=== PATIENT | female | born 1955 | race Caucasian/White ===

== ENCOUNTER 2016-11-16 23:46 | Emergency (ER) | payer MEDICARE, OTHER ==
[2016-11-16] MEDS ORDERED: ONDANSETRON 4 MG/2 ML VIAL IVP STA (23:59)
[2016-11-16] MEDS ORDERED: KETOROLAC 30 MG/ML 1 ML VIAL IVP STA (23:59)
[2016-11-17] MEDS ORDERED: ALBUTEROL NEBULIZED 7.5 MG, IPRATROPIUM NEBULIZED 0.5 MG, SODIUM CHLORIDE 0.9% NEBULIZ ... INHALATION ONE ×3
[2016-11-17] MEDS ORDERED: methylPREDNISolone SOD SUCCI 125 MG/2 ML VIAL IV STA (00:01)
[2016-11-17] MEDS ORDERED: SODIUM CHLORIDE 0.9% 500 ML IV STA (00:01)
[2016-11-17 00:07] VITALS: RESP 20
--- NOTE | 2016-11-17 00:07 | ED ---
SOB HPI - General Stated Complaint: SOB Time Seen by Provider: 11/16/16 23:50 Source: RN notes reviewed - History of Present Illness Initial Comments: 61-year-old female presents emergency department with a chief complaint of cough. Patient states she's had cough and shortness of breath past few days. Patient states that she has felt wheezy. Patient denies any productive to cough. Patient states that the history of bronchitis and pneumonia. Patient states she feels like she has that. Patient states she just feels very weak and rundown. Patient states that she has noticed hot and cold flashes with this as well. Patient states that she was concerned due to her continued symptoms that she thought that she should be evaluated. Patient denies any recent fever, chills, chest pain, back pain, abdominal pain, nausea vomiting, numbness or tingling, dysuria or hematuria, constipation or diarrhea, headaches or visual changes, or any other current symptoms. - Related Data Home Medications Medication Instructions Recorded Confirmed HYDROcodone/APAP 10-325MG [[place] 1 each PO Q4HR PRN 05/20/14 02/03/16 10-325] Lisinopril [Zestril] 5 mg PO DAILY 05/20/14 02/03/16 Omeprazole [PriLOSEC] 20 mg PO AC-BID 05/20/14 02/03/16 Simvastatin [Zocor] 20 mg PO HS 05/20/14 02/03/16 diphenhydrAMINE [Benadryl] 50 mg PO HS PRN 05/20/14 02/03/16 Previous Rx's Medication Instructions Recorded Amoxicillin 500 mg PO Q8H #30 capsule 02/03/16 Albuterol Inhaler [Ventolin Hfa 1 - 2 puff INHALATION Q4-6H PRN #1 11/17/16 Inhaler] inhaler Albuterol Nebulized [Ventolin 2.5 mg INHALATION Q4H #20 nebu 11/17/16 Nebulized] Amoxicillin/Potassium Clav 1 tab PO Q12HR #20 tab 11/17/16 [Augmentin 875-125 Tablet] Azithromycin [Zithromax] 250 mg PO DIRECTED #6 tab 11/17/16 Allergies Allergy/AdvReac Type Severity Reaction Status Date / Time cephalexin monohydrate Allergy Anaphylaxis Verified 02/03/16 11:17 [From Keflex] Cephalosporins Allergy Unknown Verified 02/03/16 11:17 ciprofloxacin HCl Allergy Unknown Verified 02/03/16 11:17 [From Cipro] clindamycin HCl Allergy Unknown Verified 02/03/16 11:17 [From Cleocin] erythromycin base Allergy Unknown Verified 02/03/16 11:17 levofloxacin [From Levaquin] Allergy Unknown Verified 02/03/16 11:17 sulfamethoxazole Allergy Unknown Verified 02/03/16 11:17 [From Bactrim] trimethoprim [From Bactrim] Allergy Unknown Verified 02/03/16 11:17 Review of Systems ROS Statement: Those systems with pertinent positive or pertinent negative responses have been documented in the HPI. ROS Other: All systems not noted in ROS Statement are negative. Past Medical History Past Medical History: Hyperlipidemia, Hypertension Additional Past Medical History / Comment(s): FX BACK 3 YEARS AGO. FX NECK WHEN SHE WAS 14 DIVING INTO A POOL. CERVICAL CA. Mitral valve prolapse, Crohn's History of Any Multi-Drug Resistant Organisms: None Reported Past Surgical History: Hysterectomy, Orthopedic Surgery Additional Past Surgical History / Comment(s): LEFT SHOULDER ARTHROSCOPY - 2009 ; LEFT ANKLE ARTHROSCOPY - 2001; BILATERAL KNEE ARTHROSCOPY - 2000, heart catheterization, sinus surgery, tonsillectomy, colonoscopy Past Anesthesia/Blood Transfusion Reactions: No Reported Reaction Past Psychological History: No Psychological Hx Reported Smoking Status: Former smoker Past Alcohol Use History: None Reported Past Drug Use History: None Reported General Exam - General Exam Comments Initial Comments: General: The patient is awake and alert, in no distress, and does not appear acutely ill. Eye: Pupils are equal, round and reactive to light, extra-ocular movements are intact; there is normal conjunctiva bilaterally. No signs of icterus. Ears, nose, mouth and throat: There are moist mucous membranes. Neck: The neck is supple, there is no tenderness. Cardiovascular: There is a regular rate and rhythm. No murmur, rub or gallop is appreciated. Respiratory: Lungs are clear to auscultation, respirations are non-labored, breath sounds are equal but diminished. Diffuse inspiratory and expiratory wheezes noted, no, stridor, rales, or rhonchi. Gastrointestinal: Soft, non-distended, non-tender abdomen without masses or organomegaly noted. There is no rebound or guarding present. No CVA tenderness. Bowel sounds are unremarkable. Back: There is no tenderness to palpation in the midline. There is no obvious deformity. No rashes noted. Musculoskeletal: Normal ROM, no tenderness, There is no pedal edema. There is no calf tenderness or swelling. Sensation intact. Pulses equal bilaterally 2+. Neurological: CN II-XII intact, There are no obvious motor or sensory deficits. Coordination appears grossly intact. Speech is normal. Skin: Skin is warm and dry and no rashes or lesions are noted. Psychiatric: Cooperative, appropriate mood & affect, normal judgment. Course Vital Signs 11/17/16 11/17/16 11/17/16 00:04 00:39 00:54 Temperature 97.5 F L Pulse Rate 78 69 72 Respiratory 20 Rate Blood Pressure 158/84 O2 Sat by Pulse 96 Oximetry 11/17/16 11/17/16 01:27 01:36 Temperature Pulse Rate 86 104 H Respiratory Rate Blood Pressure O2 Sat by Pulse Oximetry - Reevaluation(s) Reevaluation #1: 11/17/16 01:48 Patient was reassessed after the breathing treatment. Patient's wheezing has resolved she states to get up and walk to the bathroom. Patient states she is feeling much better. Medical Decision Making - Medical Decision Making 61-year-old female presents emergency department chief complaint of shortness of breath. At this time the patient does appear to cerebri bronchitis along with possible asthma exacerbation. She is on steroids already we will add antibiotics we will add a nebulizer breathing treatment as well as an inhaler to the patient's regimen. We discussed return parameters and follow-up. We did discuss other etiologies are discussed all the patient's questions. She states she understood she is in good plan. She'll be discharged home. - Lab Data Result diagrams: 11/16/16 23:48 11/16/16 23:48 Lab Results 11/16/16 11/16/16 11/16/16 Range/Units 23:48 23:48 23:48 WBC 5.9 (3.8-10.6) k/uL RBC 4.20 (3.80-5.40) m/uL Hgb 13.5 (11.4-16.0) gm/dL Hct 40.1 (34.0-46.0) % MCV 95.5 (80.0-100.0) fL MCH 32.0 (25.0-35.0) pg MCHC 33.5 (31.0-37.0) g/dL RDW 12.7 (11.5-15.5) % Plt Count 170 (150-450) k/uL Neutrophils % 70 % Lymphocytes % 15 % Monocytes % 6 % Eosinophils % 4 % Basophils % 1 % Neutrophils # 4.1 (1.3-7.7) k/uL Lymphocytes # 0.9 L (1.0-4.8) k/uL Monocytes # 0.3 (0-1.0) k/uL Eosinophils # 0.2 (0-0.7) k/uL Basophils # 0.1 (0-0.2) k/uL PT (9.0-12.0) sec INR (<1.1) APTT (22.0-30.0) sec Sodium 137 (137-145) mmol/L Potassium 5.1 (3.5-5.1) mmol/L Chloride 102 (98-107) mmol/L Carbon Dioxide 25 (22-30) mmol/L Anion Gap 10 mmol/L BUN 21 H (7-17) mg/dL Creatinine 0.72 (0.52-1.04) mg/dL Est GFR (MDRD) Af Amer >60 (>60 ml/min/1.73 sqM) Est GFR (MDRD) Non-Af >60 (>60 ml/min/1.73 sqM) Glucose 114 H (74-99) mg/dL Calcium 8.9 (8.4-10.2) mg/dL Magnesium 1.7 (1.6-2.3) mg/dL Total Bilirubin 0.6 (0.2-1.3) mg/dL AST 33 (14-36) U/L ALT 39 (9-52) U/L Alkaline Phosphatase 52 (38-126) U/L Total Creatine Kinase 78 (30-135) U/L CK-MB (CK-2) 1.3 (0.0-2.4) ng/mL CK-MB (CK-2) Rel Index 1.7 Troponin I <0.012 (0.000-0.034) ng/mL Total Protein 6.8 (6.3-8.2) g/dL Albumin 3.9 (3.5-5.0) g/dL Amylase 55 (30-110) U/L Lipase 102 (23-300) U/L Influenza Type A RNA (Not Detectd) Influenza Type B (PCR) (Not Detectd) 11/16/16 11/17/16 Range/Units 23:48 00:25 WBC (3.8-10.6) k/uL RBC (3.80-5.40) m/uL Hgb (11.4-16.0) gm/dL Hct (34.0-46.0) % MCV (80.0-100.0) fL MCH (25.0-35.0) pg MCHC (31.0-37.0) g/dL RDW (11.5-15.5) % Plt Count (150-450) k/uL Neutrophils % % Lymphocytes % % Monocytes % % Eosinophils % % Basophils % % Neutrophils # (1.3-7.7) k/uL Lymphocytes # (1.0-4.8) k/uL Monocytes # (0-1.0) k/uL Eosinophils # (0-0.7) k/uL Basophils # (0-0.2) k/uL PT 10.6 (9.0-12.0) sec INR 1.0 (<1.1) APTT 22.7 (22.0-30.0) sec Sodium (137-145) mmol/L Potassium (3.5-5.1) mmol/L Chloride (98-107) mmol/L Carbon Dioxide (22-30) mmol/L Anion Gap mmol/L BUN (7-17) mg/dL Creatinine (0.52-1.04) mg/dL Est GFR (MDRD) Af Amer (>60 ml/min/1.73 sqM) Est GFR (MDRD) Non-Af (>60 ml/min/1.73 sqM) Glucose (74-99) mg/dL Calcium (8.4-10.2) mg/dL Magnesium (1.6-2.3) mg/dL Total Bilirubin (0.2-1.3) mg/dL AST (14-36) U/L ALT (9-52) U/L Alkaline Phosphatase (38-126) U/L Total Creatine Kinase (30-135) U/L CK-MB (CK-2) (0.0-2.4) ng/mL CK-MB (CK-2) Rel Index Troponin I (0.000-0.034) ng/mL Total Protein (6.3-8.2) g/dL Albumin (3.5-5.0) g/dL Amylase (30-110) U/L Lipase (23-300) U/L Influenza Type A RNA Not Detected (Not Detectd) Influenza Type B (PCR) Not Detected (Not Detectd) 11/17/16 01:49 normal sinus rhythm 70 bpm, normal axis, no atopy, no S-T depressions or elevations, - Radiology Data Radiology results: report reviewed, image reviewed Disposition Clinical Impression: Acute bronchitis, Asthma exacerbation Disposition: HOME SELF-CARE Condition: Stable Instructions: Asthma (ED) Additional Instructions: Please use medication as discussed. Please follow up with family doctor if symptoms have not improved over the next two days. Please return to the emergency room if your symptoms increase or worsen or for any other concerns. Prescriptions: Albuterol Inhaler [Ventolin Hfa Inhaler] 1 - 2 puff INHALATION Q4-6H PRN #1 inhaler PRN Reason: Cough Albuterol Nebulized [Ventolin Nebulized] 2.5 mg INHALATION Q4H #20 nebu Amoxicillin/Potassium Clav [Augmentin 875-125 Tablet] 1 tab PO Q12HR #20 tab Azithromycin [Zithromax] 250 mg PO DIRECTED #6 tab Referrals: Ingris Crenshaw MD [Primary Care Provider] - 1-2 days Time of Disposition: 01:49
[2016-11-17 00:18] LABS: Basophils # (A) 0.1 k/uL (0-0.2); Basophils % (A) 1 %; CH 31.8; CHCM 33.5; Eosinophils # (A) 0.2 k/uL (0-0.7); Eosinophils % (A) 4 %; HCT 40.1 % (34.0-46.0); HDW 2.35; HGB 13.5 gm/dL (11.4-16.0); Luc # (Auto) 0.21; Luc % (Auto) 4; Lymphocytes # (A) 0.9 k/uL (1.0-4.8); Lymphocytes % (A) 15 %; MCHC 33.5 g/dL (31.0-37.0); MCV 95.5 fL (80.0-100.0); Monocytes # (A) 0.3 k/uL (0-1.0); Monocytes % (A) 6 %; Neutrophils # (A) 4.1 k/uL (1.3-7.7); Neutrophils % (A) 70 %; RDW 12.7 % (11.5-15.5); WBC 5.9 k/uL (3.8-10.6); WBC (Perox) 5.95
[2016-11-17 00:29] LABS: ALT 39 U/L (9-52); AST 33 U/L (14-36); Alkaline Phosphatase 52 U/L (38-126); Amylase 55 U/L (30-110); Anion Gap 10 mmol/L; Blood Urea Nitrogen 21 mg/dL (7-17); Calcium 8.9 mg/dL (8.4-10.2); Carbon Dioxide 25 mmol/L (22-30); Chloride 102 mmol/L (98-107); Glucose 114 mg/dL (74-99); Magnesium 1.7 mg/dL (1.6-2.3); Non-African American GFR(MDRD) >60 (>60 ml/min/1.73 sqM); Potassium 5.1 mmol/L (3.5-5.1); Sodium 137 mmol/L (137-145); Total Bilirubin 0.6 mg/dL (0.2-1.3); Total Protein 6.8 g/dL (6.3-8.2)
[2016-11-17 00:48] LABS: Creatine Kinase 78 U/L (30-135)
--- NOTE | 2016-11-17 00:52 | XR ---
EXAM: XR Chest, 2 Views. CLINICAL HISTORY: Reason: Chest Pain TECHNIQUE: Frontal and lateral views of the chest. COMPARISON: Thoracic spine radiographs 05/25/2016 FINDINGS: Lungs: Lungs are clear of acute pulmonary infiltrates or consolidations. Pleural space: No evidence of pleural disease or effusion. No pneumothorax. Heart: Heart size and mediastinal structures are within normal limits. Focal opacity in the right cardiophrenic angle remains unchanged since 05/25/2016 and may represent prominent cardiophrenic fat pad or possible pericardial cyst. Mediastinum: Unremarkable. Vasculature: Peripheral calcified ovoid density projects to the left upper quadrant, unchanged and may represent calcified splenic cyst or possible splenic artery aneurysm. IMPRESSION: No evidence of acute cardiopulmonary disease. Stable right cardiophrenic opacity as discussed in body of report. Left upper quadrant Calcified lesion as described in body of report.
[2016-11-17 01:02] LABS: Creatine Kinase MB 1.3 ng/mL (0.0-2.4); Troponin I <0.012 ng/mL (0.000-0.034)
[2016-11-17 01:38] LABS: Partial Thromboplastin Time 22.7 sec (22.0-30.0); Prothrombin Time 10.6 sec (9.0-12.0)
[2016-11-17] MEDS ORDERED: KETOROLAC 30 MG/ML 1 ML VIAL IVP STA (01:53)
[2016-11-17] MEDS ORDERED: AMOXIC-POT CLAV 875MG STARTER 2 EACH TABLET PO STA (02:33)
[2016-11-17 02:50] VITALS: BP 108/65; PULSE 112; TEMP 98.1
== END 2016-11-17 02:50 | disposition home or self-care (01) ==
LOC: EC 23:46
DX: J45.901 Unspecified asthma with (acute) exacerbation (principal); J20.9 Acute bronchitis, unspecified; E78.5 Hyperlipidemia, unspecified; I10 Essential (primary) hypertension; Z79.899 Other long term (current) drug therapy; Z88.1 Allergy status to other antibiotic agents; Z88.2 Allergy status to sulfonamides; Z87.891 Personal history of nicotine dependence
CPT/HCPCS: 36415; 94644; 93005; 80053; 82150; 82550; 82553; 83690; 83735; 84484; 85025; 85610; 85730; 87502; 71020; 99285; 96374; 96375 ×2; 96376; J2930; J2405; J1885

== ENCOUNTER 2017-11-09 08:06 | Emergency (ER) | payer MEDICARE, OTHER ==
[2017-11-09] MEDS ORDERED: SODIUM CHLORIDE 0.9% 500 ML IV STA (08:28)
--- NOTE | 2017-11-09 08:30 | ED ---
General Adult HPI - General Chief complaint: Recheck/Abnormal Lab/Rx Stated complaint: High blood pressure Time Seen by Provider: 11/09/17 08:15 Source: patient, RN notes reviewed Mode of arrival: ambulatory Limitations: no limitations - History of Present Illness Initial comments: Patient 62-year-old female who presents emergency room today with a chief complaint of elevated blood pressure. She states she was at her ENERGY ATTORNEY's office yesterday had her blood pressure checked there and was elevated. She states she was called later and told her blood pressure was up and follow-up the family doctor. She states she did see her family physician yesterday who advised her to increase her lisinopril 5 mg to 10 mg by mouth she states she took a dose yesterday at 4 PM and another dose at 4 AM this morning. Patient states that she checked her blood pressures morning was still elevated. She states she is concerned. She denies any other complaints or symptoms. Patient denies any recent fever, chills, shortness of breath, chest pain, back pain, abdominal pain, nausea or vomiting, headaches or visual changes, or any other complaints. - Related Data Home Medications Medication Instructions Recorded Confirmed HYDROcodone/APAP 10-325MG [[place] 1 tab PO QID PRN 05/20/14 11/09/17 10-325] Lisinopril [Zestril] 5 mg PO DAILY@0100 05/20/14 11/09/17 Omeprazole [PriLOSEC] 20 mg PO AC-BID 05/20/14 11/09/17 Simvastatin [Zocor] 20 mg PO HS 05/20/14 11/09/17 diphenhydrAMINE [Benadryl] 50 mg PO HS PRN 05/20/14 11/09/17 Estradiol Cream [Estrace Cream 1 applic VAGINAL MOTH 11/09/17 11/09/17 0.01%] Lisinopril [Zestril] 5 mg PO ONCE@1600 11/09/17 11/09/17 Allergies Allergy/AdvReac Type Severity Reaction Status Date / Time cephalexin monohydrate Allergy Anaphylaxis Verified 11/09/17 08:35 [From Keflex] Cephalosporins Allergy Unknown Verified 11/09/17 08:35 ciprofloxacin HCl Allergy Unknown Verified 11/09/17 08:35 [From Cipro] clindamycin HCl Allergy Unknown Verified 11/09/17 08:35 [From Cleocin] erythromycin base Allergy Unknown Verified 11/09/17 08:35 levofloxacin [From Levaquin] Allergy Unknown Verified 11/09/17 08:35 sulfamethoxazole Allergy Unknown Verified 11/09/17 08:35 [From Bactrim] trimethoprim [From Bactrim] Allergy Unknown Verified 11/09/17 08:35 Review of Systems ROS Statement: Those systems with pertinent positive or pertinent negative responses have been documented in the HPI. ROS Other: All systems not noted in ROS Statement are negative. Past Medical History Past Medical History: Hyperlipidemia, Hypertension Additional Past Medical History / Comment(s): FX BACK 3 YEARS AGO. FX NECK WHEN SHE WAS 14 DIVING INTO A POOL. CERVICAL CA. Mitral valve prolapse, Crohn's History of Any Multi-Drug Resistant Organisms: None Reported Past Surgical History: Hysterectomy, Orthopedic Surgery Additional Past Surgical History / Comment(s): LEFT SHOULDER ARTHROSCOPY - 2009 ; LEFT ANKLE ARTHROSCOPY - 2001; BILATERAL KNEE ARTHROSCOPY - 2000, heart catheterization, sinus surgery, tonsillectomy, colonoscopy Past Anesthesia/Blood Transfusion Reactions: No Reported Reaction Past Psychological History: No Psychological Hx Reported Smoking Status: Former smoker Past Alcohol Use History: None Reported Past Drug Use History: None Reported General Exam - General Exam Comments Initial Comments: General: The patient is awake and alert, very anxious. Eye: Pupils are equal, round and reactive to light, extra-ocular movements are intact. No nystagmus. There is normal conjunctiva bilaterally. No signs of icterus. Ears, nose, mouth and throat: There are moist mucous membranes and no oral lesions. Neck: The neck is supple, there is no tenderness or JVD. Cardiovascular: There is a regular rate and rhythm. No murmur, rub or gallop is appreciated. Respiratory: Lungs are clear to auscultation, respirations are non-labored, breath sounds are equal. No wheezes, stridor, rales, or rhonchi. Musculoskeletal: Normal ROM, no tenderness. Strength 5/5. Sensation intact. Pulses equal bilaterally 2+. Neurological: A&O x 3. CN II-XII intact, There are no obvious motor or sensory deficits. Coordination appears grossly intact. Speech is normal. Skin: Skin is warm and dry and no rashes or lesions are noted. Psychiatric: Cooperative, appropriate mood & affect, normal judgment. Limitations: no limitations Course Vital Signs 11/09/17 11/09/17 11/09/17 08:08 09:04 09:45 Temperature 98.1 F Pulse Rate 93 83 83 Respiratory 20 20 18 Rate Blood Pressure 166/102 140/92 147/87 O2 Sat by Pulse 98 94 L 95 Oximetry Medical Decision Making - Medical Decision Making Patient reexamined distention no signs of distress. Patient's blood pressure has improved here in the emergency room. Her last dose of lisinopril was at 4 AM. Discussed with the patient may be just starting to work at this time. Patient's blood work is unremarkable. Patient feeling better here in the emergency room she's been a symptom affect but does admit to some anxiety. Patient will be discharged home advised to continue checking blood pressure and use medication as directed from the family doctor. - Lab Data Result diagrams: 11/09/17 09:03 11/09/17 09:03 Lab Results 11/09/17 11/09/17 Range/Units 09:03 09:03 WBC 6.6 (3.8-10.6) k/uL RBC 4.61 (3.80-5.40) m/uL Hgb 14.5 (11.4-16.0) gm/dL Hct 42.4 (34.0-46.0) % MCV 91.9 (80.0-100.0) fL MCH 31.4 (25.0-35.0) pg MCHC 34.2 (31.0-37.0) g/dL RDW 13.0 (11.5-15.5) % Plt Count 269 (150-450) k/uL Neutrophils % 59 % Lymphocytes % 31 % Monocytes % 5 % Eosinophils % 3 % Basophils % 1 % Neutrophils # 3.9 (1.3-7.7) k/uL Lymphocytes # 2.0 (1.0-4.8) k/uL Monocytes # 0.3 (0-1.0) k/uL Eosinophils # 0.2 (0-0.7) k/uL Basophils # 0.1 (0-0.2) k/uL Sodium 141 (137-145) mmol/L Potassium 4.7 (3.5-5.1) mmol/L Chloride 104 (98-107) mmol/L Carbon Dioxide 26 (22-30) mmol/L Anion Gap 11 mmol/L BUN 17 (7-17) mg/dL Creatinine 0.81 (0.52-1.04) mg/dL Est GFR (CKD-EPI)AfAm >90 (>60 ml/min/1.73 sqM) Est GFR (CKD-EPI)NonAf 78 (>60 ml/min/1.73 sqM) Glucose 103 H (74-99) mg/dL Calcium 9.7 (8.4-10.2) mg/dL Total Bilirubin 0.6 (0.2-1.3) mg/dL AST 29 (14-36) U/L ALT 34 (9-52) U/L Alkaline Phosphatase 68 (38-126) U/L Total Protein 7.2 (6.3-8.2) g/dL Albumin 4.5 (3.5-5.0) g/dL Disposition Clinical Impression: Elevated blood pressure reading Disposition: HOME SELF-CARE Condition: Good Instructions: Hypertension (ED) Additional Instructions: Please use medication as discussed. Please follow-up with family doctor in the next 2 days of symptoms have not improved. Please return to emergency room if the symptoms increase or worsen or for any other concerns. Referrals: Ingris Crenshaw MD [Primary Care Provider] - 1-2 days Time of Disposition: 10:32
--- NOTE | 2017-11-09 09:10 | XR ---
EXAMINATION TYPE: XR chest 2V DATE OF EXAM: 11/09/2017 COMPARISON: 11/17/2016 TECHNIQUE: PA and lateral views submitted. HISTORY: Hypertension FINDINGS: The lungs are clear and there is no pneumothorax, pleural effusion, or focal pneumonia. Right cardi ophrenic angle density stable may represent pericardial cyst or pericardial fat pad. Unchanged from . Calcification left upper quadrant could represent a calcified splenic cysts or splenic artery aneurys m and stable. Atherosclerotic change aorta and degenerative change of the spine. Chronic appearing we dge deformities in the lower thoracic spine. IMPRESSION: 1. No acute process. 2. Right cardiophrenic angle density appears to represent a prominent pericardial fat pad or possibly a hernia with partial visualization on the previous CT scan of 05/20/2014 confirming that these 2 pos sibilities are likely the etiology. Compressive atelectasis is also likely chronic.
[2017-11-09 09:19] LABS: Basophils # (A) 0.1 k/uL (0-0.2); Basophils % (A) 1 %; Eosinophils # (A) 0.2 k/uL (0-0.7); Eosinophils % (A) 3 %; HCT 42.4 % (34.0-46.0); HGB 14.5 gm/dL (11.4-16.0); Lymphocytes % (A) 31 %; MCH 31.4 pg (25.0-35.0); MCHC 34.2 g/dL (31.0-37.0); MCV 91.9 fL (80.0-100.0); Monocytes # (A) 0.3 k/uL (0-1.0); Monocytes % (A) 5 %; Neutrophils # (A) 3.9 k/uL (1.3-7.7); Neutrophils % (A) 59 %; Platelet Count 269 k/uL (150-450); RBC 4.61 m/uL (3.80-5.40); WBC 6.6 k/uL (3.8-10.6)
[2017-11-09 09:26] LABS: ALT 34 U/L (9-52); AST 29 U/L (14-36); Albumin 4.5 g/dL (3.5-5.0); Alkaline Phosphatase 68 U/L (38-126); Anion Gap 11 mmol/L; Blood Urea Nitrogen 17 mg/dL (7-17); Calcium 9.7 mg/dL (8.4-10.2); Carbon Dioxide 26 mmol/L (22-30); Chloride 104 mmol/L (98-107); Glucose 103 mg/dL (74-99); Potassium 4.7 mmol/L (3.5-5.1); Sodium 141 mmol/L (137-145); Total Bilirubin 0.6 mg/dL (0.2-1.3); Total Protein 7.2 g/dL (6.3-8.2)
[2017-11-09 09:47] VITALS: RESP 18
[2017-11-09 10:52] VITALS: BP 135/88; PULSE 81; TEMP 97.9
== END 2017-11-09 10:52 | disposition home or self-care (01) ==
LOC: EC 08:06
DX: I10 Essential (primary) hypertension (principal); E78.5 Hyperlipidemia, unspecified; Z87.891 Personal history of nicotine dependence; Z79.899 Other long term (current) drug therapy; Z88.1 Allergy status to other antibiotic agents; Z85.41 Personal history of malignant neoplasm of cervix uteri; Z90.710 Acquired absence of both cervix and uterus; Z95.9 Presence of cardiac and vascular implant and graft, unspecified
CPT/HCPCS: 36415; 71046; 80053; 85025; 96360; 99283

== ENCOUNTER 2017-11-09 20:23 | Observation (INO) | payer MEDICARE, OTHER ==
[2017-11-09 21:25] LABS: Basophils % (A) 1 %; Eosinophils # (A) 0.2 k/uL (0-0.7); Eosinophils % (A) 3 %; HCT 41.1 % (34.0-46.0); HGB 13.8 gm/dL (11.4-16.0); Lymphocytes # (A) 2.5 k/uL (1.0-4.8); Lymphocytes % (A) 35 %; MCH 31.2 pg (25.0-35.0); MCHC 33.6 g/dL (31.0-37.0); MCV 92.7 fL (80.0-100.0); Mean Platelet Volume 7.2; Monocytes # (A) 0.4 k/uL (0-1.0); Monocytes % (A) 6 %; Neutrophils # (A) 3.8 k/uL (1.3-7.7); Neutrophils % (A) 54 %; Platelet Count 267 k/uL (150-450); RBC 4.44 m/uL (3.80-5.40); RDW 12.9 % (11.5-15.5)
[2017-11-09 21:36] LABS: Albumin 4.3 g/dL (3.5-5.0); Calcium 9.8 mg/dL (8.4-10.2); Magnesium 1.8 mg/dL (1.6-2.3); Total Bilirubin 0.4 mg/dL (0.2-1.3); Total Protein 6.9 g/dL (6.3-8.2)
[2017-11-09 21:38] LABS: D-Dimer 0.38 mg/L FEU (<0.60); Partial Thromboplastin Time 22.3 sec (22.0-30.0); Prothrombin Time 9.7 sec (9.0-12.0)
[2017-11-09 21:39] LABS: Creatine Kinase 106 U/L (30-135)
[2017-11-09 21:52] LABS: Creatine Kinase MB 1.4 ng/mL (0.0-2.4); Troponin I <0.012 ng/mL (0.000-0.034)
[2017-11-09] MEDS ORDERED: LABETALOL 5 MG/ML VIAL MDV IVP STA (23:16)
[2017-11-09] MEDS ORDERED: NITROGLYCERIN SL TABS 0.4 MG TAB SUBLINGUAL PRN (23:21)
--- NOTE | 2017-11-09 23:21 | ED ---
Chest Pain HPI - General Chief Complaint: Chest Pain Stated Complaint: High BP-revisit Time Seen by Provider: 11/09/17 22:06 Source: patient Mode of arrival: ambulatory Limitations: no limitations - History of Present Illness Initial Comments: This 62-year-old white female presents with a complaint of high blood pressure. Her blood pressure has been up to the 170 systolic today. This is been making her very nervous. She was seen in the ER earlier today. She is also seen by her flat ironer and her primary care physician. Her lisinopril was increased to twice a day. She states that she later developed some left-sided chest pressure. This is nonradiating. She denies any shortness of breath. She seems somewhat fixated on her blood pressure. She denies any known previous coronary artery disease. She states that she has had a heart catheterization in the past. She is unsure when. This did not show any abnormalities. She has a history of remote stress test as well. She denies any other complaints or modifying factors. Pain or swelling or history DVT or PE. - Related Data Home Medications Medication Instructions Recorded Confirmed HYDROcodone/APAP 10-325MG [[place] 1 tab PO QID PRN 05/20/14 11/09/17 10-325] Lisinopril [Zestril] 5 mg PO DAILY@0100 05/20/14 11/09/17 Omeprazole [PriLOSEC] 20 mg PO AC-BID 05/20/14 11/09/17 Simvastatin [Zocor] 20 mg PO HS 05/20/14 11/09/17 diphenhydrAMINE [Benadryl] 25 mg PO HS PRN 05/20/14 11/09/17 Estradiol Cream [Estrace Cream 1 applic VAGINAL MOTH 11/09/17 11/09/17 0.01%] Lisinopril [Zestril] 5 mg PO ONCE@1600 11/09/17 11/09/17 Allergies Allergy/AdvReac Type Severity Reaction Status Date / Time cephalexin monohydrate Allergy Anaphylaxis Verified 11/09/17 21:31 [From Keflex] Cephalosporins Allergy Unknown Verified 11/09/17 21:31 ciprofloxacin HCl Allergy Unknown Verified 11/09/17 21:31 [From Cipro] clindamycin HCl Allergy Unknown Verified 11/09/17 21:31 [From Cleocin] erythromycin base Allergy Unknown Verified 11/09/17 21:31 levofloxacin [From Levaquin] Allergy Unknown Verified 11/09/17 21:31 sulfamethoxazole Allergy Unknown Verified 11/09/17 21:31 [From Bactrim] trimethoprim [From Bactrim] Allergy Unknown Verified 11/09/17 21:31 Review of Systems ROS Statement: Those systems with pertinent positive or pertinent negative responses have been documented in the HPI. ROS Other: All systems not noted in ROS Statement are negative. Past Medical History Past Medical History: Hyperlipidemia, Hypertension Additional Past Medical History / Comment(s): FX BACK 3 YEARS AGO. FX NECK WHEN SHE WAS 14 DIVING INTO A POOL. CERVICAL CA. Mitral valve prolapse, Crohn's History of Any Multi-Drug Resistant Organisms: None Reported Past Surgical History: Hysterectomy, Orthopedic Surgery Additional Past Surgical History / Comment(s): LEFT SHOULDER ARTHROSCOPY - 2009 ; LEFT ANKLE ARTHROSCOPY - 2001; BILATERAL KNEE ARTHROSCOPY - 2000, heart catheterization, sinus surgery, tonsillectomy, colonoscopy Past Anesthesia/Blood Transfusion Reactions: No Reported Reaction Past Psychological History: Anxiety Smoking Status: Former smoker Past Alcohol Use History: None Reported Past Drug Use History: None Reported General Exam - General Exam Comments Initial Comments: GENERAL: The patient is well nourished and well hydrated. VITAL SIGNS: Heart rate, blood pressure, respiratory rate reviewed as recorded in nurse's notes. EYES: Pupils are round and reactive. Extraocular movements are intact. No conjunctival / lid redness or swelling. ENT: No external evidence of injury, swelling, or ecchymosis. Airway is patent. Throat is clear. NECK: Nontender. No swelling or evidence of injury. No subcutaneous emphysema. Trachea is midline. No thyroid mass. HEART: Regular rate and rhythm. Good peripheral pulses. LUNGS/CHEST: Breath sounds clear and equal bilaterally. No rales, rhonchi, or wheezes. No ecchymosis, subcutaneous emphysema, or tenderness. ABDOMEN: Abdomen soft without tenderness. No palpable masses or organomegaly. No peritoneal signs. No abdominal wall swelling or ecchymosis. EXTREMITIES: No extremity tenderness. Normal muscle tone and function. No thoracolumbar tenderness. NEUROLOGIC: Sensation is grossly intact. Cranial nerve exam reveals face is symmetrical, tongue is midline, speech is clear. SKIN: No abrasions or ecchymosis is noted. No induration or masses noted. PSYCHIATRIC: Alert and oriented. Appears anxious at times. Limitations: no limitations Course Vital Signs 11/09/17 11/09/17 11/09/17 20:46 21:59 22:36 Temperature 98.5 F Pulse Rate 91 79 78 Respiratory 18 18 18 Rate Blood Pressure 164/97 159/98 141/89 O2 Sat by Pulse 98 95 96 Oximetry Chest Pain MDM - [facility] The patient was seen and examined. All diagnostics were reviewed. She is placed on a solvent mixer and no ectopy is identified. The EKG shows a normal sinus rhythm at a rate of 74. There is some T-wave inversions in V1 through V3. No other acute abnormalities are noted. The FL intervals 144, QRS duration is 94, and the QTC intervals 466. The chest x-ray was reviewed from earlier today and this does not show any acute processes. The cardiac profile labs are essentially unremarkable. She does receive some labetalol for her hypertension. It is felt as though she would require admission for further workup of the chest pain and the possibility of acute coronary syndrome. She is agreeable. Case is discussed with Dr. Crenshaw and he is agreeable to admission as well. Disposition Clinical Impression: Chest pain, Unstable angina pectoris, Hypertension, Anxiety Disposition: ADMITTED IP TO THIS HOSP Condition: Fair Referrals: Ingris Crenshaw MD [Primary Care Provider] - 1-2 days Time of Disposition: 23:21 Decision Date: 11/09/17 Decision Time: 23:21
[2017-11-09] MEDS ORDERED: LABETALOL 5 MG/ML VIAL MDV IVP PRN (23:25)
[2017-11-09] MEDS ORDERED: LISINOPRIL 5 MG TAB PO SCH (23:30)
[2017-11-09] MEDS ORDERED: cloNIDine HCL 0.1 MG TAB PO PRN (23:46)
[2017-11-10] MEDS ORDERED: LISINOPRIL 5 MG TAB PO SCH (01:00)
[2017-11-10] MEDS: NITROGLYCERIN OINT 1 INCH/GM PACKET TOPICAL SCH ×4 (01:17→18:24)
[2017-11-10] MEDS: diphenhydrAMINE 25 MG CAP PO PRN (01:27)
[2017-11-10 01:40] VITALS: BMI 34.9
[2017-11-10 04:38] LABS: Cholesterol 150 mg/dL (<200); HDL Cholesterol 67 mg/dL (40-60); LDL Cholesterol,Calculated 73 mg/dL (0-99); Triglycerides 51 mg/dL (<150)
[2017-11-10 04:57] LABS: Creatine Kinase 88 U/L (30-135)
[2017-11-10 05:11] LABS: Creatine Kinase MB 1.1 ng/mL (0.0-2.4); Troponin I <0.012 ng/mL (0.000-0.034)
[2017-11-10 10:15] LABS: Creatine Kinase 85 U/L (30-135)
[2017-11-10 10:27] LABS: Troponin I <0.012 ng/mL (0.000-0.034)
[2017-11-10] MEDS ORDERED: LISINOPRIL 10 MG TAB PO SCH (10:45)
--- NOTE | 2017-11-10 10:45 | P.HPIM ---
History of Present Illness H&P Date: 11/10/17 Chief Complaint: Chest pain and elevated blood pressure Jeannine Sevilla is a 62-year-old female well known to my practice who presented to [facility] emergency room due to elevated blood pressure, she had a blood pressure of 170/100 she started having chest heaviness she was evaluated in emergency room and admitted to observation for further evaluation and treatment. Patient was maintained on lisinopril 5 mg once daily, her dose was increased recently to 5 mg twice daily, however she continued to have elevated blood pressure readings. Past Medical History Past Medical History: Hyperlipidemia, Hypertension Additional Past Medical History / Comment(s): FX BACK 3 YEARS AGO. FX NECK WHEN SHE WAS 14 DIVING INTO A POOL. CERVICAL CA. Mitral valve prolapse, Crohn's History of Any Multi-Drug Resistant Organisms: None Reported Past Surgical History: Hysterectomy, Orthopedic Surgery Additional Past Surgical History / Comment(s): LEFT SHOULDER ARTHROSCOPY - 2009 ; LEFT ANKLE ARTHROSCOPY - 2001; BILATERAL KNEE ARTHROSCOPY - 2000, heart catheterization, sinus surgery, tonsillectomy, colonoscopy Past Anesthesia/Blood Transfusion Reactions: No Reported Reaction Past Psychological History: Anxiety Smoking Status: Former smoker Past Alcohol Use History: None Reported Past Drug Use History: None Reported Medications and Allergies Home Medications Medication Instructions Recorded Confirmed Type HYDROcodone/APAP 10-325MG [[place] 1 tab PO QID PRN 05/20/14 11/09/17 History 10-325] Lisinopril [Zestril] 5 mg PO DAILY@0100 05/20/14 11/09/17 History Omeprazole [PriLOSEC] 20 mg PO AC-BID 05/20/14 11/09/17 History Simvastatin [Zocor] 20 mg PO HS 05/20/14 11/09/17 History diphenhydrAMINE [Benadryl] 25 mg PO HS PRN 05/20/14 11/09/17 History Estradiol Cream [Estrace Cream 1 applic VAGINAL MOTH 11/09/17 11/09/17 History 0.01%] Lisinopril [Zestril] 5 mg PO ONCE@1600 11/09/17 11/09/17 History Allergies Allergy/AdvReac Type Severity Reaction Status Date / Time cephalexin monohydrate Allergy Anaphylaxis Verified 11/09/17 21:31 [From Keflex] Cephalosporins Allergy Unknown Verified 11/09/17 21:31 ciprofloxacin HCl Allergy Unknown Verified 11/09/17 21:31 [From Cipro] clindamycin HCl Allergy Unknown Verified 11/09/17 21:31 [From Cleocin] erythromycin base Allergy Unknown Verified 11/09/17 21:31 levofloxacin [From Levaquin] Allergy Unknown Verified 11/09/17 21:31 sulfamethoxazole Allergy Unknown Verified 11/09/17 21:31 [From Bactrim] trimethoprim [From Bactrim] Allergy Unknown Verified 11/09/17 21:31 Physical Exam Vitals: Vital Signs Temp Pulse Pulse Resp BP BP BP 11/10/17 08:00 98.3 F 82 18 131/72 11/10/17 07:12 15 11/10/17 04:46 97.9 F 73 15 118/79 11/10/17 00:23 98.0 F 76 16 144/91 11/09/17 23:42 73 18 137/84 11/09/17 22:36 78 18 141/89 11/09/17 21:59 79 18 159/98 11/09/17 20:46 98.5 F 91 18 164/97 Pulse Ox 11/10/17 08:00 95 11/10/17 07:12 11/10/17 04:46 97 11/10/17 00:23 96 11/09/17 23:42 96 11/09/17 22:36 96 11/09/17 21:59 95 11/09/17 20:46 98 Intake and Output 11/09/17 11/10/17 11/10/17 22:59 06:59 14:59 Other: Voiding Method Toilet Weight 95.254 kg 95.254 kg In general patient is alert and oriented 3 in no apparent distress HEENT head normocephalic and atraumatic Neck is supple no JVD no goiter no lymphadenopathy Chest exam reveals a few scattered crackles no wheezing Cardiac exam reveals regular heart sounds no gallops no murmurs Abdomen is soft nontender no organomegaly with normal bowel sounds Extremity exam reveals no edema no cyanosis or clubbing Results CBC & Chem 7: 11/09/17 21:08 11/09/17 21:08 Labs: Abnormal Lab Results - Last 24 Hours (Table) 11/09/17 11/10/17 Range/Units 21:08 03:24 BUN 19 H (7-17) mg/dL Glucose 105 H (74-99) mg/dL HDL Cholesterol 67 H (40-60) mg/dL Thrombosis Risk Factor Assmnt - Choose All That Apply Each Factor Represents 1 point: Age 41-60 years Thrombosis Risk Factor Assessment Total Risk Factor Score: 1 Thrombosis Risk Factor Assessment Level: Low Risk Assessment and Plan Plan: #1 hypertensive urgency #2 episode of chest pain #3 underlying history of hypertension #4 underlying history of mitral valve prolapse #5 underlying history of chronic neck pain At this time patient is admitted to 24-hour observation Will increase lisinopril to 10 mg in a.m. Will add atenolol 25 mg in p.m. Will follow closely cardiology consultation was requested serial EKGs and cardiac enzymes were ordered due to chest pain
--- NOTE | 2017-11-10 10:49 | P.CRDCN ---
History of Present Illness Consult date: 11/10/17 History of present illness: This is a 62-year-old female with history of hypertension and hypercholesterolemia and also seemed to be some element of anxiety, who came to the emergency room because of labile hypertension. Apparently recently she was seen by our instructor psychiatric aide for routine checkup. During that visit patient blood pressure was found to be high. She was advised to seek primary care physician. Primary care physician increase the dose of lisinopril to 5 mg. However her blood pressure was not well-controlled. Yesterday patient came to the emergency room because of concern for blood pressure. She had some vague mild chest pain also. She thought it may be related to gas. She had a stress test and echocardiogram in the past which apparently were within normal limits. Since admission here. Her dose of lisinopril was increased to 10. Her blood pressure seemed to be well controlled today. She doesn't want any testing done for chest pain. If blood pressures are stable, She will be discharged home in 24 hours. Follow-up with Dr Carolina as an outpatient. Past Medical History Past Medical History: Hyperlipidemia, Hypertension Additional Past Medical History / Comment(s): FX BACK 3 YEARS AGO. FX NECK WHEN SHE WAS 14 DIVING INTO A POOL. CERVICAL CA. Mitral valve prolapse, Crohn's History of Any Multi-Drug Resistant Organisms: None Reported Past Surgical History: Hysterectomy, Orthopedic Surgery Additional Past Surgical History / Comment(s): LEFT SHOULDER ARTHROSCOPY - 2009 ; LEFT ANKLE ARTHROSCOPY - 2001; BILATERAL KNEE ARTHROSCOPY - 2000, heart catheterization, sinus surgery, tonsillectomy, colonoscopy Past Anesthesia/Blood Transfusion Reactions: No Reported Reaction Past Psychological History: Anxiety Smoking Status: Former smoker Past Alcohol Use History: None Reported Past Drug Use History: None Reported Medications and Allergies Home Medications Medication Instructions Recorded Confirmed Type HYDROcodone/APAP 10-325MG [[place] 1 tab PO QID PRN 05/20/14 11/09/17 History 10-325] Lisinopril [Zestril] 5 mg PO DAILY@0100 05/20/14 11/09/17 History Omeprazole [PriLOSEC] 20 mg PO AC-BID 05/20/14 11/09/17 History Simvastatin [Zocor] 20 mg PO HS 05/20/14 11/09/17 History diphenhydrAMINE [Benadryl] 25 mg PO HS PRN 05/20/14 11/09/17 History Estradiol Cream [Estrace Cream 1 applic VAGINAL MOTH 11/09/17 11/09/17 History 0.01%] Lisinopril [Zestril] 5 mg PO ONCE@1600 11/09/17 11/09/17 History Allergies Allergy/AdvReac Type Severity Reaction Status Date / Time cephalexin monohydrate Allergy Anaphylaxis Verified 11/09/17 21:31 [From Keflex] Cephalosporins Allergy Unknown Verified 11/09/17 21:31 ciprofloxacin HCl Allergy Unknown Verified 11/09/17 21:31 [From Cipro] clindamycin HCl Allergy Unknown Verified 11/09/17 21:31 [From Cleocin] erythromycin base Allergy Unknown Verified 11/09/17 21:31 levofloxacin [From Levaquin] Allergy Unknown Verified 11/09/17 21:31 sulfamethoxazole Allergy Unknown Verified 11/09/17 21:31 [From Bactrim] trimethoprim [From Bactrim] Allergy Unknown Verified 11/09/17 21:31 Physical Exam Vitals: Vital Signs Temp Pulse Pulse Resp BP BP BP 11/10/17 08:00 98.3 F 82 18 131/72 11/10/17 07:12 15 11/10/17 04:46 97.9 F 73 15 118/79 11/10/17 00:23 98.0 F 76 16 144/91 11/09/17 23:42 73 18 137/84 11/09/17 22:36 78 18 141/89 11/09/17 21:59 79 18 159/98 11/09/17 20:46 98.5 F 91 18 164/97 Pulse Ox 11/10/17 08:00 95 11/10/17 07:12 11/10/17 04:46 97 11/10/17 00:23 96 11/09/17 23:42 96 11/09/17 22:36 96 11/09/17 21:59 95 11/09/17 20:46 98 Intake and Output 11/09/17 11/10/17 11/10/17 22:59 06:59 14:59 Other: Voiding Method Toilet Weight 95.254 kg 95.254 kg GENERAL EXAM: Patient is alert and oriented and doesn't appear to be in any acute distress HEENT: Normocephalic. Normal reaction of pupils, equal size, normal range of extraocular motion. No erythema or exudates in the throat. NECK: No masses, no nuchal rigidity. CHEST: No chest wall deformity. LUNGS: Equal air entry with no crackles or wheeze. HEART: S1 and S2 normal with no audible mumurs or gallops. Regular rhythm, femorals equal on both sides.. ABDOMEN: No hepatosplenomegaly, normal bowel sounds, no guarding or rigidity. SKIN: No rashes CENTRAL NERVOUS SYSTEM: No focal deficits. EXTREMITIES: No cyanosis, clubbing or edema. Results 11/09/17 21:08 11/09/17 21:08 Cardiac Enzymes 11/09/17 11/09/17 11/10/17 Range/Units 21:08 21:08 03:24 AST 26 (14-36) U/L CK-MB (CK-2) 1.4 1.1 (0.0-2.4) ng/mL Troponin I <0.012 <0.012 (0.000-0.034) ng/mL 11/10/17 Range/Units 09:16 AST (14-36) U/L CK-MB (CK-2) 1.0 (0.0-2.4) ng/mL Troponin I <0.012 (0.000-0.034) ng/mL Coagulation 11/09/17 Range/Units 21:08 PT 9.7 (9.0-12.0) sec APTT 22.3 (22.0-30.0) sec Lipids 11/10/17 Range/Units 03:24 Triglycerides 51 (<150) mg/dL Cholesterol 150 (<200) mg/dL HDL Cholesterol 67 H (40-60) mg/dL CBC 11/09/17 Range/Units 21:08 WBC 7.0 (3.8-10.6) k/uL RBC 4.44 (3.80-5.40) m/uL Hgb 13.8 (11.4-16.0) gm/dL Hct 41.1 (34.0-46.0) % Plt Count 267 (150-450) k/uL Comprehensive Metabolic Panel 11/09/17 Range/Units 21:08 Sodium 140 (137-145) mmol/L Potassium 4.0 (3.5-5.1) mmol/L Chloride 103 (98-107) mmol/L Carbon Dioxide 28 (22-30) mmol/L BUN 19 H (7-17) mg/dL Creatinine 0.86 (0.52-1.04) mg/dL Glucose 105 H (74-99) mg/dL Calcium 9.8 (8.4-10.2) mg/dL AST 26 (14-36) U/L ALT 35 (9-52) U/L Alkaline Phosphatase 65 (38-126) U/L Total Protein 6.9 (6.3-8.2) g/dL Albumin 4.3 (3.5-5.0) g/dL Current Medications Generic Name Dose Route Start Last Admin Trade Name Freq PRN Reason Stop Dose Admin Hydrocodone Bitart/Acetaminophen 1 each 11/09/17 23:24 [place] 10 PO QID PRN Pain Aspirin 325 mg 11/10/17 09:00 Aspirin PO DAILY [facility] Atorvastatin Calcium 10 mg 11/10/17 21:00 Lipitor PO HS [facility] Clonidine 0.1 mg 11/09/17 23:46 Catapres PO Q12H PRN SBP>170 or DBP >100 Diphenhydramine HCl 25 mg 11/09/17 23:24 11/10/17 01:27 Benadryl PO 25 mg HS PRN Administration Allergy Symptoms Enoxaparin Sodium 40 mg 11/10/17 09:00 Lovenox SQ DAILY [facility] Estradiol 1 applic 11/11/17 21:00 Estrace Cream VAGINAL MoTh@2100 [facility] Lisinopril 10 mg 11/10/17 10:45 Zestril PO DAILY [facility] Nitroglycerin 1 inch 11/10/17 00:00 11/10/17 07:00 Nitro-Bid Oint TOPICAL Not Given Q6HR [facility] Nitroglycerin 0.4 mg 11/09/17 23:21 Nitrostat SUBLINGUAL Q5M PRN Chest Pain Pantoprazole Sodium 40 mg 11/10/17 07:30 Protonix PO AC-BID [facility] Intake and Output 11/09/17 11/10/17 11/10/17 22:59 06:59 14:59 Other: Voiding Method Toilet Weight 95.254 kg 95.254 kg 11/09/17 21:08 11/09/17 21:08 EKG Interpretations (text) Sinus rhythm Assessment and Plan Assessment: Patient is a basically admitted with the labile hypertension. Patient had a vague chest pains which appear to be typical. EKGs and cardiac enzymes are negative. If blood pressure remains stable, patient could be discharged home on current dose of lisinopril. Follow-up with Dr. Carolina as an outpatient.
[2017-11-10] MEDS: ASPIRIN 325 MG TAB PO SCH (11:35)
[2017-11-10] MEDS: ENOXAPARIN 40 MG/0.4 ML SYRINGE SQ SCH (11:35)
[2017-11-10] MEDS: PANTOPRAZOLE 40 MG TABLET PO SCH ×2 (11:35→18:24)
[2017-11-10] MEDS: HYDROcodone/APAP 10-325MG 1 EACH TAB PO PRN ×2 (11:53→18:27)
[2017-11-10] MEDS ORDERED: LISINOPRIL-HCTZ 10-12.5 MG 1 EACH TAB PO SCH (13:30)
--- NOTE | 2017-11-10 16:47 | ECHOF ---
Referral Reason:cp MEASUREMENTS -------- HEIGHT: 165.1 cm WEIGHT: 95.3 kg BP: 118/79 RVIDd: 2.9 cm (< 3.3) IVSd: 1.2 cm (0.6 - 1.1) LVIDd: 4.2 cm (3.9 - 5.3) LVPWd: 1.2 cm (0.6 - 1.1) IVSs: 1.4 cm LVIDs: 3.5 cm LVPWs: 1.3 cm LA Diam: 3.3 cm (2.7 - 3.8) LAESV Index (A-L): 22.95 ml/m Ao Diam: 3.0 cm (2.0 - 3.7) LA Diam: 4.0 cm (2.7 - 3.8) MV EXCURSION: 12.777 mm (> 18.000) MV EF SLOPE: 43 mm/s (70 - 150) EPSS: 0.5 cm MV E [place]: 0.51 m/s MV DecT: 263 ms MV A [place]: 0.62 m/s MV E/A Ratio: 0.82 FINDINGS -------- Sinus rhythm. This was a techncally difficult study with suboptimal views, , Lumason utilized for enhancement of im ages. The left ventricular size is normal. There is mild concentric left ventricular hypertrophy. Overa ll left ventricular systolic function is normal with, an EF between 55 - 60 %. The right ventricle is normal in size. Normal LA size by volume 22+/-6 ml/m2. The right atrial size is normal. 5.0mg OF Lumason UTLIZED: 2 OR MORE WALL SEGMENTS NOT VISUALIZED. There is mild aortic valve sclerosis. There is no evidence of aortic regurgitation. Mild mitral annular calcification present. Mild mitral regurgitation is present. Mild tricuspid regurgitation present. There is no evidence of pulmonary hypertension. The right v entricular systolic pressure, as measured by Doppler, is {RVSP}. There is no pulmonic regurgitation present. The aortic root size is normal. There is no pericardial effusion. CONCLUSIONS -------- 1. This was a techncally difficult study with suboptimal views, , Lumason utilized for enhancement of images. 2. The left ventricular size is normal. 3. There is mild concentric left ventricular hypertrophy. 4. Overall left ventricular systolic function is normal with, an EF between 55 - 60 %. 5. Normal LA size by volume 22+/-6 ml/m2. 6. 5.0mg OF Lumason UTLIZED: 2 OR MORE WALL SEGMENTS NOT VISUALIZED. 7. There is mild aortic valve sclerosis. 8. Mild mitral annular calcification present. 9. Mild mitral regurgitation is present. 10. Mild tricuspid regurgitation present. 11. There is no evidence of pulmonary hypertension. 12. The right ventricular systolic pressure, as measured by Doppler, is {RVSP}. 13. There is no pulmonic regurgitation present. 14. The aortic root size is normal. 15. There is no pericardial effusion. MENTAL TELEPATHIST: Chloe Steve RDCS
[2017-11-10] MEDS ORDERED: ATENOLOL 25 MG TAB PO SCH (19:00)
[2017-11-10] MEDS ORDERED: ATORVASTATIN 10 MG TAB PO SCH (21:00)
[2017-11-11] MEDS ORDERED: LISINOPRIL-HCTZ 10-12.5 MG 1 EACH TAB PO STA (01:11)
[2017-11-11] MEDS: HYDROcodone/APAP 10-325MG 1 EACH TAB PO PRN ×3 (01:13→13:25)
[2017-11-11] MEDS: diphenhydrAMINE 25 MG CAP PO PRN (01:36)
[2017-11-11] MEDS: NITROGLYCERIN OINT 1 INCH/GM PACKET TOPICAL SCH ×3 (02:49→13:41)
[2017-11-11 09:06] VITALS: RESP 16
[2017-11-11] MEDS: ENOXAPARIN 40 MG/0.4 ML SYRINGE SQ SCH (10:08)
[2017-11-11] MEDS: ASPIRIN 325 MG TAB PO SCH (10:08)
[2017-11-11] MEDS: PANTOPRAZOLE 40 MG TABLET PO SCH (10:08)
[2017-11-11 12:03] VITALS: BP 106/79; PULSE 81; TEMP 98.7
--- NOTE | 2017-11-11 14:09 | P.DS ---
Providers Date of admission: 11/09/17 23:21 Expected date of discharge: 11/11/17 Attending physician: Ingris rCenshaw Consults: 11/09/17 23:21 Consult Physician Urgent Consulting Provider: Samia Cooper Consult Reason/Comments: cp, htn Do you want consulting provider notified?: Yes Primary care physician: Ingris Crenshaw [facility] Course: Discharge diagnosis #1 hypertensive urgency: Seen by cardiology. They added Zestoretic. Patient's blood pressures have shown improvement. #2 episode of chest pain: VT ruled out. Troponins were negative 3 sets. No acute changes on EKG. Cardiology cleared her for discharge #3 underlying history of hypertension #4 underlying history of mitral valve prolapse #5 underlying history of chronic neck pain Hospital course Jeannine Sevilla is a 62-year-old female well known to my practice who presented to [facility] emergency room due to elevated blood pressure, she had a blood pressure of 170/100 she started having chest heaviness she was evaluated in emergency room and admitted to observation for further evaluation and treatment. Patient was maintained on lisinopril 5 mg once daily, her dose was increased recently to 5 mg twice daily, however she continued to have elevated blood pressure readings. Patient's blood pressures improved with the addition of the Zestoretic. She has been seen evaluated by cardiology. They have cleared her for discharge. Patient is on Estrace at home a side effect of that medication is high blood pressure. Discussed with her on holding that medication until she is seen in the office to address of this medication can be restarted. Patient is medical stable for discharge and his been cleared by cardiology. Please refer to chart for any further details I performed an examination of the patient and discussed their management with the physician Launch Steward. I have reviewed the Physician Launch Steward's notes and agree with the documented findings and plan of care Patient Condition at Discharge: Stable Plan - Discharge Summary New Discharge Prescriptions: New Lisinopril-Hctz 10-12.5 mg [Zestoretic 10-12.5] 1 each PO DAILY #30 tab Continue diphenhydrAMINE [Benadryl] 25 mg PO HS PRN PRN Reason: Allergy Symptoms Simvastatin [Zocor] 20 mg PO HS Omeprazole [PriLOSEC] 20 mg PO AC-BID HYDROcodone/APAP 10-325MG [[place] 10-325] 1 tab PO QID PRN PRN Reason: Pain Estradiol Cream [Estrace Cream 0.01%] 1 applic VAGINAL MOTH #0 Discontinued Lisinopril [Zestril] 5 mg PO DAILY@0100 Lisinopril [Zestril] 5 mg PO ONCE@1600 Discharge Medication List HYDROcodone/APAP 10-325MG [[place] 10-325] 1 tab PO QID PRN 05/20/14 [History] Omeprazole [PriLOSEC] 20 mg PO AC-BID 05/20/14 [History] Simvastatin [Zocor] 20 mg PO HS 05/20/14 [History] diphenhydrAMINE [Benadryl] 25 mg PO HS PRN 05/20/14 [History] Estradiol Cream [Estrace Cream 0.01%] 1 applic VAGINAL MOTH #0 11/11/17 [Rx] Lisinopril-Hctz 10-12.5 mg [Zestoretic 10-12.5] 1 each PO DAILY #30 tab [Rx] Follow up Appointment(s)/Referral(s): Cristian Carolina MD [STAFF PHYSICIAN] - 3 Weeks Ingris Crenshaw MD [Primary Care Provider] - 1 Week Activity/Diet/Wound Care/Special Instructions: Diet: cardiac Activity: as tolerated Discharge Disposition: HOME SELF-CARE
[2017-11-11] MEDS ORDERED: ESTRADIOL 0.1 MG/GM VAGINAL CREAM 42.5 GM TUBE VAGINAL SCH (21:00)
[2017-11-12] MEDS ORDERED: LISINOPRIL-HCTZ 10-12.5 MG 1 EACH TAB PO SCH (01:00)
== END 2017-11-11 15:00 | disposition home or self-care (01) ==
LOC: EC 20:23 → 3OBS 23:21
PROVIDERS: ADMIT Internal Medicine; ATTEND Internal Medicine
DX: I16.0 Hypertensive urgency (principal); R07.89 Other chest pain; I10 Essential (primary) hypertension; E78.5 Hyperlipidemia, unspecified; I34.1 Nonrheumatic mitral (valve) prolapse; F41.9 Anxiety disorder, unspecified; K50.90 Crohn's disease, unspecified, without complications; M54.2 Cervicalgia; G89.29 Other chronic pain; Z79.899 Other long term (current) drug therapy; Z88.1 Allergy status to other antibiotic agents; Z88.2 Allergy status to sulfonamides; Z85.41 Personal history of malignant neoplasm of cervix uteri; Z87.891 Personal history of nicotine dependence; Z87.81 Personal history of (healed) traumatic fracture; E78.00 Pure hypercholesterolemia, unspecified
CPT/HCPCS: 99285 ×2; 96372; 36415; 93005; 85379; 83880; 80061; 80053; 82150; 82550 ×2; 82553 ×2; 83690; 83735; 84484 ×2; 85025; 85610; 85730; G0378 ×3; C8929; J1650; Q9950; 93306

== ENCOUNTER 2017-11-21 14:41 | Emergency (ER) | payer MEDICARE, OTHER ==
[2017-11-21] MEDS ORDERED: SODIUM CHLORIDE 0.9% 1,000 ML IV STA (15:36)
--- NOTE | 2017-11-21 16:02 | XR ---
EXAMINATION TYPE: XR chest 2V DATE OF EXAM: 11/21/2017 COMPARISON: 11/09/2017 HISTORY: Chest pain and difficulty breathing TECHNIQUE: Frontal and lateral views of the chest are obtained. FINDINGS: Chronic right cardiophrenic angle opacity is unchanged from the prior and again could repre sent prominent epicardial fat pad or diaphragmatic hernia. Calcified splenic lesion likely represents a calcified splenic cyst and is unchanged from the prior. There is no focal air space opacity, pleu ral effusion, or pneumothorax seen. The cardiac silhouette size is enlarged. The osseous structure s are intact. Chronic compression deformity of the lower thoracic spine, diffuse osseous demineraliza tion and mild multilevel degenerative changes of thoracic spine are also unchanged in the prior. IMPRESSION: Redemonstration of multiple chronic findings with no acute cardiac pulmonary process.
[2017-11-21 16:03] LABS: Basophils # (A) 0.1 k/uL (0-0.2); Basophils % (A) 1 %; Eosinophils # (A) 0.2 k/uL (0-0.7); Eosinophils % (A) 2 %; HCT 44.5 % (34.0-46.0); HGB 14.7 gm/dL (11.4-16.0); Lymphocytes # (A) 3.3 k/uL (1.0-4.8); Lymphocytes % (A) 36 %; MCH 30.3 pg (25.0-35.0); MCV 91.7 fL (80.0-100.0); Mean Platelet Volume 7.7; Monocytes # (A) 0.6 k/uL (0-1.0); Monocytes % (A) 6 %; Neutrophils # (A) 4.9 k/uL (1.3-7.7); Neutrophils % (A) 53 %; Platelet Count 320 k/uL (150-450); RBC 4.85 m/uL (3.80-5.40); RDW 12.8 % (11.5-15.5); WBC 9.2 k/uL (3.8-10.6)
[2017-11-21 16:09] LABS: D-Dimer 0.43 mg/L FEU (<0.60)
[2017-11-21 16:13] LABS: Prothrombin Time 9.8 sec (9.0-12.0)
[2017-11-21 16:16] LABS: Albumin 4.7 g/dL (3.5-5.0); Calcium 10.2 mg/dL (8.4-10.2); Creatine Kinase 94 U/L (30-135); Potassium 4.6 mmol/L (3.5-5.1); Total Bilirubin 0.4 mg/dL (0.2-1.3); Total Protein 7.5 g/dL (6.3-8.2)
[2017-11-21 16:28] LABS: Creatine Kinase MB 1.2 ng/mL (0.0-2.4); Troponin I <0.012 ng/mL (0.000-0.034)
[2017-11-21 16:57] VITALS: BP 137/79; PULSE 88; RESP 18; TEMP 98.7
[2017-11-21] MEDS ORDERED: AZITHROMYCIN 500 MG TAB PO STA (17:03)
--- NOTE | 2017-11-21 17:12 | ED ---
General Adult HPI - General Chief complaint: Shortness of Breath Stated complaint: RASHANU Time Seen by Provider: 11/21/17 15:25 Source: patient, RN notes reviewed Mode of arrival: ambulatory Limitations: no limitations - History of Present Illness Initial comments: Patient 62-year-old female who presents emergency room today with a chief complaint of cough congestion. She does admit that she was seen here in the emergency room because she had an elevated blood pressure was admitted seen by cardiology discharged home. She states she began having cough congestion and a heaviness across her chest. She states she was given albuterol when she was discharged and has been doing breathing treatments at home which she states does not seem to be helping much. Patient denies any sputum production. She does admit that she believes it may be a bronchitis type infection as she has had sore throat with some hoarseness. Patient denies any other complaints or symptoms at this time. Patient denies any recent fever, chills, chest pain, back pain, abdominal pain, nausea or vomiting, numbness or tingling, dysuria or hematuria, constipation or diarrhea, headaches or visual changes, or any other complaints. - Related Data Home Medications Medication Instructions Recorded Confirmed HYDROcodone/APAP 10-325MG [[place] 1 tab PO QID PRN 05/20/14 11/21/17 10-325] Omeprazole [PriLOSEC] 20 mg PO AC-BID 05/20/14 11/21/17 Simvastatin [Zocor] 20 mg PO HS 05/20/14 11/21/17 diphenhydrAMINE [Benadryl] 25 mg PO HS PRN 05/20/14 11/21/17 Lisinopril-Hctz 10-12.5 mg 1 tab PO DAILY 11/21/17 11/21/17 [Zestoretic 10-12.5] Previous Rx's Medication Instructions Recorded Estradiol Cream [Estrace Cream 1 applic VAGINAL MOTH #0 11/11/17 0.01%] Azithromycin [Zithromax] 250 mg PO DAILY 4 Days tab 11/21/17 methylPREDNISolone Dose Pack 4 mg PO DIRECTED #21 package 11/21/17 [Medrol Dose Pack] Allergies Allergy/AdvReac Type Severity Reaction Status Date / Time cephalexin monohydrate Allergy Anaphylaxis Verified 11/21/17 16:12 [From Keflex] Cephalosporins Allergy Unknown Verified 11/21/17 16:12 ciprofloxacin HCl Allergy Unknown Verified 11/21/17 16:12 [From Cipro] clindamycin HCl Allergy Unknown Verified 11/21/17 16:12 [From Cleocin] erythromycin base Allergy Unknown Verified 11/21/17 16:12 levofloxacin [From Levaquin] Allergy Unknown Verified 11/21/17 16:12 sulfamethoxazole Allergy Unknown Verified 11/21/17 16:12 [From Bactrim] trimethoprim [From Bactrim] Allergy Unknown Verified 11/21/17 16:12 Review of Systems ROS Statement: Those systems with pertinent positive or pertinent negative responses have been documented in the HPI. ROS Other: All systems not noted in ROS Statement are negative. Past Medical History Past Medical History: Hyperlipidemia, Hypertension Additional Past Medical History / Comment(s): FX BACK 3 YEARS AGO. FX NECK WHEN SHE WAS 14 DIVING INTO A POOL. CERVICAL CA. Mitral valve prolapse, Crohn's History of Any Multi-Drug Resistant Organisms: None Reported Past Surgical History: Heart Catheterization With Stent, Hysterectomy, Orthopedic Surgery Additional Past Surgical History / Comment(s): LEFT SHOULDER ARTHROSCOPY - 2009 ; LEFT ANKLE ARTHROSCOPY - 2001; BILATERAL KNEE ARTHROSCOPY - 2000, heart catheterization, sinus surgery, tonsillectomy, colonoscopy Past Anesthesia/Blood Transfusion Reactions: No Reported Reaction Past Psychological History: No Psychological Hx Reported, Anxiety Smoking Status: Former smoker Past Alcohol Use History: None Reported Past Drug Use History: None Reported General Exam - General Exam Comments Initial Comments: General: The patient is awake and alert, in no distress, and does not appear acutely ill. Eye: Pupils are equal, round and reactive to light, extra-ocular movements are intact. No nystagmus. There is normal conjunctiva bilaterally. No signs of icterus. Ears, nose, mouth and throat: There are moist mucous membranes and no oral lesions. Neck: The neck is supple, there is no tenderness or JVD. Cardiovascular: There is a regular rate and rhythm. No murmur, rub or gallop is appreciated. Respiratory: Lungs are clear to auscultation, respirations are non-labored, breath sounds are equal. No wheezes, stridor, rales, or rhonchi. Musculoskeletal: Normal ROM, no tenderness. Strength 5/5. Sensation intact. Pulses equal bilaterally 2+. Neurological: A&O x 3. CN II-XII intact, There are no obvious motor or sensory deficits. Coordination appears grossly intact. Speech is normal. Skin: Skin is warm and dry and no rashes or lesions are noted. Psychiatric: Cooperative, appropriate mood & affect, normal judgment. Limitations: no limitations Course Vital Signs 11/21/17 11/21/17 11/21/17 14:51 15:48 15:49 Temperature 98.3 F Pulse Rate 123 H 112 H 98 Respiratory 20 20 20 Rate Blood Pressure 120/85 136/84 119/76 O2 Sat by Pulse 97 96 96 Oximetry 11/21/17 16:55 Temperature 98.7 F Pulse Rate 88 Respiratory 18 Rate Blood Pressure 137/79 O2 Sat by Pulse 96 Oximetry Medical Decision Making - Medical Decision Making Case discussed with attending physician Dr. Wallace. Patient reexamined at this time shows no signs of distress. She does admit to cough congestion. Patient denies any sputum production. She does admit to a hoarse voice. Patient's chest x-ray showing no acute changes. Shows findings are discussed with the patient in the past. Patient did have or worsen admission seen by cardiology and discharged. Patient admits to cough congestion started after her visit here in the hospital. Patient refusing steroids at this time. She states she will take a prescription to go home but does not want to take them she is worried it'll cause an increase in her blood pressure. Patient states she does not want stay in the hospital. She'll be discharged placed on azithromycin which she states she has had in the past and can take. She states her pharmacy is closed currently. She'll be given first dose here in emergency room discharged home as prescription. She is advised follow-up with cardiology, family physician, and also given information for pulmonology to follow-up with. Patient advised return here to the emergency room symptoms increase or worsen or for new concerns. - Lab Data Result diagrams: 11/21/17 15:45 11/21/17 15:45 Lab Results 11/21/17 11/21/17 11/21/17 Range/Units 15:45 15:45 15:45 WBC 9.2 (3.8-10.6) k/uL RBC 4.85 (3.80-5.40) m/uL Hgb 14.7 (11.4-16.0) gm/dL Hct 44.5 (34.0-46.0) % MCV 91.7 (80.0-100.0) fL MCH 30.3 (25.0-35.0) pg MCHC 33.0 (31.0-37.0) g/dL RDW 12.8 (11.5-15.5) % Plt Count 320 (150-450) k/uL Neutrophils % 53 % Lymphocytes % 36 % Monocytes % 6 % Eosinophils % 2 % Basophils % 1 % Neutrophils # 4.9 (1.3-7.7) k/uL Lymphocytes # 3.3 (1.0-4.8) k/uL Monocytes # 0.6 (0-1.0) k/uL Eosinophils # 0.2 (0-0.7) k/uL Basophils # 0.1 (0-0.2) k/uL PT (9.0-12.0) sec INR (<1.2) APTT (22.0-30.0) sec D-Dimer (<0.60) mg/L FEU Sodium 136 L (137-145) mmol/L Potassium 4.6 (3.5-5.1) mmol/L Chloride 99 (98-107) mmol/L Carbon Dioxide 23 (22-30) mmol/L Anion Gap 14 mmol/L BUN 27 H (7-17) mg/dL Creatinine 1.05 H (0.52-1.04) mg/dL Est GFR (CKD-EPI)AfAm 65 (>60 ml/min/1.73 sqM) Est GFR (CKD-EPI)NonAf 57 (>60 ml/min/1.73 sqM) Glucose 119 H (74-99) mg/dL Calcium 10.2 (8.4-10.2) mg/dL Total Bilirubin 0.4 (0.2-1.3) mg/dL AST 26 (14-36) U/L ALT 26 (9-52) U/L Alkaline Phosphatase 73 (38-126) U/L Total Creatine Kinase 94 (30-135) U/L CK-MB (CK-2) 1.2 (0.0-2.4) ng/mL CK-MB (CK-2) Rel Index 1.3 Troponin I <0.012 (0.000-0.034) ng/mL NT-Pro-B Natriuret Pep pg/mL Total Protein 7.5 (6.3-8.2) g/dL Albumin 4.7 (3.5-5.0) g/dL 11/21/17 11/21/17 Range/Units 15:45 15:45 WBC (3.8-10.6) k/uL RBC (3.80-5.40) m/uL Hgb (11.4-16.0) gm/dL Hct (34.0-46.0) % MCV (80.0-100.0) fL MCH (25.0-35.0) pg MCHC (31.0-37.0) g/dL RDW (11.5-15.5) % Plt Count (150-450) k/uL Neutrophils % % Lymphocytes % % Monocytes % % Eosinophils % % Basophils % % Neutrophils # (1.3-7.7) k/uL Lymphocytes # (1.0-4.8) k/uL Monocytes # (0-1.0) k/uL Eosinophils # (0-0.7) k/uL Basophils # (0-0.2) k/uL PT 9.8 (9.0-12.0) sec INR 1.0 (<1.2) APTT 22.0 (22.0-30.0) sec D-Dimer 0.43 (<0.60) mg/L FEU Sodium (137-145) mmol/L Potassium (3.5-5.1) mmol/L Chloride (98-107) mmol/L Carbon Dioxide (22-30) mmol/L Anion Gap mmol/L BUN (7-17) mg/dL Creatinine (0.52-1.04) mg/dL Est GFR (CKD-EPI)AfAm (>60 ml/min/1.73 sqM) Est GFR (CKD-EPI)NonAf (>60 ml/min/1.73 sqM) Glucose (74-99) mg/dL Calcium (8.4-10.2) mg/dL Total Bilirubin (0.2-1.3) mg/dL AST (14-36) U/L ALT (9-52) U/L Alkaline Phosphatase (38-126) U/L Total Creatine Kinase (30-135) U/L CK-MB (CK-2) (0.0-2.4) ng/mL CK-MB (CK-2) Rel Index Troponin I (0.000-0.034) ng/mL NT-Pro-B Natriuret Pep 22 pg/mL Total Protein (6.3-8.2) g/dL Albumin (3.5-5.0) g/dL Disposition Clinical Impression: Acute bronchitis Disposition: HOME SELF-CARE Condition: Good Instructions: Acute Bronchitis (ED) Additional Instructions: Please follow-up with the family physician, risk tech, reed fixer as discussed. Please use medication as prescribed and return to emergency room for any other concerns. Prescriptions: Azithromycin [Zithromax] 250 mg PO DAILY 4 Days tab methylPREDNISolone Dose Pack [Medrol Dose Pack] 4 mg PO DIRECTED #21 package Referrals: Ingris Crenshaw MD [Primary Care Provider] - 1-2 days Emerald Meng MD [STAFF PHYSICIAN] - 1-2 days Time of Disposition: 17:07
== END 2017-11-21 17:18 | disposition home or self-care (01) ==
LOC: EC 14:41
DX: J20.9 Acute bronchitis, unspecified (principal); E78.5 Hyperlipidemia, unspecified; I10 Essential (primary) hypertension; Z85.41 Personal history of malignant neoplasm of cervix uteri; Z87.891 Personal history of nicotine dependence; Z79.899 Other long term (current) drug therapy; Z88.1 Allergy status to other antibiotic agents; Z88.2 Allergy status to sulfonamides
CPT/HCPCS: 36415; 71046; 80053; 82550; 82553; 83880; 84484; 85025; 85379; 85610; 85730; 93005; 96360; 99285

== ENCOUNTER 2019-03-31 04:51 | Emergency (ER) | payer MEDICARE, OTHER ==
--- NOTE | 2019-03-31 05:47 | XR ---
EXAM: XR Right Foot Complete, 3 or More Views CLINICAL HISTORY: left heel pain TECHNIQUE: Frontal, lateral and oblique views of the right foot. COMPARISON: No relevant prior studies available. FINDINGS: Bones/joints: No acute fracture or dislocation. No lytic or blastic abnormalities. No significant arthritic changes. Incidental calcaneal spur. Soft tissues: Unremarkable. No radiopaque foreign body. IMPRESSION: No acute fracture or dislocation. Incidental calcaneal spur.
--- NOTE | 2019-03-31 06:16 | ED ---
General Adult HPI - General Source: patient Mode of arrival: ambulatory <Aliza Soto - Last Filed: 03/31/19 06:53> <Homero Archibald - Last Filed: 03/31/19 08:24> - General Chief complaint: Extremity Injury, Lower Stated complaint: R Leg Pain Time Seen by Provider: 03/31/19 05:08 - History of Present Illness Initial comments: Shadia is a 64-year-old female who presents to the emergency department today for evaluation of right-sided aching and discomfort. Patient reports she's had some aching in her riight calf for 2-3 days she's noticed some swelling of her foot. Patient reports she woke this morning with throbbing pain in her foot, pain with ambulation and decided to come to the ER to be evaluated for any possible blood clots. Patient has no history of blood clots. She does have a history of chronic pain. No history of injury to the foot no history of plantar fasciitis no history of gout. She has never been seen by podiatry or orthopedic surgery. (Aliza Soto) - Related Data Home Medications Medication Instructions Recorded Confirmed HYDROcodone/APAP 10-325MG [[place] 1 tab PO QID PRN 05/20/14 11/21/17 10-325] Omeprazole [PriLOSEC] 20 mg PO AC-BID 05/20/14 11/21/17 Simvastatin [Zocor] 20 mg PO HS 05/20/14 11/21/17 diphenhydrAMINE [Benadryl] 25 mg PO HS PRN 05/20/14 11/21/17 Lisinopril-Hctz 10-12.5 mg 1 tab PO DAILY 11/21/17 11/21/17 [Zestoretic 10-12.5] Previous Rx's Medication Instructions Recorded Estradiol Cream [Estrace Cream 1 applic VAGINAL MOTH #0 11/11/17 0.01%] Azithromycin [Zithromax] 250 mg PO DAILY 4 Days tab 11/21/17 methylPREDNISolone Dose Pack 4 mg PO DIRECTED #21 package 11/21/17 [Medrol Dose Pack] Allergies Allergy/AdvReac Type Severity Reaction Status Date / Time cephalexin monohydrate Allergy Anaphylaxis Verified 11/21/17 16:12 [From Keflex] Cephalosporins Allergy Unknown Verified 11/21/17 16:12 ciprofloxacin HCl Allergy Unknown Verified 11/21/17 16:12 [From Cipro] clindamycin HCl Allergy Unknown Verified 11/21/17 16:12 [From Cleocin] erythromycin base Allergy Unknown Verified 11/21/17 16:12 levofloxacin [From Levaquin] Allergy Unknown Verified 11/21/17 16:12 sulfamethoxazole Allergy Unknown Verified 11/21/17 16:12 [From Bactrim] trimethoprim [From Bactrim] Allergy Unknown Verified 11/21/17 16:12 Review of Systems ROS Other: All systems not noted in ROS Statement are negative. <Aliza Soto - Last Filed: 03/31/19 06:53> ROS Other: All systems not noted in ROS Statement are negative. <Homero Archibald - Last Filed: 03/31/19 08:24> ROS Statement: Those systems with pertinent positive or pertinent negative responses have been documented in the HPI. Past Medical History Past Medical History: Hyperlipidemia, Hypertension Additional Past Medical History / Comment(s): FX BACK 3 YEARS AGO. FX NECK WHEN SHE WAS 14 DIVING INTO A POOL. CERVICAL CA. Mitral valve prolapse, Crohn's History of Any Multi-Drug Resistant Organisms: None Reported Past Surgical History: Heart Catheterization With Stent, Hysterectomy, Orthopedic Surgery Additional Past Surgical History / Comment(s): LEFT SHOULDER ARTHROSCOPY - 2009; LEFT ANKLE ARTHROSCOPY - 2001; BILATERAL KNEE ARTHROSCOPY - 2000, heart catheterization, sinus surgery, tonsillectomy, colonoscopy Past Anesthesia/Blood Transfusion Reactions: No Reported Reaction Past Psychological History: No Psychological Hx Reported, Anxiety Smoking Status: Former smoker Past Alcohol Use History: None Reported Past Drug Use History: None Reported <Aliza Soto P - Last Filed: 03/31/19 06:53> General Exam <Aliza Soto - Last Filed: 03/31/19 06:53> - General Exam Comments Initial Comments: Physical Exam GENERAL: Patient is well-developed and well-nourished. Patient is nontoxic and well-hydrated and is in no distress. HENT: Normocephalic, Atraumatic. EYES: PERRL, EOMI PULMONARY: Unlabored respirations. CARDIOVASCULAR: There is a regular rate and rhythm without any murmurs gallops or rubs. Warm and well perfused extremities Strong DP and PT pulses present bilaterally ABDOMEN: Nondistended SKIN: Skin is clear with no lesions or rashes and otherwise unremarkable. : Deferred NEUROLOGIC: Patient is alert and oriented x3. Moving all extremities spontaneously MUSCULOSKELETAL: Normal extremities with adequate strength and full range of motion. No lower extremity swelling or edema. No calf tenderness. PSYCHIATRIC: Normal psychiatric evaluation (Aliza Soto) Course Vital Signs 03/31/19 03/31/19 04:58 06:26 Temperature 98.0 F 97 F L Pulse Rate 95 80 Respiratory 16 18 Rate Blood Pressure 146/98 138/96 O2 Sat by Pulse 98 98 Oximetry Medical Decision Making <Aliza Soto - Last Filed: 03/31/19 06:53> <Homero Archibald - Last Filed: 03/31/19 08:24> - Medical Decision Making The patient was seen and evaluated, history is obtained from the patient Patient with cramping in her right calf for 2-3 days edema of her right ankle and foot I do suspect the patient could have plantar fasciitis causing some with the pain that she was. Seen acutely today however cannot rule out DVT based on the history and ultrasound will be obtained Care will be signed out to Dr. Archibald at shift change (Aliza Soto) Ultrasound showed no DVT. X-ray showed no acute abnormality. Patient's described the symptoms of heel pain especially with walking or bending of the foot. Patient sounds like she is plantar fasciitis. (Homero Archibald) Disposition Is patient prescribed a controlled substance at d/c from ED?: No <Aliza Soto - Last Filed: 03/31/19 06:53> Is patient prescribed a controlled substance at d/c from ED?: No Time of Disposition: 08:24 <Homero Archibald - Last Filed: 03/31/19 08:24> Clinical Impression: Foot pain, Plantar fasciitis of right foot Disposition: HOME SELF-CARE Condition: Stable Instructions (If sedation given, give patient instructions): Plantar Fasciitis (ED) Referrals: Ingris Crenshaw MD [Primary Care Provider] - 1-2 days Hossein Cardenas DPM [STAFF PHYSICIAN] - 1-2 days Bruce Joshi DPM [STAFF PHYSICIAN] - 1-2 days Diana Ge DPM [STAFF PHYSICIAN] - 1-2 days Óscar Mathews DPM [STAFF PHYSICIAN] - 1-2 days Chun Do DPM [STAFF PHYSICIAN] - 1-2 days
[2019-03-31 06:27] VITALS: RESP 18; TEMP 97
--- NOTE | 2019-03-31 07:31 | US ---
EXAMINATION TYPE: US venous doppler duplex LE RT DATE OF EXAM: 03/31/2019 7:18 AM COMPARISON: NONE CLINICAL HISTORY: Pain, edema . Right heel pain. No hx of blood clots. No swelling or redness. SIDE PERFORMED: Right TECHNIQUE: The lower extremity deep venous system is examined utilizing real time linear array sonog alexandrea with graded compression, doppler sonography and color-flow sonography. VESSELS IMAGED: External Iliac Vein (EIV) Common Femoral Vein Deep Femoral Vein Greater Saphenous Vein * Femoral Vein Popliteal Vein Small Saphenous Vein * Proximal Calf Veins (* superficial vessels) Grayscale, color doppler, spectral doppler imaging performed of the deep veins of the right lower ext remity. There is normal flow, compressibility, vascular waveforms. Right Leg: Negative for DVT IMPRESSION: No sonographic evidence of deep venous thrombosis within the right lower extremity
[2019-03-31 08:31] VITALS: BP 136/79; PULSE 74
== END 2019-03-31 08:29 | disposition home or self-care (01) ==
LOC: EC 04:51
DX: M72.2 Plantar fascial fibromatosis (principal); M79.89 Other specified soft tissue disorders; E78.5 Hyperlipidemia, unspecified; I10 Essential (primary) hypertension; Z85.41 Personal history of malignant neoplasm of cervix uteri; Z87.891 Personal history of nicotine dependence; Z79.899 Other long term (current) drug therapy; Z88.1 Allergy status to other antibiotic agents; Z88.2 Allergy status to sulfonamides; Z95.5 Presence of coronary angioplasty implant and graft
CPT/HCPCS: 99284

== ENCOUNTER 2019-06-11 06:54 | Emergency (ER) | payer MEDICARE, OTHER ==
[2019-06-11 07:09] VITALS: BP 130/100; PULSE 89; RESP 18; TEMP 98.1
[2019-06-11] MEDS ORDERED: diphenhydrAMINE 50 MG/ML 1 ML VIAL IM STA (07:26)
--- NOTE | 2019-06-11 07:31 | ED ---
General Adult HPI - General Chief complaint: Allergic Reaction Stated complaint: Medication Reaction Time Seen by Provider: 06/11/19 07:00 Source: patient, RN notes reviewed Mode of arrival: ambulatory Limitations: no limitations - History of Present Illness Initial comments: This is a 64-year-old female who presents emergency Department complaining of both of her cheeks being read after she has taken some eyedrops for her up and coming cataract surgery. Patient states it happened when chest and then she took him again last night and she had again red cheeks tonight. Patient states the cheeks of burning. Patient states the right cheek was worse chest they but today the left cheek is worse. Patient denies any difficulty breathing or difficulty swallowing. Patient denies any rashes anywhere else. Patient has ofloxacin is one of the eyedrops and she is ALLERGIC to Levaquin. Patient denies any other symptoms at this time. Patient denies any fever chills. Patient denies any visual disturbance. Patient denies any chest pain or abdominal pain. - Related Data Home Medications Medication Instructions Recorded Confirmed HYDROcodone/APAP 10-325MG [[place] 1 tab PO QID PRN 05/20/14 11/21/17 10-325] Omeprazole [PriLOSEC] 20 mg PO AC-BID 05/20/14 11/21/17 Simvastatin [Zocor] 20 mg PO HS 05/20/14 11/21/17 diphenhydrAMINE [Benadryl] 25 mg PO HS PRN 05/20/14 11/21/17 Lisinopril-Hctz 10-12.5 mg 1 tab PO DAILY 11/21/17 11/21/17 [Zestoretic 10-12.5] Previous Rx's Medication Instructions Recorded Estradiol Cream [Estrace Cream 1 applic VAGINAL MOTH #0 11/11/17 0.01%] Azithromycin [Zithromax] 250 mg PO DAILY 4 Days tab 11/21/17 methylPREDNISolone Dose Pack 4 mg PO DIRECTED #21 package 11/21/17 [Medrol Dose Pack] methylPREDNISolone Dose Pack 4 mg PO DIRECTED #21 package 06/11/19 [Medrol Dose Pack] Allergies Allergy/AdvReac Type Severity Reaction Status Date / Time bacitracin Allergy Unknown Verified 06/11/19 07:11 bupivacaine Allergy Unknown Verified 06/11/19 07:11 cephalexin monohydrate Allergy Anaphylaxis Verified 11/21/17 16:12 [From Keflex] Cephalosporins Allergy Unknown Verified 11/21/17 16:12 ciprofloxacin HCl Allergy Unknown Verified 11/21/17 16:12 [From Cipro] clindamycin HCl Allergy Unknown Verified 11/21/17 16:12 [From Cleocin] dexamethasone Allergy Unknown Verified 06/11/19 07:11 erythromycin base Allergy Unknown Verified 11/21/17 16:12 levofloxacin [From Levaquin] Allergy Unknown Verified 11/21/17 16:12 sulfamethoxazole Allergy Unknown Verified 11/21/17 16:12 [From Bactrim] trimethoprim [From Bactrim] Allergy Unknown Verified 11/21/17 16:12 Review of Systems ROS Statement: Those systems with pertinent positive or pertinent negative responses have been documented in the HPI. ROS Other: All systems not noted in ROS Statement are negative. Past Medical History Past Medical History: Hyperlipidemia, Hypertension Additional Past Medical History / Comment(s): FX BACK 3 YEARS AGO. FX NECK WHEN SHE WAS 14 DIVING INTO A POOL. CERVICAL CA. Mitral valve prolapse, Crohn's History of Any Multi-Drug Resistant Organisms: None Reported Past Surgical History: Heart Catheterization With Stent, Hysterectomy, Orthopedic Surgery Additional Past Surgical History / Comment(s): LEFT SHOULDER ARTHROSCOPY - 2009; LEFT ANKLE ARTHROSCOPY - 2001; BILATERAL KNEE ARTHROSCOPY - 2000, heart catheterization, sinus surgery, tonsillectomy, colonoscopy Past Anesthesia/Blood Transfusion Reactions: No Reported Reaction Past Psychological History: No Psychological Hx Reported, Anxiety Smoking Status: Former smoker Past Alcohol Use History: None Reported Past Drug Use History: None Reported General Exam - General Exam Comments Initial Comments: GENERAL: Patient is well-developed and well-nourished. Patient is nontoxic and well- hydrated and is in mild distress. ENT: Neck is soft and supple. No significant lymphadenopathy is noted. Neck has full range of motion without eliciting any pain. EYES: The sclera were anicteric and conjunctiva were pink and moist. Extraocular movements were intact and pupils were equal round and reactive to light. Eyelids were unremarkable. PULMONARY: Unlabored respirations. Good breath sounds bilaterally. No audible rales rhonchi or wheezing was noted. CARDIOVASCULAR: There is a regular rate and rhythm without any murmurs gallops or rubs. SKIN: Both cheeks are very erythematous left being greater than right. NEUROLOGIC: Patient is alert and oriented x3. Cranial nerves II through XII are grossly intact. Motor and sensory are also intact. Normal speech, volume and content. Symmetrical smile. MUSCULOSKELETAL: Normal extremities with adequate strength and full range of motion. PSYCHIATRIC: Normal psychiatric evaluation. Limitations: no limitations Course Vital Signs 06/11/19 07:05 Temperature 98.1 F Pulse Rate 89 Respiratory 18 Rate Blood Pressure 130/100 O2 Sat by Pulse 96 Oximetry Medical Decision Making - Medical Decision Making Patient stated she could take a Medrol Dosepak. I will be prescribing 1 for her at home. Patient took Benadryl 50 mg in the emergency department Disposition Clinical Impression: Allergic reaction to drug Disposition: HOME SELF-CARE Instructions (If sedation given, give patient instructions): Allergies (ED) Additional Instructions: Patient should stop the eyedrops at this point. Patient should take the Medrol Dosepak as prescribed. Prescriptions: methylPREDNISolone Dose Pack [Medrol Dose Pack] 4 mg PO DIRECTED #21 package Is patient prescribed a controlled substance at d/c from ED?: No Referrals: Ingris Crenshaw MD [Primary Care Provider] - 1-2 days Time of Disposition: 07:31
== END 2019-06-11 07:55 | disposition home or self-care (01) ==
LOC: EC 06:54
DX: L53.9 Erythematous condition, unspecified (principal); T49.5X5A Adverse effect of ophthalmological drugs and preparations, initial encounter; E78.5 Hyperlipidemia, unspecified; I10 Essential (primary) hypertension; Z87.891 Personal history of nicotine dependence; Z88.1 Allergy status to other antibiotic agents; Z88.2 Allergy status to sulfonamides; Z88.4 Allergy status to anesthetic agent; Z88.8 Allergy status to other drugs, medicaments and biological substances; Z79.899 Other long term (current) drug therapy; Z85.41 Personal history of malignant neoplasm of cervix uteri; Z90.710 Acquired absence of both cervix and uterus
CPT/HCPCS: 99282; 96372; J1200

== ENCOUNTER 2019-07-22 13:33 | Inpatient (IN) | payer MEDICARE, OTHER ==
[2019-07-22] MEDS ORDERED: IPRATROPIUM-ALBUTEROL 3 ML NEB INHALATION STA ×2 (13:57→15:13)
--- NOTE | 2019-07-22 14:03 | ED ---
URI HPI - General Chief Complaint: Upper Respiratory Infection Stated Complaint: RASHAUN Time Seen by Provider: 07/22/19 13:49 Source: patient, RN notes reviewed Mode of arrival: ambulatory Limitations: no limitations - History of Present Illness Initial Comments: This a 64-year-old female with a history of asthma who is a former smoker now 7- 8 years past smoking cessation past week or so she's had upper respiratory type symptoms shortness of breath exertional dyspnea cough with greenish phlegm. She is on amoxicillin currently and will be taken her last dose tomorrow but states she's not getting any relief. She denies any overt chest pain no other m odifying factors at this time. She has ever prior history of pneumonia. MD Complaint: cough, nasal congestion, other - Related Data Home Medications Medication Instructions Recorded Confirmed HYDROcodone/APAP 10-325MG [[place] 1 tab PO QID PRN 05/20/14 11/21/17 10-325] Omeprazole [PriLOSEC] 20 mg PO AC-BID 05/20/14 11/21/17 Simvastatin [Zocor] 20 mg PO HS 05/20/14 11/21/17 diphenhydrAMINE [Benadryl] 25 mg PO HS PRN 05/20/14 11/21/17 Lisinopril-Hctz 10-12.5 mg 1 tab PO DAILY 11/21/17 11/21/17 [Zestoretic 10-12.5] Previous Rx's Medication Instructions Recorded Estradiol Cream [Estrace Cream 1 applic VAGINAL MOTH #0 11/11/17 0.01%] Azithromycin [Zithromax] 250 mg PO DAILY 4 Days tab 11/21/17 methylPREDNISolone Dose Pack 4 mg PO DIRECTED #21 package 11/21/17 [Medrol Dose Pack] methylPREDNISolone Dose Pack 4 mg PO DIRECTED #21 package 06/11/19 [Medrol Dose Pack] Allergies Allergy/AdvReac Type Severity Reaction Status Date / Time bacitracin Allergy Unknown Verified 07/22/19 13:41 bupivacaine Allergy Unknown Verified 07/22/19 13:41 cephalexin monohydrate Allergy Anaphylaxis Verified 07/22/19 13:41 [From Keflex] Cephalosporins Allergy Unknown Verified 07/22/19 13:41 ciprofloxacin HCl Allergy Unknown Verified 07/22/19 13:41 [From Cipro] clindamycin HCl Allergy Unknown Verified 07/22/19 13:41 [From Cleocin] dexamethasone Allergy Unknown Verified 07/22/19 13:41 erythromycin base Allergy Unknown Verified 07/22/19 13:41 levofloxacin [From Levaquin] Allergy Unknown Verified 07/22/19 13:41 sulfamethoxazole Allergy Unknown Verified 07/22/19 13:41 [From Bactrim] trimethoprim [From Bactrim] Allergy Unknown Verified 07/22/19 13:41 Review of Systems ROS Statement: Those systems with pertinent positive or pertinent negative responses have been documented in the HPI. ROS Other: All systems not noted in ROS Statement are negative. Past Medical History Past Medical History: Hyperlipidemia, Hypertension Additional Past Medical History / Comment(s): FX BACK 3 YEARS AGO. FX NECK WHEN SHE WAS 14 DIVING INTO A POOL. CERVICAL CA. Mitral valve prolapse, Crohn's History of Any Multi-Drug Resistant Organisms: None Reported Past Surgical History: Heart Catheterization With Stent, Hysterectomy, Orthopedic Surgery Additional Past Surgical History / Comment(s): LEFT SHOULDER ARTHROSCOPY - 2009; LEFT ANKLE ARTHROSCOPY - 2001; BILATERAL KNEE ARTHROSCOPY - 2000, heart catheterization, sinus surgery, tonsillectomy, colonoscopy Past Anesthesia/Blood Transfusion Reactions: No Reported Reaction Past Psychological History: No Psychological Hx Reported, Anxiety Smoking Status: Former smoker Past Alcohol Use History: None Reported Past Drug Use History: None Reported General Exam - General Exam Comments Initial Comments: Is a well-developed well-nourished awake alert oriented 3 female Limitations: no limitations General appearance: alert, anxious Head exam: Present: atraumatic, normocephalic, normal inspection Eye exam: Present: normal appearance, PERRL, EOMI. Absent: scleral icterus, conjunctival injection, periorbital swelling ENT exam: Present: normal exam, mucous membranes moist Neck exam: Present: normal inspection. Absent: tenderness, meningismus, lymphadenopathy Respiratory exam: Present: wheezes (Him expiratory wheezes scattered.), decreased breath sounds. Absent: respiratory distress, rales, rhonchi, stridor Cardiovascular Exam: Present: normal rhythm, tachycardia, normal heart sounds. Absent: systolic murmur, diastolic murmur, rubs, gallop, clicks GI/Abdominal exam: Present: soft, normal bowel sounds. Absent: distended, tenderness, guarding, rebound, rigid Extremities exam: Present: normal inspection, full ROM, normal capillary refill. Absent: tenderness, pedal edema, joint swelling, calf tenderness Back exam: Present: normal inspection Neurological exam: Present: alert, oriented X3, CN II-XII intact Psychiatric exam: Present: normal affect, normal mood Skin exam: Present: warm, dry, intact, normal color. Absent: rash Course Vital Signs 07/22/19 07/22/19 07/22/19 13:38 14:13 14:20 Temperature 99.1 F Pulse Rate 110 H 98 98 Respiratory 20 Rate Blood Pressure 130/82 O2 Sat by Pulse 95 Oximetry - Reevaluation(s) Reevaluation #1: 07/22/19 14:28 Patient states she had minimal relief after the initial nebulizer treatment. Medical Decision Making - Medical Decision Making I did reevaluate patient several occasions she is getting minimal relief from her treatment thus far. I did discuss case Dr. Crenshaw patient will be admitted with consultation by Dr. eLw. - Lab Data Result diagrams: 07/22/19 13:50 07/22/19 13:50 Lab Results 07/22/19 07/22/19 07/22/19 Range/Units 13:50 13:50 13:50 WBC 14.0 H (3.8-10.6) k/uL RBC 4.58 (3.80-5.40) m/uL Hgb 14.1 (11.4-16.0) gm/dL Hct 43.7 (34.0-46.0) % MCV 95.5 (80.0-100.0) fL MCH 30.8 (25.0-35.0) pg MCHC 32.3 (31.0-37.0) g/dL RDW 12.4 (11.5-15.5) % Plt Count 335 (150-450) k/uL Neutrophils % 82 % Lymphocytes % 12 % Monocytes % 3 % Eosinophils % 2 % Basophils % 1 % Neutrophils # 11.4 H (1.3-7.7) k/uL Lymphocytes # 1.7 (1.0-4.8) k/uL Monocytes # 0.4 (0-1.0) k/uL Eosinophils # 0.2 (0-0.7) k/uL Basophils # 0.1 (0-0.2) k/uL PT 9.7 (9.0-12.0) sec INR 0.9 (<1.2) APTT 24.2 (22.0-30.0) sec D-Dimer 0.52 (<0.60) mg/L FEU Sodium 139 (137-145) mmol/L Potassium 4.2 (3.5-5.1) mmol/L Chloride 100 (98-107) mmol/L Carbon Dioxide 28 (22-30) mmol/L Anion Gap 11 mmol/L BUN 14 (7-17) mg/dL Creatinine 0.81 (0.52-1.04) mg/dL Est GFR (CKD-EPI)AfAm 89 (>60 ml/min/1.73 sqM) Est GFR (CKD-EPI)NonAf 77 (>60 ml/min/1.73 sqM) Glucose 129 H (74-99) mg/dL Calcium 9.9 (8.4-10.2) mg/dL Magnesium 1.8 (1.6-2.3) mg/dL Total Bilirubin 0.5 (0.2-1.3) mg/dL AST 24 (14-36) U/L ALT 20 (9-52) U/L Alkaline Phosphatase 84 (38-126) U/L Creatine Kinase 85 (30-135) U/L Troponin I (0.000-0.034) ng/mL NT-Pro-B Natriuret Pep pg/mL Total Protein 7.8 (6.3-8.2) g/dL Albumin 4.7 (3.5-5.0) g/dL 07/22/19 07/22/19 Range/Units 13:50 13:50 WBC (3.8-10.6) k/uL RBC (3.80-5.40) m/uL Hgb (11.4-16.0) gm/dL Hct (34.0-46.0) % MCV (80.0-100.0) fL MCH (25.0-35.0) pg MCHC (31.0-37.0) g/dL RDW (11.5-15.5) % Plt Count (150-450) k/uL Neutrophils % % Lymphocytes % % Monocytes % % Eosinophils % % Basophils % % Neutrophils # (1.3-7.7) k/uL Lymphocytes # (1.0-4.8) k/uL Monocytes # (0-1.0) k/uL Eosinophils # (0-0.7) k/uL Basophils # (0-0.2) k/uL PT (9.0-12.0) sec INR (<1.2) APTT (22.0-30.0) sec D-Dimer (<0.60) mg/L FEU Sodium (137-145) mmol/L Potassium (3.5-5.1) mmol/L Chloride (98-107) mmol/L Carbon Dioxide (22-30) mmol/L Anion Gap mmol/L BUN (7-17) mg/dL Creatinine (0.52-1.04) mg/dL Est GFR (CKD-EPI)AfAm (>60 ml/min/1.73 sqM) Est GFR (CKD-EPI)NonAf (>60 ml/min/1.73 sqM) Glucose (74-99) mg/dL Calcium (8.4-10.2) mg/dL Magnesium (1.6-2.3) mg/dL Total Bilirubin (0.2-1.3) mg/dL AST (14-36) U/L ALT (9-52) U/L Alkaline Phosphatase (38-126) U/L Creatine Kinase (30-135) U/L Troponin I <0.012 (0.000-0.034) ng/mL NT-Pro-B Natriuret Pep 86 pg/mL Total Protein (6.3-8.2) g/dL Albumin (3.5-5.0) g/dL - EKG Data -: EKG Interpreted by Me EKG shows normal: sinus rhythm EKG Comments: Sinus rhythm of 99. Interval 140 QRS duration 98 QT since QTC 360/462 low- voltage QRS and complete right bundle-branch block nonspecific anterior lateral figure aeration - Radiology Data Radiology results: report reviewed (I did review the imaging and report no evidence of pneumonia at this time. There is a calcified left upper quadrant abdominal finding likely secondary to a splenic cyst.), image reviewed Disposition Clinical Impression: Asthmatic bronchitis, Bronchospasm, acute, Febrile illness, acute, Failure of outpatient treatment Disposition: ADMITTED IP TO THIS [facility] Condition: Fair Referrals: Ingris Crenshaw MD [Primary Care Provider] - 1-2 days
[2019-07-22 14:15] LABS: Basophils # (A) 0.1 k/uL (0-0.2); Basophils % (A) 1 %; Eosinophils # (A) 0.2 k/uL (0-0.7); Eosinophils % (A) 2 %; HCT 43.7 % (34.0-46.0); HGB 14.1 gm/dL (11.4-16.0); Lymphocytes # (A) 1.7 k/uL (1.0-4.8); Lymphocytes % (A) 12 %; MCH 30.8 pg (25.0-35.0); MCHC 32.3 g/dL (31.0-37.0); MCV 95.5 fL (80.0-100.0); Mean Platelet Volume 6.5; Monocytes # (A) 0.4 k/uL (0-1.0); Monocytes % (A) 3 %; Neutrophils # (A) 11.4 k/uL (1.3-7.7); Neutrophils % (A) 82 %; Platelet Count 335 k/uL (150-450); RBC 4.58 m/uL (3.80-5.40); RDW 12.4 % (11.5-15.5)
[2019-07-22 14:25] LABS: Albumin 4.7 g/dL (3.5-5.0); Calcium 9.9 mg/dL (8.4-10.2); Magnesium 1.8 mg/dL (1.6-2.3); Potassium 4.2 mmol/L (3.5-5.1); Total Bilirubin 0.5 mg/dL (0.2-1.3); Total Protein 7.8 g/dL (6.3-8.2)
[2019-07-22 14:31] LABS: D-Dimer 0.52 mg/L FEU (<0.60); INR 0.9 (<1.2); Partial Thromboplastin Time 24.2 sec (22.0-30.0); Prothrombin Time 9.7 sec (9.0-12.0)
--- NOTE | 2019-07-22 14:52 | XR ---
EXAMINATION TYPE: XR chest 2V DATE OF EXAM: 07/22/2019 COMPARISON: 11/19/2017 HISTORY: Difficulty breathing TECHNIQUE: Frontal and lateral views of the chest are obtained. FINDINGS: There is increased density at the right cardiac border apparently due to a large pericardia l fat pad not changed compared to 12/09/2012. There is no heart failure. There is calcified ring calcif ication in the left upper quadrant that could be calcified splenic cyst. There is no heart failure. T here are no hilar masses. Heart size is normal. There is no pleural effusion. IMPRESSION: No active cardiopulmonary disease. Heart and lungs unchanged compared to 11/21/2017.
[2019-07-22] MEDS ORDERED: methylPREDNISolone SOD SUCCI 125 MG/2 ML VIAL IV STA (15:18)
[2019-07-22] MEDS ORDERED: KETOROLAC 30 MG/ML 1 ML VIAL IVP STA (15:29)
[2019-07-22] MEDS: SODIUM CHLORIDE 0.9% 1,000 ML IV SCH ×2 (15:34→15:37)
[2019-07-22] MEDS: IPRATROPIUM-ALBUTEROL 3 ML NEB INHALATION SCH ×2 (16:38→19:23)
[2019-07-22] MEDS: PANTOPRAZOLE 40 MG TABLET PO SCH (17:11)
[2019-07-22] MEDS: HYDROcodone/APAP 10-325MG 1 EACH TAB PO PRN (17:11)
[2019-07-22] MEDS: methylPREDNISolone SOD SUCCI 125 MG/2 ML VIAL IV SCH (17:11)
[2019-07-22] MEDS: HYDROmorphone 0.5 MG/0.5 ML SYRINGE IVP PRN ×2 (17:50→21:04)
[2019-07-22] MEDS: AMOXIC-POT CLAV 875-125MG 1 EACH TAB PO SCH (21:00)
[2019-07-22] MEDS: ATORVASTATIN 10 MG TAB PO SCH (21:02)
[2019-07-23] MEDS: methylPREDNISolone SOD SUCCI 125 MG/2 ML VIAL IV SCH ×5 (00:12→23:36)
[2019-07-23] MEDS: IPRATROPIUM-ALBUTEROL 3 ML NEB INHALATION SCH ×7 (00:41→23:21)
[2019-07-23] MEDS: HYDROmorphone 0.5 MG/0.5 ML SYRINGE IVP PRN ×5 (03:25→21:40)
[2019-07-23] MEDS: HYDROcodone/APAP 10-325MG 1 EACH TAB PO PRN ×4 (05:57→23:34)
[2019-07-23] MEDS: PANTOPRAZOLE 40 MG TABLET PO SCH (08:34)
[2019-07-23] MEDS: AMOXIC-POT CLAV 875-125MG 1 EACH TAB PO SCH ×2 (08:34→21:36)
[2019-07-23] MEDS ORDERED: LISINOPRIL-HCTZ 10-12.5 MG 1 EACH TAB PO SCH ×2 (09:00→21:00)
[2019-07-23] MEDS ORDERED: guaiFENesin-Coden 100-10MG/5ML 10 ML CUP PO PRN (11:37)
--- NOTE | 2019-07-23 11:47 | P.HPIM ---
History of Present Illness H&P Date: 07/23/19 Jeannine Sevilla, is a 64 year old female, who presented to [facility] emergency room with a chief complaint of cough and shortness of breath, patient symptoms started about 1 week ago she was given a course of amoxicillin as outpatient however her symptoms continued to worsen and she decided to come to emergency room. She has known history of asthma. Patient was evaluated by Dr. Wallace in the emergency room white blood count was elevated at 14,000 temperature was elevated at 99.2, heart rate at 110 chest x-ray did not reveal any evidence of acute infiltrate, she was started on IV steroids and inhaled bronchodilators and was admitted to medical floor. Pulmonary consultation was requested. Past Medical History Past Medical History: Hyperlipidemia, Hypertension Additional Past Medical History / Comment(s): FX BACK 3 YEARS AGO. FX NECK WHEN SHE WAS 14 DIVING INTO A POOL. CERVICAL CA. Mitral valve prolapse, Crohn's Disease, Bilateral cataract History of Any Multi-Drug Resistant Organisms: None Reported Past Surgical History: Heart Catheterization With Stent, Hysterectomy, Orthopedic Surgery, Tonsillectomy Additional Past Surgical History / Comment(s): LEFT SHOULDER ARTHROSCOPY - 2009; LEFT ANKLE ARTHROSCOPY - 2001; BILATERAL KNEE ARTHROSCOPY - 2000, heart catheterization, sinus surgery, colonoscopy Past Anesthesia/Blood Transfusion Reactions: No Reported Reaction Date of Last Stent Placement:: UNKNOWN Past Psychological History: No Psychological Hx Reported Smoking Status: Former smoker Past Alcohol Use History: None Reported Past Drug Use History: None Reported Medications and Allergies Home Medications Medication Instructions Recorded Confirmed Type HYDROcodone/APAP 10-325MG [[place] 1 tab PO QID@06,12,18,00 05/20/14 07/22/19 History 10-325] Omeprazole [PriLOSEC] 20 mg PO BID@1200,0000 05/20/14 07/22/19 History Simvastatin [Zocor] 20 mg PO HS@0000 05/20/14 07/22/19 History diphenhydrAMINE [Benadryl] 50 mg PO HS@0000 05/20/14 07/22/19 History Lisinopril-Hctz 10-12.5 mg 0.5 tab PO HS@0000 11/21/17 07/22/19 History [Zestoretic 10-12.5] Allergies Allergy/AdvReac Type Severity Reaction Status Date / Time 0.225 % sodium chloride Allergy Unknown Verified 07/22/19 16:04 [From [place]] bacitracin Allergy Unknown Verified 07/22/19 16:04 bupivacaine Allergy Unknown Verified 07/22/19 16:04 cephalexin monohydrate Allergy Anaphylaxis Verified 07/22/19 16:04 [From Keflex] Cephalosporins Allergy Unknown Verified 07/22/19 16:04 ciprofloxacin HCl Allergy Unknown Verified 07/22/19 16:04 [From Cipro] clindamycin HCl Allergy Unknown Verified 07/22/19 16:04 [From Cleocin] dexamethasone Allergy Unknown Verified 07/22/19 16:04 doxycycline Allergy Unknown Verified 07/22/19 16:04 erythromycin base Allergy Unknown Verified 07/22/19 16:04 levofloxacin [From Levaquin] Allergy Unknown Verified 07/22/19 16:04 nitrofurantoin Allergy Unknown Verified 07/22/19 16:04 [From Macrobid] sulfamethoxazole Allergy Unknown Verified 07/22/19 16:04 [From Bactrim] tobramycin [From [place]] Allergy Unknown Verified 07/22/19 16:04 trimethoprim [From Bactrim] Allergy Unknown Verified 07/22/19 16:04 Physical Exam Vitals: Vital Signs Temp Pulse Pulse Pulse Resp BP BP 07/23/19 11:07 92 07/23/19 10:52 92 07/23/19 06:33 96 07/23/19 06:25 92 07/23/19 05:07 98 F 92 20 118/74 07/22/19 21:00 98.6 F 98 20 112/74 07/22/19 19:34 96 07/22/19 19:23 90 07/22/19 16:20 99.7 F H 113 H 20 07/22/19 15:58 99.2 F 99 18 125/94 07/22/19 15:36 108 H 07/22/19 15:30 105 H 18 121/90 07/22/19 15:28 106 H 07/22/19 15:00 110 H 18 118/84 07/22/19 14:30 111 H 16 122/89 07/22/19 14:20 98 07/22/19 14:13 98 07/22/19 13:38 99.1 F 110 H 20 130/82 BP Pulse Ox 07/23/19 11:07 07/23/19 10:52 07/23/19 06:33 07/23/19 06:25 07/23/19 05:07 92 L 07/22/19 21:00 90 L 07/22/19 19:34 07/22/19 19:23 93 L 07/22/19 16:20 132/86 94 L 07/22/19 15:58 9 L 07/22/19 15:36 07/22/19 15:30 97 07/22/19 15:28 07/22/19 15:00 93 L 07/22/19 14:30 97 07/22/19 14:20 07/22/19 14:13 07/22/19 13:38 95 Intake and Output 07/22/19 07/23/19 07/23/19 22:59 06:59 14:59 Intake Total 300 200 Balance 300 200 Intake: Oral 300 200 Other: # Voids 2 2 # Bowel Movements 0 In general patient is alert and oriented 3 in no apparent distress HEENT head normocephalic and atraumatic Neck is supple no JVD no goiter no lymphadenopathy Chest exam reveals scattered crackles and wheezing Cardiac exam reveals regular heart sounds S1 and S2 no gallops no murmurs Abdomen is soft nontender no organomegaly with normal bowel sounds Extremity exam reveals no edema no cyanosis or clubbing Neurological examination reveals no gross focal deficit Results CBC & Chem 7: 07/22/19 13:50 07/22/19 13:50 Labs: Abnormal Lab Results - Last 24 Hours (Table) 07/22/19 07/22/19 Range/Units 13:50 13:50 WBC 14.0 H (3.8-10.6) k/uL Neutrophils # 11.4 H (1.3-7.7) k/uL Glucose 129 H (74-99) mg/dL Thrombosis Risk Factor Assmnt - Choose All That Apply Each Factor Represents 1 point: Obesity (BMI >25), Serious lung disease incl. pneumonia (< 1month) Each Risk Factor Represents 2 Points: Age 61-74 years Thrombosis Risk Factor Assessment Total Risk Factor Score: 4 Thrombosis Risk Factor Assessment Level: Moderate Risk Assessment and Plan Plan: #1 upper respiratory infection #2 acute asthma exacerbation #3 underlying history of hypertension #4 underlying history of chronic back neck pain with previous history of spinal surgery maintained on chronic narcotics for pain management #5 underlying history of gastroesophageal reflux disease. #6 underlying history of hyperlipidemia maintained on simvastatin At this time patient was seen and examined Pulmonary consultation requested Continue with IV steroids and inhaled bronchodilators and oral antibiotics Home medications reviewed and reordered. Will follow closely
--- NOTE | 2019-07-23 12:00 | P.CNPUL ---
History of Present Illness Consult date: 07/23/19 Requesting physician: Ingris Crenshaw Reason for consult: COPD Chief complaint: cough and shortness of breath. History of present illness: this is a 64-year-old female, remote smoking history, patient was [id number] smoker, however she quit 10 years ago. History of asthmatic bronchitis, patient came in with 1 week history of cough wheezing shortness of breath and feeling worn out. Almost finished a course of ampicillin given to her by her primary care physician, but she was not making much improvement. Hence the patient presented to the ER, she was noted to have fever with a temp of 99.2,relatively normal chest x-ray except for increased density at the right cardiac border felt to be most likely a pericardial fat and was present in 2012. No clear-cut evidence of pneumonia. Patient was admitted and this consult was initiated. Patient described her cough as productive with black and sometimes dark green phlegm. Patient was complaining of intermittent wheezing, and was not improving by using her albuterol via updraft machine. Unfortunately the patient has multiple ALLERGIES, and she is almost ALLERGIC to every antibiotic known to man. She has been on ampicillin but today I suggested that we continue Augmentin. Patient cannot tolerate high dose steroids, and her ALLERGY list is quite significant. Review of Systems Constitutional: vague aches and pains, low-grade fever on admission. No weight loss. Eyes: denies any blurred vision, no diplopia. Ears, nose, mouth and throat: denies headache, sore throat, nasal congestion. Cardiovascular: Denies chest pain, denies syncope. Respiratory: mostly cough wheezing shortness of breath. Gastrointestinal: denies nausea vomiting abdominal pain melena or hematemesis. Musculoskeletal, denies any deformities or any limitation of range of motion. Integumentary: denies any rashes or pruritus. Neurological: Denies numbness, Denies weakness Psychiatric: denies any symptoms of active depression or anxiety. Endocrine: denies any heat or cold intolerance. Past Medical History Past Medical History: Hyperlipidemia, Hypertension Additional Past Medical History / Comment(s): FX BACK 3 YEARS AGO. FX NECK WHEN SHE WAS 14 DIVING INTO A POOL. CERVICAL CA. Mitral valve prolapse, Crohn's Disease, Bilateral cataract History of Any Multi-Drug Resistant Organisms: None Reported Past Surgical History: Heart Catheterization With Stent, Hysterectomy, Orthopedic Surgery, Tonsillectomy Additional Past Surgical History / Comment(s): LEFT SHOULDER ARTHROSCOPY - 2009; LEFT ANKLE ARTHROSCOPY - 2001; BILATERAL KNEE ARTHROSCOPY - 2000, heart catheterization, sinus surgery, colonoscopy Past Anesthesia/Blood Transfusion Reactions: No Reported Reaction Date of Last Stent Placement:: UNKNOWN Past Psychological History: No Psychological Hx Reported Smoking Status: Former smoker Past Alcohol Use History: None Reported Past Drug Use History: None Reported Medications and Allergies Home Medications Medication Instructions Recorded Confirmed Type HYDROcodone/APAP 10-325MG [[place] 1 tab PO QID@06,12,18,00 05/20/14 07/22/19 History 10-325] Omeprazole [PriLOSEC] 20 mg PO BID@1200,0000 05/20/14 07/22/19 History Simvastatin [Zocor] 20 mg PO HS@0000 05/20/14 07/22/19 History diphenhydrAMINE [Benadryl] 50 mg PO HS@0000 05/20/14 07/22/19 History Lisinopril-Hctz 10-12.5 mg 0.5 tab PO HS@0000 11/21/17 07/22/19 History [Zestoretic 10-12.5] Allergies Allergy/AdvReac Type Severity Reaction Status Date / Time 0.225 % sodium chloride Allergy Unknown Verified 07/22/19 16:04 [From [place]] bacitracin Allergy Unknown Verified 07/22/19 16:04 bupivacaine Allergy Unknown Verified 07/22/19 16:04 cephalexin monohydrate Allergy Anaphylaxis Verified 07/22/19 16:04 [From Keflex] Cephalosporins Allergy Unknown Verified 07/22/19 16:04 ciprofloxacin HCl Allergy Unknown Verified 07/22/19 16:04 [From Cipro] clindamycin HCl Allergy Unknown Verified 07/22/19 16:04 [From Cleocin] dexamethasone Allergy Unknown Verified 07/22/19 16:04 doxycycline Allergy Unknown Verified 07/22/19 16:04 erythromycin base Allergy Unknown Verified 07/22/19 16:04 levofloxacin [From Levaquin] Allergy Unknown Verified 07/22/19 16:04 nitrofurantoin Allergy Unknown Verified 07/22/19 16:04 [From Macrobid] sulfamethoxazole Allergy Unknown Verified 07/22/19 16:04 [From Bactrim] tobramycin [From [place]] Allergy Unknown Verified 07/22/19 16:04 trimethoprim [From Bactrim] Allergy Unknown Verified 07/22/19 16:04 Physical Exam Vitals: Vital Signs Temp Pulse Pulse Pulse Resp BP BP 07/23/19 11:07 92 07/23/19 10:52 92 07/23/19 06:33 96 07/23/19 06:25 92 07/23/19 05:07 98 F 92 20 118/74 07/22/19 21:00 98.6 F 98 20 112/74 07/22/19 19:34 96 07/22/19 19:23 90 07/22/19 16:20 99.7 F H 113 H 20 07/22/19 15:58 99.2 F 99 18 125/94 07/22/19 15:36 108 H 07/22/19 15:30 105 H 18 121/90 07/22/19 15:28 106 H 07/22/19 15:00 110 H 18 118/84 07/22/19 14:30 111 H 16 122/89 07/22/19 14:20 98 07/22/19 14:13 98 07/22/19 13:38 99.1 F 110 H 20 130/82 BP Pulse Ox 07/23/19 11:07 07/23/19 10:52 07/23/19 06:33 07/23/19 06:25 07/23/19 05:07 92 L 07/22/19 21:00 90 L 07/22/19 19:34 07/22/19 19:23 93 L 07/22/19 16:20 132/86 94 L 07/22/19 15:58 9 L 07/22/19 15:36 07/22/19 15:30 97 07/22/19 15:28 07/22/19 15:00 93 L 07/22/19 14:30 97 07/22/19 14:20 07/22/19 14:13 07/22/19 13:38 95 Intake and Output 07/22/19 07/23/19 07/23/19 22:59 06:59 14:59 Intake Total 300 200 Balance 300 200 Intake: Oral 300 200 Other: # Voids 2 2 # Bowel Movements 0 Physical Exam: Revealed a 64-year-old female in no distress. Head: Atraumatic normocephalic. HEENT:[Neck is supple.] [No neck masses.] [No thyromegaly.] [No JVD.]PERRLA, EOMI, no icterus. Chest: [symmetrical chest expansion, diffuse crackles and rhonchi and wheezes bilaterally more so on forced expiratory maneuver. No chest wall tenderness.] Cardiac Exam: [Normal S1 and S2, no S3 gallop, no murmur.] Abdomen: [obese,Soft, nontender, no megaly, no rebound, no guarding, normal bowel sounds.] Extremities: [No clubbing, no edema, no cyanosis.]good pulses bilaterally. Neurological Exam: alert and oriented 3.[No focal neurologic deficit.] psychiatric: Normal mood affect and normal mental status examination. Skin: No rashes. Lymphatics: No lymphadenopathy. Musculoskeletal: No limitation in range of motion, and no deformities. Results - Laboratory Findings CBC and BMP: 07/22/19 13:50 07/22/19 13:50 PT/INR, D-dimer PT 9.7 sec (9.0-12.0) 07/22/19 13:50 INR 0.9 (<1.2) 07/22/19 13:50 D-Dimer 0.52 mg/L FEU (<0.60) 07/22/19 13:50 Abnormal lab findings: Abnormal Labs 07/22/19 07/22/19 13:50 13:50 WBC 14.0 H Neutrophils # 11.4 H Glucose 129 H - Diagnostic Findings Chest x-ray: image reviewed (as noted in HPI.) Assessment and Plan Assessment: impression: 1acute exacerbation of chronic obstructive pulmonary disease, mostly in the form of asthmatic bronchitis. Patient had a [id number] smoking history, no history of asthma as a child. 2 acute purulent tracheobronchitis, no clear-cut evidence of pneumonia. 3 history of chronic neck pain and chronic pain syndrome. Maintained on narcotics. 4 benign essential hypertension 5 history of GERD, presently under control and on treatment. 6 history of dyslipidemia. Recommendation: continue Augmentin. Continue Solu-Medrol. Continue updrafts. Continue Symbicort. Continue Protonix. Resume home meds. Expect the patient to improve over the next 2-3 days. And she should have follow-up on outpatient basis should have at least a PFT on outpatient basis to determine the severity of her COPD. We'll continue to follow. Time with Patient: Greater than 30
[2019-07-23] MEDS: SODIUM CHLORIDE 0.9% 1,000 ML IV SCH (16:55)
[2019-07-23] MEDS: SYMBICORT 160-4.5 MCG INHALER INHALATION SCH ×2 (19:04→19:13)
[2019-07-23] MEDS: MONTELUKAST 10 MG TAB PO SCH ×2 (21:36→21:48)
[2019-07-23] MEDS: ATORVASTATIN 10 MG TAB PO SCH (21:36)
[2019-07-23] MEDS: LISINOPRIL-HCTZ 10-12.5 MG 1 EACH TAB PO SCH (23:33)
[2019-07-24] MEDS: IPRATROPIUM-ALBUTEROL 3 ML NEB INHALATION SCH ×6 (03:17→23:12)
[2019-07-24] MEDS: HYDROmorphone 0.5 MG/0.5 ML SYRINGE IVP PRN ×4 (03:17→19:38)
[2019-07-24] MEDS: HYDROcodone/APAP 10-325MG 1 EACH TAB PO PRN ×3 (05:58→17:45)
[2019-07-24] MEDS: methylPREDNISolone SOD SUCCI 125 MG/2 ML VIAL IV SCH ×3 (06:04→17:33)
[2019-07-24] MEDS: LISINOPRIL-HCTZ 10-12.5 MG 1 EACH TAB PO SCH (06:53)
[2019-07-24] MEDS: SYMBICORT 160-4.5 MCG INHALER INHALATION SCH ×2 (07:36→07:40)
[2019-07-24] MEDS: AMOXIC-POT CLAV 875-125MG 1 EACH TAB PO SCH ×2 (07:49→20:55)
[2019-07-24] MEDS: PANTOPRAZOLE 40 MG TABLET PO SCH (07:49)
[2019-07-24 10:33] LABS: Albumin 4.1 g/dL (3.5-5.0); Calcium 9.6 mg/dL (8.4-10.2); Potassium 4.1 mmol/L (3.5-5.1); Total Bilirubin 0.2 mg/dL (0.2-1.3); Total Protein 6.8 g/dL (6.3-8.2)
[2019-07-24 10:43] LABS: Basophils % (A) 0 %; Eosinophils % (A) 0 %; HCT 36.9 % (34.0-46.0); HGB 12.4 gm/dL (11.4-16.0); Lymphocytes # (A) 0.8 k/uL (1.0-4.8); Lymphocytes % (A) 4 %; MCH 31.8 pg (25.0-35.0); MCHC 33.5 g/dL (31.0-37.0); MCV 94.9 fL (80.0-100.0); Mean Platelet Volume 6.1; Monocytes # (A) 0.4 k/uL (0-1.0); Monocytes % (A) 2 %; Neutrophils # (A) 17.2 k/uL (1.3-7.7); Neutrophils % (A) 93 %; Platelet Count 306 k/uL (150-450); RBC 3.89 m/uL (3.80-5.40); RDW 12.9 % (11.5-15.5); WBC 18.5 k/uL (3.8-10.6)
--- NOTE | 2019-07-24 11:09 | P.PN ---
Subjective Progress Note Date: 07/24/19 Jeannine Sevilla, is a 64 year old female, who presented to [facility] emergency room with a chief complaint of cough and shortness of breath, patient symptoms started about 1 week ago she was given a course of amoxicillin as outpatient however her symptoms continued to worsen and she decided to come to emergency room. She has known history of asthma. Patient was evaluated by Dr. Wallace in the emergency room white blood count was elevated at 14,000 temperature was elevated at 99.2, heart rate at 110 chest x-ray did not reveal any evidence of acute infiltrate, she was started on IV steroids and inhaled bronchodilators and was admitted to medical floor. Pulmonary consultation was requested. On 07/24/2019 patient is alert and oriented 3. Patient remains on Augmentin and Solu-Medrol per pulmonary services. Patient reports slight improvement. Patient denies chest pain. Patient denies nausea vomiting or diarrhea. Patient denies any urinary burning or frequency. Objective - Vital Signs Vital signs: Vital Signs Temp 97.5 F L 07/24/19 07:16 Pulse 96 07/24/19 07:44 Resp 16 07/24/19 07:16 BP 128/76 07/24/19 07:16 Pulse Ox 93 L 07/24/19 07:16 Intake & Output 07/23/19 07/24/19 07/24/19 18:59 06:59 18:59 Intake Total 540 Balance 540 Intake: Oral 540 Other: # Voids 3 1 # Bowel Movements 0 - Exam In general patient is alert and oriented 3 in no apparent distress HEENT head normocephalic and atraumatic Neck is supple no JVD no goiter no lymphadenopathy Chest exam reveals scattered crackles and wheezing Cardiac exam reveals regular heart sounds S1 and S2 no gallops no murmurs Abdomen is soft nontender no organomegaly with normal bowel sounds Extremity exam reveals no edema no cyanosis or clubbing Neurological examination reveals no gross focal deficit - Labs CBC & Chem 7: 07/24/19 10:05 07/24/19 10:05 Labs: Abnormal Lab Results - Last 24 Hours (Table) 07/24/19 07/24/19 Range/Units 10:05 10:05 WBC 18.5 H (3.8-10.6) k/uL Neutrophils # 17.2 H (1.3-7.7) k/uL Lymphocytes # 0.8 L (1.0-4.8) k/uL BUN 30 H (7-17) mg/dL Glucose 150 H (74-99) mg/dL Microbiology - Last 24 Hours (Table) 07/22/19 13:50 Blood Culture - Preliminary Blood No Growth after 24 hours Assessment and Plan Assessment: #1 upper respiratory infection. Patient maintained on Augmentin. Blood Culture ordered #2 acute asthma exacerbation. Patient maintained on updrafts and Solu-Medrol. Pulmonary following #3 underlying history of hypertension #4 underlying history of chronic back neck pain with previous history of spinal surgery maintained on chronic narcotics for pain management #5 underlying history of gastroesophageal reflux disease. #6 underlying history of hyperlipidemia maintained on simvastatin DVT prophylaxis heparin. GI prophylaxis Pepcid I performed an examination of the patient and discussed their management with the Nurse Practitioner. I have reviewed the Nurse Practitioner's notes and agree with the documented findings and plan of care
--- NOTE | 2019-07-24 11:18 | P.PN ---
Subjective Progress Note Date: 07/24/19 Principal diagnosis: Cough and shortness of breath this is a 64-year-old female, remote smoking history, patient was [id number] smoker, however she quit 10 years ago. History of asthmatic bronchitis, patient came in with 1 week history of cough wheezing shortness of breath and feeling worn out. Almost finished a course of ampicillin given to her by her primary care physician, but she was not making much improvement. Hence the patient presented to the ER, she was noted to have fever with a temp of 99.2,relatively normal chest x-ray except for increased density at the right cardiac border felt to be most likely a pericardial fat and was present in 2012. No clear-cut evidence of pneumonia. Patient was admitted and this consult was initiated. Patient described her cough as productive with black and sometimes dark green phlegm. Patient was complaining of intermittent wheezing, and was not improving by using her albuterol via updraft machine. Unfortunately the patient has multiple ALLERGIES, and she is almost ALLERGIC to every antibiotic known to man. She has been on ampicillin but today I suggested that we continue Augmentin. Patient cannot tolerate high dose steroids, and her ALLERGY list is quite significant. On 07/24/2019 patient seen in follow-up on the medical surgical floor, she still bronchospastic and congested and coughing, not quite back to baseline, she remains on high-dose IV steroids, Augmentin, Symbicort and Singulair, chest x- ray did not show acute process, influenza screen was negative, room air pulse ox was 93%, she is afebrile. Today's labs have been reviewed. Objective - Vital Signs Vital signs: Vital Signs Temp 97.5 F L 07/24/19 07:16 Pulse 96 07/24/19 07:44 Resp 16 07/24/19 07:16 BP 128/76 07/24/19 07:16 Pulse Ox 93 L 07/24/19 07:16 Intake & Output 07/23/19 07/24/19 07/24/19 18:59 06:59 18:59 Intake Total 540 Balance 540 Intake: Oral 540 Other: # Voids 3 1 # Bowel Movements 0 - Exam GENERAL EXAM: Alert, pleasant, 64-year-old white female on room air, with a pulse ox of 93%, comfortable in no apparent distress. HEAD: Normocephalic/atraumatic. EYES: Normal reaction of pupils, equal size. Conjunctiva pink, sclera white. NOSE: Clear with pink turbinates. THROAT: No erythema or exudates. NECK: No masses, no JVD, no thyroid enlargement, no adenopathy. CHEST: No chest wall deformity. Symmetrical expansion. LUNGS: Equal air entry with diffuse rhonchi, wheezes CVS: Regular rate and rhythm, normal S1 and S2, no gallops, no murmurs, no rubs ABDOMEN: Soft, nontender. No hepatosplenomegaly, normal bowel sounds, no guarding or rigidity. EXTREMITIES: No clubbing, no edema, no cyanosis, 2+ pulses and upper and lower extremities. MUSCULOSKELETAL: Muscle strength and tone normal. SPINE: No scoliosis or deformity SKIN: No rashes CENTRAL NERVOUS SYSTEM: Alert and oriented -3. No focal deficits, tone is normal in all 4 extremities. PSYCHIATRIC: Alert and oriented -3. Appropriate affect. Intact judgment and insight. - Labs CBC & Chem 7: 07/24/19 10:05 07/24/19 10:05 Labs: Abnormal Lab Results - Last 24 Hours (Table) 07/24/19 07/24/19 Range/Units 10:05 10:05 WBC 18.5 H (3.8-10.6) k/uL Neutrophils # 17.2 H (1.3-7.7) k/uL Lymphocytes # 0.8 L (1.0-4.8) k/uL BUN 30 H (7-17) mg/dL Glucose 150 H (74-99) mg/dL Microbiology - Last 24 Hours (Table) 07/22/19 13:50 Blood Culture - Preliminary Blood No Growth after 24 hours Assessment and Plan Plan: Assessment: 1acute exacerbation of chronic obstructive pulmonary disease, mostly in the form of asthmatic bronchitis. Patient had a [id number] smoking history, no history of asthma as a child. 2 acute purulent tracheobronchitis, no clear-cut evidence of pneumonia. 3 history of chronic neck pain and chronic pain syndrome. Maintained on narcotics. 4 benign essential hypertension 5 history of GERD, presently under control and on treatment. 6 history of dyslipidemia. 7 mild intermittent bronchial asthma Plan: Continue current medical treatment, continue antibiotics, IV steroids, nebulized bronchodilators, we will switch Symbicort to Pulmicort and Perforomist, still dyspneic, congested bronchospastic, not quite back to baseline, will continue current treatment, I performed a history & physical examination of the patient and discussed their management with my nurse practitioner, Gabrielle Schroeder. I reviewed the nurse practitioner's note and agree with the documented findings and plan of care. Lung sounds are positive for diffuse wheezes and rhonchi throughout the lung joseph. The findings and the impression was discussed with the patient. I attest to the documentation by the nurse practitioner. Time with Patient: Less than 30
[2019-07-24] MEDS: INSULIN ASPART (NovoLOG) 100 UNIT/ML VIAL SQ SCH ×3 (12:25→21:02)
[2019-07-24 12:32] LABS: Glucose,Whole Blood 144 mg/dL (75-99)
[2019-07-24] MEDS: SODIUM CHLORIDE 0.9% 1,000 ML IV SCH (14:57)
[2019-07-24 16:39] LABS: Glucose,Whole Blood 147 mg/dL (75-99)
[2019-07-24] MEDS: FORMOTEROL FUMARATE 20 MCG/2 ML NEBU INHALATION SCH (19:00)
[2019-07-24] MEDS ORDERED: BUDESONIDE 0.5 MG/2 ML NEBU INHALATION SCH (20:00)
[2019-07-24 20:44] LABS: Glucose,Whole Blood 166 mg/dL (75-99)
[2019-07-24] MEDS: HEPARIN SODIUM,PORCINE 5,000 UNIT/ML 1 ML VIAL SQ SCH (20:55)
[2019-07-24] MEDS: MONTELUKAST 10 MG TAB PO SCH ×2 (20:55→21:05)
[2019-07-24] MEDS: ATORVASTATIN 10 MG TAB PO SCH (20:55)
[2019-07-24] MEDS ORDERED: LISINOPRIL-HCTZ 10-12.5 MG 1 EACH TAB PO SCH (21:11)
[2019-07-25] MEDS: methylPREDNISolone SOD SUCCI 125 MG/2 ML VIAL IV SCH ×4 (00:08→17:21)
[2019-07-25] MEDS: HYDROcodone/APAP 10-325MG 1 EACH TAB PO PRN ×4 (00:09→18:01)
[2019-07-25] MEDS: HYDROmorphone 0.5 MG/0.5 ML SYRINGE IVP PRN ×4 (02:16→20:04)
[2019-07-25] MEDS: IPRATROPIUM-ALBUTEROL 3 ML NEB INHALATION SCH ×6 (04:06→23:40)
[2019-07-25 07:10] LABS: Glucose,Whole Blood 129 mg/dL (75-99)
[2019-07-25] MEDS: PANTOPRAZOLE 40 MG TABLET PO SCH (07:13)
[2019-07-25] MEDS: AMOXIC-POT CLAV 875-125MG 1 EACH TAB PO SCH ×2 (07:13→21:22)
[2019-07-25] MEDS: INSULIN ASPART (NovoLOG) 100 UNIT/ML VIAL SQ SCH ×4 (07:13→21:49)
[2019-07-25] MEDS: HEPARIN SODIUM,PORCINE 5,000 UNIT/ML 1 ML VIAL SQ SCH ×2 (07:14→21:49)
[2019-07-25] MEDS: FAMOTIDINE 20 MG TAB PO SCH (07:14)
[2019-07-25] MEDS: FORMOTEROL FUMARATE 20 MCG/2 ML NEBU INHALATION SCH ×2 (07:25→19:48)
[2019-07-25] MEDS: BUDESONIDE 1 MG/2 ML NEBU INHALATION SCH ×2 (07:32→19:35)
[2019-07-25 09:10] LABS: Albumin 3.8 g/dL (3.5-5.0); Calcium 9.3 mg/dL (8.4-10.2); Potassium 4.2 mmol/L (3.5-5.1); Total Bilirubin 0.4 mg/dL (0.2-1.3); Total Protein 6.6 g/dL (6.3-8.2)
[2019-07-25 09:16] LABS: Basophils # (A) 0.1 k/uL (0-0.2); Basophils % (A) 0 %; Eosinophils % (A) 0 %; HCT 37.3 % (34.0-46.0); HGB 12.2 gm/dL (11.4-16.0); Lymphocytes % (A) 7 %; MCH 31.4 pg (25.0-35.0); MCHC 32.6 g/dL (31.0-37.0); MCV 96.1 fL (80.0-100.0); Mean Platelet Volume 6.7; Monocytes # (A) 0.3 k/uL (0-1.0); Monocytes % (A) 2 %; Neutrophils # (A) 12.7 k/uL (1.3-7.7); Neutrophils % (A) 89 %; Platelet Count 294 k/uL (150-450); RBC 3.88 m/uL (3.80-5.40); RDW 12.9 % (11.5-15.5); WBC 14.3 k/uL (3.8-10.6)
--- NOTE | 2019-07-25 09:46 | P.PN ---
Subjective Progress Note Date: 07/25/19 Jeannine Sevilla, is a 64 year old female, who presented to [facility] emergency room with a chief complaint of cough and shortness of breath, patient symptoms started about 1 week ago she was given a course of amoxicillin as outpatient however her symptoms continued to worsen and she decided to come to emergency room. She has known history of asthma. Patient was evaluated by Dr. Wallace in the emergency room white blood count was elevated at 14,000 temperature was elevated at 99.2, heart rate at 110 chest x-ray did not reveal any evidence of acute infiltrate, she was started on IV steroids and inhaled bronchodilators and was admitted to medical floor. Pulmonary consultation was requested. On 07/24/2019 patient is alert and oriented 3. Patient remains on Augmentin and Solu-Medrol per pulmonary services. Patient reports slight improvement. Patient denies chest pain. Patient denies nausea vomiting or diarrhea. Patient denies any urinary burning or frequency. On 07/25/2019 patient's alert and oriented 3. Patient reports some improvement with shortness of breath. Patient is having increased cough with sputum production but does feel better. Patient remains on IV steroids and Augmentin. Patient denies chest pain or shortness of breath. Patient denies any nausea v omiting or diarrhea. Patient denies any urinary burning or frequency Objective - Vital Signs Vital signs: Vital Signs Temp 96.9 F L 07/25/19 05:00 Pulse 76 07/25/19 07:45 Resp 18 07/25/19 05:00 BP 132/81 07/25/19 05:00 Pulse Ox 92 L 07/25/19 05:00 Intake & Output 07/24/19 07/25/19 07/25/19 18:59 06:59 18:59 Intake Total 1020 950 Balance 1020 950 Intake: Oral 1020 950 Other: # Voids 1 2 - Exam In general patient is alert and oriented 3 in no apparent distress HEENT head normocephalic and atraumatic Neck is supple no JVD no goiter no lymphadenopathy Chest exam reveals scattered crackles and wheezing Cardiac exam reveals regular heart sounds S1 and S2 no gallops no murmurs Abdomen is soft nontender no organomegaly with normal bowel sounds Extremity exam reveals no edema no cyanosis or clubbing Neurological examination reveals no gross focal deficit - Labs CBC & Chem 7: 07/25/19 08:09 07/25/19 08:09 Labs: Abnormal Lab Results - Last 24 Hours (Table) 07/24/19 07/24/19 07/24/19 Range/Units 10:05 10:05 12:19 WBC 18.5 H (3.8-10.6) k/uL Neutrophils # 17.2 H (1.3-7.7) k/uL Lymphocytes # 0.8 L (1.0-4.8) k/uL BUN 30 H (7-17) mg/dL Glucose 150 H (74-99) mg/dL POC Glucose (mg/dL) 144 H (75-99) mg/dL 07/24/19 07/24/19 07/25/19 Range/Units 16:36 20:35 07:05 WBC (3.8-10.6) k/uL Neutrophils # (1.3-7.7) k/uL Lymphocytes # (1.0-4.8) k/uL BUN (7-17) mg/dL Glucose (74-99) mg/dL POC Glucose (mg/dL) 147 H 166 H 129 H (75-99) mg/dL 07/25/19 07/25/19 Range/Units 08:09 08:09 WBC 14.3 H (3.8-10.6) k/uL Neutrophils # 12.7 H (1.3-7.7) k/uL Lymphocytes # (1.0-4.8) k/uL BUN 36 H (7-17) mg/dL Glucose 144 H (74-99) mg/dL POC Glucose (mg/dL) (75-99) mg/dL Microbiology - Last 24 Hours (Table) 07/22/19 13:50 Blood Culture - Preliminary Blood No Growth after 48 hours Assessment and Plan Assessment: #1 upper respiratory infection with acute purulent tracheobronchitis. Patient maintained on Augmentin. Blood Culture ordered. Sputum culture ordered #2 acute asthma exacerbation. Patient maintained on updrafts and Solu-Medrol. Pulmonary following #3 underlying history of hypertension #4 underlying history of chronic back neck pain with previous history of spinal surgery maintained on chronic narcotics for pain management #5 underlying history of gastroesophageal reflux disease. #6 underlying history of hyperlipidemia maintained on simvastatin DVT prophylaxis heparin. GI prophylaxis Pepcid I performed an examination of the patient and discussed their management with the Nurse Practitioner. I have reviewed the Nurse Practitioner's notes and agree with the documented findings and plan of care
--- NOTE | 2019-07-25 11:57 | P.PN ---
Subjective Progress Note Date: 07/25/19 Principal diagnosis: Acute exacerbation of chronic obstructive pulmonary disease/asthmatic bronchitis This is a 64-year-old female, remote smoking history, patient was [id number] smoker, however she quit 10 years ago. History of asthmatic bronchitis, patient came in with 1 week history of cough wheezing shortness of breath and feeling worn out. Almost finished a course of ampicillin given to her by her primary care physician, but she was not making much improvement. Hence the patient presented to the ER, she was noted to have fever with a temp of 99.2,relatively normal chest x-ray except for increased density at the right cardiac border felt to be most likely a pericardial fat and was present in 2012. No clear-cut evidence of pneumonia. Patient was admitted and this consult was initiated. Patient described her cough as productive with black and sometimes dark green phlegm. Patient was complaining of intermittent wheezing, and was not improving by using her albuterol via updraft machine. Unfortunately the patient has multiple ALLERGIES, and she is almost ALLERGIC to every antibiotic known to man. She has been on ampicillin but today I suggested that we continue Augmentin. Patient cannot tolerate high dose steroids, and her ALLERGY list is quite sig nificant. On 07/24/2019 patient seen in follow-up on the medical surgical floor, she still bronchospastic and congested and coughing, not quite back to baseline, she remains on high-dose IV steroids, Augmentin, Symbicort and Singulair, chest x- ray did not show acute process, influenza screen was negative, room air pulse ox was 93%, she is afebrile. Today's labs have been reviewed. The patient is seen today 07/25/2019 in follow-upon the regular medical floor. She is currently resting in bed. Awake and alert in no acute distress. Breathing a bit easier today as compared to yesterday. Not quite back to her baseline. She is maintaining O2 saturation in the 90s on room air. She is afebrile. White count 14.3. Hemoglobin 12.2. Creatinine 0.88. She is continued on DuoNeb inhalations, Pulmicort and Perforomist inhalations, IV Solu-Medrol. Antibiotics in the form of Augmentin. Objective - Vital Signs Vital signs: Vital Signs Temp 96.9 F L 07/25/19 05:00 Pulse 80 07/25/19 11:23 Resp 18 07/25/19 05:00 BP 132/81 07/25/19 05:00 Pulse Ox 92 L 07/25/19 05:00 Intake & Output 07/24/19 07/25/19 07/25/19 18:59 06:59 18:59 Intake Total 1020 950 Balance 1020 950 Intake: Oral 1020 950 Other: # Voids 1 2 - Exam GENERAL EXAM: Alert, pleasant, 64-year-old female patient, on room air, comfortable in no apparent distress. HEAD: Normocephalic/atraumatic. EYES: Normal reaction of pupils, equal size. Conjunctiva pink, sclera white. NOSE: Clear with pink turbinates. THROAT: No erythema or exudates. NECK: No masses, no JVD, no thyroid enlargement, no adenopathy. CHEST: No chest wall deformity. Symmetrical expansion. LUNGS: Equal air entry with few scattered rhonchi, end expiratory wheeze CVS: Regular rate and rhythm, normal S1 and S2, no gallops, no murmurs, no rubs ABDOMEN: Soft, nontender. No hepatosplenomegaly, normal bowel sounds, no guarding or rigidity. EXTREMITIES: No clubbing, no edema, no cyanosis, 2+ pulses and upper and lower extremities. MUSCULOSKELETAL: Muscle strength and tone normal. SPINE: No scoliosis or deformity SKIN: No rashes CENTRAL NERVOUS SYSTEM: No focal deficits, tone is normal in all 4 extremities. PSYCHIATRIC: Alert and oriented -3. Appropriate affect. Intact judgment and insight. - Labs CBC & Chem 7: 07/25/19 08:09 07/25/19 08:09 Labs: Abnormal Lab Results - Last 24 Hours (Table) 07/24/19 07/24/19 07/24/19 Range/Units 12:19 16:36 20:35 WBC (3.8-10.6) k/uL Neutrophils # (1.3-7.7) k/uL BUN (7-17) mg/dL Glucose (74-99) mg/dL POC Glucose (mg/dL) 144 H 147 H 166 H (75-99) mg/dL 07/25/19 07/25/19 07/25/19 Range/Units 07:05 08:09 08:09 WBC 14.3 H (3.8-10.6) k/uL Neutrophils # 12.7 H (1.3-7.7) k/uL BUN 36 H (7-17) mg/dL Glucose 144 H (74-99) mg/dL POC Glucose (mg/dL) 129 H (75-99) mg/dL Microbiology - Last 24 Hours (Table) 07/22/19 13:50 Blood Culture - Preliminary Blood No Growth after 48 hours Assessment and Plan Assessment: 1acute exacerbation of chronic obstructive pulmonary disease, mostly in the form of asthmatic bronchitis. Patient had a [id number] smoking history, no history of asthma as a child. 2 acute purulent tracheobronchitis, no clear-cut evidence of pneumonia. 3 history of chronic neck pain and chronic pain syndrome. Maintained on narcotics. 4 benign essential hypertension 5 history of GERD, presently under control and on treatment. 6 history of dyslipidemia. 7 mild intermittent bronchial asthma Plan: The patient was seen and evaluated by Dr. Johnson. She is improved today compared to yesterday. Not quite back to her baseline. We'll continue with the current treatment plan. Increase her activity as tolerated. We'll continue to follow and make further recommendations based on her clinical status. Probable discharge in the a.m. I, the cosigning physician, performed a history & physical examination of the patient. Lungs sounds with bilateral end expiratory wheeze, few scattered rhonchi Maintaining good O2 saturations in the 90s on room air. I discussed the assessment and plan of care with my nurse practitioner, Yesenia Munson. I attest to the above note as dictated by her.
[2019-07-25 12:09] LABS: Glucose,Whole Blood 167 mg/dL (75-99)
[2019-07-25] MEDS: SODIUM CHLORIDE 0.9% 1,000 ML IV SCH (15:46)
[2019-07-25 16:55] LABS: Glucose,Whole Blood 137 mg/dL (75-99)
[2019-07-25 21:08] LABS: Glucose,Whole Blood 176 mg/dL (75-99)
[2019-07-25] MEDS: ATORVASTATIN 10 MG TAB PO SCH (21:22)
[2019-07-25] MEDS: MONTELUKAST 10 MG TAB PO SCH ×2 (21:22→23:10)
[2019-07-26] MEDS: diphenhydrAMINE 25 MG CAP PO PRN (00:03)
[2019-07-26] MEDS: HYDROcodone/APAP 10-325MG 1 EACH TAB PO PRN ×4 (00:03→18:45)
[2019-07-26] MEDS: methylPREDNISolone SOD SUCCI 125 MG/2 ML VIAL IV SCH ×2 (00:04→05:58)
[2019-07-26] MEDS: LISINOPRIL-HCTZ 10-12.5 MG 1 EACH TAB PO SCH ×2 (00:04→07:58)
[2019-07-26] MEDS: HYDROmorphone 0.5 MG/0.5 ML SYRINGE IVP PRN ×4 (03:07→20:01)
[2019-07-26] MEDS: IPRATROPIUM-ALBUTEROL 3 ML NEB INHALATION SCH ×5 (03:28→20:14)
[2019-07-26 06:33] LABS: Basophils # (A) 0.1 k/uL (0-0.2); Basophils % (A) 1 %; Eosinophils % (A) 0 %; HCT 39.7 % (34.0-46.0); HGB 13.1 gm/dL (11.4-16.0); Lymphocytes # (A) 1.3 k/uL (1.0-4.8); Lymphocytes % (A) 8 %; MCH 32.1 pg (25.0-35.0); MCHC 33.1 g/dL (31.0-37.0); MCV 96.9 fL (80.0-100.0); Monocytes # (A) 0.6 k/uL (0-1.0); Monocytes % (A) 4 %; Neutrophils % (A) 86 %; Platelet Count 364 k/uL (150-450); RDW 12.8 % (11.5-15.5); WBC 16.2 k/uL (3.8-10.6)
[2019-07-26 06:46] LABS: Albumin 4.2 g/dL (3.5-5.0); Calcium 9.4 mg/dL (8.4-10.2); Potassium 4.1 mmol/L (3.5-5.1); Total Bilirubin 0.3 mg/dL (0.2-1.3)
[2019-07-26 07:11] LABS: Glucose,Whole Blood 135 mg/dL (75-99)
[2019-07-26] MEDS: FAMOTIDINE 20 MG TAB PO SCH ×2 (08:00→08:07)
[2019-07-26] MEDS: AMOXIC-POT CLAV 875-125MG 1 EACH TAB PO SCH ×2 (08:00→20:08)
[2019-07-26] MEDS: PANTOPRAZOLE 40 MG TABLET PO SCH (08:00)
[2019-07-26] MEDS: HEPARIN SODIUM,PORCINE 5,000 UNIT/ML 1 ML VIAL SQ SCH ×2 (08:00→21:38)
[2019-07-26] MEDS: FORMOTEROL FUMARATE 20 MCG/2 ML NEBU INHALATION SCH ×2 (08:01→20:14)
[2019-07-26] MEDS: BUDESONIDE 1 MG/2 ML NEBU INHALATION SCH ×2 (08:01→20:14)
[2019-07-26] MEDS: INSULIN ASPART (NovoLOG) 100 UNIT/ML VIAL SQ SCH ×4 (08:11→21:38)
[2019-07-26] MEDS: BENZOCAINE/MENTHOL LOZENG 1 EACH LOZENGE MUCOUS MEM PRN (09:23)
--- NOTE | 2019-07-26 09:53 | P.PN ---
Subjective Progress Note Date: 07/26/19 Jeannine Sevilla, is a 64 year old female, who presented to [facility] emergency room with a chief complaint of cough and shortness of breath, patient symptoms started about 1 week ago she was given a course of amoxicillin as outpatient however her symptoms continued to worsen and she decided to come to emergency room. She has known history of asthma. Patient was evaluated by Dr. Wallace in the emergency room white blood count was elevated at 14,000 temperature was elevated at 99.2, heart rate at 110 chest x-ray did not reveal any evidence of acute infiltrate, she was started on IV steroids and inhaled bronchodilators and was admitted to medical floor. Pulmonary consultation was requested. On 07/24/2019 patient is alert and oriented 3. Patient remains on Augmentin and Solu-Medrol per pulmonary services. Patient reports slight improvement. Patient denies chest pain. Patient denies nausea vomiting or diarrhea. Patient denies any urinary burning or frequency. On 07/25/2019 patient's alert and oriented 3. Patient reports some improvement with shortness of breath. Patient is having increased cough with sputum production but does feel better. Patient remains on IV steroids and Augmentin. Patient denies chest pain or shortness of breath. Patient denies any nausea v omiting or diarrhea. Patient denies any urinary burning or frequency On 07/26/2019 patient's alert and oriented 3. Patient is still having some shortness of breath but has improved not return to baseline. Patient remains on Augmentin Solu-Medrol. Patient denies chest pain. Patient denies nausea vomiting or diarrhea. Patient denies any urinary burning or frequency. Objective - Vital Signs Vital signs: Vital Signs Temp 98.1 F 07/26/19 06:22 Pulse 80 07/26/19 08:30 Resp 15 07/26/19 08:00 BP 129/78 07/26/19 06:22 Pulse Ox 94 L 07/26/19 06:22 Intake & Output 07/25/19 07/26/19 07/26/19 18:59 06:59 18:59 Intake Total 540 Balance 540 Intake: Oral 540 Other: Voiding Method Toilet Toilet # Voids 1 1 - Exam In general patient is alert and oriented 3 in no apparent distress HEENT head normocephalic and atraumatic Neck is supple no JVD no goiter no lymphadenopathy Chest exam reveals scattered crackles and wheezing Cardiac exam reveals regular heart sounds S1 and S2 no gallops no murmurs Abdomen is soft nontender no organomegaly with normal bowel sounds Extremity exam reveals no edema no cyanosis or clubbing Neurological examination reveals no gross focal deficit - Labs CBC & Chem 7: 07/26/19 05:58 07/26/19 05:58 Labs: Abnormal Lab Results - Last 24 Hours (Table) 07/25/19 07/25/19 07/25/19 Range/Units 12:06 16:54 21:07 WBC (3.8-10.6) k/uL Neutrophils # (1.3-7.7) k/uL BUN (7-17) mg/dL Glucose (74-99) mg/dL POC Glucose (mg/dL) 167 H 137 H 176 H (75-99) mg/dL 07/26/19 07/26/19 07/26/19 Range/Units 05:58 05:58 07:10 WBC 16.2 H (3.8-10.6) k/uL Neutrophils # 14.0 H (1.3-7.7) k/uL BUN 35 H (7-17) mg/dL Glucose 147 H (74-99) mg/dL POC Glucose (mg/dL) 135 H (75-99) mg/dL Microbiology - Last 24 Hours (Table) 07/22/19 13:50 Blood Culture - Preliminary Blood No Growth after 72 hours Assessment and Plan Assessment: #1 upper respiratory infection with acute purulent tracheobronchitis. Patient maintained on Augmentin. Blood Culture ordered. Sputum culture ordered #2 acute asthma exacerbation. Patient maintained on updrafts and Solu-Medrol. Pulmonary following #3 underlying history of hypertension #4 underlying history of chronic back neck pain with previous history of spinal surgery maintained on chronic narcotics for pain management #5 underlying history of gastroesophageal reflux disease. #6 underlying history of hyperlipidemia maintained on simvastatin DVT prophylaxis heparin. GI prophylaxis Pepcid I performed an examination of the patient and discussed their management with the Nurse Practitioner. I have reviewed the Nurse Practitioner's notes and agree with the documented findings and plan of care
[2019-07-26 11:30] LABS: Glucose,Whole Blood 143 mg/dL (75-99)
--- NOTE | 2019-07-26 11:35 | P.PN ---
Subjective Progress Note Date: 07/26/19 Principal diagnosis: Acute exacerbation of chronic obstructive pulmonary disease/asthmatic bronchitis This is a 64-year-old female, remote smoking history, patient was [id number] smoker, however she quit 10 years ago. History of asthmatic bronchitis, patient came in with 1 week history of cough wheezing shortness of breath and feeling worn out. Almost finished a course of ampicillin given to her by her primary care physician, but she was not making much improvement. Hence the patient presented to the ER, she was noted to have fever with a temp of 99.2,relatively normal chest x-ray except for increased density at the right cardiac border felt to be most likely a pericardial fat and was present in 2012. No clear-cut evidence of pneumonia. Patient was admitted and this consult was initiated. Patient described her cough as productive with black and sometimes dark green phlegm. Patient was complaining of intermittent wheezing, and was not improving by using her albuterol via updraft machine. Unfortunately the patient has multiple ALLERGIES, and she is almost ALLERGIC to every antibiotic known to man. She has been on ampicillin but today I suggested that we continue Augmentin. Patient cannot tolerate high dose steroids, and her ALLERGY list is quite sig nificant. On 07/24/2019 patient seen in follow-up on the medical surgical floor, she still bronchospastic and congested and coughing, not quite back to baseline, she remains on high-dose IV steroids, Augmentin, Symbicort and Singulair, chest x- ray did not show acute process, influenza screen was negative, room air pulse ox was 93%, she is afebrile. Today's labs have been reviewed. The patient is seen today 07/25/2019 in follow-upon the regular medical floor. She is currently resting in bed. Awake and alert in no acute distress. Breathing a bit easier today as compared to yesterday. Not quite back to her baseline. She is maintaining O2 saturation in the 90s on room air. She is afebrile. White count 14.3. Hemoglobin 12.2. Creatinine 0.88. She is continued on DuoNeb inhalations, Pulmicort and Perforomist inhalations, IV Solu-Medrol. Antibiotics in the form of Augmentin. The patient is seen today 07/26/2019 in follow-up on the regular medical floor. She is awake and alert in no acute distress. Breathing a bit easier today compared to yesterday. Still with a dry nonproductive harsh cough. Dyspneic on minimal exertion. White count 16.2. Hemoglobin 13.1. Creatinine 0.89. Objective - Vital Signs Vital signs: Vital Signs Temp 98.1 F 07/26/19 06:22 Pulse 80 07/26/19 08:30 Resp 15 07/26/19 08:00 BP 129/78 07/26/19 06:22 Pulse Ox 94 L 07/26/19 06:22 Intake & Output 07/25/19 07/26/19 07/26/19 18:59 06:59 18:59 Intake Total 540 Balance 540 Intake: Oral 540 Other: Voiding Method Toilet Toilet # Voids 1 1 - Exam GENERAL EXAM: Alert, pleasant, 64-year-old female patient, on room air, comfortable in no apparent distress. HEAD: Normocephalic/atraumatic. EYES: Normal reaction of pupils, equal size. Conjunctiva pink, sclera white. NOSE: Clear with pink turbinates. THROAT: No erythema or exudates. NECK: No masses, no JVD, no thyroid enlargement, no adenopathy. CHEST: No chest wall deformity. Symmetrical expansion. LUNGS: Equal air entry with few scattered rhonchi, end expiratory wheeze CVS: Regular rate and rhythm, normal S1 and S2, no gallops, no murmurs, no rubs ABDOMEN: Soft, nontender. No hepatosplenomegaly, normal bowel sounds, no guarding or rigidity. EXTREMITIES: No clubbing, no edema, no cyanosis, 2+ pulses and upper and lower extremities. MUSCULOSKELETAL: Muscle strength and tone normal. SPINE: No scoliosis or deformity SKIN: No rashes CENTRAL NERVOUS SYSTEM: No focal deficits, tone is normal in all 4 extremities. PSYCHIATRIC: Alert and oriented -3. Appropriate affect. Intact judgment and insight. - Labs CBC & Chem 7: 07/26/19 05:58 07/26/19 05:58 Labs: Abnormal Lab Results - Last 24 Hours (Table) 07/25/19 07/25/19 07/25/19 Range/Units 12:06 16:54 21:07 WBC (3.8-10.6) k/uL Neutrophils # (1.3-7.7) k/uL BUN (7-17) mg/dL Glucose (74-99) mg/dL POC Glucose (mg/dL) 167 H 137 H 176 H (75-99) mg/dL 07/26/19 07/26/19 07/26/19 Range/Units 05:58 05:58 07:10 WBC 16.2 H (3.8-10.6) k/uL Neutrophils # 14.0 H (1.3-7.7) k/uL BUN 35 H (7-17) mg/dL Glucose 147 H (74-99) mg/dL POC Glucose (mg/dL) 135 H (75-99) mg/dL Microbiology - Last 24 Hours (Table) 07/22/19 13:50 Blood Culture - Preliminary Blood No Growth after 72 hours Assessment and Plan Assessment: 1 acute exacerbation of chronic obstructive pulmonary disease, mostly in the form of asthmatic bronchitis. Patient had a [id number] smoking history, no history of asthma as a child. 2 acute purulent tracheobronchitis, no clear-cut evidence of pneumonia. 3 history of chronic neck pain and chronic pain syndrome. Maintained on narcotics. 4 benign essential hypertension 5 history of GERD, presently under control and on treatment. 6 history of dyslipidemia. 7 mild intermittent bronchial asthma Plan: The patient was seen and evaluated by Dr. Johnson. Not quite back to her baseline. Obtain a nasal swab for pertussis. We'll continue with the current treatment plan. Increase her activity as tolerated. We'll continue to follow and make further recommendations based on her clinical status. I, the cosigning physician, performed a history & physical examination of the patient. Lungs sounds with bilateral end expiratory wheeze, few scattered rhonchi Maintaining good O2 saturations in the 90s on room air. I discussed the assessment and plan of care with my nurse practitioner, Yesenia Munson. I attest to the above note as dictated by her.
[2019-07-26] MEDS: SODIUM CHLORIDE 0.9% 1,000 ML IV SCH (16:09)
[2019-07-26 16:59] LABS: Glucose,Whole Blood 120 mg/dL (75-99)
[2019-07-26] MEDS: ATORVASTATIN 10 MG TAB PO SCH (20:01)
[2019-07-26] MEDS: MONTELUKAST 10 MG TAB PO SCH (20:01)
[2019-07-26 20:29] LABS: Glucose,Whole Blood 135 mg/dL (75-99)
[2019-07-27] MEDS: IPRATROPIUM-ALBUTEROL 3 ML NEB INHALATION SCH ×4 (00:12→11:17)
[2019-07-27] MEDS: HYDROcodone/APAP 10-325MG 1 EACH TAB PO PRN (00:23)
[2019-07-27] MEDS: LISINOPRIL-HCTZ 10-12.5 MG 1 EACH TAB PO SCH ×2 (00:23→00:27)
[2019-07-27] MEDS: diphenhydrAMINE 25 MG CAP PO PRN (00:23)
[2019-07-27] MEDS: BENZOCAINE/MENTHOL LOZENG 1 EACH LOZENGE MUCOUS MEM PRN ×3 (00:31→10:13)
[2019-07-27] MEDS: HYDROmorphone 0.5 MG/0.5 ML SYRINGE IVP PRN ×2 (03:29→09:23)
[2019-07-27 07:19] LABS: Glucose,Whole Blood 91 mg/dL (75-99)
[2019-07-27] MEDS: FORMOTEROL FUMARATE 20 MCG/2 ML NEBU INHALATION SCH (07:20)
[2019-07-27] MEDS: BUDESONIDE 1 MG/2 ML NEBU INHALATION SCH (07:20)
[2019-07-27] MEDS: PANTOPRAZOLE 40 MG TABLET PO SCH (07:37)
[2019-07-27] MEDS: INSULIN ASPART (NovoLOG) 100 UNIT/ML VIAL SQ SCH ×2 (07:37→12:19)
[2019-07-27 08:52] LABS: Basophils # (A) 0.2 k/uL (0-0.2); Basophils % (A) 1 %; Eosinophils # (A) 0.1 k/uL (0-0.7); Eosinophils % (A) 1 %; HCT 37.4 % (34.0-46.0); Lymphocytes # (A) 2.1 k/uL (1.0-4.8); Lymphocytes % (A) 19 %; MCHC 32.1 g/dL (31.0-37.0); MCV 96.6 fL (80.0-100.0); Mean Platelet Volume 6.6; Monocytes # (A) 0.6 k/uL (0-1.0); Monocytes % (A) 6 %; Neutrophils # (A) 7.6 k/uL (1.3-7.7); Neutrophils % (A) 71 %; Platelet Count 254 k/uL (150-450); RBC 3.87 m/uL (3.80-5.40); RDW 12.9 % (11.5-15.5); WBC 10.6 k/uL (3.8-10.6)
[2019-07-27] MEDS ORDERED: predniSONE 20 MG TAB PO SCH (09:00)
[2019-07-27 09:06] LABS: Albumin 3.5 g/dL (3.5-5.0); Calcium 8.8 mg/dL (8.4-10.2); Potassium 3.3 mmol/L (3.5-5.1); Total Bilirubin 0.5 mg/dL (0.2-1.3)
[2019-07-27] MEDS: AMOXIC-POT CLAV 875-125MG 1 EACH TAB PO SCH (10:13)
[2019-07-27] MEDS: HEPARIN SODIUM,PORCINE 5,000 UNIT/ML 1 ML VIAL SQ SCH (10:27)
[2019-07-27] MEDS ORDERED: Potassium Replacement Protocol 1 EACH MISC MISCELLANE PRN (11:27)
[2019-07-27] MEDS: POTASSIUM CHLORIDE ER 20 MEQ TAB.ER PO SCH ×2 (11:51→13:11)
[2019-07-27 12:19] LABS: Glucose,Whole Blood 99 mg/dL (75-99)
[2019-07-27 13:15] LABS: Bordedella pertussis Not detected (Not detected); Bordetella holmesII Not detected (Not detected); Bordetella parapertussis Not detected (Not detected)
--- NOTE | 2019-07-27 14:17 | P.DS ---
Providers Date of admission: 07/22/19 15:24 Expected date of discharge: 07/27/19 Attending physician: Ingris Crenshaw Consults: 07/22/19 15:23 Consult Physician Routine Consulting Provider: Antoni Lew Consult Reason/Comments: Asthmatic bronchitis, out patient treatment failure Do you want consulting provider notified?: Yes Primary care physician: Ingris Flower [facility] Course: Discharge diagnosis #1 upper respiratory infection with acute purulent tracheobronchitis. Patient maintained on Augmentin. Blood culture showing no growth. Discussed case with pulmonary service is patient has been cleared for discharge will be discharged on Augmentin, prednisone taper, albuterol nebulizers, and Robitussin. patient to follow-up pulmonary services outpatient #2 acute asthma exacerbation. Patient maintained on updrafts and Solu-Medrol. Pulmonary following #3 underlying history of hypertension #4 underlying history of chronic back neck pain with previous history of spinal surgery maintained on chronic narcotics for pain management #5 underlying history of gastroesophageal reflux disease. #6 underlying history of hyperlipidemia maintained on simvastatin Hospital Course Jeannine Sevilla, is a 64 year old female, who presented to [facility] emergency room with a chief complaint of cough and shortness of breath, patient symptoms started about 1 week ago she was given a course of amoxicillin as outpatient however her symptoms continued to worsen and she decided to come to emergency room. She has known history of asthma. Patient was evaluated by Dr. Wallace in the emergency room white blood count was elevated at 14,000 temperature was elevated at 99.2, heart rate at 110 chest x-ray did not reveal any evidence of acute infiltrate, she was started on IV steroids and inhaled bronchodilators and was admitted to medical floor. Pulmonary consultation was requested. On 07/24/2019 patient is alert and oriented 3. Patient remains on Augmentin and Solu-Medrol per pulmonary services. Patient reports slight improvement. Patient denies chest pain. Patient denies nausea vomiting or diarrhea. Patient denies any urinary burning or frequency. On 07/25/2019 patient's alert and oriented 3. Patient reports some improvement with shortness of breath. Patient is having increased cough with sputum production but does feel better. Patient remains on IV steroids and Augmentin. Patient denies chest pain or shortness of breath. Patient denies any nausea vomiting or diarrhea. Patient denies any urinary burning or frequency On 07/26/2019 patient's alert and oriented 3. Patient is still having some shortness of breath but has improved not return to baseline. Patient remains on Augmentin Solu-Medrol. Patient denies chest pain. Patient denies nausea vomiting or diarrhea. Patient denies any urinary burning or frequency. On 07/27/2019 patient's alert and oriented patient expresses that she is eager to go home. Patient has been cleared by pulmonary services discussed case with pulmonary nurse practitioner. Patient will be DC'd on Augmentin and prednisone and follow up with pulmonary services outpatient. At this time patient denies chest pain. Intermittent shortness of breath that has improved. Patient denies nausea vomiting or diarrhea. Patient denies any urinary burning or frequency. I performed an examination of the patient and discussed their management with the Nurse Practitioner. I have reviewed the Nurse Practitioner's notes and agree with the documented findings and plan of care Patient Condition at Discharge: Stable Plan - Discharge Summary Discharge Rx Participant: Yes New Discharge Prescriptions: New Amoxic-Pot Clav 875-125Mg [Augmentin 875-125] 1 each PO BID 7 Days #14 tab Ipratropium-Albuterol Nebulize [Duoneb 0.5 mg-3 mg/3 ml Soln] 3 ml INHALATION Q4H PRN 30 Days #90 ampul.neb PRN Reason: Wheezing Montelukast [Singulair] 10 mg PO HS 30 Days #30 tab predniSONE 10 mg PO DIRECTED 12 Days #30 tab guaiFENesin-Coden 100-10MG/5ML [Robitussin AC] 5 ml PO Q8HR PRN #150 ml PRN Reason: Cough Continue diphenhydrAMINE [Benadryl] 50 mg PO HS@0000 Simvastatin [Zocor] 20 mg PO HS@0000 Omeprazole [PriLOSEC] 20 mg PO BID@1200,0000 HYDROcodone/APAP 10-325MG [Warren 10-325] 1 tab PO QID@06,12,18,00 Lisinopril-Hctz 10-12.5 mg [Zestoretic 10-12.5] 0.5 tab PO HS@0000 Discharge Medication List HYDROcodone/APAP 10-325MG [Warren 10-325] 1 tab PO QID@06,12,18,00 05/20/14 [History] Omeprazole [PriLOSEC] 20 mg PO BID@1200,0000 05/20/14 [History] Simvastatin [Zocor] 20 mg PO HS@0000 05/20/14 [History] diphenhydrAMINE [Benadryl] 50 mg PO HS@0000 05/20/14 [History] Lisinopril-Hctz 10-12.5 mg [Zestoretic 10-12.5] 0.5 tab PO HS@0000 11/21/17 [History] Amoxic-Pot Clav 875-125Mg [Augmentin 875-125] 1 each PO BID 7 Days #14 tab 07/27/19 [Rx] Ipratropium-Albuterol Nebulize [Duoneb 0.5 mg-3 mg/3 ml Soln] 3 ml INHALATION Q4H PRN 30 Days #90 ampul.neb 07/27/19 [Rx] Montelukast [Singulair] 10 mg PO HS 30 Days #30 tab 07/27/19 [Rx] guaiFENesin-Coden 100-10MG/5ML [Robitussin AC] 5 ml PO Q8HR PRN #150 ml 07/27/19 [Rx] predniSONE 10 mg PO DIRECTED 12 Days #30 tab 07/27/19 [Rx] Follow up Appointment(s)/Referral(s): Nico Johnson DO [Doctor of Osteopathic Medicine] - 1 Week Ingris Crenshaw MD [Primary Care Provider] - 1 Week Patient Instructions/Handouts: COPD (Chronic Obstructive Pulmonary Disease) (DC) Activity/Diet/Wound Care/Special Instructions: Limited activity till follow up. Get plenty of rest. Regular diet.
--- NOTE | 2019-07-27 14:25 | P.PN ---
Subjective Progress Note Date: 07/27/19 Principal diagnosis: Cough and shortness of breath this is a 64-year-old female, remote smoking history, patient was [id number] smoker, however she quit 10 years ago. History of asthmatic bronchitis, patient came in with 1 week history of cough wheezing shortness of breath and feeling worn out. Almost finished a course of ampicillin given to her by her primary care physician, but she was not making much improvement. Hence the patient presented to the ER, she was noted to have fever with a temp of 99.2,relatively normal chest x-ray except for increased density at the right cardiac border felt to be most likely a pericardial fat and was present in 2012. No clear-cut evidence of pneumonia. Patient was admitted and this consult was initiated. Patient described her cough as productive with black and sometimes dark green phlegm. Patient was complaining of intermittent wheezing, and was not improving by using her albuterol via updraft machine. Unfortunately the patient has multiple ALLERGIES, and she is almost ALLERGIC to every antibiotic known to man. She has been on ampicillin but today I suggested that we continue Augmentin. Patient cannot tolerate high dose steroids, and her ALLERGY list is quite significant. On 07/24/2019 patient seen in follow-up on the medical surgical floor, she still bronchospastic and congested and coughing, not quite back to baseline, she remains on high-dose IV steroids, Augmentin, Symbicort and Singulair, chest x- ray did not show acute process, influenza screen was negative, room air pulse ox was 93%, she is afebrile. Today's labs have been reviewed. On 07/27/2019 patient seen in follow-up on medical surgical floor. Improving, still has a congested cough, but overall much less bronchospastic and short of breath, she is on room air with a pulse ox of 93%, afebrile, hemodynamically stable, she has been treated with a combination of antibiotics, breathing treatments, nebulized bronchodilators, she has been tolerating ambulation in the room, she is requesting to go home today, from pulmonary perspective she is stable for discharge home today with follow-up next week with Dr. Johnson Objective - Vital Signs Vital signs: Vital Signs Temp 98.3 F 07/27/19 08:49 Pulse 76 07/27/19 11:30 Resp 16 07/27/19 08:49 BP 133/78 07/27/19 08:49 Pulse Ox 93 L 07/27/19 08:49 Intake & Output 07/26/19 07/27/19 07/27/19 18:59 06:59 18:59 Intake Total 240 Balance 240 Intake: Oral 240 Other: Voiding Method Toilet Toilet Toilet # Voids 4 3 - Exam GENERAL EXAM: Alert, pleasant, 64-year-old white female on room air, with a pulse ox of 93%, comfortable in no apparent distress. HEAD: Normocephalic/atraumatic. EYES: Normal reaction of pupils, equal size. Conjunctiva pink, sclera white. NOSE: Clear with pink turbinates. THROAT: No erythema or exudates. NECK: No masses, no JVD, no thyroid enlargement, no adenopathy. CHEST: No chest wall deformity. Symmetrical expansion. LUNGS: Equal air entry with diffuse rhonchi, wheezes CVS: Regular rate and rhythm, normal S1 and S2, no gallops, no murmurs, no rubs ABDOMEN: Soft, nontender. No hepatosplenomegaly, normal bowel sounds, no guarding or rigidity. EXTREMITIES: No clubbing, no edema, no cyanosis, 2+ pulses and upper and lower extremities. MUSCULOSKELETAL: Muscle strength and tone normal. SPINE: No scoliosis or deformity SKIN: No rashes CENTRAL NERVOUS SYSTEM: Alert and oriented -3. No focal deficits, tone is normal in all 4 extremities. PSYCHIATRIC: Alert and oriented -3. Appropriate affect. Intact judgment and insight. - Labs CBC & Chem 7: 07/27/19 08:08 07/27/19 08:08 Labs: Abnormal Lab Results - Last 24 Hours (Table) 07/26/19 07/26/19 07/27/19 Range/Units 16:42 20:27 08:08 Potassium 3.3 L (3.5-5.1) mmol/L BUN 31 H (7-17) mg/dL Glucose 112 H (74-99) mg/dL POC Glucose (mg/dL) 120 H 135 H (75-99) mg/dL Total Protein 6.0 L (6.3-8.2) g/dL Microbiology - Last 24 Hours (Table) 07/22/19 13:50 Blood Culture - Preliminary Blood No Growth after 96 hours Assessment and Plan Plan: Assessment: 1acute exacerbation of chronic obstructive pulmonary disease, mostly in the form of asthmatic bronchitis. Patient had a [id number] smoking history, no history of asthma as a child. 2 acute purulent tracheobronchitis, no clear-cut evidence of pneumonia. 3 history of chronic neck pain and chronic pain syndrome. Maintained on narcotics. 4 benign essential hypertension 5 history of GERD, presently under control and on treatment. 6 history of dyslipidemia. 7 mild intermittent bronchial asthma Plan: Continue current medical treatment, patient can finish outpatient course of oral antibiotics, prednisone taper, breathing treatments, she is improving, breathing easier, less bronchospastic. She is tolerating ambulation, still has residual cough and congestion, but overall much improved. She is requesting to go home today, and from pulmonary perspective she is cleared to go home, and she was told to stay indoors for next few days,, and have close follow-up Dr. Johnson in the office in one week I performed a history & physical examination of the patient and discussed their management with my nurse practitioner, Gabrielle Schroeder. I reviewed the nurse practitioner's note and agree with the documented findings and plan of care. Lung sounds are positive for diffuse wheezes and rhonchi throughout the lung joseph. The findings and the impression was discussed with the patient. I a ttest to the documentation by the nurse practitioner. Time with Patient: Less than 30
[2019-07-27 14:55] VITALS: BP 155/89; PULSE 89; RESP 20; TEMP 98.2
== END 2019-07-27 15:50 | disposition home or self-care (01) | DRG 202 ==
LOC: EC 13:33 → 4MS4W 15:24
PROVIDERS: ADMIT Internal Medicine; ATTEND Internal Medicine
DX: J45.901 Unspecified asthma with (acute) exacerbation (principal); J44.1 Chronic obstructive pulmonary disease with (acute) exacerbation; K50.90 Crohn's disease, unspecified, without complications; J44.0 Chronic obstructive pulmonary disease with (acute) lower respiratory infection; E78.5 Hyperlipidemia, unspecified; G89.4 Chronic pain syndrome; I10 Essential (primary) hypertension; I34.1 Nonrheumatic mitral (valve) prolapse; Z79.891 Long term (current) use of opiate analgesic; Z85.41 Personal history of malignant neoplasm of cervix uteri; Z87.01 Personal history of pneumonia (recurrent); Z87.891 Personal history of nicotine dependence; Z90.710 Acquired absence of both cervix and uterus; J20.9 Acute bronchitis, unspecified; H26.9 Unspecified cataract
CPT/HCPCS: 36415; 71046; 80053; 82550; 83735; 83880; 84484; 85025; 85379; 85610; 85730; 87040; 87502; 87798; 93005; 94640; 94760; 96374; 96375; 99285

== ENCOUNTER 2020-02-21 07:42 | Emergency (ER) | payer MEDICARE, OTHER ==
[2020-02-21 07:49] VITALS: BP 146/91; PULSE 83; RESP 18; TEMP 98.1
--- NOTE | 2020-02-21 08:08 | ED ---
Fall HPI - General Chief Complaint: Fall Stated Complaint: fall/right side & arm pain Time Seen by Provider: 02/21/20 07:53 Source: patient Mode of arrival: ambulatory - History of Present Illness Initial Comments: This a 65-year-old female presents emergency Department with chief complaint of trip and fall. Patient states she is walking and there was a piece of metal on the ground states that she tripped and fell onto her right shoulder. Patient went to right shoulder pain and mild right chest wall pain. No head injury no loss conscious. Patient is not taking blood thinners. Denies any hip pain. Patient states she has pain with range of motion of her right shoulder. Denies any paresthesias. Patient does not feel short of breath at this time. No abdominal complaints. - Related Data Home Medications Medication Instructions Recorded Confirmed HYDROcodone/APAP 10-325MG [Haiku 1 tab PO QID@06,12,18,00 05/20/14 07/22/19 10-325] Omeprazole [PriLOSEC] 20 mg PO BID@1200,0000 05/20/14 07/22/19 Simvastatin [Zocor] 20 mg PO HS@0000 05/20/14 07/22/19 diphenhydrAMINE [Benadryl] 50 mg PO HS@0000 05/20/14 07/22/19 Lisinopril-Hctz 10-12.5 mg 0.5 tab PO HS@0000 11/21/17 07/22/19 [Zestoretic 10-12.5] Previous Rx's Medication Instructions Recorded Amoxic-Pot Clav 875-125Mg 1 each PO BID 7 Days #14 tab 07/27/19 [Augmentin 875-125] Ipratropium-Albuterol Nebulize 3 ml INHALATION Q4H PRN 30 Days 07/27/19 [Duoneb 0.5 mg-3 mg/3 ml Soln] #90 ampul.neb Montelukast [Singulair] 10 mg PO HS 30 Days #30 tab 07/27/19 guaiFENesin-Coden 100-10MG/5ML 5 ml PO Q8HR PRN #150 ml 07/27/19 [Robitussin AC] predniSONE 10 mg PO DIRECTED 12 Days #30 07/27/19 tab Ibuprofen [Motrin] 600 mg PO Q8HR PRN #20 tab 02/21/20 Allergies Allergy/AdvReac Type Severity Reaction Status Date / Time 0.225 % sodium chloride Allergy Unknown Verified 07/22/19 16:04 [From Emerson] bacitracin Allergy Unknown Verified 07/22/19 16:04 bupivacaine Allergy Unknown Verified 07/22/19 16:04 cephalexin monohydrate Allergy Anaphylaxis Verified 07/22/19 16:04 [From Keflex] Cephalosporins Allergy Unknown Verified 07/22/19 16:04 ciprofloxacin HCl Allergy Unknown Verified 07/22/19 16:04 [From Cipro] clindamycin HCl Allergy Unknown Verified 07/22/19 16:04 [From Cleocin] dexamethasone Allergy Unknown Verified 07/22/19 16:04 doxycycline Allergy Unknown Verified 07/22/19 16:04 erythromycin base Allergy Unknown Verified 07/22/19 16:04 levofloxacin [From Levaquin] Allergy Unknown Verified 07/22/19 16:04 nitrofurantoin Allergy Unknown Verified 07/22/19 16:04 [From Macrobid] sulfamethoxazole Allergy Unknown Verified 07/22/19 16:04 [From Bactrim] tobramycin [From Emerson] Allergy Unknown Verified 07/22/19 16:04 trimethoprim [From Bactrim] Allergy Unknown Verified 07/22/19 16:04 Review of Systems ROS Statement: Those systems with pertinent positive or pertinent negative responses have been documented in the HPI. ROS Other: All systems not noted in ROS Statement are negative. Past Medical History Past Medical History: Hyperlipidemia, Hypertension Additional Past Medical History / Comment(s): FX BACK 3 YEARS AGO. FX NECK WHEN SHE WAS 14 DIVING INTO A POOL. CERVICAL CA. Mitral valve prolapse, Crohn's Disease, Bilateral cataract History of Any Multi-Drug Resistant Organisms: None Reported Past Surgical History: Heart Catheterization With Stent, Hysterectomy, Orthopedic Surgery, Tonsillectomy Additional Past Surgical History / Comment(s): LEFT SHOULDER ARTHROSCOPY - 2009; LEFT ANKLE ARTHROSCOPY - 2001; BILATERAL KNEE ARTHROSCOPY - 2000, heart catheterization, sinus surgery, colonoscopy Past Anesthesia/Blood Transfusion Reactions: No Reported Reaction Date of Last Stent Placement:: UNKNOWN Past Psychological History: No Psychological Hx Reported Smoking Status: Former smoker Past Alcohol Use History: None Reported Past Drug Use History: None Reported General Exam Limitations: no limitations General appearance: alert, in no apparent distress Head exam: Present: atraumatic, normocephalic, normal inspection Eye exam: Present: normal appearance, PERRL, EOMI. Absent: scleral icterus, conjunctival injection, periorbital swelling ENT exam: Present: normal exam, normal oropharynx, mucous membranes moist Neck exam: Present: normal inspection, full ROM. Absent: tenderness, meningismus, lymphadenopathy Respiratory exam: Present: normal lung sounds bilaterally, chest wall tenderness. Absent: respiratory distress, wheezes, rales, rhonchi, stridor Cardiovascular Exam: Present: regular rate, normal rhythm, normal heart sounds. Absent: systolic murmur, diastolic murmur, rubs, gallop, clicks GI/Abdominal exam: Present: soft, normal bowel sounds. Absent: distended, tenderness, guarding, rebound, rigid Extremities exam: Present: other (right shoulder tenderness, decreased range of motion, neurovascular intact.) Back exam: Absent: CVA tenderness (R), CVA tenderness (L) Course Vital Signs 02/21/20 07:45 Temperature 98.1 F Pulse Rate 83 Respiratory 18 Rate Blood Pressure 146/91 O2 Sat by Pulse 98 Oximetry Medical Decision Making - Medical Decision Making X-ray of the shoulder are unremarkable for acute fracture. X-ray of the chest does not reveal any pneumothorax, rib fracture. Patient has a right shoulder contusion. Patient states pain is controlled at this time will be follow-up with orthopedics return for any worsening symptoms. Disposition Clinical Impression: Fall, Contusion of right shoulder Disposition: HOME SELF-CARE Condition: Stable Instructions (If sedation given, give patient instructions): Shoulder Pain (ED) Additional Instructions: Please return to the Emergency Department if symptoms worsen or any other concerns. Prescriptions: Ibuprofen [Motrin] 600 mg PO Q8HR PRN #20 tab PRN Reason: Pain Is patient prescribed a controlled substance at d/c from ED?: No Referrals: Ingris Crenshaw MD [Primary Care Provider] - 1-2 days Vinnie Ram MD [STAFF PHYSICIAN] - 1-2 days Time of Disposition: 08:50
--- NOTE | 2020-02-21 08:33 | XR ---
EXAMINATION TYPE: XR shoulder complete RT DATE OF EXAM: 02/21/2020 CLINICAL HISTORY: Pain after fall injury. TECHNIQUE: Three views of the right shoulder are obtained. COMPARISON: None. FINDINGS: There is no acute fracture/dislocation evident in the right shoulder. Mild narrowing with mild/moderate spurring inferior distal clavicle. Distal acromion morphology unremarkable. Glenohumera l joint maintained. Overlying buttons and clothing material are present. The visualized ribs are inta ct . IMPRESSION: There is no acute fracture or dislocation in the right shoulder.
--- NOTE | 2020-02-21 08:36 | XR ---
EXAMINATION TYPE: XR chest 1V DATE OF EXAM: 02/21/2020 COMPARISON: Chest x-ray July 22, 2019 and older x-rays HISTORY: Chest pain after fall injury. TECHNIQUE: Single frontal view of the chest is obtained. FINDINGS: Stable triangular density right lung base from multiple prior studies favoring prominent pe ricardial fat pad and mild right basilar linear scarring. There is no no suspicious focal air space o pacity, pleural effusion, or pneumothorax seen. The cardiac silhouette size is stable and upper limi ts of normal with slightly ectatic aortic knob. The osseous structures are intact. Persistent 4.1 c m left upper quadrant probable splenic calcification or lesion confirmed CT 2014 favored benign. IMPRESSION: No acute process. No significant change from prior studies.
[2020-02-21] MEDS ORDERED: HYDROcodone/APAP 5-325MG 1 EACH TAB PO STA (08:37)
[2020-02-21] MEDS ORDERED: ACET/COD 300 MG/30 MG STARTER PACK 6 TAB BTL PO STA (08:51)
== END 2020-02-21 09:05 | disposition home or self-care (01) ==
LOC: EC 07:42
DX: S40.011A Contusion of right shoulder, initial encounter (principal); R07.89 Other chest pain; E78.5 Hyperlipidemia, unspecified; I10 Essential (primary) hypertension; Z79.899 Other long term (current) drug therapy; Z88.1 Allergy status to other antibiotic agents; Z88.2 Allergy status to sulfonamides; Z88.8 Allergy status to other drugs, medicaments and biological substances; Z87.891 Personal history of nicotine dependence; Z95.5 Presence of coronary angioplasty implant and graft; Z85.41 Personal history of malignant neoplasm of cervix uteri; W01.0XXA Fall on same level from slipping, tripping and stumbling without subsequent striking against object, initial encounter; Y93.01 Activity, walking, marching and hiking
CPT/HCPCS: 71045; 99283

== ENCOUNTER → 2020-09-10 | Outpatient (CLI) | payer MEDICARE, OTHER ==
--- NOTE | 2020-09-10 09:10 | CT ---
EXAMINATION TYPE: CT cervical spine wo con DATE OF EXAM: 09/10/2020 COMPARISON: 05/20/2014 HISTORY: 65-year-old female M54.2, cervicalgia TECHNIQUE: Contiguous axial scanning of the cervical spine without IV contrast. Coronal and sagittal reconstructions performed. CT DLP: 496.5 mGycm Automated exposure control for dose reduction was used. FINDINGS: No craniocervical junction abnormality, predental space widening, or prevertebral soft tissue swellin g. Reversal of the normal cervical lordosis. There appears to be a chronic inferior endplate deformity of C5. Grade 1 anterolisthesis above at C4- C5 and grade 1 retrolisthesis below at C5-C6. There is similar mild to moderate focal spinal canal stenosis at C5 there is with AP canal dimension of approximately 8 mm. No acute fracture of the cervical spine. Moderate disc/endplate degenerative change particularly at C5-C6. Multilevel facet and uncovertebral joint arthropathy, greater towards the right side. At C5-C6, changes result in mild bilateral neuroforaminal stenoses. No significant neuroforaminal mahsa nosis seen at the levels. Tisl-yr-drysodhd centrilobular emphysema in the visualized upper lungs. IMPRESSION: 1. MODERATE DEGENERATIVE DISC DISEASE REDEMONSTRATED AT C5-C6. CHRONIC INFERIOR ENDPLATE DEFORMITY OF C5, SIMILAR COMPARED TO 2013. MULTILEVEL FACET AND UNCOVERTEBRAL JOINT ARTHROPATHY ESPECIALLY ON THE RIGHT. 2. SIMILAR GRADE 1 ANTEROLISTHESIS C4-C5 AND GRADE 1 RETROLISTHESIS C5-C6 ALONG WITH A MILD TO MODERA TE SPINAL CANAL STENOSIS AT C5-C6. 3. MILD BILATERAL NEUROFORAMINAL STENOSIS AT C5-C6. 4. COPD WITH MILD TO MODERATE EMPHYSEMA.
== END | disposition home or self-care (01) ==
LOC: RADCTMAIN 08:20
PROVIDERS: ATTEND Orthopaedic Surgery
DX: M48.02 Spinal stenosis, cervical region (principal); M43.12 Spondylolisthesis, cervical region; M50.322 Other cervical disc degeneration at C5-C6 level; M47.812 Spondylosis without myelopathy or radiculopathy, cervical region; M43.8X2 Other specified deforming dorsopathies, cervical region; Z88.2 Allergy status to sulfonamides; Z88.1 Allergy status to other antibiotic agents
CPT/HCPCS: 72125

== ENCOUNTER 2021-03-17 07:36 | Emergency (ER) | payer MEDICARE, OTHER ==
[2021-03-17 07:40] VITALS: RESP 18; TEMP 98.4
[2021-03-17] MEDS ORDERED: ASPIRIN 81 MG PO STA (08:01)
--- NOTE | 2021-03-17 08:10 | ED ---
General Adult HPI - General Chief complaint: Chest Pain Stated complaint: Chest Pain Time Seen by Provider: 03/17/21 07:44 Source: patient Mode of arrival: wheelchair Limitations: no limitations - History of Present Illness Initial comments: 66-year-old female with a past medical history of hyperlipidemia, hypertension, chronic neck and back pain presents to the emergency room for a chief complaint of chest pain. Patient states she has sharp left-sided chest pain. Patient noticed this early yesterday morning. Patient denies any associated shortness of breath, nausea, diaphoresis. Does admit it radiates to her left shoulder and arm. Patient states the pain worsens with when she presses on the area. Patient also states it hurts when she takes a deep breath. Patient does admit to a remote history of a 20 year smoking history. Currently a nonsmoker.Patient has no other complaints at this time including shortness of breath, abdominal pain, nausea or vomiting, headache, or visual changes. - Related Data Home Medications Medication Instructions Recorded Confirmed HYDROcodone/APAP 10-325MG [[place] 1 tab PO QID@06,12,18,00 05/20/14 03/17/21 10-325] Omeprazole [PriLOSEC] 20 mg PO BID 05/20/14 03/17/21 Simvastatin [Zocor] 20 mg PO HS 05/20/14 03/17/21 diphenhydrAMINE [Benadryl] 25 mg PO HS 05/20/14 03/17/21 Lisinopril-Hctz 10-12.5 mg 0.5 tab PO HS 11/21/17 03/17/21 [Zestoretic 10-12.5] Albuterol Inhaler [Ventolin Hfa 2 puff INHALATION RT-QID PRN 03/17/21 03/17/21 Inhaler] Allergies Allergy/AdvReac Type Severity Reaction Status Date / Time bacitracin Allergy Unknown Verified 03/17/21 08:05 [From Neosporin ([id number])] bupivacaine Allergy Unknown Verified 03/17/21 08:05 cefazolin [From Kefzol] Allergy Anaphylaxis Verified 03/17/21 08:05 Cephalosporins Allergy Unknown Verified 03/17/21 08:05 ciprofloxacin Allergy Unknown Verified 03/17/21 08:05 clindamycin Allergy Unknown Verified 03/17/21 08:05 COVID-19 vaccine, mRNA-1273, Allergy Unknown Verified 03/17/21 08:05 LNP-S doxycycline Allergy Unknown Verified 03/17/21 08:05 erythromycin base Allergy Rash/Hives Verified 03/17/21 08:05 levofloxacin Allergy Unknown Verified 03/17/21 08:05 neomycin Allergy Rash/Hives Verified 03/17/21 08:05 [From Neosporin ([id number])] nitrofurantoin Allergy Rash/Hives Verified 03/17/21 08:05 [From Macrobid] polymyxin B Allergy Unknown Verified 03/17/21 08:05 [From Neosporin ([id number])] sulfamethoxazole Allergy Rash/Hives Verified 03/17/21 08:05 [From Bactrim] tobramycin [From Emerson] Allergy Unknown Verified 03/17/21 08:05 trimethoprim [From Bactrim] Allergy Unknown Verified 03/17/21 08:05 TRIMETHOPRIM Allergy Unknown Uncoded 05/27/20 14:16 Review of Systems ROS Statement: Those systems with pertinent positive or pertinent negative responses have been documented in the HPI. ROS Other: All systems not noted in ROS Statement are negative. Past Medical History Past Medical History: Cancer, Hyperlipidemia, Hypertension Additional Past Medical History / Comment(s): FX BACK 2009, FX NECK WHEN SHE WAS 14 DIVING INTO A POOL- NECK PAIN CERVICAL CA. Mitral valve prolapse, Crohn's Disease, Bilateral cataract, RIGHT SHOULDER PAIN -FRACTURE 02/19/20 History of Any Multi-Drug Resistant Organisms: None Reported Past Surgical History: Heart Catheterization, Hysterectomy, Orthopedic Surgery, Tonsillectomy Additional Past Surgical History / Comment(s): LEFT SHOULDER ARTHROSCOPY - 2009; LEFT ANKLE ARTHROSCOPY - 2001; BILATERAL KNEE ARTHROSCOPY - 2000, heart catheterization, sinus surgery, colonoscopy Past Anesthesia/Blood Transfusion Reactions: No Reported Reaction Date of Last Stent Placement:: UNKNOWN Past Psychological History: No Psychological Hx Reported Smoking Status: Former smoker Past Alcohol Use History: None Reported Past Drug Use History: None Reported - Past Family History Mother Family Medical History: Cancer Sister(s) Family Medical History: Cancer General Exam Limitations: no limitations General appearance: alert, in no apparent distress Head exam: Present: atraumatic, normocephalic, normal inspection Eye exam: Present: normal appearance, PERRL, EOMI. Absent: scleral icterus, conjunctival injection, periorbital swelling ENT exam: Present: normal exam Neck exam: Present: normal inspection, full ROM. Absent: tenderness, meningismus, lymphadenopathy Respiratory exam: Present: normal lung sounds bilaterally, chest wall tenderness (Left-sided anterior chest wall tenderness). Absent: respiratory distress, wheezes, rales, rhonchi, stridor Cardiovascular Exam: Present: regular rate, normal rhythm, normal heart sounds. Absent: systolic murmur, diastolic murmur, rubs, gallop, clicks GI/Abdominal exam: Present: soft, normal bowel sounds. Absent: distended, tenderness, guarding, rebound, rigid Neurological exam: Present: alert Course Vital Signs 03/17/21 03/17/21 07:38 10:19 Temperature 98.4 F Pulse Rate 96 88 Respiratory 18 18 Rate Blood Pressure 135/82 113/87 O2 Sat by Pulse 98 95 Oximetry Medical Decision Making - Medical Decision Making Vitals are stable. CBC CMP unremarkable. Troponin is negative. Chest x-ray shows no acute cardiopulmonary process. CT of the chest shows no evidence for pulmonary embolism at this time. She does have a heart score of 4. Patient has not had a cardiac workup since 2010. Case is discussed with patient's primary c are provider Dr. Crenshaw who does accept admission. We will trend troponin and consult cardiology. - Lab Data Result diagrams: 03/17/21 08:08 03/17/21 08:08 Lab Results 03/17/21 03/17/21 03/17/21 Range/Units 08:08 08:08 08:08 WBC 8.4 (3.8-10.6) k/uL RBC 4.44 (3.80-5.40) m/uL Hgb 13.5 (11.4-16.0) gm/dL Hct 41.8 (34.0-46.0) % MCV 94.2 (80.0-100.0) fL MCH 30.3 (25.0-35.0) pg MCHC 32.2 (31.0-37.0) g/dL RDW 13.2 (11.5-15.5) % Plt Count 245 (150-450) k/uL MPV 7.0 Neutrophils % 76 % Lymphocytes % 16 % Monocytes % 4 % Eosinophils % 2 % Basophils % 1 % Neutrophils # 6.4 (1.3-7.7) k/uL Lymphocytes # 1.4 (1.0-4.8) k/uL Monocytes # 0.3 (0-1.0) k/uL Eosinophils # 0.2 (0-0.7) k/uL Basophils # 0.1 (0-0.2) k/uL PT 9.7 (9.0-12.0) sec INR 0.9 (<1.2) APTT 22.5 (22.0-30.0) sec D-Dimer 1.32 H (<0.60) mg/L FEU Sodium 139 (137-145) mmol/L Potassium 4.1 (3.5-5.1) mmol/L Chloride 102 (98-107) mmol/L Carbon Dioxide 29 (22-30) mmol/L Anion Gap 8 mmol/L BUN 17 (7-17) mg/dL Creatinine 0.74 (0.52-1.04) mg/dL Est GFR (CKD-EPI)AfAm >90 (>60 ml/min/1.73 sqM) Est GFR (CKD-EPI)NonAf 85 (>60 ml/min/1.73 sqM) Glucose 113 H (74-99) mg/dL Calcium 9.6 (8.4-10.2) mg/dL Magnesium 1.9 (1.6-2.3) mg/dL Total Bilirubin 0.4 (0.2-1.3) mg/dL AST 25 (14-36) U/L ALT 19 (4-34) U/L Alkaline Phosphatase 97 (38-126) U/L Troponin I (0.000-0.034) ng/mL NT-Pro-B Natriuret Pep pg/mL Total Protein 6.7 (6.3-8.2) g/dL Albumin 4.2 (3.5-5.0) g/dL Lipase 92 (23-300) U/L 03/17/21 03/17/21 Range/Units 08:08 08:08 WBC (3.8-10.6) k/uL RBC (3.80-5.40) m/uL Hgb (11.4-16.0) gm/dL Hct (34.0-46.0) % MCV (80.0-100.0) fL MCH (25.0-35.0) pg MCHC (31.0-37.0) g/dL RDW (11.5-15.5) % Plt Count (150-450) k/uL MPV Neutrophils % % Lymphocytes % % Monocytes % % Eosinophils % % Basophils % % Neutrophils # (1.3-7.7) k/uL Lymphocytes # (1.0-4.8) k/uL Monocytes # (0-1.0) k/uL Eosinophils # (0-0.7) k/uL Basophils # (0-0.2) k/uL PT (9.0-12.0) sec INR (<1.2) APTT (22.0-30.0) sec D-Dimer (<0.60) mg/L FEU Sodium (137-145) mmol/L Potassium (3.5-5.1) mmol/L Chloride (98-107) mmol/L Carbon Dioxide (22-30) mmol/L Anion Gap mmol/L BUN (7-17) mg/dL Creatinine (0.52-1.04) mg/dL Est GFR (CKD-EPI)AfAm (>60 ml/min/1.73 sqM) Est GFR (CKD-EPI)NonAf (>60 ml/min/1.73 sqM) Glucose (74-99) mg/dL Calcium (8.4-10.2) mg/dL Magnesium (1.6-2.3) mg/dL Total Bilirubin (0.2-1.3) mg/dL AST (14-36) U/L ALT (4-34) U/L Alkaline Phosphatase (38-126) U/L Troponin I <0.012 (0.000-0.034) ng/mL NT-Pro-B Natriuret Pep 37 pg/mL Total Protein (6.3-8.2) g/dL Albumin (3.5-5.0) g/dL Lipase (23-300) U/L Disposition Clinical Impression: Chest pain Disposition: ADMITTED IP TO THIS HOSP Is patient prescribed a controlled substance at d/c from ED?: No Referrals: Ingris Crenshaw MD [Primary Care Provider] - 1-2 days Time of Disposition: 10:49
[2021-03-17 08:19] LABS: Basophils # (A) 0.1 k/uL (0-0.2); Basophils % (A) 1 %; Eosinophils # (A) 0.2 k/uL (0-0.7); Eosinophils % (A) 2 %; HCT 41.8 % (34.0-46.0); HGB 13.5 gm/dL (11.4-16.0); Lymphocytes # (A) 1.4 k/uL (1.0-4.8); Lymphocytes % (A) 16 %; MCH 30.3 pg (25.0-35.0); MCHC 32.2 g/dL (31.0-37.0); MCV 94.2 fL (80.0-100.0); Monocytes # (A) 0.3 k/uL (0-1.0); Monocytes % (A) 4 %; Neutrophils # (A) 6.4 k/uL (1.3-7.7); Neutrophils % (A) 76 %; Platelet Count 245 k/uL (150-450); RBC 4.44 m/uL (3.80-5.40); RDW 13.2 % (11.5-15.5); WBC 8.4 k/uL (3.8-10.6)
[2021-03-17 08:35] LABS: INR 0.9 (<1.2); Partial Thromboplastin Time 22.5 sec (22.0-30.0); Prothrombin Time 9.7 sec (9.0-12.0)
[2021-03-17 08:39] LABS: ALT 19 U/L (4-34); AST 25 U/L (14-36); African American GFR (CKD) >90 (>60 ml/min/1.73 sqM); Albumin 4.2 g/dL (3.5-5.0); Alkaline Phosphatase 97 U/L (38-126); Anion Gap 8 mmol/L; Blood Urea Nitrogen 17 mg/dL (7-17); Calcium 9.6 mg/dL (8.4-10.2); Carbon Dioxide 29 mmol/L (22-30); Chloride 102 mmol/L (98-107); Glucose 113 mg/dL (74-99); Lipase 92 U/L (23-300); Magnesium 1.9 mg/dL (1.6-2.3); Non-African American GFR(CKD) 85 (>60 ml/min/1.73 sqM); Potassium 4.1 mmol/L (3.5-5.1); Sodium 139 mmol/L (137-145); Total Bilirubin 0.4 mg/dL (0.2-1.3); Total Protein 6.7 g/dL (6.3-8.2)
[2021-03-17 09:01] LABS: D-Dimer 1.32 mg/L FEU (<0.60)
[2021-03-17] MEDS ORDERED: MORPHINE SULFATE 4 MG/ML SYRINGE IVP STA (09:03)
--- NOTE | 2021-03-17 09:26 | XR ---
EXAMINATION TYPE: XR chest 2V DATE OF EXAM: 03/17/2021 CLINICAL HISTORY: Chest Pain. TECHNIQUE: Frontal and lateral view of the chest. COMPARISON: 02/21/2020 chest x-ray . CT cervicothoracic spine 05/20/2014, 10/14/2010. FINDINGS: The cardiomediastinal silhouette is within normal limits for size. Pulmonary vasculature i s normal. Unchanged triangular opacity at the right lung base over several comparisons, likely promin ent pericardial fat. There is no new focal air space opacity. No pleural effusion. No pneumothorax s een. Increased thoracic kyphosis with redemonstrated height loss of mid and inferior thoracic vertebr al bodies similar to 2014 comparison. There is a redemonstrated left upper quadrant round calcificati on, unchanged and likely benign and may represent splenic cyst calcification. IMPRESSION: No acute cardiopulmonary process.
--- NOTE | 2021-03-17 10:13 | CT ---
EXAMINATION TYPE: CT chest angio for PE DATE OF EXAM: 03/17/2021 COMPARISON: None HISTORY: Chest pain CONTRAST: CT chest with contrast and 3D reconstruction with MIP imaging is performed with IV Contrast, patient injected with 100 mL of Isovue 370. Contrast-enhanced CT of the chest was performed through the course of the pulmonary arteries with linda g and mediastinal window settings submitted. 3D reconstruction with MIP imaging was also performed. PULMONARY ARTERIES: The pulmonary arteries and their major tributaries are patent. I do not see saurav dence for sizable filling defect to suggest pulmonary embolic process. LUNGS: The lungs are clear and free of infiltrate. No evidence for atelectasis. No pulmonary nodule or mass is detected. No pleural effusion. MEDIASTINUM: Thoracic aorta is of normal caliber,however, evaluation is limited given timing of the contrast bolus. If there is concern for thoracic aortic pathology consider ADAM. Correlate clinicall y . The heart is not enlarged. No evidence for mediastinal mass. No mediastinal lymph nodes greater than 1cm. HILAR STRUCTURES: No evidence for mass. No hilar lymph nodes greater than 1 cm. UPPER ABDOMEN: Multiple hepatic cysts noted. Splenic cysts noted as well with peripheral calcificatio n. IMPRESSION: 1. No evidence for Pulmonary embolism at this time.
[2021-03-17] MEDS ORDERED: MORPHINE SULFATE 4 MG/ML SYRINGE IV PRN (10:51)
[2021-03-17 11:49] VITALS: BP 124/79; PULSE 80
[2021-03-17] MEDS ORDERED: ALBUTEROL NEBULIZED 2.5 MG/3 ML INHALATION PRN (13:27)
[2021-03-17] MEDS ORDERED: IBUPROFEN 600 MG TAB PO STA (13:32)
[2021-03-17] MEDS ORDERED: PANTOPRAZOLE 40 MG TABLET PO SCH (13:45)
--- NOTE | 2021-03-17 14:13 | P.CRDCN ---
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 She follows in the office with Dr. Carolina. We have been asked to see in consultation for chest pain. She states she woke up last night with a sharp pain in the left precordial region and felt like a knife stabbing her through the front hallway to the back. The discomfort is exacerbated by movement of her arms specifically the left arm. It is also exacerbated by deep palpation. The patient states she moved all of her bedroom furniture last week and thinks she may have possibly strained a muscle. EKG reveals sinus mechanism with incomplete right bundle branch block, poor R-wave progression and no acute ST or T wave abnormalities noted. Chest x-ray and CT of the chest are negative and unremarkable for an acute cardiopulmonary process. Laboratory data reviewed, CBC unremarkable, d-dimer 1.32, sodium 139, potassium 4.1, creatinine 0.74, magnesium 1.9, cardiac enzymes negative 2, NT proBNP 37. Chronic daily cardiac medications include lisinopril/hydrochlorothiazide 10/12.5 mg half tablet daily and simvastatin 20 mg daily. Most recent echocardiogram obtained in 2018 revealed preserved LV systolic function with ejection fraction 55-60%. REVIEW OF SYSTEMS At the time of my exam: CONSTITUTIONAL: Denies fever or chills. CARDIOVASCULAR: Denies chest pain, shortness of breath, orthopnea, PND or palpitations. RESPIRATORY: Denies cough. GASTROINTESTINAL: Denies abdominal pain, diarrhea, constipation, nausea or vomiting. MUSCULOSKELETAL: Complains of reproducible pain over the left precordial region with radiation through to the back NEUROLOGIC: Denies numbness, tingling, headacbe or weakness. ENDOCRINE: Denies fatigue, weight change, polydipsia or polyurina. GENITOURINARY: Denies burning, hematuria or urgency with micturation. HEMATOLOGIC: Denies history of anemia or bleeding. PHYSICAL EXAMINATION Blood pressure 124/79 heart rate 80 afebrile and maintaining oxygen saturation on room air. CONSTITUTIONAL: No apparent distress. HEENT: Head is normocephalic. Pupils are equal, round. Sclerae anicteric. Mucous membranes of the mouth are moist. No JVD. No carotid bruit. CHEST EXAMINATION: Lungs are clear to auscultation. No chest wall tenderness is noted on palpation or with deep breathing. HEART EXAMINATION: Regular rate and rhythm. S1, S2 heard. No murmurs, gallops or rub. ABDOMEN: Soft, nontender. Positive bowel sounds. EXTREMITIES: 2+ peripheral pulses, no lower extremity edema and no calf tenderness. NEUROLOGIC EXAMINATION: Patient is awake, alert and oriented x3. ASSESSMENT Chest pain, musculoskeletal Hypertension Dyslipidemia PLAN An acute coronary event has been ruled out. Pain is atypical for angina, musculoskeletal and reproducible in nature. Likely related to musculoskeletal strain from moving bedroom furniture. Recommend anti-inflammatory pain control and discharge home. Nurse Practitioner note has been reviewed, I agree with a documented findings and plan of care. Patient was seen and examined. Past Medical History Past Medical History: Cancer, Hyperlipidemia, Hypertension Additional Past Medical History / Comment(s): FX BACK 2009, FX NECK WHEN SHE WAS 14 DIVING INTO A POOL- NECK PAIN CERVICAL CA. Mitral valve prolapse, Crohn's Disease, Bilateral cataract, RIGHT SHOULDER PAIN -FRACTURE 02/19/20 History of Any Multi-Drug Resistant Organisms: None Reported Past Surgical History: Heart Catheterization, Hysterectomy, Orthopedic Surgery, Tonsillectomy Additional Past Surgical History / Comment(s): LEFT SHOULDER ARTHROSCOPY - 2009; LEFT ANKLE ARTHROSCOPY - 2001; BILATERAL KNEE ARTHROSCOPY - 2000, heart catheterization, sinus surgery, colonoscopy Past Anesthesia/Blood Transfusion Reactions: No Reported Reaction Date of Last Stent Placement:: UNKNOWN Past Psychological History: No Psychological Hx Reported Smoking Status: Former smoker Past Alcohol Use History: None Reported Past Drug Use History: None Reported - Past Family History Mother Family Medical History: Cancer Sister(s) Family Medical History: Cancer Medications and Allergies Home Medications Medication Instructions Recorded Confirmed Type HYDROcodone/APAP 10-325MG [[place] 1 tab PO QID@06,12,18,00 05/20/14 03/17/21 History 10-325] Omeprazole [PriLOSEC] 20 mg PO BID 05/20/14 03/17/21 History Simvastatin [Zocor] 20 mg PO HS 05/20/14 03/17/21 History diphenhydrAMINE [Benadryl] 25 mg PO HS 05/20/14 03/17/21 History Lisinopril-Hctz 10-12.5 mg 0.5 tab PO HS 11/21/17 03/17/21 History [Zestoretic 10-12.5] Albuterol Inhaler [Ventolin Hfa 2 puff INHALATION RT-QID PRN 03/17/21 03/17/21 History Inhaler] Allergies Allergy/AdvReac Type Severity Reaction Status Date / Time bacitracin Allergy Unknown Verified 03/17/21 08:05 [From Neosporin ([id number])] bupivacaine Allergy Unknown Verified 03/17/21 08:05 cefazolin [From Kefzol] Allergy Anaphylaxis Verified 03/17/21 08:05 Cephalosporins Allergy Unknown Verified 03/17/21 08:05 ciprofloxacin Allergy Unknown Verified 03/17/21 08:05 clindamycin Allergy Unknown Verified 03/17/21 08:05 COVID-19 vaccine, mRNA-1273, Allergy Unknown Verified 03/17/21 08:05 LNP-S doxycycline Allergy Unknown Verified 03/17/21 08:05 erythromycin base Allergy Rash/Hives Verified 03/17/21 08:05 levofloxacin Allergy Unknown Verified 03/17/21 08:05 neomycin Allergy Rash/Hives Verified 03/17/21 08:05 [From Neosporin ([id number])] nitrofurantoin Allergy Rash/Hives Verified 03/17/21 08:05 [From Macrobid] polymyxin B Allergy Unknown Verified 03/17/21 08:05 [From Neosporin ([id number])] sulfamethoxazole Allergy Rash/Hives Verified 03/17/21 08:05 [From Bactrim] tobramycin [From Emerson] Allergy Unknown Verified 03/17/21 08:05 trimethoprim [From Bactrim] Allergy Unknown Verified 03/17/21 08:05 TRIMETHOPRIM Allergy Unknown Uncoded 05/27/20 14:16 Physical Exam Vitals: Vital Signs Temp Pulse Resp BP Pulse Ox 03/17/21 11:46 80 18 124/79 97 03/17/21 10:19 88 18 113/87 95 03/17/21 07:38 98.4 F 96 18 135/82 98 Intake and Output 03/16/21 03/17/21 03/17/21 22:59 06:59 14:59 Other: Weight 84.822 kg Results 03/17/21 08:08 03/17/21 08:08 Cardiac Enzymes 03/17/21 03/17/21 03/17/21 Range/Units 08:08 08:08 11:11 AST 25 (14-36) U/L Troponin I <0.012 <0.012 (0.000-0.034) ng/mL Coagulation 03/17/21 Range/Units 08:08 PT 9.7 (9.0-12.0) sec APTT 22.5 (22.0-30.0) sec CBC 03/17/21 Range/Units 08:08 WBC 8.4 (3.8-10.6) k/uL RBC 4.44 (3.80-5.40) m/uL Hgb 13.5 (11.4-16.0) gm/dL Hct 41.8 (34.0-46.0) % Plt Count 245 (150-450) k/uL Comprehensive Metabolic Panel 03/17/21 Range/Units 08:08 Sodium 139 (137-145) mmol/L Potassium 4.1 (3.5-5.1) mmol/L Chloride 102 (98-107) mmol/L Carbon Dioxide 29 (22-30) mmol/L BUN 17 (7-17) mg/dL Creatinine 0.74 (0.52-1.04) mg/dL Glucose 113 H (74-99) mg/dL Calcium 9.6 (8.4-10.2) mg/dL AST 25 (14-36) U/L ALT 19 (4-34) U/L Alkaline Phosphatase 97 (38-126) U/L Total Protein 6.7 (6.3-8.2) g/dL Albumin 4.2 (3.5-5.0) g/dL Current Medications Generic Name Dose Route Start Last Admin Trade Name Freq PRN Reason Stop Dose Admin Hydrocodone Bitart/Acetaminophen 1 each 03/17/21 18:00 Hydrocodone/Apap 10-325mg 1 Each Tab PO QID@06,12,18,00 LAN Albuterol Sulfate 2 puff 03/17/21 13:27 Albuterol Hfa Inhaler INHALATION RT-QID PRN Shortness Of Breath Aspirin 325 mg 03/18/21 09:00 Aspirin 325 Mg Tab PO DAILY LAN Diphenhydramine HCl 25 mg 03/17/21 21:00 Diphenhydramine 25 Mg Cap PO HS LAN Lisinopril/HCTZ 0.5 each 03/17/21 21:00 Lisinopril-Hctz 10-12.5 Mg 1 Each Tab PO HS LAN Morphine Sulfate 4 mg 03/17/21 10:51 03/17/21 11:39 Morphine Sulfate 4 Mg/Ml Syringe IV 4 mg Q6H PRN Administration Chest Pain Non-Formulary Medication 20 mg 03/17/21 21:00 Omeprazole [Prilosec] PO BID LAN Non-Formulary Medication 20 mg 03/17/21 21:00 Simvastatin PO HS LAN Intake and Output 03/16/21 03/17/21 03/17/21 22:59 06:59 14:59 Other: Weight 84.822 kg Patient Weight 03/18/21 06:59 Weight 84.822 kg 03/17/21 08:08 03/17/21 08:08
[2021-03-17] MEDS ORDERED: HYDROcodone/APAP 10-325MG 1 EACH TAB PO SCH (18:00)
[2021-03-17] MEDS ORDERED: diphenhydrAMINE 25 MG CAP PO SCH (21:00)
[2021-03-17] MEDS ORDERED: ATORVASTATIN 10 MG TAB PO SCH (21:00)
[2021-03-17] MEDS ORDERED: LISINOPRIL-HCTZ 10-12.5 MG 1 EACH TAB PO SCH (21:00)
[2021-03-18] MEDS ORDERED: ASPIRIN 325 MG TAB PO SCH (09:00)
== END 2021-03-17 14:25 | disposition home or self-care (01) ==
LOC: EC 07:36 → UNDOADMOB 10:36 → 6NMEDSUR 10:36 → EC 14:25 → UNDODISOB 14:30
DX: R07.89 Other chest pain (principal); E78.5 Hyperlipidemia, unspecified; I10 Essential (primary) hypertension; Z79.899 Other long term (current) drug therapy; Z87.891 Personal history of nicotine dependence; Z88.8 Allergy status to other drugs, medicaments and biological substances; Z88.1 Allergy status to other antibiotic agents; Z88.4 Allergy status to anesthetic agent; Z88.7 Allergy status to serum and vaccine; Z88.2 Allergy status to sulfonamides
CPT/HCPCS: 99285; 96374; 96376; 36415; 93005; 85379; 83880; 80053; 83690; 83735; 84484; 85025; 85610; 85730; 71046; 71275; J2270; Q9967

== ENCOUNTER 2021-12-22 09:59 | Emergency (ER) | payer MEDICARE, OTHER ==
[2021-12-22 10:59] LABS: Basophils # (A) 0.1 k/uL (0-0.2); Basophils % (A) 2 %; Eosinophils # (A) 0.2 k/uL (0-0.7); Eosinophils % (A) 3 %; HCT 43.8 % (34.0-46.0); HGB 14.3 gm/dL (11.4-16.0); Lymphocytes # (A) 2.3 k/uL (1.0-4.8); Lymphocytes % (A) 34 %; MCH 31.9 pg (25.0-35.0); MCHC 32.5 g/dL (31.0-37.0); Mean Platelet Volume 7.7; Monocytes # (A) 0.4 k/uL (0-1.0); Monocytes % (A) 6 %; Neutrophils # (A) 3.6 k/uL (1.3-7.7); Neutrophils % (A) 53 %; Platelet Count 323 k/uL (150-450); RBC 4.47 m/uL (3.80-5.40); RDW 12.5 % (11.5-15.5); WBC 6.8 k/uL (3.8-10.6)
[2021-12-22 11:17] LABS: Albumin 4.7 g/dL (3.5-5.0); Calcium 9.3 mg/dL (8.4-10.2); Total Bilirubin 0.8 mg/dL (0.2-1.3); Total Protein 7.8 g/dL (6.3-8.2)
--- NOTE | 2021-12-22 11:17 | ED ---
Dizziness HPI - General Chief Complaint: Dizziness Stated Complaint: lt sided neck pain, dizzy Time Seen by Provider: 12/22/21 10:32 Source: patient, RN notes reviewed Mode of arrival: ambulatory Limitations: no limitations - History of Present Illness Initial Comments: This is a 66-year-old female who presents emergency department department for dizziness. States that she just finished a ten-day course of amoxicillin for a left-sided ear infection. The last 2 days, she has noticed swelling traveling down the left side of her neck as well as increased pain in the left jaw. This morning, when she woke up and turned her head, she developed dizziness. She then tried to go grocery shopping at [facility], however she had to grab the grocery cart to avoid falling. Denies any fevers, chills, chest pain, shortness of breath, or history of vertigo. MD Complaint: dizziness Onset/Timin -: days(s) - Related Data Home Medications Medication Instructions Recorded Confirmed HYDROcodone/APAP 10-325MG [[place] 1 tab PO QID@06,12,18,00 05/20/14 12/22/21 10-325] Omeprazole [PriLOSEC] 20 mg PO BID@0000,1200 /12/22/21 Simvastatin [Zocor] 20 mg PO HS@1800 05/20/14 12/22/21 Lisinopril-Hctz 10-12.5 mg 0.5 tab PO DAILY@0000 11/21/17 12/22/21 [Zestoretic 10-12.5] Amoxicillin 875 mg PO Q12H 12/22/21 12/22/21 Fluocinonide 0.05% [Lidex 0.05% 1 applic TOPICAL DAILY PRN 12/22/21 12/22/21 cream] Nystatin 100,000 Unit/gm Powd 1 applic TOPICAL BID PRN 12/22/21 12/22/21 [Mycostatin Powder] Previous Rx's Medication Instructions Recorded Amoxicillin/Potassium Clav 1 tab PO Q12HR #20 tab 12/22/21 [Augmentin 875-125 Tablet] Allergies Allergy/AdvReac Type Severity Reaction Status Date / Time bacitracin Allergy Rash/Hives Verified 12/22/21 12:08 [From Neosporin ([id number])] bupivacaine Allergy Rash/Hives Verified 12/22/21 12:08 cefazolin [From Kefzol] Allergy Anaphylaxis Verified 12/22/21 12:08 cephalexin [From Keflex] Allergy Anaphylaxis Verified 12/22/21 12:08 Cephalosporins Allergy Rash/Hives Verified 12/22/21 12:08 clindamycin Allergy Rash/Hives Verified 12/22/21 12:08 COVID-19 vaccine, mRNA, Allergy Unknown Verified 12/22/21 12:08 [id number], [COVID-19 vaccine, mRNA-1273, LNP-S] doxycycline Allergy Rash/Hives Verified 12/22/21 12:08 erythromycin base Allergy Rash/Hives Verified 12/22/21 12:08 neomycin Allergy Rash/Hives Verified 12/22/21 12:08 [From Neosporin ([id number])] nitrofurantoin Allergy Rash/Hives Verified 12/22/21 12:08 [From Macrobid] polymyxin B Allergy Rash/Hives Verified 12/22/21 12:08 [From Neosporin ([id number])] sulfamethoxazole Allergy Rash/Hives Verified 12/22/21 12:08 [From Bactrim] tobramycin [From Emerson] Allergy Rash/Hives Verified 12/22/21 12:08 trimethoprim [From Bactrim] Allergy Rash/Hives Verified 12/22/21 12:08 & Gi Upset ciprofloxacin AdvReac Nausea & Verified 12/22/21 12:08 Vomiting levofloxacin AdvReac Nausea & Verified 12/22/21 12:08 Vomiting Review of Systems ROS Statement: Those systems with pertinent positive or pertinent negative responses have been documented in the HPI. ROS Other: All systems not noted in ROS Statement are negative. Constitutional: Denies: fever, chills ENT: Reports: ear pain. Denies: throat pain (left) Respiratory: Denies: cough, dyspnea Cardiovascular: Denies: chest pain, palpitations Gastrointestinal: Denies: abdominal pain, nausea, vomiting, diarrhea Genitourinary: Denies: urgency, dysuria Musculoskeletal: Denies: back pain Skin: Denies: rash Neurological: Denies: headache, weakness Psychiatric: Denies: anxiety, depression Past Medical History Past Medical History: Cancer, Hyperlipidemia, Hypertension Additional Past Medical History / Comment(s): FX BACK 2009, FX NECK WHEN SHE WAS 14 DIVING INTO A POOL- NECK PAIN CERVICAL CA. Mitral valve prolapse, Crohn's Disease, Bilateral cataract, RIGHT SHOULDER PAIN -FRACTURE 02/19/20 History of Any Multi-Drug Resistant Organisms: None Reported Past Surgical History: Heart Catheterization, Hysterectomy, Orthopedic Surgery, Tonsillectomy Additional Past Surgical History / Comment(s): LEFT SHOULDER ARTHROSCOPY - 2009; LEFT ANKLE ARTHROSCOPY - 2001; BILATERAL KNEE ARTHROSCOPY - 2000, heart cathet erization, sinus surgery, colonoscopy Past Anesthesia/Blood Transfusion Reactions: No Reported Reaction Date of Last Stent Placement:: UNKNOWN Past Psychological History: No Psychological Hx Reported Smoking Status: Former smoker Past Alcohol Use History: None Reported Past Drug Use History: None Reported - Past Family History Mother Family Medical History: Cancer Sister(s) Family Medical History: Cancer General Exam Limitations: no limitations General appearance: alert, in no apparent distress Head exam: Present: atraumatic, normocephalic, normal inspection Eye exam: Present: normal appearance, PERRL, EOMI. Absent: scleral icterus, conjunctival injection, periorbital swelling ENT exam: Present: normal exam, normal oropharynx, other (Dried blood and erythema on the left TM.) Neck exam: Present: normal inspection, full ROM, lymphadenopathy (left anterior cervical). Absent: tenderness Respiratory exam: Present: normal lung sounds bilaterally. Absent: respiratory distress, wheezes, rales, rhonchi, stridor Cardiovascular Exam: Present: regular rate, normal rhythm, normal heart sounds. Absent: systolic murmur, diastolic murmur, rubs, gallop, clicks Neurological exam: Present: alert, oriented X3, CN II-XII intact, normal gait Psychiatric exam: Present: normal affect, normal mood Skin exam: Present: warm, dry, intact, normal color. Absent: rash Course Vital Signs 12/22/21 12/22/21 12/22/21 10:05 12:15 13:21 Temperature 98 F 97.8 F Pulse Rate 89 80 76 Respiratory 18 16 16 Rate Blood Pressure 150/97 140/89 136/93 O2 Sat by Pulse 98 99 98 Oximetry EKG Findings - EKG Comments: EKG Findings:: Sinus rhythm. Ventricular rate 78 bpm, TN interval 138 ms, QRS duration 101 ms, QTC 416 ms. Medical Decision Making - Medical Decision Making This is a 66-year-old female who presents to the emergency department for dizziness. EKG and cardiac workup ordered. No signs of ACS identified, and lab work was unremarkable. Computed tomography scan of the brain without contrast obtained, which was also negative and she does not have any focal deficits. Advised the patient that this is likely related to vertigo in light of her recent infection. Additionally advised we try medication such as Reglan or Antivert to see if symptoms improve, however the patient declined despite my strongest recommendation, saying that she is scared of taking new medication due to the risk of being allergic to it. Given that she does have some redness to the TM with pain traveling down the jaw, will give her a new course of antibiotics, Augmentin, to see if symptoms improve. Patient requests discharge home. I did provide her with the information for the half-somersault maneuver to try if the dizziness returns. Return precautions reviewed in depth, the patient is instructed to return to the emergency department with any new, worsening, or concerning symptoms. Patient verbalized understanding. This case was discussed in detail with the attending ED physician. Presentation, findings, and treatment plan discussed in detail as well. - Lab Data Result diagrams: 12/22/21 10:47 12/22/21 10:47 Lab Results 12/22/21 12/22/21 12/22/21 Range/Units 10:47 10:47 10:47 WBC 6.8 (3.8-10.6) k/uL RBC 4.47 (3.80-5.40) m/uL Hgb 14.3 (11.4-16.0) gm/dL Hct 43.8 (34.0-46.0) % MCV 98.0 (80.0-100.0) fL MCH 31.9 (25.0-35.0) pg MCHC 32.5 (31.0-37.0) g/dL RDW 12.5 (11.5-15.5) % Plt Count 323 (150-450) k/uL MPV 7.7 Neutrophils % 53 % Lymphocytes % 34 % Monocytes % 6 % Eosinophils % 3 % Basophils % 2 % Neutrophils # 3.6 (1.3-7.7) k/uL Lymphocytes # 2.3 (1.0-4.8) k/uL Monocytes # 0.4 (0-1.0) k/uL Eosinophils # 0.2 (0-0.7) k/uL Basophils # 0.1 (0-0.2) k/uL PT (9.0-12.0) sec INR (<1.2) Sodium 137 (137-145) mmol/L Potassium 4.6 (3.5-5.1) mmol/L Chloride 104 (98-107) mmol/L Carbon Dioxide 24 (22-30) mmol/L Anion Gap 9 mmol/L BUN 22 H (7-17) mg/dL Creatinine 0.82 (0.52-1.04) mg/dL Est GFR (CKD-EPI)AfAm 86 (>60 ml/min/1.73 sqM) Est GFR (CKD-EPI)NonAf 74 (>60 ml/min/1.73 sqM) Glucose 98 (74-99) mg/dL Calcium 9.3 (8.4-10.2) mg/dL Total Bilirubin 0.8 (0.2-1.3) mg/dL AST 39 H (14-36) U/L ALT 22 (4-34) U/L Alkaline Phosphatase 54 (38-126) U/L CK-MB (CK-2) (0.0-2.4) ng/mL Troponin I (0.000-0.034) ng/mL Total Protein 7.8 (6.3-8.2) g/dL Albumin 4.7 (3.5-5.0) g/dL Urine Color Light Yellow Urine Appearance Clear (Clear) Urine pH 6.0 (5.0-8.0) Ur Specific [place] 1.017 (1.001-1.035) Urine Protein Negative (Negative) Urine Glucose (UA) Negative (Negative) Urine Ketones Negative (Negative) Urine Blood Small H (Negative) Urine Nitrite Negative (Negative) Urine Bilirubin Negative (Negative) Urine Urobilinogen <2.0 (<2.0) mg/dL Ur Leukocyte Esterase Negative (Negative) Urine RBC 4 (0-5) /hpf Urine WBC 1 (0-5) /hpf Ur Squamous Epith Cells 1 (0-4) /hpf Urine Mucus Rare H (None) /hpf 12/22/21 12/22/21 Range/Units 10:47 11:06 WBC (3.8-10.6) k/uL RBC (3.80-5.40) m/uL Hgb (11.4-16.0) gm/dL Hct (34.0-46.0) % MCV (80.0-100.0) fL MCH (25.0-35.0) pg MCHC (31.0-37.0) g/dL RDW (11.5-15.5) % Plt Count (150-450) k/uL MPV Neutrophils % % Lymphocytes % % Monocytes % % Eosinophils % % Basophils % % Neutrophils # (1.3-7.7) k/uL Lymphocytes # (1.0-4.8) k/uL Monocytes # (0-1.0) k/uL Eosinophils # (0-0.7) k/uL Basophils # (0-0.2) k/uL PT 10.1 (9.0-12.0) sec INR 0.9 (<1.2) Sodium (137-145) mmol/L Potassium (3.5-5.1) mmol/L Chloride (98-107) mmol/L Carbon Dioxide (22-30) mmol/L Anion Gap mmol/L BUN (7-17) mg/dL Creatinine (0.52-1.04) mg/dL Est GFR (CKD-EPI)AfAm (>60 ml/min/1.73 sqM) Est GFR (CKD-EPI)NonAf (>60 ml/min/1.73 sqM) Glucose (74-99) mg/dL Calcium (8.4-10.2) mg/dL Total Bilirubin (0.2-1.3) mg/dL AST (14-36) U/L ALT (4-34) U/L Alkaline Phosphatase (38-126) U/L CK-MB (CK-2) 1.4 (0.0-2.4) ng/mL Troponin I <0.012 (0.000-0.034) ng/mL Total Protein (6.3-8.2) g/dL Albumin (3.5-5.0) g/dL Urine Color Urine Appearance (Clear) Urine pH (5.0-8.0) Ur Specific [place] (1.001-1.035) Urine Protein (Negative) Urine Glucose (UA) (Negative) Urine Ketones (Negative) Urine Blood (Negative) Urine Nitrite (Negative) Urine Bilirubin (Negative) Urine Urobilinogen (<2.0) mg/dL Ur Leukocyte Esterase (Negative) Urine RBC (0-5) /hpf Urine WBC (0-5) /hpf Ur Squamous Epith Cells (0-4) /hpf Urine Mucus (None) /hpf Interpretation: no acute changes - Radiology Data Radiology results: report reviewed, image reviewed Disposition Clinical Impression: AOM (acute otitis media), Benign paroxysmal positional vertigo Disposition: HOME SELF-CARE Instructions (If sedation given, give patient instructions): Vertigo (ED), Benign Paroxysmal Positional Vertigo (ED), Dizziness (ED) Additional Instructions: Return to the emergency department with any new, worsening, or concerning symptoms. Try the half-somersault maneuver for symptomatic management. Follow up with your primary care provider in 1-2 days. Prescriptions: Amoxicillin/Potassium Clav [Augmentin 875-125 Tablet] 1 tab PO Q12HR #20 tab Is patient prescribed a controlled substance at d/c from ED?: No Referrals: Ingris Crenshaw MD [Primary Care Provider] - 1-2 days
[2021-12-22 11:18] LABS: Potassium 4.6 mmol/L (3.5-5.1)
[2021-12-22 11:26] LABS: Appearance,Urine Clear (Clear); Bilirubin,Urine Negative (Negative); Blood,Urine Small (Negative); Color,Urine Light Yellow; Glucose,Urine (UA) Negative (Negative); Ketones,Urine Negative (Negative); Leukocyte Esterase,Urine Negative (Negative); Mucus,Urine Rare /hpf; Nitrite,Urine Negative (Negative); Protein,Urine Negative (Negative); RBC,Urine 4 /hpf (0-5); Specific Gravity,Urine 1.017 (1.001-1.035); Squamous Epithelial Cell,Urine 1 /hpf (0-4); Urobilinogen,Urine <2.0 mg/dL (<2.0); WBC,Urine 1 /hpf (0-5)
[2021-12-22 11:34] LABS: INR 0.9 (<1.2); Prothrombin Time 10.1 sec (9.0-12.0)
[2021-12-22 11:35] LABS: Creatine Kinase MB 1.4 ng/mL (0.0-2.4); Troponin I <0.012 ng/mL (0.000-0.034)
[2021-12-22] MEDS ORDERED: METOCLOPRAMIDE 10 MG TAB PO STA (11:51)
[2021-12-22 12:17] VITALS: RESP 16
--- NOTE | 2021-12-22 13:01 | CT ---
EXAMINATION TYPE: CT brain wo con DATE OF EXAM: 12/22/2021 COMPARISON: None available HISTORY: Dizziness. CT DLP: 1125.4 mGycm Automated exposure control for dose reduction was used. TECHNIQUE: CT scan of the brain is performed without IV contrast administration. FINDINGS: Partial empty sella. Scattered arterial atherosclerotic calcifications. No acute intracranial hemorrh age. No gross acute cortical infarct. No midline shift, herniation or ventriculomegaly. Unremarkable colon-white matter differentiation, basal cisterns and CP angles. No gross space-occupyin g lesion, vasogenic edema or mass effect. Unremarkable orbits. Mucosal thickening of the right maxillary sinus. Clear mastoid air cells. No agg ressive bone lesion. Degenerative changes of the right TMJ. IMPRESSION: No acute intracranial abnormality or gross space-occupying lesion by this nonenhanced CT scan. Incide ntal findings as described above.
[2021-12-22 13:24] VITALS: BP 136/93; PULSE 76; TEMP 97.8
== END 2021-12-22 13:24 | disposition home or self-care (01) ==
LOC: EC 09:59
DX: H66.90 Otitis media, unspecified, unspecified ear (principal); I10 Essential (primary) hypertension; H81.10 Benign paroxysmal vertigo, unspecified ear; Z87.891 Personal history of nicotine dependence; Z88.1 Allergy status to other antibiotic agents; Z88.4 Allergy status to anesthetic agent; Z88.2 Allergy status to sulfonamides
CPT/HCPCS: 36415; 70450; 80053; 81001; 82553; 84484; 85025; 85610; 93005; 99284

== ENCOUNTER 2022-05-18 11:23 | Emergency (ER) | payer MEDICARE, OTHER ==
[2022-05-18 11:26] VITALS: BP 156/105; PULSE 93; RESP 20; TEMP 98.6
--- NOTE | 2022-05-18 12:45 | US ---
EXAMINATION TYPE: US venous doppler duplex LE LT DATE OF EXAM: 05/18/2022 12:37 PM COMPARISON: CLINICAL HISTORY: Left calf pain, no injury. Left calf pain. No redness. No swelling. No hx DVT. N o injury. SIDE PERFORMED: Left TECHNIQUE: The lower extremity deep venous system is examined utilizing real time linear array sonog alexandrea with graded compression, doppler sonography and color-flow sonography. VESSELS IMAGED: Common Femoral Vein Deep Femoral Vein Greater Saphenous Vein * Femoral Vein Popliteal Vein Small Saphenous Vein * Proximal Calf Veins (* superficial vessels) Left Leg: Negative for DVT IMPRESSION: Grayscale, color doppler, spectral doppler imaging performed of the deep veins of the lo wer extremities. There is normal flow, compressibility, vascular waveforms.
--- NOTE | 2022-05-18 13:01 | ED ---
Extremity Problem HPI - General Chief complaint: Extremity Problem,Nontraumatic Stated complaint: Leg pain Time Seen by Provider: 05/18/22 11:32 Source: patient, RN notes reviewed Mode of arrival: ambulatory Limitations: no limitations - History of Present Illness Initial comments: This is a 67-year-old female who presents to the emergency department with left calf pain. Pain started yesterday. She does have a history of arthritic pain and states that this feels similar. She came to the emergency department to make sure she didn't have a blood clot. Not requesting any pain medication, states that she just wants to make sure that this is not an emergency. She is able to ambulate. Denies any chest pain or shortness of breath. Denies any fevers, chills, sore throat, cough, dyspnea, chest pain, palpitations, abdominal pain, nausea, vomiting, diarrhea, back pain, or headaches. MD Complaint: extremity pain Onset/Timin -: days(s) Location: left, lower extremity Associated Symptoms: denies other symptoms - Related Data Home Medications Medication Instructions Recorded Confirmed HYDROcodone/APAP 10-325MG [[place] 1 tab PO QID@06,12,18,00 05/20/14 12/22/21 10-325] Omeprazole [PriLOSEC] 20 mg PO BID@0000,1200 05/20/14 12/22/21 Simvastatin [Zocor] 20 mg PO HS@1800 05/20/14 12/22/21 Lisinopril-Hctz 10-12.5 mg 0.5 tab PO DAILY@0000 /12/22/21 [Zestoretic 10-12.5] Amoxicillin 875 mg PO Q12H 12/22/21 12/22/21 Fluocinonide 0.05% [Lidex 0.05% 1 applic TOPICAL DAILY PRN 12/22/21 12/22/21 cream] Nystatin 100,000 Unit/gm Powd 1 applic TOPICAL BID PRN 12/22/21 12/22/21 [Mycostatin Powder] Previous Rx's Medication Instructions Recorded Amoxicillin/Potassium Clav 1 tab PO Q12HR #20 tab 12/22/21 [Augmentin 875-125 Tablet] tiZANidine [Zanaflex] 4 mg PO Q6HR PRN #30 tab 05/18/22 Allergies Allergy/AdvReac Type Severity Reaction Status Date / Time bacitracin Allergy Rash/Hives Verified 05/18/22 11:26 [From Neosporin ([id number])] bupivacaine Allergy Rash/Hives Verified 05/18/22 11:26 cefazolin [From Kefzol] Allergy Anaphylaxis Verified 05/18/22 11:26 cephalexin [From Keflex] Allergy Anaphylaxis Verified 05/18/22 11:26 Cephalosporins Allergy Rash/Hives Verified 05/18/22 11:26 clindamycin Allergy Rash/Hives Verified 05/18/22 11:26 COVID-19 vaccine, mRNA, Allergy Unknown Verified 05/18/22 11:26 [id number], [COVID-19 vaccine, mRNA-1273, LNP-S] doxycycline Allergy Rash/Hives Verified 05/18/22 11:26 erythromycin base Allergy Rash/Hives Verified 05/18/22 11:26 neomycin Allergy Rash/Hives Verified 05/18/22 11:26 [From Neosporin ([id number])] nitrofurantoin Allergy Rash/Hives Verified 05/18/22 11:26 [From Macrobid] polymyxin B Allergy Rash/Hives Verified 05/18/22 11:26 [From Neosporin ([id number])] sulfamethoxazole Allergy Rash/Hives Verified 05/18/22 11:26 [From Bactrim] tobramycin [From Emerson] Allergy Rash/Hives Verified 05/18/22 11:26 trimethoprim [From Bactrim] Allergy Rash/Hives Verified 05/18/22 11:26 & Gi Upset ciprofloxacin AdvReac Nausea & Verified 05/18/22 11:26 Vomiting levofloxacin AdvReac Nausea & Verified 05/18/22 11:26 Vomiting Review of Systems ROS Statement: Those systems with pertinent positive or pertinent negative responses have been documented in the HPI. ROS Other: All systems not noted in ROS Statement are negative. Past Medical History Past Medical History: Cancer, Hyperlipidemia, Hypertension Additional Past Medical History / Comment(s): FX BACK 2009, FX NECK WHEN SHE WAS 14 DIVING INTO A POOL- NECK PAIN CERVICAL CA. Mitral valve prolapse, Crohn's Disease, Bilateral cataract, RIGHT SHOULDER PAIN -FRACTURE 02/19/20 History of Any Multi-Drug Resistant Organisms: None Reported Past Surgical History: Heart Catheterization, Hysterectomy, Orthopedic Surgery, Tonsillectomy Additional Past Surgical History / Comment(s): LEFT SHOULDER ARTHROSCOPY - 2009; LEFT ANKLE ARTHROSCOPY - 2001; BILATERAL KNEE ARTHROSCOPY - 2000, heart catheterization, sinus surgery, colonoscopy Past Anesthesia/Blood Transfusion Reactions: No Reported Reaction Date of Last Stent Placement:: UNKNOWN Past Psychological History: No Psychological Hx Reported Smoking Status: Former smoker Past Alcohol Use History: None Reported Past Drug Use History: None Reported - Past Family History Mother Family Medical History: Cancer Sister(s) Family Medical History: Cancer General Exam Limitations: no limitations General appearance: alert, in no apparent distress Head exam: Present: atraumatic, normocephalic, normal inspection Respiratory exam: Present: normal lung sounds bilaterally. Absent: respiratory distress, wheezes, rales, rhonchi, stridor Cardiovascular Exam: Present: regular rate, normal rhythm, normal heart sounds. Absent: systolic murmur, diastolic murmur, rubs, gallop, clicks Extremities exam: Present: other (Mild calf tenderness on the left. No swelling, erythema, or increased heat. Full active and passive range of motion. 2+ dorsalis pedis and tibialis posterior pulses and capillary refill less than 1 second.) Neurological exam: Present: alert, oriented X3, CN II-XII intact Psychiatric exam: Present: normal affect, normal mood Skin exam: Present: warm, dry, intact, normal color. Absent: rash Course Vital Signs 05/18/22 11:24 Temperature 98.6 F Pulse Rate 93 Respiratory 20 Rate Blood Pressure 156/105 O2 Sat by Pulse 98 Oximetry Medical Decision Making - Medical Decision Making This is a 67-year-old female who presents to the emergency department for left calf pain. Duplex ultrasound was obtained, revealing no signs of a DVT. Discussed that this may be related to a multitude of issues, such as arthritis or cramping due to dehydration. Prescription for Zanaflex provided. This was chosen over Flexeril, as it is not listed on the [facility] list. Instructed her to take this primarily at night until she knows how it affects her, as it may be sedating. She has a prescription for [place] that she takes regularly at home. She will continue to take this as needed. Also suggested she try applying heat. Return precautions reviewed in depth, the patient is instructed to return to the emergency department with any new, worsening, or concerning symptoms. Patient verbalized understanding. This case was discussed in detail with the attending ED physician. Presentation, findings, and treatment plan discussed in detail as well. - Radiology Data Radiology results: report reviewed, image reviewed Disposition Clinical Impression: Pain of left calf Disposition: HOME SELF-CARE Instructions (If sedation given, give patient instructions): Leg Pain (ED) Additional Instructions: Return to the emergency department with any new, worsening, or concerning symptoms. Take the Zanaflex at night until you know how it affects you, as it may be sedating. You can also try applying heat to the affected area. Follow up with your primary care provider in 1-2 days. Prescriptions: tiZANidine [Zanaflex] 4 mg PO Q6HR PRN #30 tab PRN Reason: Pain Is patient prescribed a controlled substance at d/c from ED?: No Referrals: Phoenix Cameron MD [Primary Care Provider] - 1-2 days
== END 2022-05-18 13:07 | disposition home or self-care (01) ==
LOC: EC 11:23
DX: M79.605 Pain in left leg (principal); I10 Essential (primary) hypertension; E78.5 Hyperlipidemia, unspecified; Z87.891 Personal history of nicotine dependence; Z79.899 Other long term (current) drug therapy; Z88.1 Allergy status to other antibiotic agents; Z88.4 Allergy status to anesthetic agent; Z88.7 Allergy status to serum and vaccine; Z88.2 Allergy status to sulfonamides
CPT/HCPCS: 99283

== ENCOUNTER 2022-11-22 05:23 | Emergency (ER) | payer MEDICARE, OTHER ==
[2022-11-22 05:31] VITALS: TEMP 98.3
[2022-11-22] MEDS ORDERED: SODIUM CHLORIDE 0.9% 1,000 ML IV STA (06:08)
[2022-11-22] MEDS ORDERED: ONDANSETRON 4 MG/2 ML VIAL IVP STA (06:09)
[2022-11-22] MEDS ORDERED: HYDROmorphone 0.5 MG/0.5 ML SYRINGE IVP STA (06:09)
--- NOTE | 2022-11-22 06:15 | ED ---
Abdominal Pain HPI - General Chief Complaint: Abdominal Pain Stated Complaint: vomiting Time Seen by Provider: 11/22/22 05:58 Source: patient, RN notes reviewed Mode of arrival: wheelchair Limitations: no limitations - History of Present Illness Initial Comments: This is a 67-year-old female who presents to the emergency department for abdominal pain and nausea. Patient states that the abdominal pain is in the epigastric region and started 4-5 days ago. She feels nauseous but has no vomiting. Describes the pain as stabbing. Denies any radiation to the back or shoulder. Also denies any changes in bowel or urinary habits. She does have a history of colitis, but states that this feels different. She is currently finishing up a course of amoxicillin for a sinus infection. Denies any fevers, chills, sore throat, cough, dyspnea, chest pain, palpitations, vomiting, diarrhea, back pain, or headaches. MD Complaint: abdominal pain Onset/Timin -: days(s) Location: epigastric Associated Symptoms: nausea - Related Data Home Medications Medication Instructions Recorded Confirmed HYDROcodone/APAP 10-325MG [Hi [place] 1 tab PO TID@0000,0600,1200 05/20/14 11/22/22 10-325] Omeprazole [PriLOSEC] 20 mg PO BID@0000,1200 05/20/14 11/22/22 Simvastatin [Zocor] 20 mg PO DAILY@1900 05/20/14 11/22/22 Fluocinonide 0.05% [Lidex 0.05% 1 applic TOPICAL DAILY PRN 12/22/21 11/22/22 cream] diphenhydrAMINE [Benadryl] 25 mg PO HS PRN 10/25/22 11/22/22 hydroCHLOROthiazide [Hydrodiuril] 12.5 mg PO DAILY@0600 10/25/22 11/22/22 lisinopriL [Zestril] 5 mg PO HS 10/25/22 11/22/22 Amoxicillin 875 mg PO BID 11/22/22 11/22/22 Ondansetron [Zofran] 4 mg PO Q6H PRN 11/22/22 11/22/22 Previous Rx's Medication Instructions Recorded Dicyclomine [Bentyl] 20 mg PO BID PRN #10 tablet 11/22/22 Pantoprazole [Protonix] 40 mg PO DAILY 7 Days #7 tab 11/22/22 Allergies Allergy/AdvReac Type Severity Reaction Status Date / Time bacitracin Allergy Rash/Hives Verified 11/22/22 11:31 [From Neosporin ([id number])] bupivacaine Allergy Rash/Hives Verified 11/22/22 11:31 cefazolin [From Kefzol] Allergy Anaphylaxis Verified 11/22/22 11:31 cephalexin [From Keflex] Allergy Anaphylaxis Verified 11/22/22 11:31 Cephalosporins Allergy Rash/Hives Verified 11/22/22 11:31 clindamycin Allergy Rash/Hives Verified 11/22/22 11:31 COVID-19 vaccine, mRNA, Allergy Unknown Verified 11/22/22 11:31 [id number], [COVID-19 vaccine, mRNA-1273, LNP-S] doxycycline Allergy Rash/Hives Verified 11/22/22 11:31 erythromycin base Allergy Rash/Hives Verified 11/22/22 11:31 neomycin Allergy Rash/Hives Verified 11/22/22 11:31 [From Neosporin ([id number])] nitrofurantoin Allergy Rash/Hives Verified 11/22/22 11:31 [From Macrobid] polymyxin B Allergy Rash/Hives Verified 11/22/22 11:31 [From Neosporin ([id number])] sulfamethoxazole Allergy Rash/Hives Verified 11/22/22 11:31 [From Bactrim] tobramycin [From Emerson] Allergy Rash/Hives Verified 11/22/22 11:31 trimethoprim [From Bactrim] Allergy Rash/Hives Verified 11/22/22 11:31 & Gi Upset ciprofloxacin AdvReac Nausea & Verified 11/22/22 11:31 Vomiting levofloxacin AdvReac Nausea & Verified 11/22/22 11:31 Vomiting Review of Systems ROS Statement: Those systems with pertinent positive or pertinent negative responses have been documented in the HPI. ROS Other: All systems not noted in ROS Statement are negative. Past Medical History Past Medical History: Cancer, Hyperlipidemia, Hypertension Additional Past Medical History / Comment(s): FX BACK 2009, FX NECK WHEN SHE WAS 14 DIVING INTO A POOL- NECK PAIN CERVICAL CA. Mitral valve prolapse, Crohn's Disease, Bilateral cataract, RIGHT SHOULDER PAIN -FRACTURE 02/19/20 History of Any Multi-Drug Resistant Organisms: None Reported Past Surgical History: Heart Catheterization, Hysterectomy, Orthopedic Surgery, Tonsillectomy Additional Past Surgical History / Comment(s): LEFT SHOULDER ARTHROSCOPY - 2009; LEFT ANKLE ARTHROSCOPY - 2001; BILATERAL KNEE ARTHROSCOPY - 2000, heart catheterization, sinus surgery, colonoscopy Past Anesthesia/Blood Transfusion Reactions: No Reported Reaction Date of Last Stent Placement:: UNKNOWN Past Psychological History: No Psychological Hx Reported Smoking Status: Former smoker Past Alcohol Use History: None Reported Past Drug Use History: None Reported - Past Family History Mother Family Medical History: Cancer Sister(s) Family Medical History: Cancer General Exam Limitations: no limitations General appearance: alert, in distress Head exam: Present: atraumatic, normocephalic, normal inspection Respiratory exam: Present: normal lung sounds bilaterally. Absent: respiratory distress, wheezes, rales, rhonchi, stridor Cardiovascular Exam: Present: regular rate, normal rhythm, normal heart sounds. Absent: systolic murmur, diastolic murmur, rubs, gallop, clicks GI/Abdominal exam: Present: soft, tenderness (epigastric), normal bowel sounds. Absent: distended Neurological exam: Present: alert, oriented X3, CN II-XII intact Psychiatric exam: Present: normal affect, normal mood Skin exam: Present: warm, dry, intact, normal color. Absent: rash Course Vital Signs 11/22/22 11/22/22 11/22/22 05:28 07:17 09:12 Temperature 98.3 F Pulse Rate 100 80 79 Respiratory 16 18 18 Rate Blood Pressure 139/91 130/83 131/89 O2 Sat by Pulse 96 95 95 Oximetry 11/22/22 11/22/22 11/22/22 11:16 13:11 14:41 Temperature Pulse Rate 71 98 84 Respiratory 18 18 18 Rate Blood Pressure 116/89 126/95 132/79 O2 Sat by Pulse 97 98 99 Oximetry Medical Decision Making - Medical Decision Making This is a 67-year-old female who presents to the emergency department for abdominal pain. Was pt. sent in by a medical professional or institution? @ -No Did you speak to anyone other than the patient for history? @ -No Did you review nursing and triage notes? @ -Yes, and I agree, it is accurate with regards to the patient's symptoms. Were old charts reviewed? @ -No Differential Diagnosis? @ -Differential Abdominal Pain Women: Appendicitis, Cholecystitis, diverticulosis, ischemic bowel, pancreatitis, hepatitis, UTI, gastroenteritis, AAA, incarcerated hernia, bowel obstruction, constipation, inflammatory bowel, hepatitis, peptic ulcer disease, splenic infarction, perforated viscus, vulvitis, ovarian torsion, PID, kidney stone, placenta abruption, this is not meant to be an all-inclusive list CT interpreted by me (1pt min.)? @ -Computed tomography scan of the abdomen and pelvis obtained. My interpretation identifies no bowel wall thickening or free air. U/S interpreted by me (1pt. min.)? @ -Gallbladder ultrasound obtained. My interpretation identifies no evidence of cholelithiasis or gallbladder wall thickening. What testing was considered but not performed? (CT, X-rays, U/S, labs)? Why? @ -None What meds were considered but not given? Why? @ -None Did you discuss the management of the patient with other professionals? @ -No Did you reconcile home meds? @ -No Was smoking cessation discussed for >3mins.? @ -No Was critical care preformed (if so, how long)? @ -No Were there social determinants of health that impacted care today? How? (Homelessness, low income, unemployed, alcoholism, drug addiction, transportation, low edu. Level, literacy, decrease access to med. care, retirement, rehab)? @ -No Was there de-escalation of care discussed even if they declined? (Discuss DNR or withdrawal of care, Hospice)? @ -No What co-morbidities impacted this encounter? (DM, HTN, Smoking, COPD, CAD, Cancer, CVA, Hep., AIDS, mental health diagnosis, sleep apnea, morbid obesity)? @ -Morbid obesity, HTN, HLD, colitis Was patient admitted / discharged? @ -Discharged. Lab work obtained and found to be nonactionable. UA consistent with possible UTI. Gallbladder US obtained revealing no acute findings. Given that she still had tenderness following doses of Dilaudid, computed tomography scan of the abdomen and pelvis was subsequently obtained. Findings only sugges tive of a mild gastritis. She ended up getting doses of Bentyl, Pepcid, and a GI cocktail. She had minor improvement in symptoms following those medications. With regards to the possible UTI, she is currently taking amoxicillin for a sinus infection. She is allergic to essentially all other antibiotics that can be taken orally to treat a urinary tract infection, and she declined starting an alternative medication. Additionally, physical examination of her ears and mouth did not reveal any irregularities. Patient is noting that her right ear feels clogged. She also has no movement of the TM with forced valsalva, indicating that her right ear problems are most likely related to a eustachian tube dysfunction. Discussed with the patient that she should try using [id number] antihistamines or Flonase nasal spray, but she states that she is allergic to those as well. Rx for Bentyl and Protonix provided for the GI symptoms and dosing instructions were reviewed. Starter pack for Zofran provided as well. Undiagnosed new problem with uncertain prognosis? @ -None Drug Therapy requiring intensive monitoring for toxicity (Heparin, Nitro, Insulin, Cardizem)? @ -None Were any procedures done? @ -None Diagnosis/symptom? @ -Abdominal pain, UTI Acute, or Chronic, or Acute on Chronic? @ -Acute Uncomplicated (without systemic symptoms) or Complicated (systemic symptoms)? @ -Uncomplicated Side effects of treatment? @ -None Exacerbation, Progression, or Severe Exacerbation] @ -Not applicable Poses a threat to life or bodily function? @ -No Return precautions reviewed in depth, the patient is instructed to return to the emergency department with any new, worsening, or concerning symptoms. Patient verbalized understanding. This case was discussed in detail with the attending ED physician, Dr. Archibald. Presentation, findings, and treatment plan discussed in detail as well. - Lab Data Result diagrams: 11/22/22 06:10 11/22/22 06:10 Lab Results 11/22/22 11/22/22 11/22/22 Range/Units 06:10 06:10 06:10 WBC 7.2 (3.8-10.6) k/uL RBC 4.38 (3.80-5.40) m/uL Hgb 14.2 (11.4-16.0) gm/dL Hct 40.3 (34.0-46.0) % MCV 92.0 (80.0-100.0) fL MCH 32.3 (25.0-35.0) pg MCHC 35.2 (31.0-37.0) g/dL RDW 12.0 (11.5-15.5) % Plt Count 259 (150-450) k/uL MPV 7.4 Neutrophils % 69 % Lymphocytes % 20 % Monocytes % 7 % Eosinophils % 2 % Basophils % 1 % Neutrophils # 5.0 (1.3-7.7) k/uL Lymphocytes # 1.5 (1.0-4.8) k/uL Monocytes # 0.5 (0-1.0) k/uL Eosinophils # 0.2 (0-0.7) k/uL Basophils # 0.0 (0-0.2) k/uL PT 10.6 (9.0-12.0) sec INR 1.0 (<1.2) APTT 22.1 (22.0-30.0) sec Sodium (137-145) mmol/L Potassium (3.5-5.1) mmol/L Chloride (98-107) mmol/L Carbon Dioxide (22-30) mmol/L Anion Gap mmol/L BUN (7-17) mg/dL Creatinine (0.52-1.04) mg/dL Est GFR (CKD-EPI)AfAm (>60 ml/min/1.73 sqM) Est GFR (CKD-EPI)NonAf (>60 ml/min/1.73 sqM) Glucose (74-99) mg/dL Plasma Lactic Acid Marky (0.7-2.0) mmol/L Calcium (8.4-10.2) mg/dL Total Bilirubin (0.2-1.3) mg/dL AST (14-36) U/L ALT (4-34) U/L Alkaline Phosphatase (38-126) U/L Troponin I (0.000-0.034) ng/mL C-Reactive Protein (<1.0) mg/dL Total Protein (6.3-8.2) g/dL Albumin (3.5-5.0) g/dL Amylase (30-110) U/L Lipase (23-300) U/L Urine Color Light Yellow Urine Appearance Clear (Clear) Urine pH 6.5 (5.0-8.0) Ur Specific [place] 1.007 (1.001-1.035) Urine Protein Negative (Negative) Urine Glucose (UA) Negative (Negative) Urine Ketones Negative (Negative) Urine Blood Trace H (Negative) Urine Nitrite Negative (Negative) Urine Bilirubin Negative (Negative) Urine Urobilinogen <2.0 (<2.0) mg/dL Ur Leukocyte Esterase Moderate H (Negative) Urine RBC 3 (0-5) /hpf Urine WBC 19 H (0-5) /hpf Ur Squamous Epith Cells <1 (0-4) /hpf Urine Bacteria Occasional H (None) /hpf Urine Mucus Rare H (None) /hpf 11/22/22 11/22/22 11/22/22 Range/Units 06:10 06:10 06:10 WBC (3.8-10.6) k/uL RBC (3.80-5.40) m/uL Hgb (11.4-16.0) gm/dL Hct (34.0-46.0) % MCV (80.0-100.0) fL MCH (25.0-35.0) pg MCHC (31.0-37.0) g/dL RDW (11.5-15.5) % Plt Count (150-450) k/uL MPV Neutrophils % % Lymphocytes % % Monocytes % % Eosinophils % % Basophils % % Neutrophils # (1.3-7.7) k/uL Lymphocytes # (1.0-4.8) k/uL Monocytes # (0-1.0) k/uL Eosinophils # (0-0.7) k/uL Basophils # (0-0.2) k/uL PT (9.0-12.0) sec INR (<1.2) APTT (22.0-30.0) sec Sodium 130 L (137-145) mmol/L Potassium 3.5 (3.5-5.1) mmol/L Chloride 95 L (98-107) mmol/L Carbon Dioxide 26 (22-30) mmol/L Anion Gap 9 mmol/L BUN 7 (7-17) mg/dL Creatinine 0.76 (0.52-1.04) mg/dL Est GFR (CKD-EPI)AfAm >90 (>60 ml/min/1.73 sqM) Est GFR (CKD-EPI)NonAf 81 (>60 ml/min/1.73 sqM) Glucose 111 H (74-99) mg/dL Plasma Lactic Acid Marky 1.0 (0.7-2.0) mmol/L Calcium 9.2 (8.4-10.2) mg/dL Total Bilirubin 0.6 (0.2-1.3) mg/dL AST 23 (14-36) U/L ALT 20 (4-34) U/L Alkaline Phosphatase 57 (38-126) U/L Troponin I <0.012 (0.000-0.034) ng/mL C-Reactive Protein <0.5 (<1.0) mg/dL Total Protein 6.7 (6.3-8.2) g/dL Albumin 4.2 (3.5-5.0) g/dL Amylase 48 (30-110) U/L Lipase 82 (23-300) U/L Urine Color Urine Appearance (Clear) Urine pH (5.0-8.0) Ur Specific [place] (1.001-1.035) Urine Protein (Negative) Urine Glucose (UA) (Negative) Urine Ketones (Negative) Urine Blood (Negative) Urine Nitrite (Negative) Urine Bilirubin (Negative) Urine Urobilinogen (<2.0) mg/dL Ur Leukocyte Esterase (Negative) Urine RBC (0-5) /hpf Urine WBC (0-5) /hpf Ur Squamous Epith Cells (0-4) /hpf Urine Bacteria (None) /hpf Urine Mucus (None) /hpf - Radiology Data Radiology results: report reviewed, image reviewed Disposition Clinical Impression: Abdominal pain, Gastritis Disposition: HOME SELF-CARE Instructions (If sedation given, give patient instructions): Gastritis (ED), Abdominal Pain (ED) Additional Instructions: Return to the emergency department with any new, worsening, or concerning symptoms. You can try taking the Bentyl 2-3 times daily for additional abdom inal pain. Take the Protonix daily for 7 days. Take this at least 30 minutes before taking your other medication. You can take Zofran every 8 hours as needed for nausea and vomiting. Follow up with your primary care provider in 1- 2 days. Prescriptions: Dicyclomine [Bentyl] 20 mg PO BID PRN #10 tablet PRN Reason: Pain Pantoprazole [Protonix] 40 mg PO DAILY 7 Days #7 tab Is patient prescribed a controlled substance at d/c from ED?: No Referrals: Ingris Crenshaw MD [Primary Care Provider] - 1-2 days
[2022-11-22 07:18] VITALS: RESP 18
[2022-11-22] MEDS ORDERED: METOCLOPRAMIDE 5 MG/ML 2 ML VIAL IVP STA (07:33)
[2022-11-22] MEDS ORDERED: HYDROmorphone 1 MG/ML 1 ML SYRINGE IVP STA (07:33)
[2022-11-22 07:41] LABS: Basophils % (A) 1 %; Eosinophils # (A) 0.2 k/uL (0-0.7); Eosinophils % (A) 2 %; HCT 40.3 % (34.0-46.0); HGB 14.2 gm/dL (11.4-16.0); Lymphocytes # (A) 1.5 k/uL (1.0-4.8); Lymphocytes % (A) 20 %; MCH 32.3 pg (25.0-35.0); MCHC 35.2 g/dL (31.0-37.0); Mean Platelet Volume 7.4; Monocytes # (A) 0.5 k/uL (0-1.0); Monocytes % (A) 7 %; Neutrophils % (A) 69 %; Platelet Count 259 k/uL (150-450); RBC 4.38 m/uL (3.80-5.40); WBC 7.2 k/uL (3.8-10.6)
[2022-11-22 07:52] LABS: Appearance,Urine Clear (Clear); Bacteria,Urine Occasional /hpf; Bilirubin,Urine Negative (Negative); Blood,Urine Trace (Negative); Color,Urine Light Yellow; Glucose,Urine (UA) Negative (Negative); Ketones,Urine Negative (Negative); Leukocyte Esterase,Urine Moderate (Negative); Mucus,Urine Rare /hpf; Nitrite,Urine Negative (Negative); PH, Urine 6.5 (5.0-8.0); Protein,Urine Negative (Negative); RBC,Urine 3 /hpf (0-5); Specific Gravity,Urine 1.007 (1.001-1.035); Squamous Epithelial Cell,Urine <1 /hpf (0-4); Urobilinogen,Urine <2.0 mg/dL (<2.0); WBC,Urine 19 /hpf (0-5)
[2022-11-22 07:55] LABS: ALT 20 U/L (4-34); AST 23 U/L (14-36); African American GFR (CKD) >90 (>60 ml/min/1.73 sqM); Albumin 4.2 g/dL (3.5-5.0); Alkaline Phosphatase 57 U/L (38-126); Amylase 48 U/L (30-110); Anion Gap 9 mmol/L; Blood Urea Nitrogen 7 mg/dL (7-17); Calcium 9.2 mg/dL (8.4-10.2); Carbon Dioxide 26 mmol/L (22-30); Chloride 95 mmol/L (98-107); Glucose 111 mg/dL (74-99); Lipase 82 U/L (23-300); Non-African American GFR(CKD) 81 (>60 ml/min/1.73 sqM); Potassium 3.5 mmol/L (3.5-5.1); Sodium 130 mmol/L (137-145); Total Bilirubin 0.6 mg/dL (0.2-1.3); Total Protein 6.7 g/dL (6.3-8.2)
--- NOTE | 2022-11-22 08:07 | US ---
EXAMINATION TYPE: US gallbladder DATE OF EXAM: 11/22/2022 COMPARISON: None CLINICAL HISTORY: 67-year-old female Epigastric pain. Hx renal cysts. Pain. TECHNIQUE: Multiple sonographic images of the right upper quadrant are obtained. FINDINGS: EXAM MEASUREMENTS: Liver Length: 18.8 cm Gallbladder Wall: 0.2 cm CBD: 0.6 cm Right Kidney: 11.5 x 6.5 x 6.3 cm Pancreas: Obscured by bowel gas Liver: Multiple cysts seen with largest posterior right lobe lobe which is mildly complex with some internal septations measuring 6.8 x 5.7 x 4.0 cm. Anterior right lobe hypoechoic lesion = 4.4 x 4.6 x 4.3 cm. There is posterior transmission. This could represent a debris-filled cyst which measured u p to 10.[address] of 03/17/2021. Gallbladder: Mildly hydropic measuring up to 12.0 cm long. No wall thickening, surrounding fluid, or shadowing stones. Evidence for sonographic Martinez's sign: neg CBD: Borderline caliber. Right Kidney: Multiple cysts seen throughout kidney, largest lateral superior = 8.3 x 7.4 x 6.2 cm. No hydronephrosis. IMPRESSION: 1. Hepatic cysts measuring up to 6.8 cm. Some of these contain debris and some contain minimal software developer intern al complexity with septations. A appeared to have been present on the patient's chest CT of 03/17/2021 . 2. Mildly hydropic gallbladder but without any wall thickening, surrounding fluid, or shadowing stone s. Sonographic Martinez's sign is also absent. Findings probably related to fasting state. Correlate cl inically. 3. Bile duct borderline caliber, acceptable given patient's age. Correlate with alkaline phosphatase and bilirubin levels.
[2022-11-22 08:10] LABS: Partial Thromboplastin Time 22.1 sec (22.0-30.0); Prothrombin Time 10.6 sec (9.0-12.0)
[2022-11-22 08:19] LABS: C Reactive Protein <0.5 mg/dL (<1.0)
--- NOTE | 2022-11-22 09:05 | CT ---
EXAMINATION TYPE: CT abdomen pelvis w con DATE OF EXAM: 11/22/2022 COMPARISON: CT chest 03/17/2021 HISTORY: 15-year-old female Abdominal pain., Hx Crohn's and colitis. Vomiting. TECHNIQUE: Contiguous axial scanning of the abdomen and pelvis following administration of 100 ml Iso perez 300 IV contrast. Delayed images through the kidneys and coronal/sagittal reconstructions perform ed. CT DLP: 1022.1 mGycm Automated exposure control for dose reduction was used. FINDINGS: Heart borderline in size with trace anterior pericardial fluid. Mild dependent atelectasis noted in the visualized lower lungs. There is a small hiatal hernia. Multiple hepatic cysts are redemonstrated. Mildly complex right hepatic dome measuring up to 7.4 cm v ersus 6.8 cm, previously. The previous dominant anterior left lower lobe cyst currently measures 4.8 cm versus 10.1 cm, previously. Portal venous system is patent. No biliary ductal dilatation. Mildly hydropic gallbladder probably related to fasting state. No surrounding inflammation or wall th ickening is apparent. Adrenal glands and pancreas within normal limits. Redemonstrated peripherally calcified 3.9 cm cyst upper pole of the spleen, likely pseudocyst. Tiny a nterior splenule again noted. Numerous renal cysts are present measuring up to 5.7 cm on the left and 7.2 cm on the right. A couple nonobstructive right lower pole renal calculi measuring up to 6 mm there is symmetric uptake and exc retion of contrast from both kidneys. Mild fold thickening noted within the stomach may be due to nondistention. No dilated small bowel, free fluid, or free air. No mesenteric or retroperitoneal lymphadenopathy. Normal appendix. Mild to moderate stool burden. Minimal mid sigmoid diverticulosis. No perihepatic chronic inflammator y change. Bladder is only partially distended. Numerous pelvic phleboliths. Uterus surgically absent. Both ovar ies are visualized. No abnormal fluid collection the pelvis or pelvic lymphadenopathy. Bones: Mild to moderate degenerative change in both hips. 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 Unchanged cash perior endplate deformity of T11 and T9. IMPRESSION: 1. MILD GASTRIC FOLD THICKENING MAY BE DUE TO NONDISTENTION OR GASTRITIS. CLINICALLY CORRELATE. 2. SMALL HIATAL HERNIA. Minimal mid sigmoid diverticulosis. Razy-rv-[id number] stool burden. 3. Bilateral hepatic and renal cysts appear benign. Measuring up to 7.4 cm in the liver and up to 7.2 cm in the kidneys. 4. Nonobstructive right renal calculi measuring up to 6 mm. 5. Mildly hydropic gallbladder probably due to fasting state. Clinically correlate. No inflammation s een by CT.
[2022-11-22] MEDS ORDERED: FAMOTIDINE 20 MG/2 ML VIAL IV STA (09:06)
[2022-11-22] MEDS ORDERED: KETOROLAC 15 MG/ML 1 ML VIAL IVP STA (09:06)
[2022-11-22] MEDS ORDERED: DICYCLOMINE 10 MG/ML 2 ML AMP IM STA (09:43)
[2022-11-22] MEDS ORDERED: MAG HYDROX/AL HYDROX/SIMETH 30 ML, HYOSCYAMINE ELIXIR 10 ML PO STA ×2 (09:43)
[2022-11-22] MEDS ORDERED: HYDROcodone/APAP 10-325MG 1 EACH TAB PO ONE (12:38)
[2022-11-22] MEDS ORDERED: ONDANSETRON 4 MG ODT STARTER PACK 2 TAB BTL PO STA (13:36)
[2022-11-22 14:42] VITALS: BP 132/79; PULSE 84
== END 2022-11-22 14:42 | disposition home or self-care (01) ==
LOC: EC 05:23
DX: K29.70 Gastritis, unspecified, without bleeding (principal); I10 Essential (primary) hypertension; Z87.891 Personal history of nicotine dependence; Z88.7 Allergy status to serum and vaccine; Z88.2 Allergy status to sulfonamides; Z88.1 Allergy status to other antibiotic agents; Z88.8 Allergy status to other drugs, medicaments and biological substances; Z79.899 Other long term (current) drug therapy
CPT/HCPCS: 99284 ×2; 96374 ×2; 96375 ×5; 96361 ×2; 96372 ×2; 96376; 36415; 80053; 82150; 83605; 83690; 84484; 85025; 85610; 85730; 86140; 81001; 87077; 87086; 87186; 76705; 74177; J0500; J2765; J2405; J1170 ×2; J1885; S0119; Q9967

== ENCOUNTER 2022-11-25 11:44 | Inpatient (IN) | payer MEDICARE, OTHER ==
[2022-11-25] MEDS ORDERED: SODIUM CHLORIDE 0.9% 1,000 ML IV STA (12:34)
[2022-11-25] MEDS ORDERED: ONDANSETRON 4 MG/2 ML VIAL IVP STA (12:34)
[2022-11-25 12:55] LABS: Basophils % (A) 0 %; Eosinophils # (A) 0.1 k/uL (0-0.7); Eosinophils % (A) 1 %; HGB 14.1 gm/dL (11.4-16.0); Lymphocytes # (A) 1.3 k/uL (1.0-4.8); Lymphocytes % (A) 15 %; MCH 32.5 pg (25.0-35.0); MCHC 35.3 g/dL (31.0-37.0); Mean Platelet Volume 7.1; Monocytes # (A) 0.4 k/uL (0-1.0); Monocytes % (A) 5 %; Neutrophils # (A) 6.9 k/uL (1.3-7.7); Neutrophils % (A) 78 %; Platelet Count 268 k/uL (150-450); RBC 4.35 m/uL (3.80-5.40); RDW 12.1 % (11.5-15.5); WBC 8.8 k/uL (3.8-10.6)
[2022-11-25 13:07] LABS: Prothrombin Time 10.4 sec (9.0-12.0)
[2022-11-25 13:10] LABS: ALT 20 U/L (4-34); AST 22 U/L (14-36); African American GFR (CKD) 84 (>60 ml/min/1.73 sqM); Albumin 4.3 g/dL (3.5-5.0); Alkaline Phosphatase 57 U/L (38-126); Anion Gap 7 mmol/L; Blood Urea Nitrogen 7 mg/dL (7-17); Calcium 9.3 mg/dL (8.4-10.2); Carbon Dioxide 29 mmol/L (22-30); Chloride 94 mmol/L (98-107); Glucose 114 mg/dL (74-99); Lipase 93 U/L (23-300); Magnesium 1.7 mg/dL (1.6-2.3); Non-African American GFR(CKD) 73 (>60 ml/min/1.73 sqM); Potassium 4.1 mmol/L (3.5-5.1); Sodium 130 mmol/L (137-145); Total Bilirubin 0.5 mg/dL (0.2-1.3); Total Protein 6.6 g/dL (6.3-8.2)
[2022-11-25 13:22] LABS: Appearance,Urine Clear (Clear); Bacteria,Urine Few /hpf; Bilirubin,Urine Negative (Negative); Blood,Urine Negative (Negative); Color,Urine Light Yellow; Glucose,Urine (UA) Negative (Negative); Ketones,Urine Negative (Negative); Leukocyte Esterase,Urine Large (Negative); Mucus,Urine Rare /hpf; Nitrite,Urine Negative (Negative); Protein,Urine Negative (Negative); RBC,Urine 2 /hpf (0-5); Specific Gravity,Urine 1.005 (1.001-1.035); Squamous Epithelial Cell,Urine 2 /hpf (0-4); Urobilinogen,Urine <2.0 mg/dL (<2.0); WBC,Urine 32 /hpf (0-5)
--- NOTE | 2022-11-25 13:47 | ED ---
Weakness HPI - General Chief complaint: Weakness Stated complaint: lethargic, weakness Time Seen by Provider: 11/25/22 12:07 Source: patient Mode of arrival: EMS Limitations: no limitations - History of Present Illness Initial comments: 67-year-old female with past medical history ofh hypertension, hyperlipidemia who presents emergency department reporting fatigue, nausea and symptoms of UTI. She has been seen in the emergency room several times for same complaint. Was diagnosed with urinary tract infection and has been on 3 different medications f or the infection. Continues to have increased frequency of urination and dysuria. Patient is also reporting to nausea. She has been referred to Dr. Gay and has an appointment on December 10 for an EGD. Patient states she cannot wait this long. Due to the nausea she has not been eating or drinking. Has developed significant weakness and can no longer care for herself. She keeps "nodding off" at home. Denies any falls. Reports to chills. No unilateral numbness or weakness. No chest pain or shortness of breath. No other alleviating, presenting or modifying factors - Related Data Home Medications Medication Instructions Recorded Confirmed HYDROcodone/APAP 10-325MG [[place] 1 tab PO TID@0000,0600,1200 05/20/14 11/25/22 10-325] Omeprazole [PriLOSEC] 20 mg PO BID@0000,1200 05/20/14 11/25/22 Simvastatin [Zocor] 20 mg PO HS@0000 05/20/14 11/25/22 Fluocinonide 0.05% [Lidex 0.05% 1 applic TOPICAL DAILY PRN 12/22/21 11/25/22 cream] hydroCHLOROthiazide [Hydrodiuril] 12.5 mg PO DAILY@0600 10/25/22 11/25/22 lisinopriL [Zestril] 5 mg PO HS@0000 10/25/22 11/25/22 Previous Rx's Medication Instructions Recorded Phenazopyridine [Pyridium] 100 mg PO BID 3 Days #6 tab 11/29/22 Allergies Allergy/AdvReac Type Severity Reaction Status Date / Time bacitracin Allergy Rash/Hives Verified 11/25/22 13:16 [From Neosporin ([id number])] bupivacaine Allergy Rash/Hives Verified 11/25/22 13:16 cefazolin [From Kefzol] Allergy Anaphylaxis Verified 11/25/22 13:16 cephalexin [From Keflex] Allergy Anaphylaxis Verified 11/25/22 13:16 Cephalosporins Allergy Rash/Hives Verified 11/25/22 13:16 clindamycin Allergy Rash/Hives Verified 11/25/22 13:16 COVID-19 vaccine, mRNA, Allergy Unknown Verified 11/25/22 13:16 [id number], [COVID-19 vaccine, mRNA-1273, LNP-S] doxycycline Allergy Rash/Hives Verified 11/25/22 13:16 erythromycin base Allergy Rash/Hives Verified 11/25/22 13:16 neomycin Allergy Rash/Hives Verified 11/25/22 13:16 [From Neosporin ([id number])] nitrofurantoin Allergy Rash/Hives Verified 11/25/22 13:16 [From Macrobid] polymyxin B Allergy Rash/Hives Verified 11/25/22 13:16 [From Neosporin ([id number])] propranolol [From Inderal [place]] Allergy Unknown Verified 11/25/22 13:16 sulfamethoxazole Allergy Rash/Hives Verified 11/25/22 13:16 [From Bactrim] tobramycin [From [place]] Allergy Rash/Hives Verified 11/25/22 13:16 trimethoprim [From Bactrim] Allergy Rash/Hives Verified 11/25/22 13:16 & Gi Upset tromethamine Allergy Unknown Verified 11/25/22 15:17 ciprofloxacin AdvReac Nausea & Verified 11/25/22 13:16 Vomiting levofloxacin AdvReac Nausea & Verified 11/25/22 13:16 Vomiting Review of Systems ROS Statement: Those systems with pertinent positive or pertinent negative responses have been documented in the HPI. ROS Other: All systems not noted in ROS Statement are negative. Past Medical History Past Medical History: Cancer, Hyperlipidemia, Hypertension Additional Past Medical History / Comment(s): FX BACK 2009, FX NECK WHEN SHE WAS 14 DIVING INTO A POOL- NECK PAIN CERVICAL CA. Mitral valve prolapse, Crohn's Disease, Bilateral cataract, RIGHT SHOULDER PAIN -FRACTURE 02/19/20 History of Any Multi-Drug Resistant Organisms: None Reported Past Surgical History: Heart Catheterization, Hysterectomy, Orthopedic Surgery, Tonsillectomy Additional Past Surgical History / Comment(s): LEFT SHOULDER ARTHROSCOPY - 2009; LEFT ANKLE ARTHROSCOPY - 2001; BILATERAL KNEE ARTHROSCOPY - 2000, heart catheterization, sinus surgery, colonoscopy Past Anesthesia/Blood Transfusion Reactions: No Reported Reaction Date of Last Stent Placement:: UNKNOWN Past Psychological History: No Psychological Hx Reported Smoking Status: Former smoker Past Alcohol Use History: None Reported Past Drug Use History: None Reported - Past Family History Mother Family Medical History: Cancer Sister(s) Family Medical History: Cancer General Exam Limitations: no limitations General appearance: alert, in no apparent distress Head exam: Present: atraumatic, normocephalic, normal inspection Eye exam: Present: normal appearance, PERRL, EOMI. Absent: scleral icterus, conjunctival injection, periorbital swelling ENT exam: Present: normal exam, mucous membranes moist Neck exam: Present: normal inspection. Absent: tenderness, meningismus, lymphadenopathy Respiratory exam: Present: normal lung sounds bilaterally. Absent: respiratory distress, wheezes, rales, rhonchi, stridor Cardiovascular Exam: Present: regular rate, normal rhythm, normal heart sounds. Absent: systolic murmur, diastolic murmur, rubs, gallop, clicks GI/Abdominal exam: Present: soft, normal bowel sounds. Absent: distended, tenderness, guarding, rebound, rigid Extremities exam: Present: normal inspection, full ROM, normal capillary refill. Absent: tenderness, pedal edema, joint swelling, calf tenderness Back exam: Present: normal inspection Neurological exam: Present: alert, oriented X3, CN II-XII intact Psychiatric exam: Present: normal affect, normal mood Skin exam: Present: warm, dry, intact, normal color. Absent: rash Course Vital Signs 11/25/22 11/25/22 11/25/22 11:56 12:09 12:37 Temperature 98.7 F Pulse Rate 83 Respiratory 18 Rate Blood Pressure 120/88 120/88 O2 Sat by Pulse 93 L Oximetry 11/25/22 11/25/22 11/25/22 12:40 12:50 13:00 Temperature Pulse Rate 72 Respiratory 9 L Rate Blood Pressure 120/88 149/97 149/97 O2 Sat by Pulse 97 95 Oximetry 11/25/22 11/25/22 11/25/22 13:10 13:20 13:30 Temperature Pulse Rate 81 Respiratory 7 L Rate Blood Pressure 141/91 141/91 141/91 O2 Sat by Pulse Oximetry 11/25/22 11/25/22 11/25/22 13:40 14:20 14:30 Temperature Pulse Rate 73 80 Respiratory 13 4 L Rate Blood Pressure O2 Sat by Pulse 96 96 95 Oximetry 11/25/22 11/25/22 11/25/22 14:40 14:50 15:00 Temperature Pulse Rate 80 90 Respiratory 8 L 17 Rate Blood Pressure 145/102 145/102 145/102 O2 Sat by Pulse Oximetry 11/25/22 11/25/22 11/25/22 15:10 15:20 15:30 Temperature Pulse Rate 77 80 67 Respiratory 9 L 26 H 9 L Rate Blood Pressure 155/103 155/103 155/103 O2 Sat by Pulse Oximetry 11/25/22 11/25/22 11/25/22 15:40 15:50 16:00 Temperature Pulse Rate 65 70 Respiratory 9 L 19 Rate Blood Pressure 135/87 135/87 135/87 O2 Sat by Pulse Oximetry 11/25/22 11/25/22 11/25/22 16:10 16:20 16:30 Temperature Pulse Rate 69 68 73 Respiratory 13 9 L 12 Rate Blood Pressure 127/92 127/92 127/92 O2 Sat by Pulse Oximetry 11/25/22 11/25/22 11/25/22 16:40 16:50 17:00 Temperature Pulse Rate 67 Respiratory 16 Rate Blood Pressure 127/92 127/92 127/92 O2 Sat by Pulse Oximetry 11/25/22 11/25/22 11/25/22 17:10 17:20 17:30 Temperature Pulse Rate Respiratory Rate Blood Pressure 127/92 127/92 127/92 O2 Sat by Pulse Oximetry 11/25/22 11/25/22 11/25/22 17:40 17:50 18:00 Temperature Pulse Rate Respiratory Rate Blood Pressure 127/92 127/92 127/92 O2 Sat by Pulse Oximetry 11/25/22 11/25/22 11/25/22 18:50 19:00 19:10 Temperature Pulse Rate 61 96 Respiratory 13 11 L 19 Rate Blood Pressure 130/88 O2 Sat by Pulse 95 Oximetry 11/25/22 11/25/22 19:20 19:30 Temperature Pulse Rate 81 63 Respiratory 19 21 Rate Blood Pressure 126/82 O2 Sat by Pulse 96 Oximetry EKG Findings - EKG Comments: EKG Findings:: EKG demonstrates sinus rhythm with a rate of 86. UT interval 134. QRS 102. QTC of 418. No acute ST segment elevations. Inverted T-wave lead V3 to V4 Medical Decision Making - Medical Decision Making Was pt. sent in by a medical professional or institution (KEVIN Kumari, DIRECTOR OF HEMOPHILIA, urgent care, hospital, or [facility]...) When possible be specific @ -No Did you speak to anyone other than the patient for history (EMS, parent, family, police, friend...)? What history was obtained from this source @ -No Did you review nursing and triage notes (agree or disagree)? Why? @ -I reviewed and agree with nursing and triage notes Were old charts reviewed (outside hosp., previous admission, EMS record, old EKG, old radiological studies, urgent care reports/EKG's, [facility] records)? Report findings @ -old charts were reviewed]\\ Differential Diagnosis (chest pain, altered mental status, abdominal pain women, abdominal pain men, vaginal bleeding, weakness, fever, dyspnea, syncope, headache, dizziness, GI bleed, back pain, seizure, CVA, palpatations, mental health, musculoskeletal)? @ -covid, influenza, uti, uri, pneumonia, hypothyroid EKG interpreted by me (3pts min.). @ -yes X-rays interpreted by me (1pt min.). @ -yes CT interpreted by me (1pt min.). @ -yes U/S interpreted by me (1pt. min.). @ -None done What testing was considered but not performed or refused? (CT, X-rays, U/S, labs)? Why? @ -None What meds were considered but not given or refused? Why? @ -None Did you discuss the management of the patient with other professionals (professionals i.e. KEVIN Kumari, DIRECTOR OF HEMOPHILIA, lab, RT, psych nurse, social worker delinquency prevention, co supervisor grounds and landscape, teacher, veterans service officer, rifle case repairer)? Give summary @ -Dr. Crenshaw Was smoking cessation discussed for >3mins.? @ -No Was critical care preformed (if so, how long)? @ -No Were there social determinants of health that impacted care today? How? (Homelessness, low income, unemployed, alcoholism, drug addiction, transportation, low edu. Level, literacy, decrease access to med. care, fdc, rehab)? @ -No Was there de-escalation of care discussed even if they declined (Discuss DNR or withdrawal of care, Hospice)? DNR status @ -No What co-morbidities impacted this encounter? (DM, HTN, Smoking, COPD, CAD, Cancer, CVA, ARF, Chemo, Hep., AIDS, mental health diagnosis, sleep apnea, morbid obesity)? @ -None Was patient admitted / discharged? Hospital course, mention meds given and route, prescriptions, significant lab abnormalities, going to OR and other pertinent info. @ -Upon arrival patient is placed into room 2. A thorough history and physical exam was performed. IV is established and laboratory studies are conducted and reviewed. I reviewed patient's microbiology report which demonstrated that she had ESBL UTI. Patient is given fluid hydration and started on Zosyn. Spoke with Dr. Crenshaw who agreed to admit the patient but thought she should be placed on meropenem. This is ordered as well as a consult for Dr. Vasquez. Patient was agreeable to be admitted. Transferred to the floor in stable condition Undiagnosed new problem with uncertain prognosis? @ -yes Drug Therapy requiring intensive monitoring for toxicity (Heparin, Nitro, Insulin, Cardizem)? @ -No Were any procedures done? @ -No Diagnosis/symptom? @ -uti failed outpatient treatment Acute, or Chronic, or Acute on Chronic? @ -acute Uncomplicated (without systemic symptoms) or Complicated (systemic symptoms)? @ -complicated Side effects of treatment? @ -No Exacerbation, Progression, or Severe Exacerbation? @ -No Poses a threat to life or bodily function? How? (Chest pain, [place], [place], pneumonia, PE, COPD, DKA, ARF, appy, cholecystitis, CVA, Diverticulitis, Homicidal, Suicidal, threat to staff... and all critical care pts) @ -No - Lab Data Result diagrams: 11/29/22 07:15 11/29/22 07:15 Lab Results 11/25/22 11/25/22 11/25/22 Range/Units 12:39 12:39 12:39 WBC 8.8 (3.8-10.6) k/uL RBC 4.35 (3.80-5.40) m/uL Hgb 14.1 (11.4-16.0) gm/dL Hct 40.0 (34.0-46.0) % MCV 92.0 (80.0-100.0) fL MCH 32.5 (25.0-35.0) pg MCHC 35.3 (31.0-37.0) g/dL RDW 12.1 (11.5-15.5) % Plt Count 268 (150-450) k/uL MPV 7.1 Neutrophils % 78 % Lymphocytes % 15 % Monocytes % 5 % Eosinophils % 1 % Basophils % 0 % Neutrophils # 6.9 (1.3-7.7) k/uL Lymphocytes # 1.3 (1.0-4.8) k/uL Monocytes # 0.4 (0-1.0) k/uL Eosinophils # 0.1 (0-0.7) k/uL Basophils # 0.0 (0-0.2) k/uL PT 10.4 (9.0-12.0) sec INR 1.0 (<1.2) APTT 22.0 (22.0-30.0) sec Sodium (137-145) mmol/L Potassium (3.5-5.1) mmol/L Chloride (98-107) mmol/L Carbon Dioxide (22-30) mmol/L Anion Gap mmol/L BUN (7-17) mg/dL Creatinine (0.52-1.04) mg/dL Est GFR (CKD-EPI)AfAm (>60 ml/min/1.73 sqM) Est GFR (CKD-EPI)NonAf (>60 ml/min/1.73 sqM) Glucose (74-99) mg/dL Plasma Lactic Acid Marky (0.7-2.0) mmol/L Calcium (8.4-10.2) mg/dL Magnesium (1.6-2.3) mg/dL Total Bilirubin (0.2-1.3) mg/dL AST (14-36) U/L ALT (4-34) U/L Alkaline Phosphatase (38-126) U/L Troponin I (0.000-0.034) ng/mL Total Protein (6.3-8.2) g/dL Albumin (3.5-5.0) g/dL Lipase (23-300) U/L TSH (0.465-4.680) mIU/L Free T4 (0.78-2.19) ng/dL Urine Color Light Yellow Urine Appearance Clear (Clear) Urine pH 7.0 (5.0-8.0) Ur Specific [place] 1.005 (1.001-1.035) Urine Protein Negative (Negative) Urine Glucose (UA) Negative (Negative) Urine Ketones Negative (Negative) Urine Blood Negative (Negative) Urine Nitrite Negative (Negative) Urine Bilirubin Negative (Negative) Urine Urobilinogen <2.0 (<2.0) mg/dL Ur Leukocyte Esterase Large H (Negative) Urine RBC 2 (0-5) /hpf Urine WBC 32 H (0-5) /hpf Ur Squamous Epith Cells 2 (0-4) /hpf Urine Bacteria Few H (None) /hpf Urine Mucus Rare H (None) /hpf Influenza Type A (PCR) (Not Detectd) Influenza Type B (PCR) (Not Detectd) RSV (PCR) (Not Detectd) SARS-CoV-2 (PCR) (Not Detectd) 11/25/22 11/25/22 11/25/22 Range/Units 12:39 12:39 12:39 WBC (3.8-10.6) k/uL RBC (3.80-5.40) m/uL Hgb (11.4-16.0) gm/dL Hct (34.0-46.0) % MCV (80.0-100.0) fL MCH (25.0-35.0) pg MCHC (31.0-37.0) g/dL RDW (11.5-15.5) % Plt Count (150-450) k/uL MPV Neutrophils % % Lymphocytes % % Monocytes % % Eosinophils % % Basophils % % Neutrophils # (1.3-7.7) k/uL Lymphocytes # (1.0-4.8) k/uL Monocytes # (0-1.0) k/uL Eosinophils # (0-0.7) k/uL Basophils # (0-0.2) k/uL PT (9.0-12.0) sec INR (<1.2) APTT (22.0-30.0) sec Sodium 130 L (137-145) mmol/L Potassium 4.1 (3.5-5.1) mmol/L Chloride 94 L (98-107) mmol/L Carbon Dioxide 29 (22-30) mmol/L Anion Gap 7 mmol/L BUN 7 (7-17) mg/dL Creatinine 0.83 (0.52-1.04) mg/dL Est GFR (CKD-EPI)AfAm 84 (>60 ml/min/1.73 sqM) Est GFR (CKD-EPI)NonAf 73 (>60 ml/min/1.73 sqM) Glucose 114 H (74-99) mg/dL Plasma Lactic Acid Marky 0.8 (0.7-2.0) mmol/L Calcium 9.3 (8.4-10.2) mg/dL Magnesium 1.7 (1.6-2.3) mg/dL Total Bilirubin 0.5 (0.2-1.3) mg/dL AST 22 (14-36) U/L ALT 20 (4-34) U/L Alkaline Phosphatase 57 (38-126) U/L Troponin I <0.012 (0.000-0.034) ng/mL Total Protein 6.6 (6.3-8.2) g/dL Albumin 4.3 (3.5-5.0) g/dL Lipase 93 (23-300) U/L TSH 0.064 L (0.465-4.680) mIU/L Free T4 1.22 (0.78-2.19) ng/dL Urine Color Urine Appearance (Clear) Urine pH (5.0-8.0) Ur Specific [place] (1.001-1.035) Urine Protein (Negative) Urine Glucose (UA) (Negative) Urine Ketones (Negative) Urine Blood (Negative) Urine Nitrite (Negative) Urine Bilirubin (Negative) Urine Urobilinogen (<2.0) mg/dL Ur Leukocyte Esterase (Negative) Urine RBC (0-5) /hpf Urine WBC (0-5) /hpf Ur Squamous Epith Cells (0-4) /hpf Urine Bacteria (None) /hpf Urine Mucus (None) /hpf Influenza Type A (PCR) (Not Detectd) Influenza Type B (PCR) (Not Detectd) RSV (PCR) (Not Detectd) SARS-CoV-2 (PCR) (Not Detectd) 11/25/22 Range/Units 12:39 WBC (3.8-10.6) k/uL RBC (3.80-5.40) m/uL Hgb (11.4-16.0) gm/dL Hct (34.0-46.0) % MCV (80.0-100.0) fL MCH (25.0-35.0) pg MCHC (31.0-37.0) g/dL RDW (11.5-15.5) % Plt Count (150-450) k/uL MPV Neutrophils % % Lymphocytes % % Monocytes % % Eosinophils % % Basophils % % Neutrophils # (1.3-7.7) k/uL Lymphocytes # (1.0-4.8) k/uL Monocytes # (0-1.0) k/uL Eosinophils # (0-0.7) k/uL Basophils # (0-0.2) k/uL PT (9.0-12.0) sec INR (<1.2) APTT (22.0-30.0) sec Sodium (137-145) mmol/L Potassium (3.5-5.1) mmol/L Chloride (98-107) mmol/L Carbon Dioxide (22-30) mmol/L Anion Gap mmol/L BUN (7-17) mg/dL Creatinine (0.52-1.04) mg/dL Est GFR (CKD-EPI)AfAm (>60 ml/min/1.73 sqM) Est GFR (CKD-EPI)NonAf (>60 ml/min/1.73 sqM) Glucose (74-99) mg/dL Plasma Lactic Acid Marky (0.7-2.0) mmol/L Calcium (8.4-10.2) mg/dL Magnesium (1.6-2.3) mg/dL Total Bilirubin (0.2-1.3) mg/dL AST (14-36) U/L ALT (4-34) U/L Alkaline Phosphatase (38-126) U/L Troponin I (0.000-0.034) ng/mL Total Protein (6.3-8.2) g/dL Albumin (3.5-5.0) g/dL Lipase (23-300) U/L TSH (0.465-4.680) mIU/L Free T4 (0.78-2.19) ng/dL Urine Color Urine Appearance (Clear) Urine pH (5.0-8.0) Ur Specific [place] (1.001-1.035) Urine Protein (Negative) Urine Glucose (UA) (Negative) Urine Ketones (Negative) Urine Blood (Negative) Urine Nitrite (Negative) Urine Bilirubin (Negative) Urine Urobilinogen (<2.0) mg/dL Ur Leukocyte Esterase (Negative) Urine RBC (0-5) /hpf Urine WBC (0-5) /hpf Ur Squamous Epith Cells (0-4) /hpf Urine Bacteria (None) /hpf Urine Mucus (None) /hpf Influenza Type A (PCR) Not Detected (Not Detectd) Influenza Type B (PCR) Not Detected (Not Detectd) RSV (PCR) Not Detected (Not Detectd) SARS-CoV-2 (PCR) Not Detected (Not Detectd) Disposition Clinical Impression: Weakness, UTI due to extended-spectrum beta lactamase (ESBL) producing Escherichia coli, Nausea Disposition: ADMITTED IP TO THIS [facility] Condition: Stable Is patient prescribed a controlled substance at d/c from ED?: No Time of Disposition: 14:26 Decision to Admit Reason: Admit from EC Decision Date: 11/25/22 Decision Time: 14:26
--- NOTE | 2022-11-25 14:03 | XR ---
EXAMINATION TYPE: XR chest 2V DATE OF EXAM: 11/25/2022 COMPARISON: Chest x-ray March 17, 2021 HISTORY: Weakness. TECHNIQUE: Frontal and lateral views of the chest are obtained. FINDINGS: There is chronic frontal change without suspicious new focal air space opacity, pleural ef fusion, or pneumothorax seen. The cardiac silhouette size is stable and within normal limits. Right pericardial opacity corresponds to prominent pericardial fat pad and/or anterior medial diaphragmatic hernia on CT abdomen study 3 days ago. The osseous structures are demineralized. Persistent rim calc ified 4.2 cm splenic lesion left upper quadrant IMPRESSION: Chronic changes without acute pulmonary Process. No significant change from prior.
[2022-11-25 14:05] LABS: T4, Free (Free Thyroxine) 1.22 ng/dL (0.78-2.19)
--- NOTE | 2022-11-25 14:22 | CT ---
EXAMINATION TYPE: CT brain wo con DATE OF EXAM: 11/25/2022 COMPARISON: 12/22/2021 HISTORY: Weakness, dizzy, lethargic CT DLP: 1202.4 mGycm Automated exposure control for dose reduction was used. FINDINGS: Craniocervical junction maintained. There is a partially empty sella there is significant. Calcificat ion of the pineal gland incidentally noted. There is mild generalized degenerative change. There is no midline shift or mass effect. No acute hem orrhage. Intracranial atherosclerotic changes are seen. Calvarium is intact. Nasal septal deviation noted. Sin uses are otherwise clear. Orbits are symmetric. IMPRESSION: MILD DEGENERATIVE CHANGE WITH NO EVIDENCE OF ACUTE HEMORRHAGE OR MASS EFFECT.
[2022-11-25] MEDS ORDERED: NALOXONE 0.4 MG/ML 1 ML VIAL IV PRN (14:26)
[2022-11-25] MEDS ORDERED: MEROPENEM 1 GM in SODIUM CHLORIDE 0.9% 100 ML IVPB ONE (14:45)
[2022-11-25] MEDS ORDERED: BETAMETHASONE DIPROPIONATE 0.05% CREAM 15 GM TUBE TOPICAL PRN (14:55)
[2022-11-25] MEDS: SODIUM CHLORIDE 0.9% 1,000 ML IV SCH (15:04)
--- NOTE | 2022-11-25 15:05 | P.HPIM ---
History of Present Illness H&P Date: 11/25/22 Chief Complaint: UTI with failed outpatient treatment Jeannine Sevilla is a 67 year-old female patient presents to ER with concerns for ongoing urinary tract infection despite outpatient treatment. Patient reports she has not been feeling well for the past 4-5 days. Patient has presented to the ER several times for same complaint was diagnosed with UTI and has been on 3 different medications for this infection without improvement. Patient complains of urinary frequency and dysuria. Patient also reports she has been feeling out of it and not being able to eat or drink with significant weakness. Patient has past medical history of hyperlipidemia, hypertension, Crohn's disease, ex-smoker multiple drug ALLERGIES. Chest x-ray completed showing chronic changes without acute pulmonary process no significant change from prior. CT completed showing mild degenerative change with no evidence of acute hemorrhage or mass effect. UA positive for urinary tract infection. At this time patient will be started on meropenem. Infectious disease service is consulted. Urine and blood cultures ordered. Repeat labs ordered Review of Systems please refer to HPI otherwise unremarkable. Past Medical History Past Medical History: Cancer, Hyperlipidemia, Hypertension Additional Past Medical History / Comment(s): FX BACK 2009, FX NECK WHEN SHE WAS 14 DIVING INTO A POOL- NECK PAIN CERVICAL CA. Mitral valve prolapse, Crohn's Disease, Bilateral cataract, RIGHT SHOULDER PAIN -FRACTURE 02/19/20 History of Any Multi-Drug Resistant Organisms: None Reported Past Surgical History: Heart Catheterization, Hysterectomy, Orthopedic Surgery, Tonsillectomy Additional Past Surgical History / Comment(s): LEFT SHOULDER ARTHROSCOPY - 2009; LEFT ANKLE ARTHROSCOPY - 2001; BILATERAL KNEE ARTHROSCOPY - 2000, heart cat heterization, sinus surgery, colonoscopy Past Anesthesia/Blood Transfusion Reactions: No Reported Reaction Date of Last Stent Placement:: UNKNOWN Past Psychological History: No Psychological Hx Reported Smoking Status: Former smoker Past Alcohol Use History: None Reported Past Drug Use History: None Reported - Past Family History Mother Family Medical History: Cancer Sister(s) Family Medical History: Cancer Medications and Allergies Home Medications Medication Instructions Recorded Confirmed Type HYDROcodone/APAP 10-325MG [[place] 1 tab PO TID@0000,0600,1200 05/20/14 11/25/22 History 10-325] Omeprazole [PriLOSEC] 20 mg PO BID@0000,1200 05/20/14 11/25/22 History Simvastatin [Zocor] 20 mg PO HS@0000 05/20/14 11/25/22 History Fluocinonide 0.05% [Lidex 0.05% 1 applic TOPICAL DAILY PRN 12/22/21 11/25/22 History cream] hydroCHLOROthiazide [Hydrodiuril] 12.5 mg PO DAILY@0600 10/25/22 11/25/22 History lisinopriL [Zestril] 5 mg PO HS@0000 10/25/22 11/25/22 History Amoxicillin 500 mg PO TID 11/25/22 11/25/22 History Allergies Allergy/AdvReac Type Severity Reaction Status Date / Time bacitracin Allergy Rash/Hives Verified 11/25/22 13:16 [From Neosporin ([id number])] bupivacaine Allergy Rash/Hives Verified 11/25/22 13:16 cefazolin [From Kefzol] Allergy Anaphylaxis Verified 11/25/22 13:16 cephalexin [From Keflex] Allergy Anaphylaxis Verified 11/25/22 13:16 Cephalosporins Allergy Rash/Hives Verified 11/25/22 13:16 clindamycin Allergy Rash/Hives Verified 11/25/22 13:16 COVID-19 vaccine, mRNA, Allergy Unknown Verified 11/25/22 13:16 [id number], [COVID-19 vaccine, mRNA-1273, LNP-S] doxycycline Allergy Rash/Hives Verified 11/25/22 13:16 erythromycin base Allergy Rash/Hives Verified 11/25/22 13:16 neomycin Allergy Rash/Hives Verified 11/25/22 13:16 [From Neosporin ([id number])] nitrofurantoin Allergy Rash/Hives Verified 11/25/22 13:16 [From Macrobid] polymyxin B Allergy Rash/Hives Verified 11/25/22 13:16 [From Neosporin ([id number])] propranolol [From Inderal LA] Allergy Unknown Verified 11/25/22 13:16 sulfamethoxazole Allergy Rash/Hives Verified 11/25/22 13:16 [From Bactrim] tobramycin [From Emerson] Allergy Rash/Hives Verified 11/25/22 13:16 trimethoprim [From Bactrim] Allergy Rash/Hives Verified 11/25/22 13:16 & Gi Upset ciprofloxacin AdvReac Nausea & Verified 11/25/22 13:16 Vomiting levofloxacin AdvReac Nausea & Verified 11/25/22 13:16 Vomiting Physical Exam Vitals: Vital Signs Temp Pulse Resp BP Pulse Ox 11/25/22 12:09 98.7 F 11/25/22 11:56 83 18 120/88 93 L Intake and Output 11/24/22 11/25/22 11/25/22 22:59 06:59 14:59 Other: Weight 78.925 kg Head normocephalic Neck supple Lungs clear to auscultation bilaterally no wheezing or crackles Heart regular rate and rhythm S1-S2, no rub or gallop Abdomen is soft nontender nondistended positive bowel sounds no hepatosplenome jan Extremities no edema Neuro alert and orientated to 3 Results CBC & Chem 7: 11/25/22 12:39 11/25/22 12:39 Labs: Abnormal Lab Results - Last 24 Hours (Table) 11/25/22 11/25/22 Range/Units 12:39 12:39 Sodium 130 L (137-145) mmol/L Chloride 94 L (98-107) mmol/L Glucose 114 H (74-99) mg/dL TSH 0.064 L (0.465-4.680) mIU/L Ur Leukocyte Esterase Large H (Negative) Urine WBC 32 H (0-5) /hpf Urine Bacteria Few H (None) /hpf Urine Mucus Rare H (None) /hpf Assessment and Plan Assessment: 1. Urinary tract infection with failed outpatient treatment. Patient has multiple drug ALLERGIES. Patient started on meropenem ID consulted 2. History of hyperlipidemia. maintained on statin 3. History of essential hypertension 4. Hyperthyroidism. TSH level 0.064 patient currently not on medication patient will need follow-up with specialist outpatient 5. Hyponatremia. Sodium 130 DVT prophylaxis Lovenox. GI prophylaxis Pepcid Infectious disease service is consulted Patient started on IV meropenem Blood and urine cultures ordered Repeat labs ordered Time with Patient: Greater than 30 (Greater than 60% of the total time spent in counseling and coordination of care)
[2022-11-25] MEDS: ERTAPENEM 1 GM in SODIUM CHLORIDE 0.9% 50 ML IVPB SCH (15:24)
[2022-11-25] MEDS ORDERED: PIPERACILLIN-TAZOBACTAM 3.375 GM in SODIUM CHLORIDE 0.9% 100 ML IVPB SCH (16:00)
--- NOTE | 2022-11-25 19:53 | P.CONS ---
History of Present Illness - Reason for Consult Consult date: 11/25/22 ESBL UTI Requesting physician: Aida Hall - Chief Complaint Burning of urine and suprapubic pain x days - History of Present Illness Patient is patient is a 67-year-old female with a past medical history significant for hypertension hyperlipidemia cervical cancer history of recurrent UTI, patient presented to the ER this morning complaining of not feeling well for the last 4 to 5 days apparently the patient has been complaining of burning of urine she did have suprapubic pain more of a burning pain intensity 7-8 out of 10 with no radiation with associated nausea but no vomiting no flank pain patient on presentation to the hospital was afebrile and no fever has been recorded subsequently patient did have a normal white count kidney function was normal urine was positive influenza RSV was negative urine culture was obtained patient last urine culture done on 11/22/2022 was positive for ESBL E. coli patient was ordered a dose of meropenem infectious disease was consulted for further management of antibiotic therapy Review of Systems Positive point has been mentioned in the HPI rest of the systems are negative Past Medical History Past Medical History: Cancer, Hyperlipidemia, Hypertension Additional Past Medical History / Comment(s): FX BACK 2009, FX NECK WHEN SHE WAS 14 DIVING INTO A POOL- NECK PAIN CERVICAL CA. Mitral valve prolapse, Crohn's Disease, Bilateral cataract, RIGHT SHOULDER PAIN -FRACTURE 02/19/20 History of Any Multi-Drug Resistant Organisms: None Reported Past Surgical History: Heart Catheterization, Hysterectomy, Orthopedic Surgery, Tonsillectomy Additional Past Surgical History / Comment(s): LEFT SHOULDER ARTHROSCOPY - 2009; LEFT ANKLE ARTHROSCOPY - 2001; BILATERAL KNEE ARTHROSCOPY - 2000, heart catheterization, sinus surgery, colonoscopy Past Anesthesia/Blood Transfusion Reactions: No Reported Reaction Date of Last Stent Placement:: UNKNOWN Past Psychological History: No Psychological Hx Reported Smoking Status: Former smoker Past Alcohol Use History: None Reported Past Drug Use History: None Reported - Past Family History Mother Family Medical History: Cancer Sister(s) Family Medical History: Cancer Medications and Allergies Home Medications Medication Instructions Recorded Confirmed Type HYDROcodone/APAP 10-325MG [[place] 1 tab PO TID@0000,0600,1200 05/20/14 11/25/22 History 10-325] Omeprazole [PriLOSEC] 20 mg PO BID@0000,1200 05/20/14 11/25/22 History Simvastatin [Zocor] 20 mg PO HS@0000 05/20/14 11/25/22 History Fluocinonide 0.05% [Lidex 0.05% 1 applic TOPICAL DAILY PRN 12/22/21 11/25/22 History cream] hydroCHLOROthiazide [Hydrodiuril] 12.5 mg PO DAILY@0600 10/25/22 11/25/22 History lisinopriL [Zestril] 5 mg PO HS@0000 10/25/22 11/25/22 History Phenazopyridine [Pyridium] 100 mg PO BID 3 Days #6 tab 11/29/22 Rx Allergies Allergy/AdvReac Type Severity Reaction Status Date / Time bacitracin Allergy Rash/Hives Verified 11/25/22 13:16 [From Neosporin ([id number])] bupivacaine Allergy Rash/Hives Verified 11/25/22 13:16 cefazolin [From Kefzol] Allergy Anaphylaxis Verified 11/25/22 13:16 cephalexin [From Keflex] Allergy Anaphylaxis Verified 11/25/22 13:16 Cephalosporins Allergy Rash/Hives Verified 11/25/22 13:16 clindamycin Allergy Rash/Hives Verified 11/25/22 13:16 COVID-19 vaccine, mRNA, Allergy Unknown Verified 11/25/22 13:16 [id number], [COVID-19 vaccine, mRNA-1273, LNP-S] doxycycline Allergy Rash/Hives Verified 11/25/22 13:16 erythromycin base Allergy Rash/Hives Verified 11/25/22 13:16 neomycin Allergy Rash/Hives Verified 11/25/22 13:16 [From Neosporin ([id number])] nitrofurantoin Allergy Rash/Hives Verified 11/25/22 13:16 [From Macrobid] polymyxin B Allergy Rash/Hives Verified 11/25/22 13:16 [From Neosporin ([id number])] propranolol [From Inderal LA] Allergy Unknown Verified 11/25/22 13:16 sulfamethoxazole Allergy Rash/Hives Verified 11/25/22 13:16 [From Bactrim] tobramycin [From Emerson] Allergy Rash/Hives Verified 11/25/22 13:16 trimethoprim [From Bactrim] Allergy Rash/Hives Verified 11/25/22 13:16 & Gi Upset tromethamine Allergy Unknown Verified 11/25/22 15:17 ciprofloxacin AdvReac Nausea & Verified 11/25/22 13:16 Vomiting levofloxacin AdvReac Nausea & Verified 11/25/22 13:16 Vomiting Physical Exam Vitals: Vital Signs Temp Pulse Resp BP Pulse Ox 11/25/22 12:09 98.7 F 11/25/22 11:56 83 18 120/88 93 L Intake and Output 11/25/22 11/25/22 11/25/22 06:59 14:59 22:59 Other: Weight 78.925 kg GENERAL DESCRIPTION: Elderly female lying in bed, no distress. No tachypnea or accessory muscle of respiration use. HEENT: Shows Pallor , no scleral icterus. Oral mucous membrane is dry. No pharyngeal erythema or thrush NECK: Trachea central, no thyromegaly. LUNGS: Unlabored breathing. Decreased breath sounds at the base. No wheeze or crackle. HEART: S1, S2, regular rate and rhythm. No loud murmur ABDOMEN: Soft, no tenderness , guarding or rigidity, no organomegaly EXTREMITIES: No edema of feet. SKIN: No rash, no masses palpable. NEUROLOGICAL: The patient is awake, alert, oriented x3, mood and affect normal. Results CBC & Chem 7: 11/29/22 07:15 11/29/22 07:15 Labs: Abnormal Lab Results - Last 24 Hours (Table) 11/25/22 11/25/22 Range/Units 12:39 12:39 Sodium 130 L (137-145) mmol/L Chloride 94 L (98-107) mmol/L Glucose 114 H (74-99) mg/dL TSH 0.064 L (0.465-4.680) mIU/L Ur Leukocyte Esterase Large H (Negative) Urine WBC 32 H (0-5) /hpf Urine Bacteria Few H (None) /hpf Urine Mucus Rare H (None) /hpf Assessment and Plan (1) UTI due to extended-spectrum beta lactamase (ESBL) producing Escherichia coli Status: Acute Code(s): N39.0 - URINARY TRACT INFECTION, SITE NOT SPECIFIED; B96.29 - OTH ESCHERICHIA COLI THE CAUSE OF DISEASES CLASSD ELSWHR; Z16.12 - EXTENDED SPECTRUM BETA LACTAMASE (ESBL) RESISTANCE SNOMED Code(s): 535508060 Plan: 1patient with a history of recurrent UTI with urine culture recently grew ESBL E. coli failing outpatient oral antibiotic therapy. 2patient with multiple antibiotic allergies that would limit the number of antibiotics safe to use 3discontinue meropenem 4start the patient on Invanz 1 g daily 5obtain ultrasound of the kidney bladder because of recurrent UTI We will follow on clinical condition and cultures to further adjust medication if needed Thank you for this consultation we will follow the patient along with you Time with Patient: Greater than 30
[2022-11-25] MEDS: PHENAZOPYRIDINE 100 MG TAB PO SCH (23:53)
[2022-11-25] MEDS: ONDANSETRON 4 MG/2 ML VIAL IVP PRN (23:55)
[2022-11-26] MEDS ORDERED: SIMVASTATIN 20 MG TAB PO SCH
[2022-11-26] MEDS: HYDROcodone/APAP 10-325MG 1 EACH TAB PO SCH ×4 (00:04→23:31)
[2022-11-26] MEDS: lisinopriL 5 MG TAB PO SCH ×2 (00:04→23:31)
[2022-11-26] MEDS: SODIUM CHLORIDE 0.9% 1,000 ML IV SCH ×4 (00:13→21:16)
[2022-11-26] MEDS: PANTOPRAZOLE 40 MG TABLET PO SCH ×3 (00:16→23:31)
[2022-11-26] MEDS: ONDANSETRON 4 MG/2 ML VIAL IVP PRN ×3 (05:53→21:16)
[2022-11-26] MEDS: hydroCHLOROthiazide 12.5 MG CAP PO SCH (05:57)
[2022-11-26 08:46] LABS: Basophils # (A) 0.07 X 10*3/uL (0.00-0.10); Basophils % (A) 0.9 %; Eosinophils # (A) 0.18 X 10*3/uL (0.04-0.35); Eosinophils % (A) 2.3 %; HCT 39.5 % (37.2-46.3); Immature Grans, Automated 0.5 %; Lymphocytes # (A) 2.33 X 10*3/uL (0.90-5.00); Lymphocytes % (A) 29.2 %; MCH 31.2 pg (27.0-32.0); MCHC 32.9 g/dL (32.0-37.0); MCV 94.7 fL (80.0-97.0); Mean Platelet Volume 9.7 fL (9.5-12.2); Monocytes # (A) 0.67 X 10*3/uL (0.20-1.00); Monocytes % (A) 8.4 %; NRBC Per 100 WBC 0 /100 WBCS (0.0-0.0); Neutrophils # (A) 4.69 X 10*3/uL (1.80-7.70); Neutrophils % (A) 58.7 %; Platelet Count 263 X 10*3/uL (140-440); RBC 4.17 X 10*6/uL (4.10-5.20); RDW 12.2 % (11.5-14.5); WBC 7.98 X 10*3/uL (4.50-10.00)
[2022-11-26 08:51] LABS: African American GFR (CKD) 87.8 (60.0-200.0); Albumin 4.1 g/dL (3.8-4.9); Albumin/Globulin Ratio 2.28 (1.60-3.17); Anion Gap 8.7 mmol/L (10.00-18.00); BUN/Creat Ratio 7.13 Ratio (12.00-20.00); Blood Urea Nitrogen 5.7 mg/dL (9.0-27.0); Calcium 9.3 mg/dL (8.7-10.3); Carbon Dioxide 25.3 mmol/L (20.0-27.5); Globulin 1.8 g/dL (1.6-3.3); Non-African American GFR(CKD) 75.8 (60.0-200.0); Potassium 4.2 mmol/L (3.5-5.5); Total Bilirubin 0.3 mg/dL (0.30-1.20); Total Protein 5.9 g/dL (6.2-8.2)
[2022-11-26] MEDS: PHENAZOPYRIDINE 100 MG TAB PO SCH (09:53)
[2022-11-26] MEDS: ENOXAPARIN 40 MG/0.4 ML SYRINGE SQ SCH (09:53)
--- NOTE | 2022-11-26 14:52 | US ---
EXAMINATION TYPE: US kidneys/renal and bladder DATE OF EXAM: 11/26/2022 COMPARISON: CT, US 2022 CLINICAL HISTORY: Recurrent UTI, history of renal cysts. EXAM MEASUREMENTS: Right Kidney: 12.7 x 6.6 x 6.4 cm Left Kidney: 12.5 x 6.9 x 6.1 cm Right Kidney: Multiple anechoic areas seen. Largest seen laterally at the upper pole: 7.3 x 7.0 x 6.4 cm. Anechoic lesion with single internal septation right kidney mid pole: 2.8 x 2.7 x 2.9 cm. Left Kidney: Multiple anechoic areas seen. Largest seen upper pole: 5.8 x 5.5 x 5.5 cm. Bladder: Appears wnl Bilateral Jets seen: Yes IMPRESSION: Bilateral renal cysts. Otherwise unremarkable ultrasound of the kidneys and bladder.
[2022-11-26] MEDS: ERTAPENEM 1 GM in SODIUM CHLORIDE 0.9% 50 ML IVPB SCH (15:36)
--- NOTE | 2022-11-26 16:49 | P.PN ---
Subjective Progress Note Date: 11/26/22 Jeannine Sevilla is a 67 year-old female patient presents to ER with concerns for ongoing urinary tract infection despite outpatient treatment. Patient reports she has not been feeling well for the past 4-5 days. Patient has presented to the ER several times for same complaint was diagnosed with UTI and has been on 3 different medications for this infection without improvement. Patient complains of urinary frequency and dysuria. Patient also reports she has been feeling out of it and not being able to eat or drink with significant weakness. Patient has past medical history of hyperlipidemia, hypertension, Crohn's disease, ex-smoker multiple drug ALLERGIES. Chest x-ray completed showing chronic changes without acute pulmonary process no significant change from prior. CT completed showing mild degenerative change with no evidence of acute hemorrhage or mass effect. UA positive for urinary tract infection. At this time patient will be started on meropenem. Infectious disease service is consulted. Urine and blood cultures ordered. Repeat labs ordered On 11/26/2022 patient was seen and examined on the medical floor she is alert and oriented 3 in no apparent distress she is complaining of suprapubic pain otherwise there is no complaints there is no fever or chills no headache or dizziness no chest pain no shortness of breath no cough no nausea or vomiting no abdominal pain no diarrhea, patient has some burning with urination no frequency or urgency and no hematuria Objective - Vital Signs Vital signs: Vital Signs Temp 97.9 F 11/26/22 07:39 Pulse 62 11/26/22 07:39 Resp 16 11/26/22 07:39 BP 131/79 11/26/22 07:39 Pulse Ox 93 L 11/26/22 07:39 FiO2 Intake & Output 11/25/22 11/26/22 11/26/22 18:59 06:59 18:59 Intake Total 2410 Balance 2410 Weight 78.925 kg Intake: Intake, IV Titration 1560 Amount Sodium Chloride 0.9% 1, 1560 000 ml @ 130 mls/hr IV . Q7H42M [facility] Rx#:[id number] Oral 850 Other: Voiding Method Toilet Toilet - Exam In general patient is alert and oriented 3 in no apparent distress Head normocephalic and atraumatic Neck supple no JVD no goiter Lungs clear to auscultation bilaterally no wheezing or crackles Heart regular rate and rhythm S1-S2, no rub or gallop Abdomen is soft nontender nondistended positive bowel sounds no hepatosplenomegaly Extremities no edema Neuro no gross focal deficit - Labs CBC & Chem 7: 11/26/22 06:33 11/26/22 06:33 Labs: Abnormal Lab Results - Last 24 Hours (Table) 11/25/22 11/25/22 11/26/22 Range/Units 12:39 12:39 06:33 Sodium 130 L (137-145) mmol/L Chloride 94 L (98-107) mmol/L Anion Gap 8.70 L (10.00-18.00) mmol/L BUN 5.7 L (9.0-27.0) mg/dL BUN/Creatinine Ratio 7.13 L (12.00-20.00) Ratio Glucose 114 H (74-99) mg/dL Total Protein 5.9 L (6.2-8.2) g/dL TSH 0.064 L (0.465-4.680) mIU/L Ur Leukocyte Esterase Large H (Negative) Urine WBC 32 H (0-5) /hpf Urine Bacteria Few H (None) /hpf Urine Mucus Rare H (None) /hpf Microbiology - Last 24 Hours (Table) 11/25/22 12:39 Urine Culture - Preliminary Urine,Voided Assessment and Plan Assessment: 1. Urinary tract infection with failed outpatient treatment. Urine culture positive for E. coli ESBL Patient has multiple drug ALLERGIES. Patient started on meropenem ID consulted 2. History of hyperlipidemia. maintained on statin 3. History of essential hypertension 4. Hyperthyroidism. TSH level 0.064 patient currently not on medication patient will need follow-up with specialist outpatient 5. Hyponatremia. Sodium 130 started on IV fluid DVT prophylaxis Lovenox. GI prophylaxis Pepcid Infectious disease service is consulted Patient started on IV meropenem Blood and urine cultures ordered Repeat labs ordered
[2022-11-26] MEDS: SIMVASTATIN 20 MG TAB PO SCH (18:38)
[2022-11-27] MEDS: HYDROcodone/APAP 10-325MG 1 EACH TAB PO SCH ×3 (05:23→23:55)
[2022-11-27] MEDS: SODIUM CHLORIDE 0.9% 1,000 ML IV SCH ×2 (05:25→12:07)
[2022-11-27] MEDS: hydroCHLOROthiazide 12.5 MG CAP PO SCH ×2 (05:25→23:55)
[2022-11-27] MEDS: PHENAZOPYRIDINE 100 MG TAB PO SCH ×2 (08:07→18:17)
[2022-11-27] MEDS: ENOXAPARIN 40 MG/0.4 ML SYRINGE SQ SCH (08:07)
--- NOTE | 2022-11-27 10:03 | P.PN ---
Subjective Progress Note Date: 11/27/22 Jeannine Sevilla is a 67 year-old female patient presents to ER with concerns for ongoing urinary tract infection despite outpatient treatment. Patient reports she has not been feeling well for the past 4-5 days. Patient has presented to the ER several times for same complaint was diagnosed with UTI and has been on 3 different medications for this infection without improvement. Patient complains of urinary frequency and dysuria. Patient also reports she has been feeling out of it and not being able to eat or drink with significant weakness. Patient has past medical history of hyperlipidemia, hypertension, Crohn's disease, ex-smoker multiple drug ALLERGIES. Chest x-ray completed showing chronic changes without acute pulmonary process no significant change from prior. CT completed showing mild degenerative change with no evidence of acute hemorrhage or mass effect. UA positive for urinary tract infection. At this time patient will be started on meropenem. Infectious disease service is consulted. Urine and blood cultures ordered. Repeat labs ordered On 11/26/2022 patient was seen and examined on the medical floor she is alert and oriented 3 in no apparent distress she is complaining of suprapubic pain otherwise there is no complaints there is no fever or chills no headache or dizziness no chest pain no shortness of breath no cough no nausea or vomiting no abdominal pain no diarrhea, patient has some burning with urination no frequency or urgency and no hematuria On 11/27/2022 patient is alert and oriented x3. requesting pyriduim be increased. patient also reported having bloody bm last night. will d/c lovenox and gi services consulted. patient is still complaining of some abdominal discomfort. patient remains on IV invanz. ID following. vital signs tempo 98.1, hr 78, rr 17, blood pressure 134/82 pulse ox 95 on room air Objective - Vital Signs Vital signs: Vital Signs Temp 98.4 F 11/27/22 07:20 Pulse 69 11/27/22 07:20 Resp 18 11/27/22 07:20 BP 157/87 11/27/22 07:20 Pulse Ox 96 11/27/22 07:20 FiO2 Intake & Output 11/26/22 11/27/22 11/27/22 18:59 06:59 18:59 Intake Total 690 Balance 690 Intake: Oral 690 Other: Voiding Method Toilet Toilet # Voids 2 3 # Bowel Movements 1 - Exam In general patient is alert and oriented 3 in no apparent distress Head normocephalic and atraumatic Neck supple no JVD no goiter Lungs clear to auscultation bilaterally no wheezing or crackles Heart regular rate and rhythm S1-S2, no rub or gallop Abdomen is soft nontender nondistended positive bowel sounds no hepatosplenomegaly Extremities no edema Neuro no gross focal deficit - Labs CBC & Chem 7: 11/26/22 06:33 11/26/22 06:33 Labs: Microbiology - Last 24 Hours (Table) 11/25/22 12:39 Urine Culture - Preliminary Urine,Voided Gram Neg Bacilli 11/25/22 15:00 Blood Culture - Preliminary Blood No Growth after 24 hours 11/25/22 14:45 Blood Culture - Preliminary Blood No Growth after 24 hours Assessment and Plan Assessment: 1. Urinary tract infection with failed outpatient treatment. Urine culture positive for E. coli ESBL Patient has multiple drug ALLERGIES. Patient started on meropenem ID consulted 2. History of hyperlipidemia. maintained on statin 3. History of essential hypertension 4. Hyperthyroidism. TSH level 0.064 patient currently not on medication patient will need follow-up with specialist outpatient 5. Hyponatremia. Sodium 130 started on IV fluid 6. blood in stool. GI services consulted DVT prophylaxis scds lovenox d/c due to gI bleed. GI prophylaxis Pepcid Infectious disease service is consulted GI services consulted Patient started on IV Invanz Blood and urine cultures ordered Repeat labs ordered
[2022-11-27 10:41] LABS: Basophils # (A) 0.05 X 10*3/uL (0.00-0.10); Basophils % (A) 0.7 %; Eosinophils # (A) 0.18 X 10*3/uL (0.04-0.35); Eosinophils % (A) 2.6 %; HCT 35.6 % (37.2-46.3); HGB 11.9 g/dL (12.0-15.0); Immature Grans, Automated 0.4 %; Lymphocytes # (A) 1.53 X 10*3/uL (0.90-5.00); Lymphocytes % (A) 21.7 %; MCHC 33.4 g/dL (32.0-37.0); MCV 95.7 fL (80.0-97.0); Mean Platelet Volume 9.8 fL (9.5-12.2); Monocytes # (A) 0.56 X 10*3/uL (0.20-1.00); Monocytes % (A) 7.9 %; NRBC Per 100 WBC 0 /100 WBCS (0.0-0.0); Neutrophils % (A) 66.7 %; Platelet Count 220 X 10*3/uL (140-440); RBC 3.72 X 10*6/uL (4.10-5.20); RDW 12.3 % (11.5-14.5); WBC 7.05 X 10*3/uL (4.50-10.00)
[2022-11-27 11:01] LABS: African American GFR (CKD) 82.7 (60.0-200.0); Albumin 3.5 g/dL (3.8-4.9); Albumin/Globulin Ratio 2.32 (1.60-3.17); Anion Gap 7.7 mmol/L (10.00-18.00); BUN/Creat Ratio 8.79 Ratio (12.00-20.00); Blood Urea Nitrogen 7.4 mg/dL (9.0-27.0); Calcium 8.5 mg/dL (8.7-10.3); Carbon Dioxide 25.6 mmol/L (20.0-27.5); Globulin 1.5 g/dL (1.6-3.3); Non-African American GFR(CKD) 71.3 (60.0-200.0); Potassium 3.8 mmol/L (3.5-5.5); Total Bilirubin 0.2 mg/dL (0.30-1.20); Total Protein 5.1 g/dL (6.2-8.2)
[2022-11-27] MEDS: PANTOPRAZOLE 40 MG TABLET PO SCH ×2 (12:05→23:55)
[2022-11-27] MEDS: ERTAPENEM 1 GM in SODIUM CHLORIDE 0.9% 50 ML IVPB SCH (15:53)
--- NOTE | 2022-11-27 16:11 | P.PN ---
Subjective Progress Note Date: 11/26/22 Principal diagnosis: ESBL E. coli urinary tract infection Patient is patient is a 67-year-old female with a past medical history significant for hypertension hyperlipidemia cervical cancer history of recurrent UTI, patient presented to the ER this morning complaining of not feeling well for the last 4 to 5 days apparently the patient has been complaining of burning of urine, with a recent culture positive for ESBL E. coli and the patient to have multiple antibiotic ALLERGIES. On today's evaluation that is 11/26/2022, the patient denies having any fever or any chills has been complaining of some staring and falling asleep no chest pain shortness breath or coughs it coming of burning of urine and suprapubic pain Objective - Vital Signs Vital signs: Vital Signs Temp 98.4 F 11/26/22 12:22 Pulse 68 11/26/22 12:22 Resp 16 11/26/22 12:22 BP 138/81 11/26/22 12:22 Pulse Ox 96 11/26/22 12:22 FiO2 Intake & Output 11/25/22 11/26/22 11/26/22 18:59 06:59 18:59 Intake Total 2410 Balance 2410 Weight 78.925 kg Intake: Intake, IV Titration 1560 Amount Sodium Chloride 0.9% 1, 1560 000 ml @ 130 mls/hr IV . Q7H42M [facility] Rx#:[id number] Oral 850 Other: Voiding Method Toilet Toilet - Exam GENERAL DESCRIPTION: An elderly female lying in bed in no distress RESPIRATORY SYSTEM: Unlabored breathing , decreased breath sounds at bases HEART: S1 S2 regular rate and rhythm , ABDOMEN: Soft , no tenderness EXTREMITIES: No edema feet - Labs CBC & Chem 7: 11/27/22 07:03 11/27/22 07:03 Labs: Abnormal Lab Results - Last 24 Hours (Table) 11/26/22 Range/Units 06:33 Anion Gap 8.70 L (10.00-18.00) mmol/L BUN 5.7 L (9.0-27.0) mg/dL BUN/Creatinine Ratio 7.13 L (12.00-20.00) Ratio Total Protein 5.9 L (6.2-8.2) g/dL Microbiology - Last 24 Hours (Table) 11/25/22 12:39 Urine Culture - Preliminary Urine,Voided Assessment and Plan (1) UTI due to extended-spectrum beta lactamase (ESBL) producing Escherichia coli Current Visit: Yes Status: Acute Code(s): N39.0 - URINARY TRACT INFECTION, SITE NOT SPECIFIED; B96.29 - OTH ESCHERICHIA COLI THE CAUSE OF DISEASES CLASSD ELSWHR; Z16.12 - EXTENDED SPECTRUM BETA LACTAMASE (ESBL) RESISTANCE SNOMED Code(s): 424352797 Plan: 1patient with a history of recurrent UTI with urine culture recently grew ESBL E. coli failing outpatient oral antibiotic therapy. 2patient with multiple antibiotic allergies that would limit the number of antibiotics safe to use 3patient to continue with Invanz 1 g daily 4ultrasound of the kidney bladder did shows bilateral renal cysts Time with Patient: Less than 30
--- NOTE | 2022-11-27 16:13 | P.PN ---
Subjective Progress Note Date: 11/27/22 Principal diagnosis: ESBL E. coli urinary tract infection Patient is patient is a 67-year-old female with a past medical history significant for hypertension hyperlipidemia cervical cancer history of recurrent UTI, patient presented to the ER this morning complaining of not feeling well for the last 4 to 5 days apparently the patient has been complaining of burning of urine, with a recent culture positive for ESBL E. coli and the patient to have multiple antibiotic ALLERGIES. On today's evaluation that is 11/27/2022, the patient remains to be afebrile, the patient denies chest pain shortness breath or coughs it coming of burning of urine and suprapubic pain, patient complaining of some bleeding per rectum GI has been consulted Objective - Vital Signs Vital signs: Vital Signs Temp 98.3 F 11/27/22 12:00 Pulse 61 11/27/22 12:00 Resp 18 11/27/22 12:00 BP 166/86 11/27/22 12:00 Pulse Ox 96 11/27/22 12:00 FiO2 Intake & Output 11/26/22 11/27/22 11/27/22 18:59 06:59 18:59 Intake Total 690 Balance 690 Intake: Oral 690 Other: Voiding Method Toilet Toilet Toilet # Voids 2 3 # Bowel Movements 1 - Exam GENERAL DESCRIPTION: An elderly female lying in bed in no distress RESPIRATORY SYSTEM: Unlabored breathing , decreased breath sounds at bases HEART: S1 S2 regular rate and rhythm , ABDOMEN: Soft , no tenderness EXTREMITIES: No edema feet - Labs CBC & Chem 7: 11/27/22 07:03 11/27/22 07:03 Labs: Abnormal Lab Results - Last 24 Hours (Table) 11/27/22 11/27/22 Range/Units 07:03 07:03 RBC 3.72 L (4.10-5.20) X 10*6/uL Hgb 11.9 L (12.0-15.0) g/dL Hct 35.6 L (37.2-46.3) % Anion Gap 7.70 L (10.00-18.00) mmol/L BUN 7.4 L (9.0-27.0) mg/dL BUN/Creatinine Ratio 8.79 L (12.00-20.00) Ratio Glucose 114 H (70-110) mg/dL Calcium 8.5 L (8.7-10.3) mg/dL Total Bilirubin 0.20 L (0.30-1.20) mg/dL Total Protein 5.1 L (6.2-8.2) g/dL Albumin 3.5 L (3.8-4.9) g/dL Globulin 1.5 L (1.6-3.3) g/dL Microbiology - Last 24 Hours (Table) 11/25/22 12:39 Urine Culture - Preliminary Urine,Voided Gram Neg Bacilli 11/25/22 15:00 Blood Culture - Preliminary Blood No Growth after 24 hours 11/25/22 14:45 Blood Culture - Preliminary Blood No Growth after 24 hours Assessment and Plan (1) UTI due to extended-spectrum beta lactamase (ESBL) producing Escherichia coli Current Visit: Yes Status: Acute Code(s): N39.0 - URINARY TRACT INFECTION, SITE NOT SPECIFIED; B96.29 - OTH ESCHERICHIA COLI THE CAUSE OF DISEASES CLASSD ELSWHR; Z16.12 - EXTENDED SPECTRUM BETA LACTAMASE (ESBL) RESISTANCE SNOMED Code(s): 710712879 Plan: 1patient with a history of recurrent UTI with urine culture recently grew ESBL E. coli failing outpatient oral antibiotic therapy. 2patient with multiple antibiotic allergies that would limit the number of antibiotics safe to use 3ultrasound of the kidney bladder did shows bilateral renal cysts 4-urine is currently showing gram-negative ID sensitivities pending blood culture negative continue with Invanz Time with Patient: Less than 30
[2022-11-27] MEDS: SIMVASTATIN 20 MG TAB PO SCH (18:17)
[2022-11-27] MEDS: ONDANSETRON 4 MG/2 ML VIAL IVP PRN (18:23)
[2022-11-27] MEDS: lisinopriL 5 MG TAB PO SCH (23:55)
[2022-11-28] MEDS: SODIUM CHLORIDE 0.9% 1,000 ML IV SCH ×2 (03:07→14:18)
[2022-11-28] MEDS: HYDROcodone/APAP 10-325MG 1 EACH TAB PO SCH ×3 (05:58→23:51)
[2022-11-28] MEDS: PHENAZOPYRIDINE 100 MG TAB PO SCH ×2 (09:09→20:25)
[2022-11-28] MEDS: hydroCHLOROthiazide 12.5 MG CAP PO SCH (09:09)
[2022-11-28] MEDS: ENOXAPARIN 40 MG/0.4 ML SYRINGE SQ SCH (09:09)
--- NOTE | 2022-11-28 10:52 | P.PN ---
Subjective Progress Note Date: 11/28/22 Jeannine Sevilla is a 67 year-old female patient presents to ER with concerns for ongoing urinary tract infection despite outpatient treatment. Patient reports she has not been feeling well for the past 4-5 days. Patient has presented to the ER several times for same complaint was diagnosed with UTI and has been on 3 different medications for this infection without improvement. Patient complains of urinary frequency and dysuria. Patient also reports she has been feeling out of it and not being able to eat or drink with significant weakness. Patient has past medical history of hyperlipidemia, hypertension, Crohn's disease, ex-smoker multiple drug ALLERGIES. Chest x-ray completed showing chronic changes without acute pulmonary process no significant change from prior. CT completed showing mild degenerative change with no evidence of acute hemorrhage or mass effect. UA positive for urinary tract infection. At this time patient will be started on meropenem. Infectious disease service is consulted. Urine and blood cultures ordered. Repeat labs ordered On 11/26/2022 patient was seen and examined on the medical floor she is alert and oriented 3 in no apparent distress she is complaining of suprapubic pain otherwise there is no complaints there is no fever or chills no headache or dizziness no chest pain no shortness of breath no cough no nausea or vomiting no abdominal pain no diarrhea, patient has some burning with urination no frequency or urgency and no hematuria On 11/27/2022 patient is alert and oriented x3. requesting pyriduim be increased. patient also reported having bloody bm last night. will d/c lovenox and gi services consulted. patient is still complaining of some abdominal discomfort. patient remains on IV invanz. ID following. vital signs tempo 98.1, hr 78, rr 17, blood pressure 134/82 pulse ox 95 on room air On 11/28/2022 patient was seen and examined on the medical floor she is alert and oriented x3. She is still complaining of pain in the suprapubic area otherwise she denies any complaints there is no fever or chills no headache or dizziness no chest pain no shortness of breath no cough no nausea or vomiting no abdominal pain no diarrhea she had some burning with urination no frequency or urgency no hematuria, there is no new episodes of rectal bleeding, Dr. Sepulveda is not available for consult this time, if patient's continue to be stable possible discharge to home once all cultures are available in the next 1-2 days, she can follow up with gastroenterology as outpatient. Objective - Vital Signs Vital signs: Vital Signs Temp 98.6 F 11/28/22 07:14 Pulse 65 11/28/22 09:11 Resp 18 11/28/22 07:14 BP 169/91 11/28/22 09:11 Pulse Ox 97 11/28/22 07:14 FiO2 Intake & Output 11/27/22 11/28/22 11/28/22 18:59 06:59 18:59 Intake Total 900 Balance 900 Intake: Intake, IV Titration 900 Amount Sodium Chloride 0.9% 1, 900 000 ml @ 75 mls/hr IV . [id number] [facility] Rx#:[id number] Other: Voiding Method Toilet Toilet # Voids 3 2 - Exam In general patient is alert and oriented 3 in no apparent distress Head normocephalic and atraumatic Neck supple no JVD no goiter Lungs clear to auscultation bilaterally no wheezing or crackles Heart regular rate and rhythm S1-S2, no rub or gallop Abdomen is soft nontender nondistended positive bowel sounds no hepa tosplenomegaly Extremities no edema Neuro no gross focal deficit - Labs CBC & Chem 7: 11/27/22 07:03 11/27/22 07:03 Labs: Abnormal Lab Results - Last 24 Hours (Table) 11/27/22 Range/Units 07:03 Anion Gap 7.70 L (10.00-18.00) mmol/L BUN 7.4 L (9.0-27.0) mg/dL BUN/Creatinine Ratio 8.79 L (12.00-20.00) Ratio Glucose 114 H (70-110) mg/dL Calcium 8.5 L (8.7-10.3) mg/dL Total Bilirubin 0.20 L (0.30-1.20) mg/dL Total Protein 5.1 L (6.2-8.2) g/dL Albumin 3.5 L (3.8-4.9) g/dL Globulin 1.5 L (1.6-3.3) g/dL Microbiology - Last 24 Hours (Table) 11/25/22 12:39 Urine Culture - Final Urine,Voided Escherichia coli 11/25/22 15:00 Blood Culture - Preliminary Blood No Growth after 48 hours 11/25/22 14:45 Blood Culture - Preliminary Blood No Growth after 48 hours Assessment and Plan Assessment: 1. Urinary tract infection with failed outpatient treatment. Urine culture positive for E. coli ESBL Patient has multiple drug ALLERGIES. Patient started on meropenem ID consulted 2. History of hyperlipidemia. maintained on statin 3. History of essential hypertension 4. Hyperthyroidism. TSH level 0.064 patient currently not on medication patient will need follow-up with specialist outpatient 5. Hyponatremia. Sodium 130 started on IV fluid 6. blood in stool. GI services consulted DVT prophylaxis scds lovenox d/c due to gI bleed. GI prophylaxis Pepcid Infectious disease service is consulted GI services consulted Patient started on IV Invanz Blood and urine cultures ordered Repeat labs ordered
[2022-11-28] MEDS: PANTOPRAZOLE 40 MG TABLET PO SCH ×2 (12:45→23:51)
--- NOTE | 2022-11-28 14:52 | P.PN ---
Subjective Progress Note Date: 11/28/22 Principal diagnosis: ESBL E. coli urinary tract infection Patient is patient is a 67-year-old female with a past medical history significant for hypertension hyperlipidemia cervical cancer history of recurrent UTI, patient presented to the ER this morning complaining of not feeling well for the last 4 to 5 days apparently the patient has been complaining of burning of urine, with a recent culture positive for ESBL E. coli and the patient to have multiple antibiotic ALLERGIES. On today's evaluation that is 11/28/2022, the patient continues to be afebrile, the patient denies chest pain shortness breath or coughs , the patient Unasyn that has slightly improved since coming of some suprapubic discomfort nausea but no vomiting no abdominal pain and no further bowel movement Objective - Vital Signs Vital signs: Vital Signs Temp 98.4 F 11/28/22 12:10 Pulse 68 11/28/22 12:10 Resp 18 11/28/22 12:10 BP 161/87 11/28/22 12:10 Pulse Ox 95 11/28/22 12:10 FiO2 Intake & Output 11/27/22 11/28/22 11/28/22 18:59 06:59 18:59 Intake Total 900 Balance 900 Intake: Intake, IV Titration 900 Amount Sodium Chloride 0.9% 1, 900 000 ml @ 75 mls/hr IV . [id number] [facility] Rx#:[id number] Other: Voiding Method Toilet Toilet Toilet # Voids 3 2 - Exam GENERAL DESCRIPTION: An elderly female lying in bed in no distress RESPIRATORY SYSTEM: Unlabored breathing , decreased breath sounds at bases HEART: S1 S2 regular rate and rhythm , ABDOMEN: Soft , no tenderness EXTREMITIES: No edema feet - Labs CBC & Chem 7: 11/27/22 07:03 11/27/22 07:03 Labs: Microbiology - Last 24 Hours (Table) 11/25/22 12:39 Urine Culture - Final Urine,Voided Escherichia coli 11/25/22 15:00 Blood Culture - Preliminary Blood No Growth after 48 hours 11/25/22 14:45 Blood Culture - Preliminary Blood No Growth after 48 hours Assessment and Plan (1) UTI (urinary tract infection) Current Visit: Yes Status: Acute Code(s): N39.0 - URINARY TRACT INFECTION, SITE NOT SPECIFIED SNOMED Code(s): 93939293 Plan: 1patient with a history of recurrent UTI with urine culture recently grew ESBL E. coli failing outpatient oral antibiotic therapy. 2patient with multiple antibiotic allergies that would limit the number of antibiotics safe to use 3ultrasound of the kidney bladder did shows bilateral renal cysts Patient urine finalized with an E. coli that is sensitive pathogen however the patient did have multiple antibiotic ALLERGIES hence will continue with Invanz Time with Patient: Less than 30
[2022-11-28] MEDS: ERTAPENEM 1 GM in SODIUM CHLORIDE 0.9% 50 ML IVPB SCH (16:02)
[2022-11-28] MEDS: SIMVASTATIN 20 MG TAB PO SCH (17:48)
[2022-11-28] MEDS: lisinopriL 5 MG TAB PO SCH (23:51)
[2022-11-29] MEDS: SODIUM CHLORIDE 0.9% 1,000 ML IV SCH (02:14)
[2022-11-29] MEDS: HYDROcodone/APAP 10-325MG 1 EACH TAB PO SCH ×2 (06:15→11:40)
[2022-11-29] MEDS: hydroCHLOROthiazide 12.5 MG CAP PO SCH (06:15)
[2022-11-29] MEDS: ENOXAPARIN 40 MG/0.4 ML SYRINGE SQ SCH (08:16)
[2022-11-29 08:18] VITALS: BP 152/92; PULSE 97; RESP 18; TEMP 98.6
[2022-11-29] MEDS: PHENAZOPYRIDINE 100 MG TAB PO SCH ×2 (08:43→11:39)
--- NOTE | 2022-11-29 10:00 | P.PN ---
Subjective Progress Note Date: 11/29/22 Jeannine Sevilla is a 67 year-old female patient presents to ER with concerns for ongoing urinary tract infection despite outpatient treatment. Patient reports she has not been feeling well for the past 4-5 days. Patient has presented to the ER several times for same complaint was diagnosed with UTI and has been on 3 different medications for this infection without improvement. Patient complains of urinary frequency and dysuria. Patient also reports she has been feeling out of it and not being able to eat or drink with significant weakness. Patient has past medical history of hyperlipidemia, hypertension, Crohn's disease, ex-smoker multiple drug ALLERGIES. Chest x-ray completed showing chronic changes without acute pulmonary process no significant change from prior. CT completed showing mild degenerative change with no evidence of acute hemorrhage or mass effect. UA positive for urinary tract infection. At this time patient will be started on meropenem. Infectious disease service is consulted. Urine and blood cultures ordered. Repeat labs ordered On 11/26/2022 patient was seen and examined on the medical floor she is alert and oriented 3 in no apparent distress she is complaining of suprapubic pain otherwise there is no complaints there is no fever or chills no headache or dizziness no chest pain no shortness of breath no cough no nausea or vomiting no abdominal pain no diarrhea, patient has some burning with urination no frequency or urgency and no hematuria On 11/27/2022 patient is alert and oriented x3. requesting pyriduim be increased. patient also reported having bloody bm last night. will d/c lovenox and gi services consulted. patient is still complaining of some abdominal discomfort. patient remains on IV invanz. ID following. vital signs tempo 98.1, hr 78, rr 17, blood pressure 134/82 pulse ox 95 on room air On 11/28/2022 patient was seen and examined on the medical floor she is alert and oriented x3. She is still complaining of pain in the suprapubic area otherwise she denies any complaints there is no fever or chills no headache or dizziness no chest pain no shortness of breath no cough no nausea or vomiting no abdominal pain no diarrhea she had some burning with urination no frequency or urgency no hematuria, there is no new episodes of rectal bleeding, Dr. Sepulveda is not available for consult this time, if patient's continue to be stable possible discharge to home once all cultures are available in the next 1-2 days, she can follow up with gastroenterology as outpatient. on 11/29/2022 patient is alert and oriented 3. Discussed case with infectious disease doctor at this time will check UA for clearance. This will help determine if patient will require outpatient IV Invanz due to patient's multiple drug ALLERGIES. At this time patient denies chest pain or shortness of breath. Patient denies nausea vomiting or diarrhea. Patient denies any urinary burning or frequency Objective - Vital Signs Vital signs: Vital Signs Temp 98.6 F 11/29/22 08:16 Pulse 97 11/29/22 08:16 Resp 18 11/29/22 08:16 BP 152/92 11/29/22 08:16 Pulse Ox 96 11/29/22 08:16 FiO2 Intake & Output 11/28/22 11/29/22 11/29/22 18:59 06:59 18:59 Intake Total 900 Balance 900 Intake: Intake, IV Titration 900 Amount Sodium Chloride 0.9% 1, 900 000 ml @ 75 mls/hr IV . [id number] [facility] Rx#:[id number] Other: Voiding Method Toilet Toilet Toilet # Voids 3 3 - Exam In general patient is alert and oriented 3 in no apparent distress Head normocephalic and atraumatic Neck supple no JVD no goiter Lungs clear to auscultation bilaterally no wheezing or crackles Heart regular rate and rhythm S1-S2, no rub or gallop Abdomen is soft nontender nondistended positive bowel sounds no hepatosplenomegaly Extremities no edema Neuro no gross focal deficit - Labs CBC & Chem 7: 11/27/22 07:03 11/27/22 07:03 Labs: Microbiology - Last 24 Hours (Table) 11/25/22 15:00 Blood Culture - Preliminary Blood No Growth after 72 hours 11/25/22 14:45 Blood Culture - Preliminary Blood No Growth after 72 hours Assessment and Plan Assessment: 1. Urinary tract infection with failed outpatient treatment. Urine culture positive for E. coli ESBL Patient has multiple drug ALLERGIES. Patient started on meropenem ID consulted 2. History of hyperlipidemia. maintained on statin 3. History of essential hypertension 4. Hyperthyroidism. TSH level 0.064 patient currently not on medication patient will need follow-up with specialist outpatient 5. Hyponatremia. Sodium 130 started on IV fluid 6. blood in stool. GI services consulted DVT prophylaxis scds lovenox d/c due to gI bleed. GI prophylaxis Pepcid Infectious disease service is consulted GI services consulted Patient started on IV Invanz repeat U/A ordered Blood and urine cultures ordered Repeat labs ordered
[2022-11-29 10:12] LABS: Appearance,Urine Clear (Clear); Bilirubin,Urine Negative (Negative); Blood,Urine Negative (Negative); Color,Urine Dark Yellow; Glucose,Urine (UA) Negative (Negative); Ketones,Urine Negative (Negative); Leukocyte Esterase,Urine Negative (Negative); Nitrite,Urine Negative (Negative); PH, Urine 6.5 (5.0-8.0); Protein,Urine Negative (Negative); Specific Gravity,Urine 1.006 (1.001-1.035); Urobilinogen,Urine <2.0 mg/dL (<2.0)
--- NOTE | 2022-11-29 11:15 | P.DS ---
Providers Date of admission: 11/25/22 14:26 Expected date of discharge: 11/29/22 Attending physician: Ingris Crenshaw Consults: 11/25/22 14:26 Consult Physician Urgent Consulting Provider: Krishna Vasquez Consult Reason/Comments: esbl uti Do you want consulting provider notified?: Yes 11/27/22 08:45 Consult Physician Routine Consulting Provider: Marielena Sepulveda Consult Reason/Comments: epigastric pain, blood with stools Do you want consulting provider notified?: Yes Primary care physician: Ingris Crenshaw [facility] Hospital Course: Discharge diagnosis 1. Urinary tract infection with failed outpatient treatment. Urine culture positive for E. coli ESBL Patient has multiple drug ALLERGIES. Patient started on meropenem ID consulted 2. History of hyperlipidemia. maintained on statin 3. History of essential hypertension 4. Hyperthyroidism. TSH level 0.064 patient currently not on medication patient will need follow-up with specialist outpatient 5. Hyponatremia. Sodium 130 started on IV fluid 6. blood in stool. GI services consulted Hospital course Jeannine Sevilla is a 67 year-old female patient presents to ER with concerns for ongoing urinary tract infection despite outpatient treatment. Patient reports she has not been feeling well for the past 4-5 days. Patient has presented to the ER several times for same complaint was diagnosed with UTI and has been on 3 different medications for this infection without improvement. Patient complains of urinary frequency and dysuria. Patient also reports she has been feeling out of it and not being able to eat or drink with significant weakness. Patient has past medical history of hyperlipidemia, hypertension, Crohn's disease, ex-smoker multiple drug ALLERGIES. Chest x-ray completed showing chronic changes without acute pulmonary process no significant change from prior. CT completed showing mild degenerative change with no evidence of acute hemorrhage or mass effect. UA positive for urinary tract infection. At this time patient will be started on meropenem. Infectious disease service is consulted. Urine and blood cultures ordered. Repeat labs ordered On 11/26/2022 patient was seen and examined on the medical floor she is alert and oriented 3 in no apparent distress she is complaining of suprapubic pain otherwise there is no complaints there is no fever or chills no headache or dizziness no chest pain no shortness of breath no cough no nausea or vomiting no abdominal pain no diarrhea, patient has some burning with urination no frequency or urgency and no hematuria On 11/27/2022 patient is alert and oriented x3. requesting pyriduim be increased. patient also reported having bloody bm last night. will d/c lovenox and gi services consulted. patient is still complaining of some abdominal discomfort. patient remains on IV invanz. ID following. vital signs tempo 98.1, hr 78, rr 17, blood pressure 134/82 pulse ox 95 on room air On 11/28/2022 patient was seen and examined on the medical floor she is alert and oriented x3. She is still complaining of pain in the suprapubic area otherwise she denies any complaints there is no fever or chills no headache or dizziness no chest pain no shortness of breath no cough no nausea or vomiting no abdominal pain no diarrhea she had some burning with urination no frequency or urgency no hematuria, there is no new episodes of rectal bleeding, Dr. Sepulveda is not available for consult this time, if patient's continue to be stable possible discharge to home once all cultures are available in the next 1-2 days, she can follow up with gastroenterology as outpatient. on 11/29/2022 patient is alert and oriented 3. Discussed case with infectious disease doctor at this time will check UA for clearance. This will help determine if patient will require outpatient IV Invanz due to patient's multiple drug ALLERGIES. At this time patient denies chest pain or shortness of breath. Patient denies nausea vomiting or diarrhea. Patient denies any urinary burning or frequency repeat u/a negative. discussed case with ID ok for d/c without any antibiotics at this time Patient Condition at Discharge: Stable Plan - Discharge Summary New Discharge Prescriptions: New Phenazopyridine [Pyridium] 100 mg PO BID 3 Days #6 tab Continue Simvastatin [Zocor] 20 mg PO HS@0000 Omeprazole [PriLOSEC] 20 mg PO BID@0000,1200 HYDROcodone/APAP 10-325MG [Taylor 10-325] 1 tab PO TID@0000,0600,1200 Fluocinonide 0.05% [Lidex 0.05% cream] 1 applic TOPICAL DAILY PRN PRN Reason: eczema hydroCHLOROthiazide [Hydrodiuril] 12.5 mg PO DAILY@0600 lisinopriL [Zestril] 5 mg PO HS@0000 Discontinued Amoxicillin 500 mg PO TID Discharge Medication List HYDROcodone/APAP 10-325MG [Taylor 10-325] 1 tab PO TID@0000,0600,1200 05/20/14 [History] Omeprazole [PriLOSEC] 20 mg PO BID@0000,1200 05/20/14 [History] Simvastatin [Zocor] 20 mg PO HS@0000 05/20/14 [History] Fluocinonide 0.05% [Lidex 0.05% cream] 1 applic TOPICAL DAILY PRN 12/22/21 [History] hydroCHLOROthiazide [Hydrodiuril] 12.5 mg PO DAILY@0600 10/25/22 [History] lisinopriL [Zestril] 5 mg PO HS@0000 10/25/22 [History] Phenazopyridine [Pyridium] 100 mg PO BID 3 Days #6 tab 11/29/22 [Rx] Follow up Appointment(s)/Referral(s): [facility], [NON-STAFF] - 1 Week Ingris Crenshaw MD [Primary Care Provider] - 1-2 days Discharge Disposition: HOME SELF-CARE
[2022-11-29] MEDS: PANTOPRAZOLE 40 MG TABLET PO SCH (11:40)
[2022-11-29 11:45] LABS: Basophils # (A) 0.04 X 10*3/uL (0.00-0.10); Basophils % (A) 0.5 %; Eosinophils # (A) 0.22 X 10*3/uL (0.04-0.35); HCT 35.3 % (37.2-46.3); HGB 11.9 g/dL (12.0-15.0); Immature Grans, Automated 0.4 %; Lymphocytes # (A) 1.48 X 10*3/uL (0.90-5.00); Lymphocytes % (A) 20.2 %; MCH 31.7 pg (27.0-32.0); MCHC 33.7 g/dL (32.0-37.0); MCV 94.1 fL (80.0-97.0); Mean Platelet Volume 9.6 fL (9.5-12.2); Monocytes # (A) 0.54 X 10*3/uL (0.20-1.00); Monocytes % (A) 7.4 %; NRBC Per 100 WBC 0 /100 WBCS (0.0-0.0); Neutrophils % (A) 68.5 %; Platelet Count 227 X 10*3/uL (140-440); RBC 3.75 X 10*6/uL (4.10-5.20); RDW 12.3 % (11.5-14.5); WBC 7.31 X 10*3/uL (4.50-10.00)
[2022-11-29 11:57] LABS: African American GFR (CKD) 87.8 (60.0-200.0); Albumin 3.6 g/dL (3.8-4.9); Albumin/Globulin Ratio 2.4 (1.60-3.17); Anion Gap 7.9 mmol/L (10.00-18.00); BUN/Creat Ratio 11.13 Ratio (12.00-20.00); Blood Urea Nitrogen 8.9 mg/dL (9.0-27.0); Calcium 8.7 mg/dL (8.7-10.3); Carbon Dioxide 26.1 mmol/L (20.0-27.5); Globulin 1.5 g/dL (1.6-3.3); Non-African American GFR(CKD) 75.8 (60.0-200.0); Potassium 3.6 mmol/L (3.5-5.5); Total Bilirubin 0.2 mg/dL (0.30-1.20); Total Protein 5.1 g/dL (6.2-8.2)
[2022-11-29] MEDS: ERTAPENEM 1 GM in SODIUM CHLORIDE 0.9% 50 ML IVPB SCH (12:35)
--- NOTE | 2022-11-29 13:59 | P.PN ---
Subjective Progress Note Date: 11/29/22 Principal diagnosis: ESBL E. coli urinary tract infection Patient is patient is a 67-year-old female with a past medical history significant for hypertension hyperlipidemia cervical cancer history of recurrent UTI, patient presented to the ER this morning complaining of not feeling well for the last 4 to 5 days apparently the patient has been complaining of burning of urine, with a recent culture positive for ESBL E. coli and the patient to have multiple antibiotic ALLERGIES. On today's evaluation that is 11/29/2022, the patient remains to be afebrile, the patient denies chest pain shortness breath or coughs , the patient urinary symptoms has improved since complaining of some suprapubic discomfort, patient did have nausea but no vomiting no abdominal pain and no further bowel movement Objective - Vital Signs Vital signs: Vital Signs Temp 98.6 F 11/29/22 08:16 Pulse 97 11/29/22 08:16 Resp 18 11/29/22 08:16 BP 152/92 11/29/22 08:16 Pulse Ox 96 11/29/22 08:16 FiO2 Intake & Output 11/28/22 11/29/22 11/29/22 18:59 06:59 18:59 Intake Total 900 Balance 900 Intake: Intake, IV Titration 900 Amount Sodium Chloride 0.9% 1, 900 000 ml @ 75 mls/hr IV . [id number] [facility] Rx#:[id number] Other: Voiding Method Toilet Toilet Toilet # Voids 3 3 - Exam GENERAL DESCRIPTION: An elderly female lying in bed in no distress RESPIRATORY SYSTEM: Unlabored breathing , decreased breath sounds at bases HEART: S1 S2 regular rate and rhythm , ABDOMEN: Soft , no tenderness EXTREMITIES: No edema feet - Labs CBC & Chem 7: 11/29/22 07:15 11/29/22 07:15 Labs: Abnormal Lab Results - Last 24 Hours (Table) 11/29/22 Range/Units 07:15 RBC 3.75 L (4.10-5.20) X 10*6/uL Hgb 11.9 L (12.0-15.0) g/dL Hct 35.3 L (37.2-46.3) % Microbiology - Last 24 Hours (Table) 11/25/22 15:00 Blood Culture - Preliminary Blood No Growth after 72 hours 03/22/23 14:45 Blood Culture - Preliminary Blood No Growth after 72 hours Assessment and Plan (1) UTI (urinary tract infection) Status: Acute Code(s): N39.0 - URINARY TRACT INFECTION, SITE NOT SPECIFIED SNOMED Code(s): 23814342 Plan: 1patient with a history of recurrent UTI with urine culture recently grew ESBL E. coli failing outpatient oral antibiotic therapy. 2patient with multiple antibiotic allergies that would limit the number of antibiotics safe to use 3ultrasound of the kidney bladder did shows bilateral renal cysts 4-Patient urine finalized with an E. coli that is sensitive pathogen however the patient did have multiple antibiotic ALLERGIES hence patient was treated with Invanz she did have a repeat UA this morning which is clear likely indicating adequate treatment of her midline UTI has recommended no further antibiotic on discharge as we do not have any oral options, this was discussed in detail with the admitting team working on discharge Time with Patient: Less than 30
== END 2022-11-29 13:33 | disposition home or self-care (01) | DRG 690 ==
LOC: EC 11:44 → 1SOBS 14:26 → 5NMEDONC 16:04
PROVIDERS: ADMIT Internal Medicine; ATTEND Internal Medicine
DX: N39.0 Urinary tract infection, site not specified (principal); Z16.12 Extended spectrum beta lactamase (ESBL) resistance; K50.911 Crohn's disease, unspecified, with rectal bleeding; E87.1 Hypo-osmolality and hyponatremia; B96.20 Unspecified Escherichia coli [E. coli] as the cause of diseases classified elsewhere; Z20.822 Contact with and (suspected) exposure to COVID-19; Z28.310 Unvaccinated for COVID-19; E78.5 Hyperlipidemia, unspecified; E05.90 Thyrotoxicosis, unspecified without thyrotoxic crisis or storm; I34.1 Nonrheumatic mitral (valve) prolapse; I10 Essential (primary) hypertension; H26.9 Unspecified cataract; M54.2 Cervicalgia; N28.1 Cyst of kidney, acquired; M25.511 Pain in right shoulder; Z79.899 Other long term (current) drug therapy; Z87.440 Personal history of urinary (tract) infections; Z87.891 Personal history of nicotine dependence; Z87.81 Personal history of (healed) traumatic fracture; Z85.41 Personal history of malignant neoplasm of cervix uteri; Z88.1 Allergy status to other antibiotic agents; Z88.4 Allergy status to anesthetic agent; Z88.3 Allergy status to other anti-infective agents; Z88.2 Allergy status to sulfonamides; Z88.7 Allergy status to serum and vaccine; Z88.8 Allergy status to other drugs, medicaments and biological substances
CPT/HCPCS: 36415; 70450; 71046; 74177; 76705; 76770; 80053; 81001; 81003; 82150; 83605; 83690; 83735; 84439; 84443; 84484; 85025; 85610; 85730; 86140; 87040; 87077; 87086; 87186; 87636; 93005; 96361; 96365; 99285

== ENCOUNTER 2022-12-08 08:28 | Day surgery (SDC) | payer MEDICARE, OTHER ==
[2022-12-08] MEDS ORDERED: LACTATED RINGERS 1,000 ML IV SCH (08:54)
[2022-12-08 09:20] VITALS: TEMP 98.6
[2022-12-08] MEDS ORDERED: PROPOFOL 10 MG/ML 20 ML VIAL IV ONE (10:05)
[2022-12-08] MEDS ORDERED: LIDOCAINE 2% INJ 20 MG/ML (2 ML VIAL) ONE (10:05)
--- NOTE | 2022-12-08 10:23 | P.PCN ---
Date of Procedure: 12/08/22 Procedure(s) Performed: BRIEF HISTORY: Patient is a 67-year-old, pleasant, white female scheduled for an upper endoscopy as a part of evaluation of persistent epigastric pain for the last 6 weeks duration.. She is currently on Prilosec 20 mg daily with no help and PROCEDURE PERFORMED: Esophagogastroduodenoscopy with biopsy. PREOPERATIVE DIAGNOSIS: Chronic epigastric pain and persistent nausea of 6 weeks duration. IV sedation per anesthesia. PROCEDURE: After informed consent was obtained, the patient was brought into the endoscopy unit. IV sedation was administered by Anesthesia under continuous monitoring. Initially the Olympus GIF-140 video endoscope was inserted into the mouth. Esophagus intubated without any difficulty. It was gradually advanced into the stomach and duodenum and carefully examined. The bulb and the second part of the duodenum appeared normal. Abscesses were done from the duodenum to rule out celiac disease. The scope at this time was withdrawn to the stomach, adequately insufflated with air, and upon careful examination, mucosa of the antrum, gastritis and biopsies were done from this area. There were small polyps in the gastric body which were biopsied. Rest of the body, cardia and the fundus appeared normal. The scope was then withdrawn into the esophagus. Small hiatal hernia noted. The GE junction was located at 39 cm from the incisors. The esophagus appeared normal. There were no erosions or ulcerations seen and the patient tolerated the procedure well. IMPRESSION: 1. Mild antral gastritis and small gastric polyps. 2. Small hiatal hernia but no evidence of peptic ulcer disease or esophagitis. RECOMMENDATIONS: The findings of this examination were discussed with the patient as well as a family. She was advised to follow with the biopsy results. She was advised to increase the Prilosec to 20 mg twice daily and follow antireflux measures.
[2022-12-08 10:46] VITALS: BP 149/84; PULSE 80; RESP 15
== END 2022-12-08 11:46 | disposition home or self-care (01) ==
LOC: ORWHC2ENDO 08:28
PROVIDERS: ATTEND Internal Medicine Gastroenterology
DX: K29.50 Unspecified chronic gastritis without bleeding (principal); K31.7 Polyp of stomach and duodenum; K44.9 Diaphragmatic hernia without obstruction or gangrene; I10 Essential (primary) hypertension; E78.5 Hyperlipidemia, unspecified; J45.909 Unspecified asthma, uncomplicated; K21.9 Gastro-esophageal reflux disease without esophagitis; Z79.899 Other long term (current) drug therapy
CPT/HCPCS: 88305; 43239; J2704; J2001

== ENCOUNTER 2022-12-25 09:12 | Day surgery (SDC) | payer MEDICARE, OTHER ==
[~2022-12-25 09:12] MED LIST: LACTATED RINGERS 1,000 ML IV SCH
[2022-12-25 09:34] VITALS: TEMP 97.7
[2022-12-25] MEDS ORDERED: PROPOFOL 10 MG/ML 20 ML VIAL IV ONE (09:48)
[2022-12-25] MEDS ORDERED: ONDANSETRON 4 MG/2 ML VIAL ONE (09:48)
[2022-12-25] MEDS ORDERED: LIDOCAINE 2% INJ 20 MG/ML (2 ML VIAL) ONE (09:48)
--- NOTE | 2022-12-25 10:06 | P.PCN ---
Date of Procedure: 12/25/22 Procedure(s) Performed: BRIEF HISTORY: Patient is a 67-year-old pleasant white female scheduled for an elective colonoscopy as a part of evaluation of intermittent rectal bleeding for the last 6 months duration. His question history of ulcerative colitis in the past. Lately has been having rectal bleeding 3-4 times a week but no diarrhea. PROCEDURE PERFORMED: Colonoscopy with biopsy. PREOPERATIVE DIAGNOSIS: Committed rectal bleeding of 6 months duration. IV sedation per Anesthesia. PROCEDURE: After informed consent was obtained, the patient, was brought into the endoscopy unit. IV sedation was administered by Anesthesia under continuous monitoring. Digital rectal examination was normal. Initially the Olympus CF-160 flexible video colonoscope was then inserted in the rectum, gradually advanced into the cecum without any difficulty. Careful examination was performed as the scope was gradually being withdrawn. Ileocecal valve and the appendiceal orifice were visualized and appeared normal. Prep was excellent. Mucosa of the cecum, ascending colon, transverse colon, descending colon, sigmoid colon, and rectum appeared normal. In the distal rectum there was mild erythema with friability of the mucosa noted consistent with gastritis and biopsies were done from this area. Retroflexion was performed in the rectum and small internal hemorrhoids were seen. The patient tolerated the procedure well. IMPRESSION: Mild distal proctitis with mucosal erythema and friability and multiple centimeters proximal to the dentate line status post biopsies Small internal hemorrhoids Rest of the colon appeared normal RECOMMENDATIONS: Findings of this examination were discussed with the patient as well as a family. She was advised to follow with the biopsy results. She'll be seen in office in one to 2 weeks..
[2022-12-25 10:27] VITALS: BP 110/74; PULSE 87; RESP 16
== END 2022-12-25 11:01 | disposition home or self-care (01) ==
LOC: ORWHC2ENDO 09:12
PROVIDERS: ATTEND Internal Medicine Gastroenterology
DX: K51.20 Ulcerative (chronic) proctitis without complications (principal); K64.8 Other hemorrhoids; I10 Essential (primary) hypertension; E78.5 Hyperlipidemia, unspecified; K21.9 Gastro-esophageal reflux disease without esophagitis; G89.29 Other chronic pain; Z85.42 Personal history of malignant neoplasm of other parts of uterus; Z87.81 Personal history of (healed) traumatic fracture; Z79.899 Other long term (current) drug therapy; Z98.890 Other specified postprocedural states
CPT/HCPCS: 88305; 45380; J2405; J2704; J2001

== ENCOUNTER 2023-01-18 16:23 | Emergency (ER) | payer MEDICARE, OTHER ==
[2023-01-18 18:20] LABS: Basophils # (A) 0.1 k/uL (0-0.2); Basophils % (A) 1 %; Eosinophils # (A) 0.1 k/uL (0-0.7); Eosinophils % (A) 1 %; HCT 40.5 % (34.0-46.0); HGB 13.4 gm/dL (11.4-16.0); Lymphocytes # (A) 1.7 k/uL (1.0-4.8); Lymphocytes % (A) 19 %; MCH 32.1 pg (25.0-35.0); MCHC 33.2 g/dL (31.0-37.0); MCV 96.8 fL (80.0-100.0); Mean Platelet Volume 7.8; Monocytes # (A) 0.4 k/uL (0-1.0); Monocytes % (A) 5 %; Neutrophils # (A) 6.4 k/uL (1.3-7.7); Neutrophils % (A) 73 %; Platelet Count 267 k/uL (150-450); RBC 4.18 m/uL (3.80-5.40); RDW 13.5 % (11.5-15.5); WBC 8.8 k/uL (3.8-10.6)
[2023-01-18 18:35] LABS: Albumin 4.3 g/dL (3.5-5.0); Calcium 9.4 mg/dL (8.4-10.2); Potassium 3.9 mmol/L (3.5-5.1); Total Bilirubin 0.6 mg/dL (0.2-1.3); Total Protein 6.5 g/dL (6.3-8.2)
--- NOTE | 2023-01-18 20:26 | ED ---
General Adult HPI - General Source: patient Mode of arrival: ambulatory Limitations: no limitations - History of Present Illness -: week(s) Location: neck (And ear) Radiation: non-radiation Quality: aching Consistency: constant Improves with: none Worsens with: other (Palpation and swallowing) <Bandar Sandoval - Last Filed: 01/18/23 20:23> <Sj Anaya - Last Filed: 01/18/23 23:37> - General Chief complaint: Recheck/Abnormal Lab/Rx Stated complaint: Ear infection -sent by drs Time Seen by Provider: 01/18/23 18:52 - History of Present Illness Initial comments: 's patient is a 68-year-old woman who presents to have evaluation of right sided ear pain and neck pain. The patient states that this had developed between 1 and 2 weeks ago. She had seen her primary physician who diagnosed her with an infection and gave her course of amoxicillin. She followed with her physician a few days ago and as the symptoms were continuing she had another course of amoxicillin and then was given follow-up with Dr. Sanchez from infectious disease. She states that she saw him in the clinic, and he sent her over here to have additional tests and computed tomography scan of the neck/ear. The patient is not having fever or chills. No cough or dyspnea. She does have some pain with swallowing. She reports some tenderness to palpation of the right neck. (Bandar Sandoval) - Related Data Home Medications Medication Instructions Recorded Confirmed HYDROcodone/APAP 10-325MG [[place] 1 tab PO TID 05/20/14 01/18/23 10-325] lisinopriL [Zestril] 5 mg PO BID 10/25/22 01/18/23 Simvastatin [Zocor] 20 mg PO DAILY 12/04/22 01/18/23 Linaclotide [Linzess] 145 mcg PO DAILY 01/18/23 01/18/23 Omeprazole 20 mg PO BID 01/18/23 01/18/23 Pantoprazole [Protonix] 40 mg PO BID 01/18/23 01/18/23 Allergies Allergy/AdvReac Type Severity Reaction Status Date / Time bacitracin Allergy Rash/Hives Verified 01/18/23 22:15 [From Neosporin ([id number])] bisacodyl [From PEG-Prep] Allergy Unknown Verified 01/18/23 22:15 bupivacaine Allergy Rash/Hives Verified 01/18/23 22:15 cefazolin [From Kefzol] Allergy Anaphylaxis Verified 01/18/23 22:15 cephalexin [From Keflex] Allergy Anaphylaxis Verified 01/18/23 22:15 Cephalosporins Allergy Rash/Hives Verified 01/18/23 22:15 clindamycin Allergy Rash/Hives Verified 01/18/23 22:15 COVID-19 vaccine, mRNA, Allergy Unknown Verified 01/18/23 22:15 [id number], [COVID-19 vaccine, mRNA-1273, LNP-S] dexamethasone Allergy Unknown Verified 01/18/23 22:15 dicyclomine Allergy Unknown Verified 01/18/23 22:15 doxycycline Allergy Rash/Hives Verified 01/18/23 22:15 erythromycin base Allergy Rash/Hives Verified 01/18/23 22:15 neomycin Allergy Rash/Hives Verified 01/18/23 22:15 [From Neosporin ([id number])] nitrofurantoin Allergy Rash/Hives Verified 01/18/23 22:15 [From Macrobid] oxycodone [From Percocet] Allergy Unknown Verified 01/18/23 22:15 polyethylene glycol Allergy Unknown Verified 01/18/23 22:15 polyethylene glycol 3350 Allergy Unknown Verified 01/18/23 22:15 [From PEG-Prep] polymyxin B Allergy Rash/Hives Verified 01/18/23 22:15 [From Neosporin ([id number])] potassium chloride Allergy Unknown Verified 01/18/23 22:15 [From PEG-Prep] propranolol [From Inderal LA] Allergy Unknown Verified 01/18/23 22:15 sodium bicarbonate Allergy Unknown Verified 01/18/23 22:15 [From PEG-Prep] sodium chloride Allergy Unknown Verified 01/18/23 22:15 [From PEG-Prep] sulfamethoxazole Allergy Rash/Hives Verified 01/18/23 22:15 [From Bactrim] tobramycin [From [place]] Allergy Rash/Hives Verified 01/18/23 22:15 trimethoprim [From Bactrim] Allergy Rash/Hives Verified 01/18/23 22:15 & Gi Upset tromethamine Allergy Unknown Verified 01/18/23 22:15 ciprofloxacin AdvReac Nausea & Verified 01/18/23 22:15 Vomiting levofloxacin AdvReac Nausea & Verified 01/18/23 22:15 Vomiting hydroclorthiazide Allergy Unknown Unknown Uncoded 01/18/23 22:15 soidum choloride 0.225% Allergy Unknown Unknown Uncoded 01/18/23 22:15 beta blockers Allergy Unknown Uncoded 01/18/23 22:15 monohydrate Allergy Unknown Uncoded 01/18/23 22:15 Review of Systems ROS Other: All systems not noted in ROS Statement are negative. Constitutional: Denies: fever, chills, weakness ENT: Reports: ear pain, throat pain. Denies: congestion Respiratory: Denies: cough, dyspnea Cardiovascular: Denies: chest pain Gastrointestinal: Denies: abdominal pain, vomiting Skin: Denies: rash Neurological: Denies: headache <Bandar Sandoval - Last Filed: 01/18/23 20:23> ROS Other: All systems not noted in ROS Statement are negative. <Sj Anaya - Last Filed: 01/18/23 23:37> ROS Statement: Those systems with pertinent positive or pertinent negative responses have been documented in the HPI. Past Medical History Past Medical History: Cancer, Chest Pain / Angina, Hyperlipidemia, Hypertension, Mitral Valve Prolapse (MVP), Skin Disorder Additional Past Medical History / Comment(s): FX BACK 2009, FX NECK WHEN SHE WAS 14 DIVING INTO A POOL- NECK PAIN CERVICAL CA. Crohn's Disease, Bilateral cataracts, eczema, simple cysts on kidneys , pt had recent admit for uti with positive culture of e coli. History of Any Multi-Drug Resistant Organisms: None Reported Past Surgical History: Heart Catheterization, Hysterectomy, Orthopedic Surgery, Tonsillectomy Additional Past Surgical History / Comment(s): LEFT SHOULDER ARTHROSCOPY - 2009; LEFT ANKLE ARTHROSCOPY - 2001; BILATERAL KNEE ARTHROSCOPY - 2000, heart catheterization, sinus surgery, colonoscopy Past Anesthesia/Blood Transfusion Reactions: No Reported Reaction Date of Last Stent Placement:: UNKNOWN Past Psychological History: No Psychological Hx Reported Smoking Status: Former smoker Past Alcohol Use History: None Reported Past Drug Use History: None Reported - Past Family History Mother Family Medical History: Cancer Sister(s) Family Medical History: Cancer <Bandar Sandoval - Last Filed: 01/18/23 20:23> General Exam Limitations: no limitations General appearance: alert, in no apparent distress Head exam: Present: atraumatic, normocephalic Eye exam: Present: normal appearance, PERRL, EOMI. Absent: scleral icterus, conjunctival injection ENT exam: Present: normal oropharynx, mucous membranes moist, TM's normal bilaterally, normal external ear exam Neck exam: Present: normal inspection, full ROM, lymphadenopathy. Absent: tenderness, meningismus Respiratory exam: Present: normal lung sounds bilaterally. Absent: respiratory distress, wheezes, rales, rhonchi, stridor Cardiovascular Exam: Present: regular rate, normal rhythm, normal heart sounds. Absent: systolic murmur, diastolic murmur, rubs, gallop GI/Abdominal exam: Present: soft. Absent: distended, tenderness, guarding, rebound, rigid, mass Neurological exam: Present: alert Skin exam: Present: warm, dry, intact, normal color. Absent: rash <Bandar Sandoval - Last Filed: 01/18/23 20:23> Course Vital Signs 01/18/23 01/18/23 16:28 19:32 Temperature 98.4 F Pulse Rate 106 H 99 Respiratory 20 18 Rate Blood Pressure 137/99 146/95 O2 Sat by Pulse 97 98 Oximetry Medical Decision Making - Lab Data Result diagrams: 01/18/23 18:01 01/18/23 18:01 <Bandar Sandoval - Last Filed: 01/18/23 20:23> - Lab Data Result diagrams: 01/18/23 18:01 01/18/23 18:01 <Sj Anaya - Last Filed: 01/18/23 23:37> - Medical Decision Making The patient was signed out to me from Dr. Sandoval pending the remainder of the laboratory workup and imaging. Was pt. sent in by a medical professional or institution (, PA, PARTICLE BOARD SUPERVISOR, urgent care, hospital, or correction...) When possible be specific @ -Yes, Dr. Vasquez for further labs and CT Did you speak to anyone other than the patient for history (EMS, parent, family, police, friend...)? What history was obtained from this source @ -No Did you review nursing and triage notes (agree or disagree)? Why? @ -I reviewed and agree with nursing and triage notes Were old charts reviewed (outside hosp., previous admission, EMS record, old EKG, old radiological studies, urgent care reports/EKG's, correction records)? Report findings @ -No old charts were reviewed Differential Diagnosis (chest pain, altered mental status, abdominal pain women, abdominal pain men, vaginal bleeding, weakness, fever, dyspnea, syncope, headache, dizziness, GI bleed, back pain, seizure, CVA, palpatations, mental health)? @ -Acute sinusitis, facial abscess, musculoskeletal skeletal strain EKG interpreted by me (3pts min.). @ -None X-rays interpreted by me (1pt min.). @ -None done CT interpreted by me (1pt min.). @ -CT of the soft tissues of the neck with contrast was obtained per infectious disease recommendations and was interpreted by myself showing no significant abnormalities seen to account for the patient's symptoms. U/S interpreted by me (1pt. min.). @ -None done What testing was considered but not performed or refused? (CT, X-rays, U/S, labs)? Why? @ -None What meds were considered but not given or refused? Why? @ -None Did you discuss the management of the patient with other professionals (lily wayne i.e. , PA, PARTICLE BOARD SUPERVISOR, lab, RT, psych nurse, social work program coordinator, accountant helper, teacher, parking control officer, case mgr)? Give summary @ -No Was smoking cessation discussed for >3mins.? @ -No Was critical care preformed (if so, how long)? @ -No Were there social determinants of health that impacted care today? How? (Homelessness, low income, unemployed, alcoholism, drug addiction, transportati on, low edu. Level, literacy, decrease access to med. care, fpc, rehab)? @ -No Was there de-escalation of care discussed even if they declined (Discuss DNR or withdrawal of care, Hospice)? DNR status @ -No What co-morbidities impacted this encounter? (DM, HTN, Smoking, COPD, CAD, Cancer, CVA, ARF, Chemo, Hep., AIDS, mental health diagnosis, sleep apnea, morbid obesity)? @ -None Was patient admitted / discharged? Hospital course, mention meds given and route, prescriptions, significant lab abnormalities, going to OR and other pertinent info. @ -The patient was initially seen and evaluated by Dr. Sandoval. The patient was signed out in stable condition pending imaging and labs. A CRP and computed tomography scan was recommended to be obtained for further testing. CRP was negative and CT of the soft tissues of the neck with contrast was obtained and was negative for any acute findings. The patient continued to remain stable and all workup was negative. The patient was stable for discharge home and was told to follow-up with ENT as previously scheduled. The patient was told to take Tylenol and Motrin for her symptoms and to report back to the emergency department if they became acutely worse. The patient was agreeable to this and all of her questions were answered appropriate. The patient was discharged home in stable condition. Undiagnosed new problem with uncertain prognosis? @ -No Drug Therapy requiring intensive monitoring for toxicity (Heparin, Nitro, Insulin, Cardizem)? @ -No Were any procedures done? @ -No Diagnosis/symptom? @ -Facial pain, neck pain, NOS Acute, or Chronic, or Acute on Chronic? @ -Chronic Uncomplicated (without systemic symptoms) or Complicated (systemic symptoms)? @ -Uncomplicated Side effects of treatment? @ -No Exacerbation, Progression, or Severe Exacerbation? @ -No Poses a threat to life or bodily function? How? (Chest pain, [place], [place], pneumonia, PE, COPD, DKA, ARF, appy, cholecystitis, CVA, Diverticulitis, Homicidal, Suicidal, threat to staff... and all critical care pts) @ -No (Sj Anaya) - Lab Data Lab Results 01/18/23 01/18/23 01/18/23 Range/Units 18:00 18:01 18:01 WBC 8.8 (3.8-10.6) k/uL RBC 4.18 (3.80-5.40) m/uL Hgb 13.4 (11.4-16.0) gm/dL Hct 40.5 (34.0-46.0) % MCV 96.8 (80.0-100.0) fL MCH 32.1 (25.0-35.0) pg MCHC 33.2 (31.0-37.0) g/dL RDW 13.5 (11.5-15.5) % Plt Count 267 (150-450) k/uL MPV 7.8 Neutrophils % 73 % Lymphocytes % 19 % Monocytes % 5 % Eosinophils % 1 % Basophils % 1 % Neutrophils # 6.4 (1.3-7.7) k/uL Lymphocytes # 1.7 (1.0-4.8) k/uL Monocytes # 0.4 (0-1.0) k/uL Eosinophils # 0.1 (0-0.7) k/uL Basophils # 0.1 (0-0.2) k/uL Sodium 136 L (137-145) mmol/L Potassium 3.9 (3.5-5.1) mmol/L Chloride 102 (98-107) mmol/L Carbon Dioxide 26 (22-30) mmol/L Anion Gap 8 mmol/L BUN 15 (7-17) mg/dL Creatinine 0.90 (0.52-1.04) mg/dL Est GFR (CKD-EPI)AfAm 76 (>60 ml/min/1.73 sqM) Est GFR (CKD-EPI)NonAf 66 (>60 ml/min/1.73 sqM) Glucose 145 H (74-99) mg/dL Plasma Lactic Acid Marky 1.3 (0.7-2.0) mmol/L Calcium 9.4 (8.4-10.2) mg/dL Total Bilirubin 0.6 (0.2-1.3) mg/dL AST 22 (14-36) U/L ALT 17 (4-34) U/L Alkaline Phosphatase 47 (38-126) U/L C-Reactive Protein (<1.0) mg/dL Total Protein 6.5 (6.3-8.2) g/dL Albumin 4.3 (3.5-5.0) g/dL Urine Color Urine Appearance (Clear) Urine pH (5.0-8.0) Ur Specific [place] (1.001-1.035) Urine Protein (Negative) Urine Glucose (UA) (Negative) Urine Ketones (Negative) Urine Blood (Negative) Urine Nitrite (Negative) Urine Bilirubin (Negative) Urine Urobilinogen (<2.0) mg/dL Ur Leukocyte Esterase (Negative) Urine RBC (0-5) /hpf Urine WBC (0-5) /hpf Ur Squamous Epith Cells (0-4) /hpf Urine Bacteria (None) /hpf Urine Mucus (None) /hpf Group A Strep (PCR) (Not Detectd) 01/18/23 01/18/23 01/18/23 Range/Units 18:01 21:11 22:43 WBC (3.8-10.6) k/uL RBC (3.80-5.40) m/uL Hgb (11.4-16.0) gm/dL Hct (34.0-46.0) % MCV (80.0-100.0) fL MCH (25.0-35.0) pg MCHC (31.0-37.0) g/dL RDW (11.5-15.5) % Plt Count (150-450) k/uL MPV Neutrophils % % Lymphocytes % % Monocytes % % Eosinophils % % Basophils % % Neutrophils # (1.3-7.7) k/uL Lymphocytes # (1.0-4.8) k/uL Monocytes # (0-1.0) k/uL Eosinophils # (0-0.7) k/uL Basophils # (0-0.2) k/uL Sodium (137-145) mmol/L Potassium (3.5-5.1) mmol/L Chloride (98-107) mmol/L Carbon Dioxide (22-30) mmol/L Anion Gap mmol/L BUN (7-17) mg/dL Creatinine (0.52-1.04) mg/dL Est GFR (CKD-EPI)AfAm (>60 ml/min/1.73 sqM) Est GFR (CKD-EPI)NonAf (>60 ml/min/1.73 sqM) Glucose (74-99) mg/dL Plasma Lactic Acid Marky (0.7-2.0) mmol/L Calcium (8.4-10.2) mg/dL Total Bilirubin (0.2-1.3) mg/dL AST (14-36) U/L ALT (4-34) U/L Alkaline Phosphatase (38-126) U/L C-Reactive Protein <0.5 (<1.0) mg/dL Total Protein (6.3-8.2) g/dL Albumin (3.5-5.0) g/dL Urine Color Light Yellow Urine Appearance Clear (Clear) Urine pH 7.0 (5.0-8.0) Ur Specific [place] 1.050 H (1.001-1.035) Urine Protein Negative (Negative) Urine Glucose (UA) Negative (Negative) Urine Ketones Negative (Negative) Urine Blood Trace H (Negative) Urine Nitrite Negative (Negative) Urine Bilirubin Negative (Negative) Urine Urobilinogen <2.0 (<2.0) mg/dL Ur Leukocyte Esterase Negative (Negative) Urine RBC 4 (0-5) /hpf Urine WBC 2 (0-5) /hpf Ur Squamous Epith Cells <1 (0-4) /hpf Urine Bacteria Rare H (None) /hpf Urine Mucus Rare H (None) /hpf Group A Strep (PCR) NOT DETECTED (Not Detectd) Disposition <Bandar Sandoval - Last Filed: 01/18/23 20:23> Is patient prescribed a controlled substance at d/c from ED?: No Time of Disposition: 23:20 <Sj Anaya - Last Filed: 01/18/23 23:37> Clinical Impression: Neck pain, Facial pain Disposition: HOME SELF-CARE Condition: Stable Instructions (If sedation given, give patient instructions): Atypical Facial Pain (ED) Referrals: Ingris Crenshaw MD [Primary Care Provider] - 1-2 days
[2023-01-18 23:04] LABS: Appearance,Urine Clear (Clear); Bacteria,Urine Rare /hpf; Bilirubin,Urine Negative (Negative); Blood,Urine Trace (Negative); Color,Urine Light Yellow; Glucose,Urine (UA) Negative (Negative); Ketones,Urine Negative (Negative); Leukocyte Esterase,Urine Negative (Negative); Mucus,Urine Rare /hpf; Nitrite,Urine Negative (Negative); Protein,Urine Negative (Negative); RBC,Urine 4 /hpf (0-5); Squamous Epithelial Cell,Urine <1 /hpf (0-4); Urobilinogen,Urine <2.0 mg/dL (<2.0); WBC,Urine 2 /hpf (0-5)
--- NOTE | 2023-01-18 23:15 | CT ---
EXAMINATION TYPE: CT soft tissue neck w con DATE OF EXAM: 01/18/2023 HISTORY: Neck and right ear pain. Difficulty swallowing and sinus drainage. COMPARISON: CT cervical spine September 10, 2020 CT DLP: 269.3 mGycm. Automated Exposure Control for Dose Reduction was Utilized. TECHNIQUE: CT scan of the neck is performed with IV Contrast, patient injected with 80 mL of Isovue 300, axial images are obtained, coronal and sagittal reformatted images are reviewed. FINDINGS: Airway: Mild emphysematous changes are present. Roughly 12 mm hypodense nodule in the isthmus coronal image 35. Parotid/submandibular glands: No gross abnormality seen. Carotid/Vascular Structures: No significant abnormality. Osseous Structures: Straightening of cervical spine with mild height loss involving the C5 vertebra r edemonstrated. Grade 1 retrolisthesis C5 on C6 redemonstrated . Other: No abnormal greater than 1 cm neck adenopathy. The parapharyngeal fat spaces are maintained bi laterally. Paranasal sinuses are grossly clear. No suspicious opacification of the mastoid air cells. IMPRESSION: No significant abnormality is seen to account for patient's symptoms.
[2023-01-18 23:37] VITALS: BP 124/94; PULSE 82; RESP 16; TEMP 97.8
== END 2023-01-18 23:36 | disposition home or self-care (01) ==
LOC: EC 16:23
DX: M54.2 Cervicalgia (principal); R51.9 Headache, unspecified; E78.5 Hyperlipidemia, unspecified; I10 Essential (primary) hypertension; Z87.891 Personal history of nicotine dependence; Z79.899 Other long term (current) drug therapy; Z88.7 Allergy status to serum and vaccine; Z88.6 Allergy status to analgesic agent; Z88.1 Allergy status to other antibiotic agents; Z88.5 Allergy status to narcotic agent; Z88.8 Allergy status to other drugs, medicaments and biological substances; Z88.2 Allergy status to sulfonamides
CPT/HCPCS: 36415; 87651; 80053; 83605; 85025; 86140; 81001; 87040; 70491; 99284; Q9967

== ENCOUNTER → 2023-01-26 | Outpatient (CLI) | payer MEDICARE, OTHER ==
[2023-01-26 15:37] LABS: T4, Free (Free Thyroxine) 1.48 ng/dL (0.800-1.800)
[2023-01-26 20:50] LABS: Dog Dander IgE <0.10 kU/L; Maple (Box Elder) IgE <0.10 kU/L; Oak IgE <0.10 kU/L
[2023-01-26 23:55] LABS: Aspergillus fumagatus IgE <0.10 kU/L; Birch IgE 2.68 kU/L; Cat Epith & Dander IgE 0.11 kU/L; Cladosporian herbarum IgE <0.10 kU/L; Cockroach IgE <0.10 kU/L; Dermato. farinae IgE <0.10 kU/L; Ragweed,Common IgE <0.10 kU/L
[2023-01-27 11:28] LABS: Candida albicans IgE Class CLASS 0; Johnson Grass IgE Class CLASS 0; Timothy Grass IgE <0.10 kU/L (<0.10); Timothy Grass IgE Class CLASS 0
[2023-01-27 11:29] LABS: Aureo. pullulans IgE <0.10 kU/L (<0.10); Aureo. pullulans IgE Class CLASS 0; Epicoccum purpurascens Class CLASS 0; Epicoccum purpurascens IgE <0.10 kU/L (<0.10); Rhizopus nigricans IgE <0.10 kU/L (<0.10); Rhizopus nigricans IgE Class CLASS 0
[2023-01-27 11:30] LABS: Alt. alternata IgE Class CLASS 0; Alternaria alternata IgE <0.10 kU/L (<0.10); Mucor racemosus IgE <0.10 kU/L (<0.10); Mucor racemosus IgE Class CLASS 0
[2023-01-27 11:31] LABS: Com. Pigweed IgE <0.10 kU/L (<0.10); Com. Pigweed IgE Class CLASS 0; Cottonwood IgE <0.10 kU/L (<0.10); Lamb's Quarter IgE <0.10 kU/L (<0.10); Lamb's Quarter IgE Class CLASS 0; S.rostrata/Helminth Class CLASS 0; S.rostrata/Helminth IgE <0.10 kU/L (<0.10); Sycamore(Mpl.Lf) IgE <0.10 kU/L (<0.10); Sycamore(Mpl.Lf) IgE Class CLASS 0; Walnut Tree IgE <0.10 kU/L (<0.10); Walnut Tree IgE Class CLASS 0; White Ash IgE Class CLASS 0
[2023-01-27 11:32] LABS: English Plantain IgE Class CLASS 0; Ragweed, Giant IgE <0.10 kU/L (<0.10); Ragweed, Giant IgE Class CLASS 0
== END | disposition home or self-care (01) ==
LOC: LABWHC1 12:03
PROVIDERS: ATTEND Otolaryngology
DX: E04.1 Nontoxic single thyroid nodule (principal)
CPT/HCPCS: 36415; 84439; 84443; 86003; 86376

== ENCOUNTER → 2023-02-25 | Outpatient (CLI) | payer MEDICARE, OTHER ==
--- NOTE | 2023-02-25 15:50 | US ---
EXAMINATION TYPE: US thyroid st tissue head/neck DATE OF EXAM: 02/25/2023 COMPARISON: NONE CLINICAL INDICATION: Female, 68 years old with history of R22.1 LOCALIZED SWELLING, MASS AND LUMP, NE CK; thyroid nodule GLAND SIZE: Right Lobe: 4.3 x 1.5 x 1.6 cm Overall Parenchyma: heterogenous Left Lobe: 5.1 x 1.5 x 1.5 cm Overall Parenchyma: heterogenous Isthmus Thickness: .4 cm NODULES RIGHT: # of nodules measured on right: Multiple sub centimeter nodules largest measured. 1. .7 X .4 x .7 cm, upper lateral, solid or almost completely solid, hypoechoic nodule, which is wi osman than tall, with smooth margins, without echogenic foci. Prior size: No prior LEFT: # of nodules measured on left: Multiple sub centimeter nodules largest. 1. 1.3 X .9 x .9 cm, upper lateral, solid or almost completely solid, hypoechoic TR 4 nodule, which is wider than tall, with smooth margins, without echogenic foci. Prior size: No prior. ISTHMUS: # of nodules measured in the isthmus: 1 1. 1.6 X 1.2 x 1.5 cm solid or almost completely solid, hypoechoic TR 4 nodule, which is wider elliott n tall, with smooth margins, without echogenic foci. Prior size: No prior Bilateral neck scanned, no evidence of lymphadenopathy. IMPRESSION: Correlate for multinodular goiter. The largest nodule is measured on each side. These are all TR4 nod ules. A 1.3 cm nodule on the left can continue to be followed. The 1.6 cm isthmic nodule meets criter ia for FNA.
== END | disposition home or self-care (01) ==
LOC: RADUSWWP 08:00
PROVIDERS: ATTEND Otolaryngology
DX: E04.2 Nontoxic multinodular goiter (principal); R22.1 Localized swelling, mass and lump, neck
CPT/HCPCS: 76536

== ENCOUNTER 2023-03-17 11:46 | Day surgery (SDC) | payer MEDICARE, OTHER ==
--- NOTE | 2023-03-17 14:15 | US ---
ULTRASOUND GUIDED FNA THYROID BIOPSY: CLINICAL HISTORY: 1.6 cm isthmus nodule FINDINGS: The procedure was explained to the patient. The risks, complications, benefits and alternatives were discussed and any questions were answered. Informed consent was obtained. Patient was placed supin e on the ultrasound table and prepped and draped in the usual sterile fashion. Utilizing a 25 gauge needle, five passes were made into the requested isthmus nodule. Patient was stable throughout the procedure. Pathology is pending. All elements of maximal barrier technique were utilized. IMPRESSION: 1. Successful ultrasound guided FNA thyroid biopsy.
[2023-03-17 16:26] VITALS: BP 134/74; PULSE 74; RESP 18
[2023-03-17 16:27] VITALS: TEMP 98.3
== END 2023-03-17 14:10 | disposition home or self-care (01) ==
LOC: RADPROMAIN 11:46
PROVIDERS: ATTEND Otolaryngology
DX: E04.1 Nontoxic single thyroid nodule (principal)
CPT/HCPCS: 10005; 88173; 88305

== ENCOUNTER → 2023-09-20 | Outpatient (CLI) | payer MEDICARE, OTHER ==
--- NOTE | 2023-09-30 13:20 | US ---
EXAMINATION TYPE: US thyroid st tissue head/neck DATE OF EXAM: 09/20/2023 COMPARISON: 03/17/2023 fine-needle aspiration, ultrasound 02/25/2023. CLINICAL INDICATION: Female, 68 years old with history of E04.1 THYROID NODULE; f/u exam GLAND SIZE: Right Lobe: 4.2 x 1.5 x 1.7 cm Overall Parenchyma: heterogenous Left Lobe: 5.1 x 1.3 x 1.8 cm Overall Parenchyma: heterogenous Isthmus Thickness: 0.4 cm NODULES RIGHT: # of nodules measured on right: multiple, measured largest 1. 0.8 X 0.4 x 0.7 cm, upper , Prior size: 0.7 x 0.4 x 0.7 cm TIRADS Score: 4 TIRADS Category 4: Composition: Solid or almost completely solid (2 points). Echogenicity: Hypoechoic (2 points). Shape: Wider than tall (0 points). Margin: Smooth (0 points). Echogenic foci: None or large comet-tail artifacts (0 points) Recommendation: If >1.5cm: FNA; If >1cm: Follow up at 1,2, 3,5 years LEFT: # of nodules measured on left: multiple, measured largest 1. 1.3 X 0.7 x 0.8 cm, upper, Prior size: 1.3 x 0.9 x 0.9 cm TIRADS Score: 4 TIRADS Category 4: Composition: Solid or almost completely solid (2 points). Echogenicity: Hypoechoic (2 points). Shape: Wider than tall (0 points). Margin: Smooth (0 points). Echogenic foci: None or large comet-tail artifacts (0 points) Recommendation: If >1.5cm: FNA; If >1cm: Follow up at 1,2, 3,5 years ISTHMUS: # of nodules measured in the isthmus: 1 - biopsies 03/28 1. 1.2 X 1.2 x 1.2 cm Prior size: 1.6 x 1.5 x 1.2 cm TIRADS Score: 4 TIRADS Category 4: Composition: Solid or almost completely solid (2 points). Echogenicity: Hypoechoic (2 points). Shape: Wider than tall (0 points). Margin: Smooth (0 points). Echogenic foci: None or large comet-tail artifacts (0 points) Recommendation: If >1.5cm: FNA; If >1cm: Follow up at 1,2, 3,5 years. Bilateral neck scanned, no evidence of lymphadenopathy. IMPRESSION: Stable thyroid nodules that meet criteria for follow-up.
== END | disposition home or self-care (01) ==
LOC: RADUSWWP 11:41
PROVIDERS: ATTEND Otolaryngology
DX: E04.2 Nontoxic multinodular goiter (principal)
CPT/HCPCS: 76536

== ENCOUNTER → 2024-03-27 | Outpatient (CLI) | payer MEDICARE, OTHER ==
--- NOTE | 2024-03-27 09:19 | CT ---
EXAMINATION TYPE: CT iac wo con CT DLP: 150 mGycm, Automated exposure control for dose reduction was used. DATE OF EXAM: 03/27/2024 8:40 AM INDICATION: Patient age:Female; 69 years old; Reason for study: H93.8X3 disorder of ear; PHH. COMPARISON: CT sinus 05/31/2023. TECHNIQUE: Multiple thin axial images were obtained through the temporal bones and internal auditory canals. Additional coronal reformatted images were obtained. No IV contrast was utilized. FINDINGS: Right Temporal Bone: External Ear: The external auditory canal is unremarkable, The tympanic membrane is present with tymp anoplasty tube identified. No thickening demonstrated. Middle Ear: The ossicles demonstrate a normal appearance. Prussak's space is clear and the scutum i s intact. There is no evidence of osseous erosion and the tegmen tympani is intact. Inner Ear: Cochlea, vestibule and semi circular canals are unremarkable. No evidence of carotid chrissy l dehiscence. Two and a half turns of the cochlea are identified. The vestibular aqueduct is not enl arged. Mastoid Air Cells: The mastoid air cells are clear. The tegmen mastoideum is intact. The aditus ad an trum is clear. Internal Auditory Canal: The internal auditory canal is unremarkable. Left Temporal Bone: External Ear: The external auditory canal is unremarkable, The tympanic membrane is present with tymp anoplasty tube identified. No thickening demonstrated. Middle Ear: The ossicles demonstrate a normal appearance. Prussak's space is clear and the scutum i s intact. There is no evidence of osseous erosion and the tegmen tympani is intact. Inner Ear: Cochlea, vestibule and semi circular canals are unremarkable. No evidence of carotid chrissy l dehiscence. Two and a half turns of the cochlea are identified. The vestibular aqueduct is not enl arged. Mastoid Air Cells: The mastoid air cells are clear. The tegmen mastoideum is intact. The aditus ad an trum is clear. Internal Auditory Canal: The internal auditory canal is unremarkable. Postsurgical changes from ethmoidectomies. Minimal mucosal thickening of the inferior bilateral maxil bridget sinuses right greater than left. Atherosclerotic calcification of the arterial vasculature ident ified. IMPRESSION: 1. Post bilateral tympanoplasty tube changes. Otherwise no significant internal auditory canal abnor mality. 2. Post surgical changes from ethmoidectomies.
== END | disposition home or self-care (01) ==
LOC: RADCTMAIN 08:23
PROVIDERS: ATTEND Otolaryngology Otolaryngology/Facial Plastic Surgery
DX: H93.8X3 Other specified disorders of ear, bilateral (principal)
CPT/HCPCS: 70480

== ENCOUNTER 2024-07-14 08:25 | Day surgery (SDC) | payer MEDICARE, OTHER ==
[2024-07-12 10:21] VITALS: BMI 25.0
--- NOTE | 2024-07-13 18:21 | HP ---
HISTORY AND PHYSICAL CHIEF COMPLAINT: Retained ventilation tubes. HISTORY: This patient is a 69-year-old female who was recently seen in my office with history of having repeated sinus infections. She was subsequently seen by Dr. Uriostegui and underwent endoscopic sinus surgery. She was also referred to the [facility] because of possible severe eustachian tube dysfunction/patulous eustachian tube. It is interesting to note that the patient is currently undergoing withdrawal from narcotics and therefore does not want any narcotic medication use in any type of operative procedure that she has performed. She presented to my office stating that the physician at the [facility] felt that placing ventilation tubes in her ears would help with the eustachian tube dysfunction. She notes that since they put the tubes in her ears, her ears have felt plugged. Her audiogram shows that she has a moderate to severe bilateral sensorineural hearing loss without any evidence of any conductive component. Tympanogram was consistent with patent ventilation tubes. At that time, I went over the audiogram with the patient, explained to her that she in fact has a moderate to severe bilateral sensorineural hearing loss and will require hearing aids. I also explained to her that it is possible that the plugged sensation that she is experiencing may be due to the hearing loss in that this was unmasked by the insertion of ventilation tubes. Again, she emphasizes that prior to placing of the ventilation tubes, she did not have any problems with her hearing of any significance. She now feels that the ears are plugged. She returned to the [facility] to have the tubes removed. They attempted to remove the tubes in the office, but it was too painful and therefore the procedure was aborted. She would like to have the tubes removed. I have advised her that I will remove the tubes, but she has to understand that doing so may or may not relieve her symptoms of having a plugged sensation of the ears. There is also possibly that it may make it worse. If for some reason or other, she has a perforation after removal of the tubes, then this could be treated simply with an insertion of a cartilage patch and therefore avoid any type of narcotics, which would be required during a long procedure such as a myringoplasty or tympanoplasty. The patient understands what I have discussed with her and she agrees. Therefore, with this understanding, we will proceed with scheduling her for removal of her ventilation tubes. At that time, if it is available, I will apply a gel film patch over the residual perforation after removing the tubes. She states that in the past she has been on ciprofloxacin ear drops and that she got a little dizzy, but that she is willing to try these again. Again, it is important to emphasize that the patient understands that removing the tubes may or may not relieve her symptoms and may even make them worse. She agrees and states that she understands that is a possibility. PAST MEDICAL HISTORY: Reveals that she has allergies to Keflex, amoxicillin, Cipro, Augmentin, triple antibiotic cream. She is currently undergoing withdrawal from narcotics and therefore does not want any narcotics use during her procedure or afterwards. I advised her that she will be able to discuss this with the anesthesia department. She especially does not want any medications from the benzodiazepine family used. CURRENT MEDICATIONS: Include, 1. Metoprolol. 2. Prilosec. 3. Simvastatin. REVIEW OF SYSTEMS: CARDIOVASCULAR: Positive for hypertension. METABOLIC ENDOCRINE SYSTEM: Positive for hypercholesterolemia. GASTROINTESTINAL: Positive for GERD (gastroesophageal reflux disorder). The remainder of the review of systems is unremarkable. PREVIOUS SURGERIES: Include endoscopic sinus surgery, total abdominal hysterectomy, bilateral myringotomy with insertion of ventilation tubes, arthroscopic knee surgery and shoulder surgery, rotator cuff surgery for her shoulder, and surgery for surgical cancer. She is para 2, 0 miscarriage. PHYSICAL EXAMINATION: GENERAL: This patient is a 69-year-old female who was alert and cooperative. HEENT: The patient is normocephalic. Tympanic membrane reveals patent ventilation tubes present in both tympanic membranes. Middle ear spaces are free of any fluid or infection. Pupils equal, round, reactive to light and accommodation. Extraocular movements within normal limits. Intranasal examination reveals moderate septal deviation with compensatory hypertrophy of the inferior turbinates and a moderate amount of mucus on the mucous membrane draining down posterior pharynx. Examination of oropharynx is unremarkable. Remainder of the head and neck exam including cranial nerves 2 through 12 all within normal limits. CHEST/CARDIOVASCULAR: Both lung joseph are clear to percussion and auscultation. Patient is in regular sinus rhythm. S1, S2 are present without any murmurs. ABDOMEN: There is no evidence any masses, megaly, or tenderness. The abdomen is soft. SKIN: Unremarkable. NEUROLOGICAL: Within normal limits. PELVIC/RECTAL: Deferred at this time because the patient has this on a regular basis at her family physician's office. The remainder of this physical exam is essentially unremarkable. IMPRESSION: Retained ventilation tubes. PLAN: The patient is scheduled to undergo removal of retained ventilation tubes under general anesthesia (so as to avoid any type of narcotics, benzodiazepines, etc.). The patient has been advised to discuss this with Anesthesia prior to her surgery. ATTENTION RNs IN THE PRE-SURGICAL AREA: I have not ordered any pre-surgical prophylactic antibiotics for this patient. If the Pharmacy Department sends any pre- surgical prophylactic antibiotics to the pre-surgical area for this patient, please cancel that order, return the medications to the Pharmacy Department and make sure that the patient's account is credited appropriately. MMOVIDIOL / IJN: [id number] /
[~2024-07-14 08:25] MED LIST changes: -LACTATED RINGERS 1,000 ML IV SCH; +Pre Op ABX Message 1 EACH MISC MISCELLANE ONE
[2024-07-14] MEDS: IV FLUID CONTINUATION 1,000 ML IV ONE (08:43)
[2024-07-14 09:04] VITALS: RESP 16
[2024-07-14] MEDS: LACTATED RINGERS 1,000 ML IV SCH (09:07)
[2024-07-14] MEDS: ONDANSETRON 4 MG/2 ML VIAL IVP STA (09:14)
[2024-07-14] MEDS ORDERED: PHENYLEPHRINE 10 MG/ML VIAL ONE (09:52)
[2024-07-14] MEDS ORDERED: LIDOCAINE 1% INJ 10MG/ML (20 ML MDV) ONE (09:52)
[2024-07-14] MEDS ORDERED: PROPOFOL 10 MG/ML 20 ML VIAL IV ONE (09:52)
[2024-07-14] MEDS: OFLOXACIN 0.3% OPHTH DROPS 5 ML BOTTLE BOTH EARS ONE ×2 (10:13)
[2024-07-14 11:00] VITALS: TEMP 97.2
[2024-07-14 11:58] VITALS: BP 125/65; PULSE 55
--- NOTE | 2024-07-17 18:54 | OP ---
OPERATIVE REPORT DATE OF SERVICE : 07/14/2024 PREOPERATIVE DIAGNOSIS: Bilateral retained ventilation tubes. POSTOPERATIVE DIAGNOSIS: Bilateral retained ventilation tubes. ANESTHESIA: General. OPERATIVE PROCEDURE: Removal of bilateral retained ventilation tubes with Gel-Foam patching of residual perforation. COMPLICATIONS: None. ESTIMATED BLOOD LOSS: Zero. PROCEDURE IN DETAIL: Patient was placed on the operating table in a supine position and after uneventful induction and LMA intubation, satisfactory general anesthesia was obtained. Next, the patient's right ear was draped in usual customary fashion. Next, using the Zeiss operating microscope, inspection of the ear revealed, especially ear after insertion of a #3 aural speculum, the external auditory canal was cleansed of all wax and debris. Next direction was directed toward removal of tube. The tube was gently grasped with a pair of alligator forceps and rocked back and forth, and gently and atraumatically removed from the right tympanic membrane without any difficulty. The edges of the residual perforation were freshened with a myringotomy knife. Following this, a small Gelfoam patch was applied. Next, the same procedure was carried out on the left ear, that is to say on the left using a #3 aural speculum, and the Zeiss operating microscope, the left external auditory canal was cleansed of all wax and debris. Following this, using a pair of alligator forceps, the tube was grasped and gently rocked back and forth and subsequently was removed in an atraumatic fashion from the left tympanic membrane. The edges were freshened using a myringotomy knife in the usual fashion. Next, a Gel-Foam patch was applied to the residual perforation. At this point, the procedure was terminated. There were no intraoperative complications. The patient tolerated the procedure well and was returned to recovery room in satisfactory condition. MMODL / IJN: [id number] /
== END 2024-07-14 12:10 | disposition home or self-care (01) ==
LOC: OR 08:25
PROVIDERS: ATTEND Otolaryngology
DX: H69.93 Unspecified Eustachian tube disorder, bilateral (principal); E11.9 Type 2 diabetes mellitus without complications; E07.9 Disorder of thyroid, unspecified; M19.90 Unspecified osteoarthritis, unspecified site; F41.9 Anxiety disorder, unspecified; J45.909 Unspecified asthma, uncomplicated; K21.9 Gastro-esophageal reflux disease without esophagitis; K51.90 Ulcerative colitis, unspecified, without complications; Z90.710 Acquired absence of both cervix and uterus; Z79.899 Other long term (current) drug therapy; Z79.51 Long term (current) use of inhaled steroids
CPT/HCPCS: 69424; J2405; J2003; J2704; J2371

== ENCOUNTER → 2024-09-14 | Outpatient (CLI) | payer MEDICARE, OTHER | LOC: CPPFTMAIN 09:15 | PROVIDERS: ATTEND Internal Medicine Critical Care Medicine | DX: J45.909 Unspecified asthma, uncomplicated (principal); Z87.891 Personal history of nicotine dependence; Z88.0 Allergy status to penicillin; Z88.1 Allergy status to other antibiotic agents; Z88.7 Allergy status to serum and vaccine; Z88.8 Allergy status to other drugs, medicaments and biological substances | CPT/HCPCS: 94060; 94726; 94729 ==